=== PATIENT | female | born 1925 | race Caucasian/White ===

== ENCOUNTER 2016-11-06 15:45 | Inpatient (IN) | payer MEDICARE ==
[~2016-11-06] VITALS: Ht 165.1 cm; Wt 65.8 kg
[~2016-11-06 15:45] MED LIST: ACET500T68 PO; ALLO300T PO; AMIN500T4 PO; CA C1TAB28 PO; CALC0.25 PO; CHOL2000 PO; CHOL20002 PO; COCO1000 PO; CYAN10005 PO; CYAN1TAB28 PO; DILT240C66 PO; ESTR0.62 PO; ESTR1TAB15 PO; FERR47.57 PO; FEXO180T PO; FISH OIL OMEGA1 EACH PO; FISH400C4 PO; FURO-68 PO; FURO-69 PO; GABA-585 PO; GLUC1TAB71 PO; HYDR12.58 PO; IRON50VI2 IV; KRIL1CAP10 PO; LEVO100V PO; LOSA1TAB16 PO; LOSA25TA4 PO; MAGN500C PO; METO5TAB4 PO; OMEP40CA5 PO; OSTEO BI-FLEX1 EAC1 PO; POTA20TA12 PO; RABE20TA26 PO; RESV250C2 PO; SELE200T10 PO; TRAM50TA PO; TRAN650T3 PO; UBID100C PO; VITA1CAP PO; VITA80003 PO; amicar; focus factor PO; omega xl PO
[2016-11-06] MEDS ORDERED: IV NORMAL SALINE 1000ML BAG 1,000 ML IV SCH (16:06)
[2016-11-06] MEDS ORDERED: PANTOPRAZOLE IV PUSH 40 MG VIAL. IVP ONE (16:15)
[2016-11-06] MEDS ORDERED: ONDANSETRON PF 4 MG/2 ML VIAL. IV ONE (16:15)
--- NOTE | 2016-11-06 16:23 | PHYS DOC ---
Past Medical History Past Medical History: Anemia, CHF, GI Bleed, Hypertension, Other Additional Past Medical Histor: Von Willebrand disease Past Surgical History: Appendectomy, Hysterectomy Additional Past Surgical Histo: colon resection Alcohol Use: None Drug Use: None Adult General Chief Complaint Chief Complaint: BLOODY STOOL HPI HPI Patient is a 89 year old female who presents with complaint of dark stools. The patient was sent to the emergency department from her induction machine setter Dr. Rodriguez' s office due to low hemoglobin and persistent melena. Patient has history of von Willebrand factor deficiency and has been receiving treatment at his office. Patient states that she started having dark stools 5 days ago. Patient received outpatient transfusions. After transfusion however, the patient's hemoglobin only increased from 6.4 to 6.8. Patient states that she is having worsening shortness of breath and mild lightheadedness associated with her symptoms. Patient denies any pain currently. She does admit to worsening generalized weakness. Review of Systems Review of Systems Constitutional: Generalized weakness, denies fever or chills [] Eyes: Denies change in visual acuity, redness, or eye pain [] HENT: Denies nasal congestion or sore throat [] Respiratory: Shortness of breath, dyspnea on exertion [] Cardiovascular: Denies chest pain or edema [] GI: Black stools, denies abdominal pain, nausea, vomiting, or diarrhea [] : Denies dysuria or hematuria [] Musculoskeletal: Denies back pain or joint pain [] Integument: Denies rash or skin lesions [] Neurologic: Denies headache, focal weakness or sensory changes [] Current Medications Current Medications Current Medications Medications (Trade) Dose Ordered Sig/Tim Start Time Stop Time Status Last Admin Dose Admin Ondansetron HCl (Zofran) 4 mg 1X ONCE 11/06/16 16:15 11/06/16 16:20 DC 11/06/16 16:24 4 MG Pantoprazole Sodium (Protonix Vial) 40 mg 1X ONCE 11/06/16 16:15 11/06/16 16:20 DC 11/06/16 16:24 40 MG Sodium Chloride (Iv Sodium Chloride 0.9% 1000ml Bag) 1,000 ml @ 100 mls/hr Q10H 11/06/16 16:06 11/07/16 02:05 11/06/16 16:25 100 MLS/HR Allergies Allergies Allergies Coded Allergies Type Severity Reaction Last Updated Verified Iodinated Contrast Media - Oral and Allergy Severe 11/06/16 Yes Penicillins Allergy Severe Shortness of Air 11/06/16 Yes Sulfa (Sulfonamide Antibiotics) Allergy Intermediate 11/06/16 Yes aspirin Adverse Reaction Intermediate 11/06/16 Yes codeine Adverse Reaction Intermediate Anxiety 11/06/16 Yes Physical Exam Physical Exam Constitutional: Alert, afebrile, no acute distress while at rest. [] HENT: Normocephalic, atraumatic, bilateral external ears normal, pale mucous membranes, no oral exudates, nose normal. [] Eyes: PERRLA, EOMI, conjunctival pallor present, no discharge. [] Neck: Normal range of motion, no tenderness, supple, no stridor. [] Cardiovascular:Heart rate regular rhythm, no murmur [] Lungs & Thorax: Bilateral breath sounds clear to auscultation [] Abdomen: Bowel sounds normal, soft, no tenderness, no masses, no pulsatile masses. [] Skin: Warm, dry, no erythema, no rash. [] Back: No tenderness, no CVA tenderness. [] Extremities: No tenderness, no cyanosis, no clubbing, ROM intact, no edema. [] Neurologic: Alert and oriented X 3, normal motor function, normal sensory function, no focal deficits noted. [] Current Patient Data Vital Signs Vital Signs Date Time Temp Pulse Resp B/P Pulse Ox O2 Delivery O2 Flow Rate FiO2 11/06/16 15:49 97.7 72 18 120/31 97 Room Air 97.7 Lab Values Laboratory Tests Test 11/06/16 16:15 White Blood Count 7.7x10^3/uL (4.0-11.0) Red Blood Count 2.18x10^6/uL (3.50-5.40) L Hemoglobin 6.8g/dL (12.0-15.5) *L Hematocrit 20.6% (36.0-47.0) *L Mean Corpuscular Volume 94fL (79-100) Mean Corpuscular Hemoglobin 31pg (25-35) Mean Corpuscular Hemoglobin Concent 33g/dL (31-37) Red Cell Distribution Width 16.9% (11.5-14.5) H Platelet Count 171x10^3/uL (140-400) Neutrophils (%) (Auto) 76% (31-73) H Lymphocytes (%) (Auto) 16% (24-48) L Monocytes (%) (Auto) 7% (0-9) Eosinophils (%) (Auto) 1% (0-3) Basophils (%) (Auto) 1% (0-3) Neutrophils # (Auto) 5.8x10^3uL (1.8-7.7) Lymphocytes # (Auto) 1.2x10^3/uL (1.0-4.8) Monocytes # (Auto) 0.5x10^3/uL (0.0-1.1) Eosinophils # (Auto) 0.0x10^3/uL (0.0-0.7) Basophils # (Auto) 0.1x10^3/uL (0.0-0.2) Prothrombin Time 13.4SEC (11.7-14.0) Prothrombin Time INR 1.1 (0.8-1.1) PTT 28SEC (24-38) Sodium Level 144mmol/L (136-145) Potassium Level 3.9mmol/L (3.5-5.1) Chloride Level 105mmol/L (98-107) Carbon Dioxide Level 32mmol/L (21-32) Anion Gap 7 (6-14) Blood Urea Nitrogen 56mg/dL (7-20) H Creatinine 1.3mg/dL (0.6-1.0) H Estimated GFR (Cockcroft-Gault) 38.7 BUN/Creatinine Ratio 43 (6-20) H Glucose Level 108mg/dL (70-99) H Calcium Level 9.9mg/dL (8.5-10.1) Total Bilirubin 0.3mg/dL (0.2-1.0) Aspartate Amino Transferase (AST) 24U/L (15-37) Alanine Aminotransferase (ALT) 22U/L (14-59) Alkaline Phosphatase 70U/L (46-116) Total Protein 6.5g/dL (6.4-8.2) Albumin 3.1g/dL (3.4-5.0) L Albumin/Globulin Ratio 0.9 (1.0-1.7) L Lipase 210U/L (73-393) Laboratory Tests 11/06/16 16:15 Laboratory Tests 11/06/16 16:15 EKG EKG Interpreted by me: Heart rate 64, sinus rhythm, right bundle branch block, no acute ST/T-wave abnormalities present [] Radiology/Procedures Radiology/Procedures Not performed [] Course & Med Decision Making Course & Med Decision Making Pertinent Labs and Imaging studies reviewed. (See chart for details) Patient was typed and screened for 2 units packed red blood cells. Patient was also given IV Protonix 40 mg bolus with IV Protonix drip given after. I spoke with Dr. Stallings of gastroenterology who is familiar with patient and stated he would follow patient in hospital. The patient was admitted to Dr. Ruiz. Kelsea Disclaimer Kelsea Disclaimer This electronic medical record was generated, in whole or in part, using a voice recognition dictation system. Departure Departure Impression: Primary Impression: Acute GI bleeding Additional Impressions: Symptomatic anemia Deficiency of von Willebrand factor Disposition: ADMITTED INPATIENT Admitting Physician: Ajith Ruiz Condition: GUARDED Referrals: AJITH RUIZ MD (PCP) Problem Qualifiers JAIME NEVAREZ MD Nov 06, 2016 16:23
[2016-11-06 16:28] LABS: BASO # 0.1 x10^3/uL (0.0-0.2); BASO % 1 % (0-3); EOS % 1 % (0-3); LYMPH # 1.2 x10^3/uL (1.0-4.8); LYMPH % 16 % (24-48); MEAN CORPUSCULAR HEMOGLOBIN 31 pg (25-35); MEAN CORPUSCULAR HGB CONC 33 g/dL (31-37); MEAN CORPUSCULAR VOLUME 94 fL (79-100); MONO % 7 % (0-9); NEUT % 76 % (31-73); PLATELET COUNT 171 x10^3/uL (140-400); RED BLOOD COUNT 2.18 x10^6/uL (3.50-5.40); RED CELL DISTRIBUTION WIDTH 16.9 % (11.5-14.5); WHITE BLOOD COUNT 7.7 x10^3/uL (4.0-11.0)
[2016-11-06 16:31] LABS: HEMATOCRIT 20.6 % (36.0-47.0); HEMOGLOBIN 6.8 g/dL (12.0-15.5)
[2016-11-06 16:33] LABS: CALCIUM 9.9 mg/dL (8.5-10.1); CREATININE 1.3 mg/dL (0.6-1.0); GFR 38.7; POTASSIUM 3.9 mmol/L (3.5-5.1)
[2016-11-06 16:35] LABS: INR 1.1 (0.8-1.1); PROTHROMBIN TIME PATIENT 13.4 SEC (11.7-14.0)
[2016-11-06 16:39] LABS: ALBUMIN 3.1 g/dL (3.4-5.0); ALBUMIN/GLOBULIN RATIO 0.9 (1.0-1.7); TOTAL BILIRUBIN 0.3 mg/dL (0.2-1.0); TOTAL PROTEIN 6.5 g/dL (6.4-8.2)
[2016-11-06] MEDS: IV NORMAL SALINE 1000ML BAG 1,000 ML IV SCH (16:50)
[2016-11-06] MEDS ORDERED: PANTOPRAZOLE SODIUM IV 80 MG in IV NORMAL SALINE 100ML 100 ML IV ONE (17:00)
[2016-11-06] MEDS ORDERED: ONDANSETRON PF 4 MG/2 ML VIAL. IV PRN (17:00)
--- NOTE | 2016-11-06 17:34 | ACF ---
Admission Forms Criteria GASTROINTESTINAL BLEEDING Clinical Indications for Inpatient Care (Place 'X' for any and all applicable criteria): Ongoing inpatient care may be indicated for gastrointestinal bleeding with ANY ONE of the following (4)(20)(21)(22)(23)(24): [ ]I. Active bleeding (eg, fresh voluminous blood in emesis or nasogastric aspirate, or per rectum) [ ]II. Hemodynamic instability [ ]III. Anticoagulation therapy or coagulopathy ((eg, advanced liver disease, irreversible anticoagulation) [ ]IV. Ischemic colitis (22) [ ]V. Endoscopy showing arterial bleeding, adherent clot, nonbleeding visible vessel, varices, flat red spots, ulcer size greater than 2 cm, or portal hypertensive gastropathy [ ]. High-risk low platelet count [X]VII. Anemia requiring inpatient care as indicated by ANY ONE of the following a)[ ] Cognitive impairment b)[ ] Syncope c)[ ] Heart failure d)[ ] Chest pain e)[X] Dyspnea f)[ ] Other findings suggesting inadequate perfusion (eg, peripheral or myocardial ischemia, end organ dysfunction) [ ]VIII. High-risk low platelet count [ ]IX. Suspected variceal cause of bleeding as indicated by ANY ONE of the following(27)(28): a)[ ] Known varices b)[ ] Hepatomegaly or splenomegaly c)[ ] Ascites d)[ ] Jaundice or scleral icterus e)[ ] History of liver disease (eg, cirrhosis) f)[ ] Physical findings of portal hypertension (eg, caput medusa) g)[ ] Comorbid disorder indicating risk for portal vein thrombosis (eg , abdominal surgery, sepsis, shock, exchange transfusion, prior umbilical vein catheterization) Extended stay may be needed until ALL of the following are present(20)(38)(47): [ ]a) Hemodynamic stability [ ]b) No evidence of active bleeding (eg, stable Hematocrit) [ ]c) Platelet count, prothrombin time, and partial thromboplastin time acceptable for next level of care [ ]d) Surgical or other acute intervention not needed [ ]e) Oral hydration and diet tolerated The original [facility] content created by Scott Anna has been revised. The portions of the content which have been revised are identified through the use of italic text or in bold, and Scott Anna has neither reviewed nor approved the modified material. All other unmodified content is copyright [facility]. Please see references footnoted in the original [facility] edition 2016 Admission Criteria Met?: Yes LARISSA COLEMAN Nov 06, 2016 17:34
[2016-11-06 17:56] LABS: BILIRUBIN,URINE NEGATIVE (NEG); GLUCOSE,URINE NEGATIVE (NEG); NITRITE,URINE NEGATIVE (NEG); PROTEIN,URINE NEGATIVE (NEG-TRACE); UROBILINOGEN,URINE 0.2 mg/dL (0.2 mg/dL)
[2016-11-06 18:13] LABS: BACTERIA,URINE FEW /HPF (0-FEW); RBC,URINE RARE /HPF (0-2); SQUAMOUS EPITHELIAL CELL,UR FEW /LPF
[2016-11-06 19:00] VITALS: BP 105/41
[2016-11-06 21:48] VITALS: BP 99/38
[2016-11-06 22:05] VITALS: BP 100/46
[2016-11-06 23:00] VITALS: BP 104/53
[2016-11-07] VITALS (11 sets, daily range): BP systolic 105–130; BP diastolic 31–69
[2016-11-07 04:58] LABS: BASO % 1 % (0-3); EOS % 1 % (0-3); HEMATOCRIT 23.5 % (36.0-47.0); HEMOGLOBIN 7.9 g/dL (12.0-15.5); LYMPH # 1.1 x10^3/uL (1.0-4.8); LYMPH % 18 % (24-48); MEAN CORPUSCULAR HEMOGLOBIN 31 pg (25-35); MEAN CORPUSCULAR HGB CONC 33 g/dL (31-37); MEAN CORPUSCULAR VOLUME 92 fL (79-100); MONO % 9 % (0-9); NEUT % 71 % (31-73); PLATELET COUNT 122 x10^3/uL (140-400); RED BLOOD COUNT 2.57 x10^6/uL (3.50-5.40); RED CELL DISTRIBUTION WIDTH 15.7 % (11.5-14.5); WHITE BLOOD COUNT 5.8 x10^3/uL (4.0-11.0)
[2016-11-07 05:33] LABS: CALCIUM 9.4 mg/dL (8.5-10.1); CREATININE 1.2 mg/dL (0.6-1.0); GFR 42.4
[2016-11-07] MEDS ORDERED: ONDANSETRON PF 4 MG/2 ML VIAL. IV PRN (05:39)
--- NOTE | 2016-11-07 06:59 | EKG ---
[facility] [address] [place] [address] Test Date: 2016-11-06 Test Time: 16:28:53 Pat Name: TALI LUNA Department: Room: [facility] Gender: F Wax Room Supervisor: : [id number] Requested By: JAIME NEVAREZ Order Number: [id number] Reading MD: Erin Mandel Measurements Intervals Hardy Rate: 64 P: CO: QRS: 64 QRSD: 128 T: 7 QT: 438 QTc: 456 Interpretive Statements ATRIAL FIBRILLATION. NON SPECIFIC INTRAVENTRICULAR BLOCK ABNORMAL ECG Electronically Signed On 11-07-2016 21:54:41 CDT by Erin Mandel
[2016-11-07] MEDS ORDERED: PANTOPRAZOLE 40 MG TABLET. PO SCH (07:30)
[2016-11-07] MEDS ORDERED: CYANOCOBALAMIN (VITAMIN B-12) 1,000 MCG TABLET. ONE (07:51)
--- NOTE | 2016-11-07 08:22 | PDOC ---
Provider Note Provider Note [id number] AJITH RUIZ MD Nov 07, 2016 08:22
--- NOTE | 2016-11-07 08:50 | HP ---
ADMIT DATE: 11/06/2016 CHIEF COMPLAINT: GI bleeding. HISTORY OF PRESENT ILLNESS: An 89-year-old white female with known Von Willebrand disease and recurrent anemia from GI bleeding, came in with melena and hemoglobin around 6. She was admitted Dr. Rodriguez's office and was given transfusions and GI consultations have been obtained. She is sleeping at present. PAST MEDICAL HISTORY: She takes pantoprazole, omeprazole for GI prophylaxis. ALLERGIES: She is allergic to ASPIRIN, SULFA AND PENICILLINS. MEDICATIONS: Multiple meds listed per the chart. She gets periodic treatment with DDAVP. SOCIAL HISTORY: , nonsmoker, nondrinker. FAMILY HISTORY: Unremarkable. REVIEW OF SYSTEMS: Negative. OBJECTIVE: ENT: Mild pallor, otherwise all within normal limits. NECK: No nodes, masses or thyroid enlargement. LUNGS: Clear. CARDIOVASCULAR: Regular rate. Grade 2 systolic flow murmur noted. No irregular beat. ABDOMEN: Benign, soft and nontender. EXTREMITIES: Good pedal and radial pulses. No joint or skin lesions. Nail beds are pale. NEUROLOGIC: Physiologic and nonfocal. ASSESSMENT: Recurrent anemia secondary to occult gastrointestinal bleeding complicated by Von Willebrand disease. PLAN: As ordered. AJITH RUIZ MD DR: ANA MARIA/adi JOB#: [id number] / [id number]
[2016-11-07] MEDS ORDERED: NON FORMULARY ITEM (Coconut Oil 1,000 MG) PO SCH (09:00)
[2016-11-07] MEDS ORDERED: [UNRECOGNIZED DRUG - OTHER] PO SCH (09:00)
[2016-11-07] MEDS ORDERED: FUROSEMIDE 40 MG TABLET. PO SCH (09:00)
[2016-11-07] MEDS ORDERED: ACETAMINOPHEN 500 MG TABLET PO PRN (09:00)
[2016-11-07] MEDS ORDERED: TRANEXAMIC ACID 650 MG PO SCH (09:00)
[2016-11-07] MEDS ORDERED: SELENOMETHIONINE 200 MCG PO SCH (09:00)
[2016-11-07] MEDS: LEVOTHYROXINE 100 MCG TABLET PO SCH (09:30)
[2016-11-07] MEDS: MAGNESIUM OXIDE 400 MG TABLET PO SCH (09:32)
[2016-11-07] MEDS: CALCITRIOL 0.25 MCG CAPSULE. PO SCH (09:32)
[2016-11-07] MEDS: IV NORMAL SALINE 1000ML BAG 1,000 ML IV SCH ×2 (09:32→20:52)
[2016-11-07] MEDS: CETIRIZINE HCL 10 MG TABLET. PO SCH (09:32)
[2016-11-07] MEDS: POTASSIUM CHLORIDE 20 MEQ TABLET.ER. PO SCH (09:33)
[2016-11-07] MEDS: CYANOCOBALAMIN (VITAMIN B-12) 1,000 MCG TABLET. PO SCH (09:33)
[2016-11-07] MEDS: GABAPENTIN 100 MG CAPSULE. PO SCH ×2 (09:33→20:55)
[2016-11-07] MEDS: ALLOPURINOL 300 MG TABLET. PO SCH (09:34)
[2016-11-07] MEDS: AMINOCAPROIC ACID 500 MG TABLET. PO SCH ×3 (09:34→19:05)
--- NOTE | 2016-11-07 10:37 | PDOC2 ---
GI CONSULT Reason For Consult: GI Bleed HPI: HPI: 89 y/o female admitted w/ melena, anemia. Has been transfused. PMH significant for anemia, von Willebrand's disease on Humate, previously also Amicar, also intermittent iron infusions. Reports dark stools in Fe after taking Fosamax, then gastroenteritis symptoms (abd pain, diarrhea - brown liquid ), and then recurrence of dark tarry stools within the past week. Has been dizzy. On PPI. GI bleed scan in process, being taken back down to [facility]. No stools since admission, last yesterday afternoon. EGD 11/2015: normal esophagus, gastritis, normal duodenum. Colonoscopy 11/2015: 5x8mm cecal tubular adenoma, sigmoid diverticulosis, internal hemorrhoids. She reports normal SBCE as well. PMH: PMH: von Willebrand's disease, cholelithiasis, hypothyroidism, OA, HTN, gout, SLE, anal fissure, ?hepatitis, Raynaud's, GERD, adenomatous colon polyp, hysterectomy , appendectomy, colon resection FH: Family History: Other (bleeding disorder, ulcerative colitis) Social History: Smoke: No ALCOHOL: none Drugs: None ROS: GEN: Denies fevers, chills, sweats HEENT: Denies blurred vision, sore throat CV: Denies chest pain RESP: Denies shortness of air, cough GI: Per HPI : Denies hematuria, dysuria ENDO: Denies weight changes NEURO: +dizziness MSK: Denies weakness, joint pain/swelling SKIN: Denies jaundice, pruritus VItals: Vitals: Vital Signs Date Time Temp Pulse Resp B/P Pulse Ox O2 Delivery O2 Flow Rate FiO2 11/07/16 07:27 97.9 63 18 105/38 95 Room Air 97.9 Labs: Labs: Laboratory Tests Test 11/06/16 16:15 11/06/16 17:30 11/07/16 04:30 White Blood Count 7.7x10^3/uL (4.0-11.0) 5.8x10^3/uL (4.0-11.0) Red Blood Count 2.18x10^6/uL (3.50-5.40) 2.57x10^6/uL (3.50-5.40) Hemoglobin 6.8g/dL (12.0-15.5) 7.9g/dL (12.0-15.5) Hematocrit 20.6% (36.0-47.0) 23.5% (36.0-47.0) Mean Corpuscular Volume 94fL (79-100) 92fL (79-100) Mean Corpuscular Hemoglobin 31pg (25-35) 31pg (25-35) Mean Corpuscular Hemoglobin Concent 33g/dL (31-37) 33g/dL (31-37) Red Cell Distribution Width 16.9% (11.5-14.5) 15.7% (11.5-14.5) Platelet Count 171x10^3/uL (140-400) 122x10^3/uL (140-400) Neutrophils (%) (Auto) 76% (31-73) 71% (31-73) Lymphocytes (%) (Auto) 16% (24-48) 18% (24-48) Monocytes (%) (Auto) 7% (0-9) 9% (0-9) Eosinophils (%) (Auto) 1% (0-3) 1% (0-3) Basophils (%) (Auto) 1% (0-3) 1% (0-3) Neutrophils # (Auto) 5.8x10^3uL (1.8-7.7) 4.1x10^3uL (1.8-7.7) Lymphocytes # (Auto) 1.2x10^3/uL (1.0-4.8) 1.1x10^3/uL (1.0-4.8) Monocytes # (Auto) 0.5x10^3/uL (0.0-1.1) 0.5x10^3/uL (0.0-1.1) Eosinophils # (Auto) 0.0x10^3/uL (0.0-0.7) 0.1x10^3/uL (0.0-0.7) Basophils # (Auto) 0.1x10^3/uL (0.0-0.2) 0.0x10^3/uL (0.0-0.2) Prothrombin Time 13.4SEC (11.7-14.0) Prothromb Time International Ratio 1.1 (0.8-1.1) Activated Partial Thromboplast Time 28SEC (24-38) Sodium Level 144mmol/L (136-145) 145mmol/L (136-145) Potassium Level 3.9mmol/L (3.5-5.1) 4.0mmol/L (3.5-5.1) Chloride Level 105mmol/L (98-107) 108mmol/L (98-107) Carbon Dioxide Level 32mmol/L (21-32) 30mmol/L (21-32) Anion Gap 7 (6-14) 7 (6-14) Blood Urea Nitrogen 56mg/dL (7-20) 58mg/dL (7-20) Creatinine 1.3mg/dL (0.6-1.0) 1.2mg/dL (0.6-1.0) Estimated GFR (Cockcroft-Gault) 38.7 42.4 BUN/Creatinine Ratio 43 (6-20) Glucose Level 108mg/dL (70-99) 116mg/dL (70-99) Calcium Level 9.9mg/dL (8.5-10.1) 9.4mg/dL (8.5-10.1) Total Bilirubin 0.3mg/dL (0.2-1.0) Aspartate Amino Transf (AST/SGOT) 24U/L (15-37) Alanine Aminotransferase (ALT/SGPT) 22U/L (14-59) Alkaline Phosphatase 70U/L (46-116) Total Protein 6.5g/dL (6.4-8.2) Albumin 3.1g/dL (3.4-5.0) Albumin/Globulin Ratio 0.9 (1.0-1.7) Lipase 210U/L (73-393) Urine Collection Type Unknown Urine Color Yellow Urine Clarity Cloudy Urine pH 5.0 Urine Specific [place] 1.015 Urine Protein Negativemg/dL (NEG-TRACE) Urine Glucose (UA) Negativemg/dL (NEG) Urine Ketones (Stick) Negativemg/dL (NEG) Urine Blood Small (NEG) Urine Nitrite Negative (NEG) Urine Bilirubin Negative (NEG) Urine Urobilinogen Dipstick 0.2mg/dL (0.2 mg/dL) Urine Leukocyte Esterase Moderate (NEG) Urine RBC Rare/HPF (0-2) Urine WBC 1-4/HPF (0-4) Urine Squamous Epithelial Cells Few/LPF Urine Bacteria Few/HPF (0-FEW) Urine Mucus Mod/LPF Allergies: Coded Allergies: Iodinated Contrast Media - Oral and (Verified Allergy, Severe, 11/06/16) Penicillins (Verified Allergy, Severe, Shortness of Air, 11/06/16) Sulfa (Sulfonamide Antibiotics) (Verified Allergy, Intermediate, 11/06/16) aspirin (Verified Adverse Reaction, Intermediate, 11/06/16) mcdonnell bleeding disorder and does not use aspirin codeine (Verified Adverse Reaction, Intermediate, Anxiety, 11/06/16) Medications: Current Medications Medications (Trade) Dose Ordered Sig/Tim Route PRN Reason Start Time Stop Time Status Last Admin Dose Admin Sodium Chloride (Iv Sodium Chloride 0.9% 1000ml Bag) 1,000 ml @ 100 mls/hr Q10H IV 11/06/16 16:06 11/07/16 02:05 DC 11/06/16 16:25 Ondansetron HCl (Zofran) 4 mg 1X ONCE IV 11/06/16 16:15 11/06/16 16:20 DC 11/06/16 16:24 Pantoprazole Sodium 40 mg 40 mg 1X ONCE IVP 11/06/16 16:15 11/06/16 16:20 DC 11/06/16 16:24 Sodium Chloride 1,000 ml @ 100 mls/hr Q10H IV 11/06/16 16:50 11/07/16 16:49 11/07/16 09:32 Pantoprazole Sodium/Sodium Chloride (Protonix Iv/Iv Sodium Chloride 0.9% 100ml) 100 ml @ 10 mls/hr 1X ONCE IV 11/06/16 17:00 11/07/16 02:59 DC 11/06/16 17:21 Allopurinol (Zyloprim) 300 mg DAILY PO 11/07/16 09:00 11/07/16 09:34 Calcitriol (Rocaltrol) 0.25 mcg DAILY PO 11/07/16 09:00 11/07/16 09:32 Cyanocobalamin (Vitamin B-12) 1,000 mcg DAILY PO 11/07/16 09:00 11/07/16 09:33 Gabapentin (Neurontin) 200 mg BID PO 11/07/16 09:00 11/07/16 09:33 Potassium Chloride (Klor-Con) 20 meq DAILY PO 11/07/16 09:00 11/07/16 09:33 Cetirizine HCl (Zyrtec) 10 mg DAILY PO 11/07/16 09:00 11/07/16 09:32 Magnesium Oxide (Magnesium Oxide) 400 mg DAILY PO 11/07/16 09:00 11/07/16 09:32 Pantoprazole Sodium (Protonix) 40 mg DAILYAC PO 11/07/16 07:30 11/07/16 09:30 Levothyroxine Sodium (Synthroid) 100 mcg DAILY07 PO 11/07/16 07:00 11/07/16 09:30 Aminocaproic Acid (Amicar) 500 mg Q6HRS PO 11/07/16 09:00 11/07/16 09:34 Imaging: Imaging: GI Bleed Scan REPORT PENDING PE: GEN: NAD HEENT: Atraumatic, PERRL LUNGS: CTAB HEART: RRR +murm ABD: NABS, S/ND/NT EXTREMITY: No edema SKIN: No rashes, no jaundice NEURO/PSYCH: A & O 3 A/P: A/P: Anemia, melena, von Willebrand's disease -EGD and colonoscopy unrevealing 2015, also reports normal SBCE -- GI bleed scan in process. ERENDIRA DORSEY Nov 07, 2016 10:37
[2016-11-07] MEDS ORDERED: TOTAL VOLUME IV ONE (11:45)
[2016-11-07] MEDS ORDERED: ANTIHEMOPHILIC FACTOR IV ONE (11:45)
[2016-11-07] MEDS ORDERED: VWF IV ONE (11:45)
--- NOTE | 2016-11-07 12:56 | RAD ---
Radionuclide GI bleeding scan, 11/07/2016: History: Bloody stools The study was performed utilizing 30 mCi of technetium 99m and a labeled red blood cell technique. During the first hour of imaging there is abnormal accumulation of activity in the left upper quadrant of the abdomen. Over time this progresses inferiorly and medially into the pelvis. Delayed images demonstrate increasing accumulation of activity in the pelvis. This activity is probably in the rectosigmoid colon suggesting that the bleeding originated in the distal splenic flexure region of the colon. No extension of activity into the right colon is seen to suggest that this bleeding originated in the small bowel. IMPRESSION: Active GI tract bleeding originating in the left upper quadrant, probably probably in the distal splenic flexure region. Note: The findings were called to the patient's nurse on the floor at 12:50 PM on 11/07/2016.
[2016-11-07] MEDS ORDERED: LIDOCAINE 1% / SOD BICARB 8.4% 20 ML VIAL. IJ ONE (13:40)
[2016-11-07] MEDS ORDERED: IOHEXOL 300 MG/ML 100ML VIAL. ONE (13:40)
[2016-11-07] MEDS ORDERED: IOHEXOL 300 MG/ML 50 ML VIAL. ONE (13:40)
[2016-11-07] MEDS ORDERED: HEPARIN for ARTERIAL LINE 0 ML ONE (13:40)
--- NOTE | 2016-11-07 14:03 | PDOC2 ---
CONSULT Date of Consult Date of Consult DATE: 11/07/16 TIME: 13:48 Past Medical History Cardiovascular: Other CENTRAL NERVOUS SYSTEM: Carpal Tunnel Syndrome GI: GERD Heme/Onc: Iron deficiency Anemia, Other Hepatobiliary: Cholelithiasis Rheumatologic: Other Renal/: Urinary Incontinence Endocrine: Hypothyroidism Past Surgical History Past Surgical History: Appendectomy, Hysterectomy, Colon Resection Social History No ALCOHOL: none Drugs: None Current Problem List Problem List Problems Medical Problems: (1) Acute GI bleeding Status: Acute (2) Deficiency of von Willebrand factor Status: Acute (3) Symptomatic anemia Status: Acute Current Medications Current Medications Current Medications Sodium Chloride (Iv Sodium Chloride 0.9% 1000ml Bag) 1,000 ml @ 100 mls/hr Q10H IV Last administered on 11/06/16 16:25; Start 11/06/16 at 16:06; Stop at 02:05; Status DC Ondansetron HCl (Zofran) 4 mg 1X ONCE IV Last administered on 11/06/16 16:24 ; Start 11/06/16 at 16:15; Stop 11/06/16 at 16:20; Status DC Pantoprazole Sodium (Protonix Vial) 40 mg 1X ONCE IVP Last administered on 16:24; Start 11/06/16 at 16:15; Stop 11/06/16 at 16:20; Status DC Ondansetron HCl 4 mg 4 mg PRN Q8HRS PRN IV NAUSEA/VOMITING; Start 11/06/16 at 17:00; Stop 11/07/16 at 05:39; Status DC Sodium Chloride 1,000 ml @ 100 mls/hr Q10H IV Last administered on 11/07/16 09:32; Start 11/06/16 at 16:50; Stop 11/07/16 at 16:49 Pantoprazole Sodium/Sodium Chloride (Protonix Iv/Iv Sodium Chloride 0.9% 100ml) 100 ml @ 10 mls/hr 1X ONCE IV Last administered on 11/06/16 17:21; Start at 17:00; Stop 11/07/16 at 02:59; Status DC Acetaminophen (Tylenol) 500 mg PRN DAILY PRN PO MILD PAIN; Start 11/07/16 at 09 :00 Allopurinol (Zyloprim) 300 mg DAILY PO Last administered on 11/07/16 09:34; Start 11/07/16 at 09:00 Calcitriol (Rocaltrol) 0.25 mcg DAILY PO Last administered on 11/07/16 09:32; Start 11/07/16 at 09:00 Cyanocobalamin (Vitamin B-12) 1,000 mcg DAILY PO Last administered on 09:33; Start 11/07/16 at 09:00 Furosemide (Lasix) 40 mg DAILY PO ; Start 11/07/16 at 09:00; Stop 11/07/16 at 09 :00; Status DC Gabapentin (Neurontin) 200 mg BID PO Last administered on 11/07/16 09:33; Start 11/07/16 at 09:00 Potassium Chloride (Klor-Con) 20 meq DAILY PO Last administered on 11/07/16 09 :33; Start 11/07/16 at 09:00 Tramadol HCl (Ultram) 50 mg PRN QID PRN PO MODERATE PAIN; Start 11/07/16 at 09: 00 Non-Formulary Medication 1,000 mg DAILY PO ; Start 11/07/16 at 09:00; Status UNV Cetirizine HCl (Zyrtec) 10 mg DAILY PO Last administered on 11/07/16 09:32; Start 11/07/16 at 09:00 Non-Formulary Medication 1 each DAILY PO ; Start 11/07/16 at 09:00; Status UNV Magnesium Oxide (Magnesium Oxide) 400 mg DAILY PO Last administered on 09:32; Start 11/07/16 at 09:00 Pantoprazole Sodium (Protonix) 40 mg DAILYAC PO Last administered on 11/07/16 09:30; Start 11/07/16 at 07:30 Non-Formulary Medication 200 mcg DAILY PO ; Start 11/07/16 at 09:00; Status UNV Non-Formulary Medication 650 mg BID PO ; Start 11/07/16 at 09:00; Stop 11/07/16 at 09:44; Status DC Levothyroxine Sodium (Synthroid) 100 mcg DAILY07 PO Last administered on 09:30; Start 11/07/16 at 07:00 Ondansetron HCl (Zofran) 4 mg PRN Q8HRS PRN IV NAUSEA/VOMITING; Start 11/07/16 at 05:39; Stop 11/07/16 at 16:59 Cyanocobalamin (Vitamin B-12) 1,000 mcg STK-MED ONCE .ROUTE ; Start 11/07/16 at 07:51; Stop 11/07/16 at 07:52; Status DC Aminocaproic Acid 500 mg 500 mg Q6HRS PO Last administered on 11/07/16t 12:44; Start 11/07/16 at 09:00 Antihemophilic Factor/ Miscellaneous (Humate-P Vwf:Rco) 30 ml @ 180 mls/hr 1X ONCE IV Last administered on 11/07/16t 12:43; Start 11/07/16 at 11:45; Stop at 11:54; Status DC Iohexol (Omnipaque 300 Mg/ml) 50 ml STK-MED ONCE .ROUTE ; Start 11/07/16 at 13: 40; Stop 11/07/16 at 13:41; Status DC Iohexol (Omnipaque 300 Mg/ml) 100 ml STK-MED ONCE .ROUTE ; Start 11/07/16 at 13: 40; Stop 11/07/16 at 13:41; Status DC Lidocaine/Sodium Bicarbonate 20 ml 20 ml STK-MED ONCE IJ ; Start 11/07/16 at 13: 40; Stop 11/07/16 at 13:41; Status DC Heparin Sodium/ Sodium Chloride 1,500 ml @ As Directed STK-MED ONCE .ROUTE ; Start 11/07/16 at 13:40; Stop 11/07/16 at 13:41; Status DC Active Scripts Active Lasix (Furosemide) 40 Mg Tablet 1 Tab PO QOD Reported Lysteda (Tranexamic Acid) 650 Mg Tablet 650 Mg PO BID Vitamin B Complex 1 Each Capsule 1 Each PO Calcitriol 0.25 Mcg Capsule 1 Cap PO DAILY Selenium (Selenomethionine) 200 Mcg Tablet 200 Mcg PO DAILY Vitamin A 8,000 Unit Capsule 8,000 Unit PO Coconut Oil 1,000 Mg Capsule 1,000 Mg PO DAILY Aminocaproic Acid 500 Mg Tablet 500 Mg PO DAILY Magnesium (Magnesium Oxide) 500 Mg Capsule 500 Mg PO DAILY Omeprazole 40 Mg Capsule.dr 40 Mg PO DAILY Potassium Chloride 20 Meq Tab.er.prt 20 Meq PO DAILY Acetaminophen 500 Mg Tablet 500 Mg PO PRN DAILY PRN Allopurinol 300 Mg Tablet 300 Mg PO DAILY Neurontin (Gabapentin) 100 Mg Capsule 200 Mg PO BID Vitamin B-12 (Cyanocobalamin (Vitamin B-12)) 1,000 Mcg Tablet 1,000 Mcg PO DAILY Osteo Bi-Flex Caplet (Gluc/Lyndon-Msm#1/C/Brandon/Alfredo/Bor) 1 Each Tablet 1 Each PO DAILY Levothyroxine Sodium Inj (Levothyroxine Sodium) 100 Mcg Vial 100 Mcg PO DAILY Nakita (Fexofenadine Hcl) 180 Mg Tablet 180 Mg PO DAILY Tramadol Hcl 50 Mg Tablet 50 Mg PO PRN QID Allergies Allergies: Coded Allergies: Iodinated Contrast Media - Oral and (Verified Allergy, Severe, 11/07/16) Penicillins (Verified Allergy, Severe, Shortness of Air, 11/07/16) Sulfa (Sulfonamide Antibiotics) (Verified Allergy, Intermediate, 11/07/16) aspirin (Verified Adverse Reaction, Intermediate, 11/07/16) mcdonnell bleeding disorder and does not use aspirin codeine (Verified Adverse Reaction, Intermediate, Anxiety, 11/07/16) Vitals VITALS Vital Signs Date Time Temp Pulse Resp B/P Pulse Ox O2 Delivery O2 Flow Rate FiO2 11/07/16 10:31 97.5 65 20 130/31 100 Room Air 97.5 Labs Labs Laboratory Tests Test 11/06/16 16:15 11/06/16 17:30 11/07/16 04:30 White Blood Count 7.7x10^3/uL (4.0-11.0) 5.8x10^3/uL (4.0-11.0) Red Blood Count 2.18x10^6/uL (3.50-5.40) 2.57x10^6/uL (3.50-5.40) Hemoglobin 6.8g/dL (12.0-15.5) 7.9g/dL (12.0-15.5) Hematocrit 20.6% (36.0-47.0) 23.5% (36.0-47.0) Mean Corpuscular Volume 94fL (79-100) 92fL (79-100) Mean Corpuscular Hemoglobin 31pg (25-35) 31pg (25-35) Mean Corpuscular Hemoglobin Concent 33g/dL (31-37) 33g/dL (31-37) Red Cell Distribution Width 16.9% (11.5-14.5) 15.7% (11.5-14.5) Platelet Count 171x10^3/uL (140-400) 122x10^3/uL (140-400) Neutrophils (%) (Auto) 76% (31-73) 71% (31-73) Lymphocytes (%) (Auto) 16% (24-48) 18% (24-48) Monocytes (%) (Auto) 7% (0-9) 9% (0-9) Eosinophils (%) (Auto) 1% (0-3) 1% (0-3) Basophils (%) (Auto) 1% (0-3) 1% (0-3) Neutrophils # (Auto) 5.8x10^3uL (1.8-7.7) 4.1x10^3uL (1.8-7.7) Lymphocytes # (Auto) 1.2x10^3/uL (1.0-4.8) 1.1x10^3/uL (1.0-4.8) Monocytes # (Auto) 0.5x10^3/uL (0.0-1.1) 0.5x10^3/uL (0.0-1.1) Eosinophils # (Auto) 0.0x10^3/uL (0.0-0.7) 0.1x10^3/uL (0.0-0.7) Basophils # (Auto) 0.1x10^3/uL (0.0-0.2) 0.0x10^3/uL (0.0-0.2) Prothrombin Time 13.4SEC (11.7-14.0) Prothromb Time International Ratio 1.1 (0.8-1.1) Activated Partial Thromboplast Time 28SEC (24-38) Sodium Level 144mmol/L (136-145) 145mmol/L (136-145) Potassium Level 3.9mmol/L (3.5-5.1) 4.0mmol/L (3.5-5.1) Chloride Level 105mmol/L (98-107) 108mmol/L (98-107) Carbon Dioxide Level 32mmol/L (21-32) 30mmol/L (21-32) Anion Gap 7 (6-14) 7 (6-14) Blood Urea Nitrogen 56mg/dL (7-20) 58mg/dL (7-20) Creatinine 1.3mg/dL (0.6-1.0) 1.2mg/dL (0.6-1.0) Estimated GFR (Cockcroft-Gault) 38.7 42.4 BUN/Creatinine Ratio 43 (6-20) Glucose Level 108mg/dL (70-99) 116mg/dL (70-99) Calcium Level 9.9mg/dL (8.5-10.1) 9.4mg/dL (8.5-10.1) Total Bilirubin 0.3mg/dL (0.2-1.0) Aspartate Amino Transf (AST/SGOT) 24U/L (15-37) Alanine Aminotransferase (ALT/SGPT) 22U/L (14-59) Alkaline Phosphatase 70U/L (46-116) Total Protein 6.5g/dL (6.4-8.2) Albumin 3.1g/dL (3.4-5.0) Albumin/Globulin Ratio 0.9 (1.0-1.7) Lipase 210U/L (73-393) Urine Collection Type Unknown Urine Color Yellow Urine Clarity Cloudy Urine pH 5.0 Urine Specific [place] 1.015 Urine Protein Negativemg/dL (NEG-TRACE) Urine Glucose (UA) Negativemg/dL (NEG) Urine Ketones (Stick) Negativemg/dL (NEG) Urine Blood Small (NEG) Urine Nitrite Negative (NEG) Urine Bilirubin Negative (NEG) Urine Urobilinogen Dipstick 0.2mg/dL (0.2 mg/dL) Urine Leukocyte Esterase Moderate (NEG) Urine RBC Rare/HPF (0-2) Urine WBC 1-4/HPF (0-4) Urine Squamous Epithelial Cells Few/LPF Urine Bacteria Few/HPF (0-FEW) Urine Mucus Mod/LPF Laboratory Tests Test 11/06/16 16:15 11/06/16 17:30 11/07/16 04:30 White Blood Count 7.7x10^3/uL (4.0-11.0) 5.8x10^3/uL (4.0-11.0) Red Blood Count 2.18x10^6/uL (3.50-5.40) 2.57x10^6/uL (3.50-5.40) Hemoglobin 6.8g/dL (12.0-15.5) 7.9g/dL (12.0-15.5) Hematocrit 20.6% (36.0-47.0) 23.5% (36.0-47.0) Mean Corpuscular Volume 94fL (79-100) 92fL (79-100) Mean Corpuscular Hemoglobin 31pg (25-35) 31pg (25-35) Mean Corpuscular Hemoglobin Concent 33g/dL (31-37) 33g/dL (31-37) Red Cell Distribution Width 16.9% (11.5-14.5) 15.7% (11.5-14.5) Platelet Count 171x10^3/uL (140-400) 122x10^3/uL (140-400) Neutrophils (%) (Auto) 76% (31-73) 71% (31-73) Lymphocytes (%) (Auto) 16% (24-48) 18% (24-48) Monocytes (%) (Auto) 7% (0-9) 9% (0-9) Eosinophils (%) (Auto) 1% (0-3) 1% (0-3) Basophils (%) (Auto) 1% (0-3) 1% (0-3) Neutrophils # (Auto) 5.8x10^3uL (1.8-7.7) 4.1x10^3uL (1.8-7.7) Lymphocytes # (Auto) 1.2x10^3/uL (1.0-4.8) 1.1x10^3/uL (1.0-4.8) Monocytes # (Auto) 0.5x10^3/uL (0.0-1.1) 0.5x10^3/uL (0.0-1.1) Eosinophils # (Auto) 0.0x10^3/uL (0.0-0.7) 0.1x10^3/uL (0.0-0.7) Basophils # (Auto) 0.1x10^3/uL (0.0-0.2) 0.0x10^3/uL (0.0-0.2) Prothrombin Time 13.4SEC (11.7-14.0) Prothromb Time International Ratio 1.1 (0.8-1.1) Activated Partial Thromboplast Time 28SEC (24-38) Sodium Level 144mmol/L (136-145) 145mmol/L (136-145) Potassium Level 3.9mmol/L (3.5-5.1) 4.0mmol/L (3.5-5.1) Chloride Level 105mmol/L (98-107) 108mmol/L (98-107) Carbon Dioxide Level 32mmol/L (21-32) 30mmol/L (21-32) Anion Gap 7 (6-14) 7 (6-14) Blood Urea Nitrogen 56mg/dL (7-20) 58mg/dL (7-20) Creatinine 1.3mg/dL (0.6-1.0) 1.2mg/dL (0.6-1.0) Estimated GFR (Cockcroft-Gault) 38.7 42.4 BUN/Creatinine Ratio 43 (6-20) Glucose Level 108mg/dL (70-99) 116mg/dL (70-99) Calcium Level 9.9mg/dL (8.5-10.1) 9.4mg/dL (8.5-10.1) Total Bilirubin 0.3mg/dL (0.2-1.0) Aspartate Amino Transf (AST/SGOT) 24U/L (15-37) Alanine Aminotransferase (ALT/SGPT) 22U/L (14-59) Alkaline Phosphatase 70U/L (46-116) Total Protein 6.5g/dL (6.4-8.2) Albumin 3.1g/dL (3.4-5.0) Albumin/Globulin Ratio 0.9 (1.0-1.7) Lipase 210U/L (73-393) Urine Collection Type Unknown Urine Color Yellow Urine Clarity Cloudy Urine pH 5.0 Urine Specific [place] 1.015 Urine Protein Negativemg/dL (NEG-TRACE) Urine Glucose (UA) Negativemg/dL (NEG) Urine Ketones (Stick) Negativemg/dL (NEG) Urine Blood Small (NEG) Urine Nitrite Negative (NEG) Urine Bilirubin Negative (NEG) Urine Urobilinogen Dipstick 0.2mg/dL (0.2 mg/dL) Urine Leukocyte Esterase Moderate (NEG) Urine RBC Rare/HPF (0-2) Urine WBC 1-4/HPF (0-4) Urine Squamous Epithelial Cells Few/LPF Urine Bacteria Few/HPF (0-FEW) Urine Mucus Mod/LPF Assessment/Plan Assessment/Plan DATE OF CONSULTATION: 11/07/2016 TYPE OF CONSULTATION: Hematology/Oncology. REQUESTED BY- Dr Mele Loyola REASON - Acute GI bleed and vWD management. HISTORY OF PRESENT ILLNESS: The patient is an 89-year-old female who was diagnosed with Von Willebrand disease type 2. She had a GI bleed in June of 2013 with ulceration of the cecum noted on colonoscopy. She received Humate-P. In November of 2013, her hemoglobin got worse. She underwent EGD and colonoscopy that did not reveal any focus of bleeding. She received Humate-P and then the hemoglobin improved. In early October of 2014, she was noted to have worsening anemia. On 10/14/2014, the hemoglobin was only 6.4 and hence, she was admitted to [facility]. She underwent nuclear medicine scan on 10/13/2014 that was negative. She received two units of PRBC transfusion. Hemoglobin improved to 8.1. She has had melena several times lately requiring IV Humate P and transfusions. She is now admitted for GI bleed, Hb 6.8 on 11/06/16. Soraya presented to clinic for continued management of her von Wllebrand's disease. She was seen on 11/04/16 and noted to have a hemoglobin of 6.4 mg/dl. She was able to get a unit of PRBC on 11/04/16 and 11/04/16 of this week. She started Humate P 11/05/16. She continues to have melena. She has also noticed bright red blood previously. She was admitted 11/06/2016 for further management. GI bleed scan 11/07/16 revealed: Active GI tract bleeding originating in the left upper quadrant, probably probably in the distal splenic flexure region. PAST MEDICAL HISTORY: Von Willebrand disease, Raynaud phenomenon, sick sinus syndrome, history of bowel obstruction with bowel resection in the past, stress incontinence, hysterectomy, colon polyps, appendectomy, and GERD. SOCIAL HISTORY: No smoking or alcohol abuse. FAMILY HISTORY: Negative for Von Willebrand disease. REVIEW OF SYSTEMS: A 14-point review of system was performed. Pertinent positives are mentioned in the history of present illness. Rest of the system review is negative. PHYSICAL EXAMINATION: GENERAL APPEARANCE: The patient is an 88-year-old female who is well-developed, well-nourished, and in no acute cardiorespiratory distress. VITAL SIGNS: reviewed. HEENT: Head: Atraumatic and normocephalic. Eyes: No icterus. NECK: Supple. CHEST: Bilaterally symmetrical. No crepitations or rhonchi heard. HEART: S1 and S2 normal. ABDOMEN: Soft and nontender. MUSCULOSKELETAL: No joint effusions. CENTRAL NERVOUS SYSTEM: No focal deficits. LYMPHATICS: No lymphadenopathy. SKIN: No rashes. PSYCHOLOGIC: Mood and affect are appropriate. LABORATORY DATA: hemoglobin 7.9. IMPRESSION AND PLAN: 1. Von Willebrand disease type 2. Unfortunately, her condition is complicated by on and off anemia due to melena requiring Humate-P. She has had prior colonoscopy and an ulceration was noted in the colon. I have discussed with Gastroenterology on multiple occasions in the past and conservative management was recommended. I will consult Dr Stallings. She will continue Humate-P and Amicar during this admission. Hemoglobin improved and it is now at 7.9. I would followup closely. I will also order daily dose of Humate P 50 u/kg. 2. Severe anemia. She has received packed red blood cells transfusion. Continue to monitor closely. 3. Iron deficiency. s/p Injectafer as outpatient. 4. GI bleed. Consulted GI. GI bleed scan 11/07/16 revealed: Active GI tract bleeding originating in the left upper quadrant, probably probably in the distal splenic flexure region. I d/w Mary. Plan arterial embolization. I d/w FREDIS MAN MD Nov 07, 2016 14:03
--- NOTE | 2016-11-07 15:07 | PDOC2 ---
CONSULT Date of Consult Date of Consult DATE: 11/07/16 TIME: 15:02 Reason for Consult Reason for Consult: Acute GI Bleed, Low diastolic pressures Referring Physician Referring Physician: Dr Loyola Identification/Chief Complaint Chief Complaint Bloody stools, Low diastolic blood pressures History of Present Illness Reason for Visit: This is a very pleasant 89 year old female very well known to my service for many years who presents with a 5 day history of dark stools. She has a history of several GI bleeds in the past, and was found to have an active GI bleed on nuclear medicine scan today. She has a history of von Willebrand disease and is being followed by Dr Rodriguez for her history of low hemoglobin. She is concerned about the low diastolic pressures as measured during this stay. She has a longstanding history of aortic insufficiency and has followed with me in the office for numerous years about this concern. Past Medical History Cardiovascular: Other CENTRAL NERVOUS SYSTEM: Carpal Tunnel Syndrome GI: GERD Heme/Onc: Iron deficiency Anemia, Other Hepatobiliary: Cholelithiasis Rheumatologic: Other Renal/: Urinary Incontinence Endocrine: Hypothyroidism Past Surgical History Past Surgical History: Appendectomy, Hysterectomy, Colon Resection Social History No ALCOHOL: none Drugs: None Current Problem List Problem List Problems Medical Problems: (1) Acute GI bleeding Status: Acute (2) Deficiency of von Willebrand factor Status: Acute (3) Symptomatic anemia Status: Acute Current Medications Current Medications Current Medications Sodium Chloride (Iv Sodium Chloride 0.9% 1000ml Bag) 1,000 ml @ 100 mls/hr Q10H IV Last administered on 11/06/16 16:25; Start 11/06/16 at 16:06; Stop at 02:05; Status DC Ondansetron HCl (Zofran) 4 mg 1X ONCE IV Last administered on 11/06/16 16:24 ; Start 11/06/16 at 16:15; Stop 11/06/16 at 16:20; Status DC Pantoprazole Sodium (Protonix Vial) 40 mg 1X ONCE IVP Last administered on 16:24; Start 11/06/16 at 16:15; Stop 11/06/16 at 16:20; Status DC Ondansetron HCl 4 mg 4 mg PRN Q8HRS PRN IV NAUSEA/VOMITING; Start 11/06/16 at 17:00; Stop 11/07/16 at 05:39; Status DC Sodium Chloride 1,000 ml @ 100 mls/hr Q10H IV Last administered on 11/07/16 09:32; Start 11/06/16 at 16:50; Stop 11/07/16 at 16:49 Pantoprazole Sodium/Sodium Chloride (Protonix Iv/Iv Sodium Chloride 0.9% 100ml) 100 ml @ 10 mls/hr 1X ONCE IV Last administered on 11/06/16 17:21; Start at 17:00; Stop 11/07/16 at 02:59; Status DC Acetaminophen (Tylenol) 500 mg PRN DAILY PRN PO MILD PAIN; Start 11/07/16 at 09 :00 Allopurinol (Zyloprim) 300 mg DAILY PO Last administered on 11/07/16 09:34; Start 11/07/16 at 09:00 Calcitriol (Rocaltrol) 0.25 mcg DAILY PO Last administered on 11/07/16 09:32; Start 11/07/16 at 09:00 Cyanocobalamin (Vitamin B-12) 1,000 mcg DAILY PO Last administered on 09:33; Start 11/07/16 at 09:00 Furosemide (Lasix) 40 mg DAILY PO ; Start 11/07/16 at 09:00; Stop 11/07/16 at 09 :00; Status DC Gabapentin (Neurontin) 200 mg BID PO Last administered on 11/07/16 09:33; Start 11/07/16 at 09:00 Potassium Chloride (Klor-Con) 20 meq DAILY PO Last administered on 11/07/16 09 :33; Start 11/07/16 at 09:00 Tramadol HCl (Ultram) 50 mg PRN QID PRN PO MODERATE PAIN; Start 11/07/16 at 09: 00 Non-Formulary Medication 1,000 mg DAILY PO ; Start 11/07/16 at 09:00; Status UNV Cetirizine HCl (Zyrtec) 10 mg DAILY PO Last administered on 11/07/16 09:32; Start 11/07/16 at 09:00 Non-Formulary Medication 1 each DAILY PO ; Start 11/07/16 at 09:00; Status UNV Magnesium Oxide (Magnesium Oxide) 400 mg DAILY PO Last administered on 09:32; Start 11/07/16 at 09:00 Pantoprazole Sodium (Protonix) 40 mg DAILYAC PO Last administered on 11/07/16 09:30; Start 11/07/16 at 07:30 Non-Formulary Medication 200 mcg DAILY PO ; Start 11/07/16 at 09:00; Status UNV Non-Formulary Medication 650 mg BID PO ; Start 11/07/16 at 09:00; Stop 11/07/16 at 09:44; Status DC Levothyroxine Sodium (Synthroid) 100 mcg DAILY07 PO Last administered on 09:30; Start 11/07/16 at 07:00 Ondansetron HCl (Zofran) 4 mg PRN Q8HRS PRN IV NAUSEA/VOMITING; Start 11/07/16 at 05:39; Stop 11/07/16 at 16:59 Cyanocobalamin (Vitamin B-12) 1,000 mcg STK-MED ONCE .ROUTE ; Start 11/07/16 at 07:51; Stop 11/07/16 at 07:52; Status DC Aminocaproic Acid 500 mg 500 mg Q6HRS PO Last administered on 11/07/16 12:44; Start 11/07/16 at 09:00 Antihemophilic Factor/ Miscellaneous (Humate-P Vwf:Rco) 30 ml @ 180 mls/hr 1X ONCE IV Last administered on 11/07/16 12:43; Start 11/07/16 at 11:45; Stop at 11:54; Status DC Iohexol (Omnipaque 300 Mg/ml) 50 ml STK-MED ONCE .ROUTE ; Start 11/07/16 at 13: 40; Stop 11/07/16 at 13:41; Status DC Iohexol (Omnipaque 300 Mg/ml) 100 ml STK-MED ONCE .ROUTE ; Start 11/07/16 at 13: 40; Stop 11/07/16 at 13:41; Status DC Lidocaine/Sodium Bicarbonate 20 ml 20 ml STK-MED ONCE IJ ; Start 11/07/16 at 13: 40; Stop 11/07/16 at 13:41; Status DC Heparin Sodium/ Sodium Chloride 0 ml @ As Directed STK-MED ONCE .ROUTE ; Start 11/07/16 at 13:40; Stop 11/07/16 at 13:41; Status DC Active Scripts Active Lasix (Furosemide) 40 Mg Tablet 1 Tab PO QOD Reported Lysteda (Tranexamic Acid) 650 Mg Tablet 650 Mg PO BID Vitamin B Complex 1 Each Capsule 1 Each PO Calcitriol 0.25 Mcg Capsule 1 Cap PO DAILY Selenium (Selenomethionine) 200 Mcg Tablet 200 Mcg PO DAILY Vitamin A 8,000 Unit Capsule 8,000 Unit PO Coconut Oil 1,000 Mg Capsule 1,000 Mg PO DAILY Aminocaproic Acid 500 Mg Tablet 500 Mg PO DAILY Magnesium (Magnesium Oxide) 500 Mg Capsule 500 Mg PO DAILY Omeprazole 40 Mg Capsule.dr 40 Mg PO DAILY Potassium Chloride 20 Meq Tab.er.prt 20 Meq PO DAILY Acetaminophen 500 Mg Tablet 500 Mg PO PRN DAILY PRN Allopurinol 300 Mg Tablet 300 Mg PO DAILY Neurontin (Gabapentin) 100 Mg Capsule 200 Mg PO BID Vitamin B-12 (Cyanocobalamin (Vitamin B-12)) 1,000 Mcg Tablet 1,000 Mcg PO DAILY Osteo Bi-Flex Caplet (Gluc/Lyndon-Msm#1/C/Brandon/Alfredo/Bor) 1 Each Tablet 1 Each PO DAILY Levothyroxine Sodium Inj (Levothyroxine Sodium) 100 Mcg Vial 100 Mcg PO DAILY Nakita (Fexofenadine Hcl) 180 Mg Tablet 180 Mg PO DAILY Tramadol Hcl 50 Mg Tablet 50 Mg PO PRN QID Allergies Allergies: Coded Allergies: Iodinated Contrast Media - Oral and (Verified Allergy, Severe, 11/07/16) Penicillins (Verified Allergy, Severe, Shortness of Air, 11/07/16) Sulfa (Sulfonamide Antibiotics) (Verified Allergy, Intermediate, 11/07/16) aspirin (Verified Adverse Reaction, Intermediate, 11/07/16) mcdonnell bleeding disorder and does not use aspirin codeine (Verified Adverse Reaction, Intermediate, Anxiety, 11/07/16) Physical Exam General: Alert, Cooperative, No acute distress Lungs: Clear to auscultation, Normal air movement Heart: Regular rate, Other (I-II/ syst murmur and I/ diast murmur) Extremities: No cyanosis, No edema Vitals VITALS Vital Signs Date Time Temp Pulse Resp B/P Pulse Ox O2 Delivery O2 Flow Rate FiO2 11/07/16 10:31 97.5 65 20 130/31 100 Room Air 97.5 Labs Labs Laboratory Tests Test 11/06/16 16:15 11/06/16 17:30 11/07/16 04:30 White Blood Count 7.7x10^3/uL (4.0-11.0) 5.8x10^3/uL (4.0-11.0) Red Blood Count 2.18x10^6/uL (3.50-5.40) 2.57x10^6/uL (3.50-5.40) Hemoglobin 6.8g/dL (12.0-15.5) 7.9g/dL (12.0-15.5) Hematocrit 20.6% (36.0-47.0) 23.5% (36.0-47.0) Mean Corpuscular Volume 94fL (79-100) 92fL (79-100) Mean Corpuscular Hemoglobin 31pg (25-35) 31pg (25-35) Mean Corpuscular Hemoglobin Concent 33g/dL (31-37) 33g/dL (31-37) Red Cell Distribution Width 16.9% (11.5-14.5) 15.7% (11.5-14.5) Platelet Count 171x10^3/uL (140-400) 122x10^3/uL (140-400) Neutrophils (%) (Auto) 76% (31-73) 71% (31-73) Lymphocytes (%) (Auto) 16% (24-48) 18% (24-48) Monocytes (%) (Auto) 7% (0-9) 9% (0-9) Eosinophils (%) (Auto) 1% (0-3) 1% (0-3) Basophils (%) (Auto) 1% (0-3) 1% (0-3) Neutrophils # (Auto) 5.8x10^3uL (1.8-7.7) 4.1x10^3uL (1.8-7.7) Lymphocytes # (Auto) 1.2x10^3/uL (1.0-4.8) 1.1x10^3/uL (1.0-4.8) Monocytes # (Auto) 0.5x10^3/uL (0.0-1.1) 0.5x10^3/uL (0.0-1.1) Eosinophils # (Auto) 0.0x10^3/uL (0.0-0.7) 0.1x10^3/uL (0.0-0.7) Basophils # (Auto) 0.1x10^3/uL (0.0-0.2) 0.0x10^3/uL (0.0-0.2) Prothrombin Time 13.4SEC (11.7-14.0) Prothromb Time International Ratio 1.1 (0.8-1.1) Activated Partial Thromboplast Time 28SEC (24-38) Sodium Level 144mmol/L (136-145) 145mmol/L (136-145) Potassium Level 3.9mmol/L (3.5-5.1) 4.0mmol/L (3.5-5.1) Chloride Level 105mmol/L (98-107) 108mmol/L (98-107) Carbon Dioxide Level 32mmol/L (21-32) 30mmol/L (21-32) Anion Gap 7 (6-14) 7 (6-14) Blood Urea Nitrogen 56mg/dL (7-20) 58mg/dL (7-20) Creatinine 1.3mg/dL (0.6-1.0) 1.2mg/dL (0.6-1.0) Estimated GFR (Cockcroft-Gault) 38.7 42.4 BUN/Creatinine Ratio 43 (6-20) Glucose Level 108mg/dL (70-99) 116mg/dL (70-99) Calcium Level 9.9mg/dL (8.5-10.1) 9.4mg/dL (8.5-10.1) Total Bilirubin 0.3mg/dL (0.2-1.0) Aspartate Amino Transf (AST/SGOT) 24U/L (15-37) Alanine Aminotransferase (ALT/SGPT) 22U/L (14-59) Alkaline Phosphatase 70U/L (46-116) Total Protein 6.5g/dL (6.4-8.2) Albumin 3.1g/dL (3.4-5.0) Albumin/Globulin Ratio 0.9 (1.0-1.7) Lipase 210U/L (73-393) Urine Collection Type Unknown Urine Color Yellow Urine Clarity Cloudy Urine pH 5.0 Urine Specific [place] 1.015 Urine Protein Negativemg/dL (NEG-TRACE) Urine Glucose (UA) Negativemg/dL (NEG) Urine Ketones (Stick) Negativemg/dL (NEG) Urine Blood Small (NEG) Urine Nitrite Negative (NEG) Urine Bilirubin Negative (NEG) Urine Urobilinogen Dipstick 0.2mg/dL (0.2 mg/dL) Urine Leukocyte Esterase Moderate (NEG) Urine RBC Rare/HPF (0-2) Urine WBC 1-4/HPF (0-4) Urine Squamous Epithelial Cells Few/LPF Urine Bacteria Few/HPF (0-FEW) Urine Mucus Mod/LPF Laboratory Tests Test 11/06/16 16:15 11/06/16 17:30 11/07/16 04:30 White Blood Count 7.7x10^3/uL (4.0-11.0) 5.8x10^3/uL (4.0-11.0) Red Blood Count 2.18x10^6/uL (3.50-5.40) 2.57x10^6/uL (3.50-5.40) Hemoglobin 6.8g/dL (12.0-15.5) 7.9g/dL (12.0-15.5) Hematocrit 20.6% (36.0-47.0) 23.5% (36.0-47.0) Mean Corpuscular Volume 94fL (79-100) 92fL (79-100) Mean Corpuscular Hemoglobin 31pg (25-35) 31pg (25-35) Mean Corpuscular Hemoglobin Concent 33g/dL (31-37) 33g/dL (31-37) Red Cell Distribution Width 16.9% (11.5-14.5) 15.7% (11.5-14.5) Platelet Count 171x10^3/uL (140-400) 122x10^3/uL (140-400) Neutrophils (%) (Auto) 76% (31-73) 71% (31-73) Lymphocytes (%) (Auto) 16% (24-48) 18% (24-48) Monocytes (%) (Auto) 7% (0-9) 9% (0-9) Eosinophils (%) (Auto) 1% (0-3) 1% (0-3) Basophils (%) (Auto) 1% (0-3) 1% (0-3) Neutrophils # (Auto) 5.8x10^3uL (1.8-7.7) 4.1x10^3uL (1.8-7.7) Lymphocytes # (Auto) 1.2x10^3/uL (1.0-4.8) 1.1x10^3/uL (1.0-4.8) Monocytes # (Auto) 0.5x10^3/uL (0.0-1.1) 0.5x10^3/uL (0.0-1.1) Eosinophils # (Auto) 0.0x10^3/uL (0.0-0.7) 0.1x10^3/uL (0.0-0.7) Basophils # (Auto) 0.1x10^3/uL (0.0-0.2) 0.0x10^3/uL (0.0-0.2) Prothrombin Time 13.4SEC (11.7-14.0) Prothromb Time International Ratio 1.1 (0.8-1.1) Activated Partial Thromboplast Time 28SEC (24-38) Sodium Level 144mmol/L (136-145) 145mmol/L (136-145) Potassium Level 3.9mmol/L (3.5-5.1) 4.0mmol/L (3.5-5.1) Chloride Level 105mmol/L (98-107) 108mmol/L (98-107) Carbon Dioxide Level 32mmol/L (21-32) 30mmol/L (21-32) Anion Gap 7 (6-14) 7 (6-14) Blood Urea Nitrogen 56mg/dL (7-20) 58mg/dL (7-20) Creatinine 1.3mg/dL (0.6-1.0) 1.2mg/dL (0.6-1.0) Estimated GFR (Cockcroft-Gault) 38.7 42.4 BUN/Creatinine Ratio 43 (6-20) Glucose Level 108mg/dL (70-99) 116mg/dL (70-99) Calcium Level 9.9mg/dL (8.5-10.1) 9.4mg/dL (8.5-10.1) Total Bilirubin 0.3mg/dL (0.2-1.0) Aspartate Amino Transf (AST/SGOT) 24U/L (15-37) Alanine Aminotransferase (ALT/SGPT) 22U/L (14-59) Alkaline Phosphatase 70U/L (46-116) Total Protein 6.5g/dL (6.4-8.2) Albumin 3.1g/dL (3.4-5.0) Albumin/Globulin Ratio 0.9 (1.0-1.7) Lipase 210U/L (73-393) Urine Collection Type Unknown Urine Color Yellow Urine Clarity Cloudy Urine pH 5.0 Urine Specific [place] 1.015 Urine Protein Negativemg/dL (NEG-TRACE) Urine Glucose (UA) Negativemg/dL (NEG) Urine Ketones (Stick) Negativemg/dL (NEG) Urine Blood Small (NEG) Urine Nitrite Negative (NEG) Urine Bilirubin Negative (NEG) Urine Urobilinogen Dipstick 0.2mg/dL (0.2 mg/dL) Urine Leukocyte Esterase Moderate (NEG) Urine RBC Rare/HPF (0-2) Urine WBC 1-4/HPF (0-4) Urine Squamous Epithelial Cells Few/LPF Urine Bacteria Few/HPF (0-FEW) Urine Mucus Mod/LPF Assessment/Plan Assessment/Plan Acute GI bleed Aortic insufficiency Anemia Melena Von Willebrand disease Pt is compensated cardiac morris and is cleared for surgery or IR procedures. The low diastolic pressures are due to the AI. Thank you for asking me to participate in the care of this pt. MARISOL ELLIOTT MD Nov 07, 2016 15:07
--- NOTE | 2016-11-07 15:15 | PDOC ---
Provider Note Provider Note IR Note: Asked to consider mesenteric angio +/- embolization of GI bleed---thank you. 89YO female with Von Willebrand disease type 2. She has had multiple prior episodes of GI bleeding, with resulting anemia, requiring Amicar, Humate-P and pRBCs. Her GI bleed scan in the past has always been negative. Today, her scan is positive in LUQ, ? splenic flexure vs small gut---of note, this may or may not have been the site of bleeding during previous episodes. 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 Appropriate premedication for severe Iodine sensitivity would include overnight steroid premedication. Since she will likely stop bleeding on her own by tomorrow (based on prior episodes), I will put angio on hold for now----Drs Jennifer, Haylie, and Nir all contacted, and all agree. Of course, if bleeding progresses with clinical instability, angio could be performed urgently, with anesthesia assistance for airway management. Thanks again---call for questions ESTELITA DANIEL MD Nov 07, 2016 15:15
--- NOTE | 2016-11-07 16:00 | CARD ---
APPROVED REPORT EXAM: Two-dimensional and M-mode echocardiogram with Doppler and color Doppler. Other Information Quality : Fair Rhythm : Atrial Flutter INDICATION Pre-Op 2D DIMENSIONS Left Atrium(2D)2.5 (1.6-4.0cm)IVSd1.1 (0.7-1.1cm) Aortic Root(2D)2.7 (2.0-3.7cm)LVDd4.2 (3.9-5.9cm) LVOT Diameter2.0 (1.8-2.4cm)PWd1.1 (0.7-1.1cm) LVDs2.4 (2.5-4.0cm)SV56.3 ml LVEF(%)65.0 (>50%) Aortic Valve AoV Peak Kuldip.193.1cm/sAoV VTI47.6cm AO Peak GR.14.9mmHgLVOT VTI 21.49cm AO Mean GR.8mmHgAI P 1/2 [id number] Mitral Valve MV E Tplaoaer149.1cm/sMV E Peak Gr.10mmHg MV DECEL [id number] E Mean Gr.3mmHg MV [id number] (PHT)3.79cm2 TDI Lateral E' P. V12.43cm/sMedial E' P. V13.82cm/s E/Lateral E'11.0E/Medial E'9.9 Tricuspid Valve TR P. [id number]/sRAP [id number] TR Peak Gr.[id number] LEFT VENTRICLE The left ventricle is normal size. There is normal left ventricular wall thickness. Left ventricle sy stolic function is normal. The Ejection Fraction is 65%. There is normal LV segmental wall motion. Un able to assess diastolic function. RIGHT VENTRICLE The right ventricle appears mildly dilated. The right ventricular systolic function is decreased. ATRIA The left atrium size is normal. The right atrium is moderately dilated. The interatrial septum is int act with no evidence for an atrial septal defect or patent foramen ovale as noted on 2-D or Doppler i maging. AORTIC VALVE The aortic valve is mildly to moderately sclerotic. The aortic valve is trileaflet. Doppler and Color Flow revealed mild aortic regurgitation. There is no significant aortic valvular stenosis. MITRAL VALVE Mitral annular calcification is mild. There is no mitral valve stenosis. Doppler and Color Flow revea led mild to moderate mitral regurgitation. TRICUSPID VALVE The tricuspid valve is normal in structure. Doppler and Color Flow revealed moderate tricuspid regurg itation. There is moderate pulmonary hypertension. The PA pressure was estimated at 55 mmHg. There is no tricuspid valve stenosis. PULMONIC VALVE The pulmonic valve is not well visualized. Doppler and Color Flow revealed no pulmonic valvular regur gitation. There is no pulmonic valvular stenosis. GREAT VESSELS The aortic root is normal in size. Pulmonary veins not recorded. The IVC is dilated and collapses >50 % with inspiration. PERICARDIAL EFFUSION There is no evidence of significant pericardial effusion. Critical Notification Critical Value: No <Conclusion> Left ventricle systolic function is normal. The Ejection Fraction is 65%. Left ventricle systolic function is normal. The Ejection Fraction is 65%. The right ventricle appears mildly dilated. The left atrium size is normal. The right atrium is moderately dilated. The aortic valve is mildly to moderately sclerotic. The aortic valve is trileaflet. There is no significant aortic valvular stenosis. Doppler and Color Flow revealed mild aortic regurgitation. Mitral annular calcification is mild. Doppler and Color Flow revealed mild to moderate mitral regurgitation. Doppler and Color Flow revealed moderate tricuspid regurgitation. There is moderate pulmonary hypertension. The PA pressure was estimated at 55 mmHg. The pulmonic valve is not well visualized. There is no evidence of significant pericardial effusion.
[2016-11-07] MEDS: TRAMADOL 50 MG TABLET. PO PRN (21:07)
[2016-11-08] VITALS (17 sets, daily range): BP systolic 103–145; BP diastolic 41–75
[2016-11-08] MEDS: AMINOCAPROIC ACID 500 MG TABLET. PO SCH ×6 (00:05→23:38)
[2016-11-08] MEDS ORDERED: PANTOPRAZOLE 40 MG TABLET.DR. PO ONE (05:32)
[2016-11-08 05:34] LABS: RED BLOOD COUNT 2.1 x10^6/uL (3.50-5.40); WHITE BLOOD COUNT 4.4 x10^3/uL (4.0-11.0)
[2016-11-08 05:47] LABS: HEMATOCRIT 19.8 % (36.0-47.0); HEMOGLOBIN 6.5 g/dL (12.0-15.5)
[2016-11-08] MEDS: LEVOTHYROXINE 100 MCG TABLET PO SCH (05:53)
[2016-11-08] MEDS: PANTOPRAZOLE 40 MG TABLET.DR. PO SCH (05:54)
--- NOTE | 2016-11-08 07:32 | PDOC ---
Provider Note Provider Note vss, no new sxs- hb down from 7.5 to 6.8, 1 more u prbc- reassess for need for angio/embolization today- rest of meds same AJITH RUIZ MD Nov 08, 2016 07:32
[2016-11-08] MEDS: ALLOPURINOL 300 MG TABLET. PO SCH (08:58)
[2016-11-08] MEDS: CALCITRIOL 0.25 MCG CAPSULE. PO SCH (08:58)
[2016-11-08] MEDS: CYANOCOBALAMIN (VITAMIN B-12) 1,000 MCG TABLET. PO SCH (08:58)
[2016-11-08] MEDS: MAGNESIUM OXIDE 400 MG TABLET PO SCH (08:58)
[2016-11-08] MEDS: POTASSIUM CHLORIDE 20 MEQ TABLET.ER. PO SCH (08:58)
[2016-11-08] MEDS: GABAPENTIN 100 MG CAPSULE. PO SCH ×2 (08:58→20:57)
[2016-11-08] MEDS: CETIRIZINE HCL 10 MG TABLET. PO SCH (08:59)
--- NOTE | 2016-11-08 09:07 | PDOC ---
PROGRESS NOTES Subjective Subjective cc - f/u of Von Willebrand disease type 2. ROS - has melena Objective Objective Vital Signs Date Time Temp Pulse Resp B/P Pulse Ox O2 Delivery O2 Flow Rate FiO2 11/08/16 07:58 95.9 55 18 103/41 95.9 11/08/16 06:09 97 Room Air Intake and Output 11/08/16 07:00 Intake Total 0 ml Output Total 700 ml Balance -700 ml Intake Oral 0 ml Output Urine Total 700 ml Physical Exam Heart: Normal S1, Normal S2 General: Alert, Oriented X3 Lungs: Clear to auscultation Neuro: Normal speech Psych/Mental Status: Mental status NL Assessment Assessment Problems Medical Problems: (1) Acute GI bleeding Status: Acute (2) Deficiency of von Willebrand factor Status: Acute (3) Symptomatic anemia Status: Acute IMPRESSION AND PLAN: 1. Von Willebrand disease type 2. Unfortunately, her condition is complicated by on and off anemia due to melena requiring Humate-P. She has had prior colonoscopy and an ulceration was noted in the colon. I have discussed with Gastroenterology on multiple occasions in the past and conservative management was recommended. I will consult Dr Stallings. She will continue Humate-P and Amicar during this admission. Hemoglobin worse at 6.5. Plan 2 units PRBC. Continue daily dose of Humate P 50 u/kg. Increase amicar 1000 mg PO q 4 hrs. 2. Severe anemia. Ordered 2 packed red blood cells transfusion. Continue to monitor closely. 3. Iron deficiency. s/p Injectafer as outpatient. 4. GI bleed. Consulted GI. GI bleed scan 11/07/16 revealed: Active GI tract bleeding originating in the left upper quadrant, probably probably in the distal splenic flexure region. I d/w Mary. Plan arterial embolization. I d/w RN Comment Review of Relevant I have reviewed the following items benjy (where applicable) has been applied. Labs Laboratory Tests Test 11/06/16 16:15 11/06/16 17:30 11/07/16 04:30 11/08/16 04:25 White Blood Count 7.7x10^3/uL (4.0-11.0) 5.8x10^3/uL (4.0-11.0) 4.4x10^3/uL (4.0-11.0) Red Blood Count 2.18x10^6/uL (3.50-5.40) 2.57x10^6/uL (3.50-5.40) 2.10x10^6/uL (3.50-5.40) Hemoglobin 6.8g/dL (12.0-15.5) 7.9g/dL (12.0-15.5) 6.5g/dL (12.0-15.5) Hematocrit 20.6% (36.0-47.0) 23.5% (36.0-47.0) 19.8% (36.0-47.0) Mean Corpuscular Volume 94fL (79-100) 92fL (79-100) 95fL (79-100) Mean Corpuscular Hemoglobin 31pg (25-35) 31pg (25-35) 31pg (25-35) Mean Corpuscular Hemoglobin Concent 33g/dL (31-37) 33g/dL (31-37) 33g/dL (31-37) Red Cell Distribution Width 16.9% (11.5-14.5) 15.7% (11.5-14.5) 16.0% (11.5-14.5) Platelet Count 171x10^3/uL (140-400) 122x10^3/uL (140-400) 120x10^3/uL (140-400) Neutrophils (%) (Auto) 76% (31-73) 71% (31-73) Lymphocytes (%) (Auto) 16% (24-48) 18% (24-48) Monocytes (%) (Auto) 7% (0-9) 9% (0-9) Eosinophils (%) (Auto) 1% (0-3) 1% (0-3) Basophils (%) (Auto) 1% (0-3) 1% (0-3) Neutrophils # (Auto) 5.8x10^3uL (1.8-7.7) 4.1x10^3uL (1.8-7.7) Lymphocytes # (Auto) 1.2x10^3/uL (1.0-4.8) 1.1x10^3/uL (1.0-4.8) Monocytes # (Auto) 0.5x10^3/uL (0.0-1.1) 0.5x10^3/uL (0.0-1.1) Eosinophils # (Auto) 0.0x10^3/uL (0.0-0.7) 0.1x10^3/uL (0.0-0.7) Basophils # (Auto) 0.1x10^3/uL (0.0-0.2) 0.0x10^3/uL (0.0-0.2) Prothrombin Time 13.4SEC (11.7-14.0) Prothromb Time International Ratio 1.1 (0.8-1.1) Activated Partial Thromboplast Time 28SEC (24-38) Sodium Level 144mmol/L (136-145) 145mmol/L (136-145) Potassium Level 3.9mmol/L (3.5-5.1) 4.0mmol/L (3.5-5.1) Chloride Level 105mmol/L (98-107) 108mmol/L (98-107) Carbon Dioxide Level 32mmol/L (21-32) 30mmol/L (21-32) Anion Gap 7 (6-14) 7 (6-14) Blood Urea Nitrogen 56mg/dL (7-20) 58mg/dL (7-20) Creatinine 1.3mg/dL (0.6-1.0) 1.2mg/dL (0.6-1.0) Estimated GFR (Cockcroft-Gault) 38.7 42.4 BUN/Creatinine Ratio 43 (6-20) Glucose Level 108mg/dL (70-99) 116mg/dL (70-99) Calcium Level 9.9mg/dL (8.5-10.1) 9.4mg/dL (8.5-10.1) Total Bilirubin 0.3mg/dL (0.2-1.0) Aspartate Amino Transf (AST/SGOT) 24U/L (15-37) Alanine Aminotransferase (ALT/SGPT) 22U/L (14-59) Alkaline Phosphatase 70U/L (46-116) Total Protein 6.5g/dL (6.4-8.2) Albumin 3.1g/dL (3.4-5.0) Albumin/Globulin Ratio 0.9 (1.0-1.7) Lipase 210U/L (73-393) Urine Collection Type Unknown Urine Color Yellow Urine Clarity Cloudy Urine pH 5.0 Urine Specific [place] 1.015 Urine Protein Negativemg/dL (NEG-TRACE) Urine Glucose (UA) Negativemg/dL (NEG) Urine Ketones (Stick) Negativemg/dL (NEG) Urine Blood Small (NEG) Urine Nitrite Negative (NEG) Urine Bilirubin Negative (NEG) Urine Urobilinogen Dipstick 0.2mg/dL (0.2 mg/dL) Urine Leukocyte Esterase Moderate (NEG) Urine RBC Rare/HPF (0-2) Urine WBC 1-4/HPF (0-4) Urine Squamous Epithelial Cells Few/LPF Urine Bacteria Few/HPF (0-FEW) Urine Mucus Mod/LPF Laboratory Tests Test 11/08/16 04:25 White Blood Count 4.4x10^3/uL (4.0-11.0) Red Blood Count 2.10x10^6/uL (3.50-5.40) Hemoglobin 6.5g/dL (12.0-15.5) Hematocrit 19.8% (36.0-47.0) Mean Corpuscular Volume 95fL (79-100) Mean Corpuscular Hemoglobin 31pg (25-35) Mean Corpuscular Hemoglobin Concent 33g/dL (31-37) Red Cell Distribution Width 16.0% (11.5-14.5) Platelet Count 120x10^3/uL (140-400) Medications Current Medications Sodium Chloride (Iv Sodium Chloride 0.9% 1000ml Bag) 1,000 ml @ 100 mls/hr Q10H IV Last administered on 11/06/16 16:25; Start 11/06/16 at 16:06; Stop at 02:05; Status DC Ondansetron HCl (Zofran) 4 mg 1X ONCE IV Last administered on 11/06/16 16:24 ; Start 11/06/16 at 16:15; Stop 11/06/16 at 16:20; Status DC Pantoprazole Sodium (Protonix Vial) 40 mg 1X ONCE IVP Last administered on 16:24; Start 11/06/16 at 16:15; Stop 11/06/16 at 16:20; Status DC Ondansetron HCl 4 mg 4 mg PRN Q8HRS PRN IV NAUSEA/VOMITING; Start 11/06/16 at 17:00; Stop 11/07/16 at 05:39; Status DC Sodium Chloride 1,000 ml @ 100 mls/hr Q10H IV Last administered on 11/07/16 20:52; Start 11/06/16 at 16:50; Stop 11/07/16 at 16:49; Status DC Pantoprazole Sodium/Sodium Chloride (Protonix Iv/Iv Sodium Chloride 0.9% 100ml) 100 ml @ 10 mls/hr 1X ONCE IV Last administered on 11/06/16 17:21; Start at 17:00; Stop 11/07/16 at 02:59; Status DC Acetaminophen (Tylenol) 500 mg PRN DAILY PRN PO MILD PAIN; Start 11/07/16 at 09 :00 Allopurinol (Zyloprim) 300 mg DAILY PO Last administered on 11/07/16 09:34; Start 11/07/16 at 09:00 Calcitriol (Rocaltrol) 0.25 mcg DAILY PO Last administered on 11/07/16 09:32; Start 11/07/16 at 09:00 Cyanocobalamin (Vitamin B-12) 1,000 mcg DAILY PO Last administered on 09:33; Start 11/07/16 at 09:00 Furosemide (Lasix) 40 mg DAILY PO ; Start 11/07/16 at 09:00; Stop 11/07/16 at 09 :00; Status DC Gabapentin (Neurontin) 200 mg BID PO Last administered on 11/07/16 09:33; Start 11/07/16 at 09:00 Potassium Chloride (Klor-Con) 20 meq DAILY PO Last administered on 11/07/16 09 :33; Start 11/07/16 at 09:00 Tramadol HCl (Ultram) 50 mg PRN QID PRN PO MODERATE PAIN Last administered on 21:07; Start 11/07/16 at 09:00 Non-Formulary Medication 1,000 mg DAILY PO ; Start 11/07/16 at 09:00; Status UNV Cetirizine HCl (Zyrtec) 10 mg DAILY PO Last administered on 11/07/16 09:32; Start 11/07/16 at 09:00 Non-Formulary Medication 1 each DAILY PO ; Start 11/07/16 at 09:00; Status UNV Magnesium Oxide (Magnesium Oxide) 400 mg DAILY PO Last administered on 09:32; Start 11/07/16 at 09:00 Pantoprazole Sodium (Protonix) 40 mg DAILYAC PO Last administered on 11/07/16 09:30; Start 11/07/16 at 07:30; Stop 11/08/16 at 05:34; Status DC Non-Formulary Medication 200 mcg DAILY PO ; Start 11/07/16 at 09:00; Status UNV Non-Formulary Medication 650 mg BID PO ; Start 11/07/16 at 09:00; Stop 11/07/16 at 09:44; Status DC Levothyroxine Sodium (Synthroid) 100 mcg DAILY07 PO Last administered on 05:53; Start 11/07/16 at 07:00 Ondansetron HCl (Zofran) 4 mg PRN Q8HRS PRN IV NAUSEA/VOMITING; Start 11/07/16 at 05:39; Stop 11/07/16 at 16:59; Status DC Cyanocobalamin (Vitamin B-12) 1,000 mcg STK-MED ONCE .ROUTE ; Start 11/07/16 at 07:51; Stop 11/07/16 at 07:52; Status DC Aminocaproic Acid 500 mg 500 mg Q6HRS PO Last administered on 11/08/16 05:54; Start 11/07/16 at 09:00 Antihemophilic Factor/ Miscellaneous (Humate-P Vwf:Rco) 30 ml @ 180 mls/hr 1X ONCE IV Last administered on 11/07/16 12:43; Start 11/07/16 at 11:45; Stop at 11:54; Status DC Iohexol (Omnipaque 300 Mg/ml) 50 ml STK-MED ONCE .ROUTE ; Start 11/07/16 at 13: 40; Stop 11/07/16 at 13:41; Status DC Iohexol (Omnipaque 300 Mg/ml) 100 ml STK-MED ONCE .ROUTE ; Start 11/07/16 at 13: 40; Stop 11/07/16 at 13:41; Status DC Lidocaine/Sodium Bicarbonate 20 ml 20 ml STK-MED ONCE IJ ; Start 11/07/16 at 13: 40; Stop 11/07/16 at 13:41; Status DC Heparin Sodium/ Sodium Chloride 0 ml @ As Directed STK-MED ONCE .ROUTE ; Start 11/07/16 at 13:40; Stop 11/07/16 at 13:41; Status DC Antihemophilic Factor/ Miscellaneous (Humate-P Vwf:Rco) 30 ml @ 180 mls/hr DAILY IV ; Start 11/08/16 at 09:00 Pantoprazole Sodium (Protonix) 40 mg STK-MED ONCE PO ; Start 11/08/16 at 05:32; Stop 11/08/16 at 05:33; Status DC Pantoprazole Sodium (Protonix) 40 mg DAILYAC PO Last administered on 11/08/16t 05:54; Start 11/08/16 at 05:34 Active Scripts Active Lasix (Furosemide) 40 Mg Tablet 1 Tab PO QOD Reported Lysteda (Tranexamic Acid) 650 Mg Tablet 650 Mg PO BID Vitamin B Complex 1 Each Capsule 1 Each PO Calcitriol 0.25 Mcg Capsule 1 Cap PO DAILY Selenium (Selenomethionine) 200 Mcg Tablet 200 Mcg PO DAILY Vitamin A 8,000 Unit Capsule 8,000 Unit PO Coconut Oil 1,000 Mg Capsule 1,000 Mg PO DAILY Aminocaproic Acid 500 Mg Tablet 500 Mg PO DAILY Magnesium (Magnesium Oxide) 500 Mg Capsule 500 Mg PO DAILY Omeprazole 40 Mg Capsule.dr 40 Mg PO DAILY Potassium Chloride 20 Meq Tab.er.prt 20 Meq PO DAILY Acetaminophen 500 Mg Tablet 500 Mg PO PRN DAILY PRN Allopurinol 300 Mg Tablet 300 Mg PO DAILY Neurontin (Gabapentin) 100 Mg Capsule 200 Mg PO BID Vitamin B-12 (Cyanocobalamin (Vitamin B-12)) 1,000 Mcg Tablet 1,000 Mcg PO DAILY Osteo Bi-Flex Caplet (Gluc/Lyndon-Msm#1/C/Brandon/Alfredo/Bor) 1 Each Tablet 1 Each PO DAILY Levothyroxine Sodium Inj (Levothyroxine Sodium) 100 Mcg Vial 100 Mcg PO DAILY Nakita (Fexofenadine Hcl) 180 Mg Tablet 180 Mg PO DAILY Tramadol Hcl 50 Mg Tablet 50 Mg PO PRN QID Vitals/I & O Vital Sign - Last 24 Hours 3/11/07/16 11/07/16 11/07/16 10:31 15:00 19:00 20:00 Temp 97.5 98.1 98.5 97.5 98.1 98.5 Pulse 65 80 61 Resp 20 18 B/P 130/31 119/69 116/47 Pulse Ox 100 93 95 O2 Delivery Room Air Room Air Room Air Room Air 11/07/16 11/07/16 11/07/16 11/08/16 21:07 22:07 23:00 03:00 Temp 98.4 98.4 98.4 98.4 Pulse 67 58 Resp 20 18 B/P 120/52 103/52 Pulse Ox 95 96 97 O2 Delivery Room Air Room Air Room Air Room Air 11/08/16 11/08/16 11/08/16 06:09 07:39 07:58 Temp 97.5 97.5 95.9 97.5 97.5 95.9 Pulse 50 58 55 Resp 18 B/P 103/50 103/50 103/41 Pulse Ox 97 O2 Delivery Room Air Intake and Output 11/07/16 11/07/16 11/08/16 15:00 23:00 07:00 Intake Total 0 ml Output Total 400 ml 300 ml Balance -400 ml -300 ml FREDIS PALMER MD Nov 08, 2016 09:07
--- NOTE | 2016-11-08 10:15 | PDOC ---
PROGRESS NOTES Subjective Subjective Patient seen while receiving transfusion this morning. Denies any cardiac symptoms today, no soa. States she did have one dark, bloody bowel movement overnight and also reported the results of her decreased Hgb since yesterday. Also states she is hungry and feeling more abdominal discomfort. Objective Objective Vital Signs Date Time Temp Pulse Resp B/P Pulse Ox O2 Delivery O2 Flow Rate FiO2 11/08/16 09:08 96.9 60 21 117/62 96.9 11/08/16 07:00 96 Room Air Intake and Output 11/08/16 07:00 Intake Total 0 ml Output Total 700 ml Balance -700 ml Intake Oral 0 ml Output Urine Total 700 ml Physical Exam Heart: Other (Unchanged since previous cardiac exam) Extremities: No edema General: Alert, Cooperative, No acute distress Lungs: Clear to auscultation, Normal air movement Assessment Assessment Problems Medical Problems: (1) Acute GI bleeding Status: Acute (2) Deficiency of von Willebrand factor Status: Acute (3) Symptomatic anemia Status: Acute Plan Plan of Care Pt stable cardiac morris. Low diastolic pressure secondary to AI causing wide pulse pressure. Agree with present plan. Lasix after the transfusion. Comment Review of Relevant I have reviewed the following items benjy (where applicable) has been applied. Labs Laboratory Tests Test 11/06/16 16:15 11/06/16 17:30 11/07/16 04:30 11/08/16 04:25 White Blood Count 7.7x10^3/uL (4.0-11.0) 5.8x10^3/uL (4.0-11.0) 4.4x10^3/uL (4.0-11.0) Red Blood Count 2.18x10^6/uL (3.50-5.40) 2.57x10^6/uL (3.50-5.40) 2.10x10^6/uL (3.50-5.40) Hemoglobin 6.8g/dL (12.0-15.5) 7.9g/dL (12.0-15.5) 6.5g/dL (12.0-15.5) Hematocrit 20.6% (36.0-47.0) 23.5% (36.0-47.0) 19.8% (36.0-47.0) Mean Corpuscular Volume 94fL (79-100) 92fL (79-100) 95fL (79-100) Mean Corpuscular Hemoglobin 31pg (25-35) 31pg (25-35) 31pg (25-35) Mean Corpuscular Hemoglobin Concent 33g/dL (31-37) 33g/dL (31-37) 33g/dL (31-37) Red Cell Distribution Width 16.9% (11.5-14.5) 15.7% (11.5-14.5) 16.0% (11.5-14.5) Platelet Count 171x10^3/uL (140-400) 122x10^3/uL (140-400) 120x10^3/uL (140-400) Neutrophils (%) (Auto) 76% (31-73) 71% (31-73) Lymphocytes (%) (Auto) 16% (24-48) 18% (24-48) Monocytes (%) (Auto) 7% (0-9) 9% (0-9) Eosinophils (%) (Auto) 1% (0-3) 1% (0-3) Basophils (%) (Auto) 1% (0-3) 1% (0-3) Neutrophils # (Auto) 5.8x10^3uL (1.8-7.7) 4.1x10^3uL (1.8-7.7) Lymphocytes # (Auto) 1.2x10^3/uL (1.0-4.8) 1.1x10^3/uL (1.0-4.8) Monocytes # (Auto) 0.5x10^3/uL (0.0-1.1) 0.5x10^3/uL (0.0-1.1) Eosinophils # (Auto) 0.0x10^3/uL (0.0-0.7) 0.1x10^3/uL (0.0-0.7) Basophils # (Auto) 0.1x10^3/uL (0.0-0.2) 0.0x10^3/uL (0.0-0.2) Prothrombin Time 13.4SEC (11.7-14.0) Prothromb Time International Ratio 1.1 (0.8-1.1) Activated Partial Thromboplast Time 28SEC (24-38) Sodium Level 144mmol/L (136-145) 145mmol/L (136-145) Potassium Level 3.9mmol/L (3.5-5.1) 4.0mmol/L (3.5-5.1) Chloride Level 105mmol/L (98-107) 108mmol/L (98-107) Carbon Dioxide Level 32mmol/L (21-32) 30mmol/L (21-32) Anion Gap 7 (6-14) 7 (6-14) Blood Urea Nitrogen 56mg/dL (7-20) 58mg/dL (7-20) Creatinine 1.3mg/dL (0.6-1.0) 1.2mg/dL (0.6-1.0) Estimated GFR (Cockcroft-Gault) 38.7 42.4 BUN/Creatinine Ratio 43 (6-20) Glucose Level 108mg/dL (70-99) 116mg/dL (70-99) Calcium Level 9.9mg/dL (8.5-10.1) 9.4mg/dL (8.5-10.1) Total Bilirubin 0.3mg/dL (0.2-1.0) Aspartate Amino Transf (AST/SGOT) 24U/L (15-37) Alanine Aminotransferase (ALT/SGPT) 22U/L (14-59) Alkaline Phosphatase 70U/L (46-116) Total Protein 6.5g/dL (6.4-8.2) Albumin 3.1g/dL (3.4-5.0) Albumin/Globulin Ratio 0.9 (1.0-1.7) Lipase 210U/L (73-393) Urine Collection Type Unknown Urine Color Yellow Urine Clarity Cloudy Urine pH 5.0 Urine Specific [place] 1.015 Urine Protein Negativemg/dL (NEG-TRACE) Urine Glucose (UA) Negativemg/dL (NEG) Urine Ketones (Stick) Negativemg/dL (NEG) Urine Blood Small (NEG) Urine Nitrite Negative (NEG) Urine Bilirubin Negative (NEG) Urine Urobilinogen Dipstick 0.2mg/dL (0.2 mg/dL) Urine Leukocyte Esterase Moderate (NEG) Urine RBC Rare/HPF (0-2) Urine WBC 1-4/HPF (0-4) Urine Squamous Epithelial Cells Few/LPF Urine Bacteria Few/HPF (0-FEW) Urine Mucus Mod/LPF Laboratory Tests Test 11/08/16 04:25 White Blood Count 4.4x10^3/uL (4.0-11.0) Red Blood Count 2.10x10^6/uL (3.50-5.40) Hemoglobin 6.5g/dL (12.0-15.5) Hematocrit 19.8% (36.0-47.0) Mean Corpuscular Volume 95fL (79-100) Mean Corpuscular Hemoglobin 31pg (25-35) Mean Corpuscular Hemoglobin Concent 33g/dL (31-37) Red Cell Distribution Width 16.0% (11.5-14.5) Platelet Count 120x10^3/uL (140-400) Medications Current Medications Sodium Chloride (Iv Sodium Chloride 0.9% 1000ml Bag) 1,000 ml @ 100 mls/hr Q10H IV Last administered on 11/06/16 16:25; Start 11/06/16 at 16:06; Stop at 02:05; Status DC Ondansetron HCl (Zofran) 4 mg 1X ONCE IV Last administered on 11/06/16 16:24 ; Start 11/06/16 at 16:15; Stop 11/06/16 at 16:20; Status DC Pantoprazole Sodium (Protonix Vial) 40 mg 1X ONCE IVP Last administered on 16:24; Start 11/06/16 at 16:15; Stop 11/06/16 at 16:20; Status DC Ondansetron HCl 4 mg 4 mg PRN Q8HRS PRN IV NAUSEA/VOMITING; Start 11/06/16 at 17:00; Stop 11/07/16 at 05:39; Status DC Sodium Chloride 1,000 ml @ 100 mls/hr Q10H IV Last administered on 11/07/16 20:52; Start 11/06/16 at 16:50; Stop 11/07/16 at 16:49; Status DC Pantoprazole Sodium/Sodium Chloride (Protonix Iv/Iv Sodium Chloride 0.9% 100ml) 100 ml @ 10 mls/hr 1X ONCE IV Last administered on 11/06/16 17:21; Start at 17:00; Stop 11/07/16 at 02:59; Status DC Acetaminophen (Tylenol) 500 mg PRN DAILY PRN PO MILD PAIN; Start 11/07/16 at 09 :00 Allopurinol (Zyloprim) 300 mg DAILY PO Last administered on 11/07/16 09:34; Start 11/07/16 at 09:00 Calcitriol (Rocaltrol) 0.25 mcg DAILY PO Last administered on 11/07/16 09:32; Start 11/07/16 at 09:00 Cyanocobalamin (Vitamin B-12) 1,000 mcg DAILY PO Last administered on 09:33; Start 11/07/16 at 09:00 Furosemide (Lasix) 40 mg DAILY PO ; Start 11/07/16 at 09:00; Stop 11/07/16 at 09 :00; Status DC Gabapentin (Neurontin) 200 mg BID PO Last administered on 11/07/16 09:33; Start 11/07/16 at 09:00 Potassium Chloride (Klor-Con) 20 meq DAILY PO Last administered on 11/07/16 09 :33; Start 11/07/16 at 09:00 Tramadol HCl (Ultram) 50 mg PRN QID PRN PO MODERATE PAIN Last administered on 21:07; Start 11/07/16 at 09:00 Non-Formulary Medication 1,000 mg DAILY PO ; Start 11/07/16 at 09:00; Status UNV Cetirizine HCl (Zyrtec) 10 mg DAILY PO Last administered on 11/07/16 09:32; Start 11/07/16 at 09:00 Non-Formulary Medication 1 each DAILY PO ; Start 11/07/16 at 09:00; Status UNV Magnesium Oxide (Magnesium Oxide) 400 mg DAILY PO Last administered on 09:32; Start 11/07/16 at 09:00 Pantoprazole Sodium (Protonix) 40 mg DAILYAC PO Last administered on 11/07/16 09:30; Start 11/07/16 at 07:30; Stop 11/08/16 at 05:34; Status DC Non-Formulary Medication 200 mcg DAILY PO ; Start 11/07/16 at 09:00; Status UNV Non-Formulary Medication 650 mg BID PO ; Start 11/07/16 at 09:00; Stop 11/07/16 at 09:44; Status DC Levothyroxine Sodium (Synthroid) 100 mcg DAILY07 PO Last administered on 05:53; Start 11/07/16 at 07:00 Ondansetron HCl (Zofran) 4 mg PRN Q8HRS PRN IV NAUSEA/VOMITING; Start 11/07/16 at 05:39; Stop 11/07/16 at 16:59; Status DC Cyanocobalamin (Vitamin B-12) 1,000 mcg STK-MED ONCE .ROUTE ; Start 11/07/16 at 07:51; Stop 11/07/16 at 07:52; Status DC Aminocaproic Acid 500 mg 500 mg Q6HRS PO Last administered on 11/08/16 05:54; Start 11/07/16 at 09:00; Stop 11/08/16 at 09:04; Status DC Antihemophilic Factor/ Miscellaneous (Humate-P Vwf:Rco) 30 ml @ 180 mls/hr 1X ONCE IV Last administered on 11/07/16 12:43; Start 11/07/16 at 11:45; Stop at 11:54; Status DC Iohexol (Omnipaque 300 Mg/ml) 50 ml STK-MED ONCE .ROUTE ; Start 11/07/16 at 13: 40; Stop 11/07/16 at 13:41; Status DC Iohexol (Omnipaque 300 Mg/ml) 100 ml STK-MED ONCE .ROUTE ; Start 11/07/16 at 13: 40; Stop 11/07/16 at 13:41; Status DC Lidocaine/Sodium Bicarbonate 20 ml 20 ml STK-MED ONCE IJ ; Start 11/07/16 at 13: 40; Stop 11/07/16 at 13:41; Status DC Heparin Sodium/ Sodium Chloride 0 ml @ As Directed STK-MED ONCE .ROUTE ; Start 11/07/16 at 13:40; Stop 11/07/16 at 13:41; Status DC Antihemophilic Factor/ Miscellaneous (Humate-P Vwf:Rco) 30 ml @ 180 mls/hr DAILY IV ; Start 11/08/16 at 09:00 Pantoprazole Sodium (Protonix) 40 mg STK-MED ONCE PO ; Start 11/08/16 at 05:32; Stop 11/08/16 at 05:33; Status DC Pantoprazole Sodium (Protonix) 40 mg DAILYAC PO Last administered on 11/08/16t 05:54; Start 11/08/16 at 05:34 Aminocaproic Acid (Amicar) 1,000 mg Q4HRS PO ; Start 11/08/16 at 12:00 Active Scripts Active Lasix (Furosemide) 40 Mg Tablet 1 Tab PO QOD Reported Lysteda (Tranexamic Acid) 650 Mg Tablet 650 Mg PO BID Vitamin B Complex 1 Each Capsule 1 Each PO Calcitriol 0.25 Mcg Capsule 1 Cap PO DAILY Selenium (Selenomethionine) 200 Mcg Tablet 200 Mcg PO DAILY Vitamin A 8,000 Unit Capsule 8,000 Unit PO Coconut Oil 1,000 Mg Capsule 1,000 Mg PO DAILY Aminocaproic Acid 500 Mg Tablet 500 Mg PO DAILY Magnesium (Magnesium Oxide) 500 Mg Capsule 500 Mg PO DAILY Omeprazole 40 Mg Capsule.dr 40 Mg PO DAILY Potassium Chloride 20 Meq Tab.er.prt 20 Meq PO DAILY Acetaminophen 500 Mg Tablet 500 Mg PO PRN DAILY PRN Allopurinol 300 Mg Tablet 300 Mg PO DAILY Neurontin (Gabapentin) 100 Mg Capsule 200 Mg PO BID Vitamin B-12 (Cyanocobalamin (Vitamin B-12)) 1,000 Mcg Tablet 1,000 Mcg PO DAILY Osteo Bi-Flex Caplet (Gluc/Lyndon-Msm#1/C/Brandon/Alfredo/Bor) 1 Each Tablet 1 Each PO DAILY Levothyroxine Sodium Inj (Levothyroxine Sodium) 100 Mcg Vial 100 Mcg PO DAILY Nakita (Fexofenadine Hcl) 180 Mg Tablet 180 Mg PO DAILY Tramadol Hcl 50 Mg Tablet 50 Mg PO PRN QID Vitals/I & O Vital Sign - Last 24 Hours 11/07/16 11/07/16 11/07/16 11/07/16 10:31 15:00 19:00 20:00 Temp 97.5 98.1 98.5 97.5 98.1 98.5 Pulse 65 80 61 Resp 20 20 18 B/P 130/31 119/69 116/47 Pulse Ox 100 93 95 O2 Delivery Room Air Room Air Room Air Room Air 11/07/16 11/07/16 11/07/16 11/08/16 21:07 22:07 23:00 03:00 Temp 98.4 98.4 98.4 98.4 Pulse 67 58 Resp 20 18 B/P 120/52 103/52 Pulse Ox 95 96 97 O2 Delivery Room Air Room Air Room Air Room Air 11/08/16 11/08/16 11/08/16 11/08/16 06:09 07:00 07:39 07:58 Temp 97.5 95.9 97.5 95.9 97.5 95.9 97.5 95.9 Pulse 50 58 58 55 Resp 18 B/P 103/50 103/41 103/50 103/41 Pulse Ox 97 96 O2 Delivery Room Air Room Air 11/08/16 09:08 Temp 96.9 96.9 Pulse 60 Resp 21 B/P 117/62 Intake and Output 11/07/16 11/07/16 11/08/16 15:00 23:00 07:00 Intake Total 0 ml Output Total 400 ml 300 ml Balance -400 ml -300 ml MARISOL ELLIOTT MD Nov 08, 2016 10:15
[2016-11-08] MEDS: TOTAL VOLUME IV SCH (10:36)
[2016-11-08] MEDS: VWF IV SCH (10:36)
[2016-11-08] MEDS: ANTIHEMOPHILIC FACTOR IV SCH (10:36)
--- NOTE | 2016-11-08 11:01 | PDOC ---
Subjective: Subjective: Dark stools w/ increased abd "rumbling." Objective: Objective: Per RN - probably IR procedure today. Vital Signs: Vital Signs Date Time Temp Pulse Resp B/P Pulse Ox O2 Delivery O2 Flow Rate FiO2 11/08/16 10:10 96.4 58 18 136/61 96.4 11/08/16 07:00 96 Room Air Labs: Laboratory Tests Test 11/08/16 04:25 White Blood Count 4.4x10^3/uL Red Blood Count 2.10x10^6/uL Hemoglobin 6.5g/dL Hematocrit 19.8% Mean Corpuscular Volume 95fL Mean Corpuscular Hemoglobin 31pg Mean Corpuscular Hemoglobin Concent 33g/dL Red Cell Distribution Width 16.0% Platelet Count 120x10^3/uL PE: GEN: NAD, on commode NEURO/PSYCH: A & O 3 A/P: Recurrent GIB and anemia w/ von Willebrand's disease -have discussed further workup at [facility] -Dr. Rodriguez, Dr. Hernandez involved -- Transfusions in process, planned embolization w/ IR and anesthesiology later today. ERENDIRA DORSEY Nov 08, 2016 11:01
[2016-11-08] MEDS ORDERED: FUROSEMIDE 40 MG/4 ML VIAL. IVP ONE (14:30)
[2016-11-08] MEDS ORDERED: DIPHENHYDRAMINE 50 MG/ML VIAL. ONE (16:07)
[2016-11-08] MEDS ORDERED: methylPREDNISolone SOD SUCC PF 125 MG/2 ML VIAL. ONE (16:10)
[2016-11-08] MEDS ORDERED: HEPARIN for ARTERIAL LINE 1,500 ML ONE (16:33)
[2016-11-08] MEDS ORDERED: IOHEXOL 300 MG/ML 100ML VIAL. ONE (16:33)
[2016-11-08] MEDS ORDERED: LIDOCAINE 1% / SOD BICARB 8.4% 20 ML VIAL. IJ ONE ×2 (16:33→16:45)
[2016-11-08] MEDS ORDERED: CONTRAST GIVEN MC PRN (16:45)
[2016-11-08] MEDS ORDERED: IOHEXOL 300 MG/ML 100ML VIAL. IART ONE (16:45)
[2016-11-08] MEDS ORDERED: MIDAZOLAM HCL/PF 2 MG/2 ML VIAL. ONE (16:47)
[2016-11-08] MEDS ORDERED: FAMOTIDINE 20 MG/2 ML VIAL ONE (17:01)
[2016-11-08] MEDS ORDERED: IV RINGERS,LACTATED 1000ML 1,000 ML IV SCH (17:47)
[2016-11-08] MEDS ORDERED: ONDANSETRON PF 4 MG/2 ML VIAL. IV PRN (18:00)
[2016-11-08] MEDS ORDERED: LIDOCAINE 1% 1 ML SYRINGE. ID PRN (18:00)
[2016-11-08] MEDS ORDERED: PROCHLORPERAZINE 10 MG/2 ML VIAL. IV PRN (18:00)
[2016-11-08] MEDS ORDERED: FENTANYL PF 100 MCG/2 ML VIAL. IV PRN ×2 (18:00)
--- NOTE | 2016-11-08 18:00 | PDOC ---
Exam Job Superintendent Job Superintendent Mary Chief Mechanical Engineer Chief Mechanical Engineer Yan Cummings Pre-Procedure Diagnosis Pre-Procedure Diagnosis 89 YO female with Von Willebrand type 2. Persistent GI bleed with blood loss anemia. Positive Nuc Med GI bleed scan yesterday. Anesthesia available this afternoon for airway support in this patient with h/o severe reaction to Iodinated contrast material. On schedule for mesenteric angio +/- embolization , with MAC by anesthesia. Post-Procedure Diagnosis Post-Procedure Diagnosis No active GI bleed identified on selective 3 vessel mesenteric angio Procedure Performed Procedure Performed Selective GARY, SMA, and Celiac angio Type of Anesthesia Type of Anesthesia MAC by anesthesia Estimated Blood Loss EBL: 25 cc Condition of Patient Condition of Patient Stable. No hemodynamic or respiratory compromise. No apparent reaction to Iodine, s/p premedication with Solu Medrol, Benadryl, and Pepcid. Disposition Disposition From IR to PACU for recovery, then return to 514, if no problems. Monitor carefully next 24 hrs for possible delayed reaction to Iodine contrast material. F/u with Dr Loyola, Dr Rodriguez, and Dr Stallings. Full report to follow. ESTELITA DANIEL MD Nov 08, 2016 18:00
[2016-11-09 03:00] VITALS: BP 100/49
[2016-11-09] MEDS: LEVOTHYROXINE 100 MCG TABLET PO SCH (04:56)
[2016-11-09] MEDS: PANTOPRAZOLE 40 MG TABLET.DR. PO SCH (04:56)
[2016-11-09] MEDS: AMINOCAPROIC ACID 500 MG TABLET. PO SCH ×6 (04:56→23:22)
[2016-11-09 06:33] LABS: CALCIUM 9.9 mg/dL (8.5-10.1); CREATININE 1.3 mg/dL (0.6-1.0); GFR 38.7
[2016-11-09 06:57] LABS: HEMATOCRIT 30.1 % (36.0-47.0); RED BLOOD COUNT 3.23 x10^6/uL (3.50-5.40); WHITE BLOOD COUNT 4.1 x10^3/uL (4.0-11.0)
[2016-11-09] MEDS ORDERED: CYANOCOBALAMIN (VITAMIN B-12) 1,000 MCG TABLET. ONE (07:27)
[2016-11-09 07:48] VITALS: BP 117/47
[2016-11-09] MEDS: MAGNESIUM OXIDE 400 MG TABLET PO SCH (08:41)
[2016-11-09] MEDS: CALCITRIOL 0.25 MCG CAPSULE. PO SCH (08:41)
[2016-11-09] MEDS: GABAPENTIN 100 MG CAPSULE. PO SCH ×2 (08:42→20:34)
[2016-11-09] MEDS: ALLOPURINOL 300 MG TABLET. PO SCH (08:42)
[2016-11-09] MEDS: CETIRIZINE HCL 10 MG TABLET. PO SCH (08:43)
[2016-11-09] MEDS: CYANOCOBALAMIN (VITAMIN B-12) 1,000 MCG TABLET. PO SCH (08:43)
[2016-11-09] MEDS: POTASSIUM CHLORIDE 20 MEQ TABLET.ER. PO SCH (08:44)
[2016-11-09] MEDS: TRAMADOL 50 MG TABLET. PO PRN (09:07)
[2016-11-09] MEDS: VWF IV SCH (09:44)
[2016-11-09] MEDS: ANTIHEMOPHILIC FACTOR IV SCH (09:44)
[2016-11-09] MEDS: TOTAL VOLUME IV SCH (09:44)
--- NOTE | 2016-11-09 10:27 | PDOC ---
G I PROGRESS NOTE Subjective No real complaints. Still with melanotic stool. Historically seems she may have done the best when on Amicar regularly (apparently stopped due to cost). Physical Exam Lungs clear. RRR Abdomen soft, not tender nor distended. Review of Relevant I have reviewed the following items benjy (where applicable) has been applied. Labs Laboratory Tests Test 11/08/16 04:25 11/09/16 05:15 White Blood Count 4.4x10^3/uL (4.0-11.0) 4.1x10^3/uL (4.0-11.0) Red Blood Count 2.10x10^6/uL (3.50-5.40) 3.23x10^6/uL (3.50-5.40) Hemoglobin 6.5g/dL (12.0-15.5) 10.0g/dL (12.0-15.5) Hematocrit 19.8% (36.0-47.0) 30.1% (36.0-47.0) Mean Corpuscular Volume 95fL (79-100) 93fL (79-100) Mean Corpuscular Hemoglobin 31pg (25-35) 31pg (25-35) Mean Corpuscular Hemoglobin Concent 33g/dL (31-37) 33g/dL (31-37) Red Cell Distribution Width 16.0% (11.5-14.5) 15.0% (11.5-14.5) Platelet Count 120x10^3/uL (140-400) 116x10^3/uL (140-400) Sodium Level 144mmol/L (136-145) Potassium Level 4.0mmol/L (3.5-5.1) Chloride Level 106mmol/L (98-107) Carbon Dioxide Level 28mmol/L (21-32) Anion Gap 10 (6-14) Blood Urea Nitrogen 38mg/dL (7-20) Creatinine 1.3mg/dL (0.6-1.0) Estimated GFR (Cockcroft-Gault) 38.7 Glucose Level 136mg/dL (70-99) Calcium Level 9.9mg/dL (8.5-10.1) Laboratory Tests Test 11/09/16 05:15 White Blood Count 4.1x10^3/uL (4.0-11.0) Red Blood Count 3.23x10^6/uL (3.50-5.40) Hemoglobin 10.0g/dL (12.0-15.5) Hematocrit 30.1% (36.0-47.0) Mean Corpuscular Volume 93fL (79-100) Mean Corpuscular Hemoglobin 31pg (25-35) Mean Corpuscular Hemoglobin Concent 33g/dL (31-37) Red Cell Distribution Width 15.0% (11.5-14.5) Platelet Count 116x10^3/uL (140-400) Sodium Level 144mmol/L (136-145) Potassium Level 4.0mmol/L (3.5-5.1) Chloride Level 106mmol/L (98-107) Carbon Dioxide Level 28mmol/L (21-32) Anion Gap 10 (6-14) Blood Urea Nitrogen 38mg/dL (7-20) Creatinine 1.3mg/dL (0.6-1.0) Estimated GFR (Cockcroft-Gault) 38.7 Glucose Level 136mg/dL (70-99) Calcium Level 9.9mg/dL (8.5-10.1) Microbiology 11/06/16 Urine Culture - Preliminary, Resulted 11/06/16 Urine Culture Result 1 (TOAN) - Preliminary, Resulted Hemoglobin up after transfused. Medications Current Medications Sodium Chloride (Iv Sodium Chloride 0.9% 1000ml Bag) 1,000 ml @ 100 mls/hr Q10H IV Last administered on 11/06/16 16:25; Start 11/06/16 at 16:06; Stop at 02:05; Status DC Ondansetron HCl (Zofran) 4 mg 1X ONCE IV Last administered on 11/06/16 16:24 ; Start 11/06/16 at 16:15; Stop 11/06/16 at 16:20; Status DC Pantoprazole Sodium (Protonix Vial) 40 mg 1X ONCE IVP Last administered on 16:24; Start 11/06/16 at 16:15; Stop 11/06/16 at 16:20; Status DC Ondansetron HCl 4 mg 4 mg PRN Q8HRS PRN IV NAUSEA/VOMITING; Start 11/06/16 at 17:00; Stop 11/07/16 at 05:39; Status DC Sodium Chloride 1,000 ml @ 100 mls/hr Q10H IV Last administered on 11/07/16 20:52; Start 11/06/16 at 16:50; Stop 11/07/16 at 16:49; Status DC Pantoprazole Sodium/Sodium Chloride (Protonix Iv/Iv Sodium Chloride 0.9% 100ml) 100 ml @ 10 mls/hr 1X ONCE IV Last administered on 11/06/16 17:21; Start at 17:00; Stop 11/07/16 at 02:59; Status DC Acetaminophen (Tylenol) 500 mg PRN DAILY PRN PO MILD PAIN; Start 11/07/16 at 09 :00 Allopurinol (Zyloprim) 300 mg DAILY PO Last administered on 11/09/16 08:42; Start 11/07/16 at 09:00 Calcitriol (Rocaltrol) 0.25 mcg DAILY PO Last administered on 11/09/16 08:41; Start 11/07/16 at 09:00 Cyanocobalamin (Vitamin B-12) 1,000 mcg DAILY PO Last administered on 11/09/16 08:43; Start 11/07/16 at 09:00 Furosemide (Lasix) 40 mg DAILY PO ; Start 11/07/16 at 09:00; Stop 11/07/16 at 09 :00; Status DC Gabapentin (Neurontin) 200 mg BID PO Last administered on 11/09/16 08:42; Start 11/07/16 at 09:00 Potassium Chloride (Klor-Con) 20 meq DAILY PO Last administered on 11/09/16 08: 44; Start 11/07/16 at 09:00 Tramadol HCl (Ultram) 50 mg PRN QID PRN PO MODERATE PAIN Last administered on 09:07; Start 11/07/16 at 09:00 Non-Formulary Medication 1,000 mg DAILY PO ; Start 11/07/16 at 09:00; Status UNV Cetirizine HCl (Zyrtec) 10 mg DAILY PO Last administered on 11/09/16 08:43; Start 11/07/16 at 09:00 Non-Formulary Medication 1 each DAILY PO ; Start 11/07/16 at 09:00; Status UNV Magnesium Oxide (Magnesium Oxide) 400 mg DAILY PO Last administered on 08:41; Start 11/07/16 at 09:00 Pantoprazole Sodium (Protonix) 40 mg DAILYAC PO Last administered on 11/07/16 09:30; Start 11/07/16 at 07:30; Stop 11/08/16 at 05:34; Status DC Non-Formulary Medication 200 mcg DAILY PO ; Start 11/07/16 at 09:00; Status UNV Non-Formulary Medication 650 mg BID PO ; Start 11/07/16 at 09:00; Stop 11/07/16 at 09:44; Status DC Levothyroxine Sodium (Synthroid) 100 mcg DAILY07 PO Last administered on 04:56; Start 11/07/16 at 07:00 Ondansetron HCl (Zofran) 4 mg PRN Q8HRS PRN IV NAUSEA/VOMITING; Start 11/07/16 at 05:39; Stop 11/07/16 at 16:59; Status DC Cyanocobalamin (Vitamin B-12) 1,000 mcg STK-MED ONCE .ROUTE ; Start 11/07/16 at 07:51; Stop 11/07/16 at 07:52; Status DC Aminocaproic Acid 500 mg 500 mg Q6HRS PO Last administered on 11/08/16 05:54; Start 11/07/16 at 09:00; Stop 11/08/16 at 09:04; Status DC Antihemophilic Factor/ Miscellaneous (Humate-P Vwf:Rco) 30 ml @ 180 mls/hr 1X ONCE IV Last administered on 11/07/16 12:43; Start 11/07/16 at 11:45; Stop at 11:54; Status DC Iohexol (Omnipaque 300 Mg/ml) 50 ml STK-MED ONCE .ROUTE ; Start 11/07/16 at 13: 40; Stop 11/07/16 at 13:41; Status DC Iohexol (Omnipaque 300 Mg/ml) 100 ml STK-MED ONCE .ROUTE ; Start 11/07/16 at 13: 40; Stop 11/07/16 at 13:41; Status DC Lidocaine/Sodium Bicarbonate 20 ml 20 ml STK-MED ONCE IJ ; Start 11/07/16 at 13: 40; Stop 11/07/16 at 13:41; Status DC Heparin Sodium/ Sodium Chloride 0 ml @ As Directed STK-MED ONCE .ROUTE ; Start 11/07/16 at 13:40; Stop 11/07/16 at 13:41; Status DC Antihemophilic Factor/ Miscellaneous (Humate-P Vwf:Rco) 30 ml @ 180 mls/hr DAILY IV Last administered on 11/09/16 09:44; Start 11/08/16 at 09:00 Pantoprazole Sodium (Protonix) 40 mg STK-MED ONCE PO ; Start 11/08/16 at 05:32; Stop 11/08/16 at 05:33; Status DC Pantoprazole Sodium (Protonix) 40 mg DAILYAC PO Last administered on 11/09/16 04:56; Start 11/08/16 at 05:34 Aminocaproic Acid (Amicar) 1,000 mg Q4HRS PO Last administered on 11/09/16 08: 41; Start 11/08/16 at 12:00 Furosemide (Lasix) 40 mg 1X ONCE IVP Last administered on 11/08/16 14:40; Start 11/08/16 at 14:30; Stop 11/08/16 at 14:31; Status DC Diphenhydramine HCl (Benadryl) 50 mg STK-MED ONCE .ROUTE ; Start 11/08/16 at 16: 07; Stop 11/08/16 at 16:08; Status DC Methylprednisolone Sodium Succinate (Solu-Medrol 125mg Vial) 125 mg STK-MED ONCE .ROUTE ; Start 11/08/16 at 16:10; Stop 11/08/16 at 16:11; Status DC Iohexol (Omnipaque 300 Mg/ml) 100 ml STK-MED ONCE .ROUTE ; Start 11/08/16 at 16: 33; Stop 11/08/16 at 16:34; Status DC Lidocaine/Sodium Bicarbonate 20 ml 20 ml STK-MED ONCE IJ ; Start 11/08/16 at 16: 33; Stop 11/08/16 at 16:34; Status DC Heparin Sodium/ Sodium Chloride 1,500 ml @ As Directed STK-MED ONCE .ROUTE ; Start 11/08/16 at 16:33; Stop 11/08/16 at 16:34; Status DC Heparin Sodium/ Sodium Chloride 3,000 unit 1X ONCE IART Last administered on 17:53; Start 11/08/16 at 16:45; Stop 11/08/16 at 16:46; Status DC Lidocaine/Sodium Bicarbonate (Buffered Lidocaine 1%) 20 ml 1X ONCE IJ Last administered on 11/08/16 17:52; Start 11/08/16 at 16:45; Stop 11/08/16 at 16:46 ; Status DC Iohexol (Omnipaque 300 Mg/ml) 200 ml 1X ONCE IART Last administered on 17:53; Start 11/08/16 at 16:45; Stop 11/08/16 at 16:46; Status DC Info (Do NOT chart on this entry -- for MONITORING) 1 each PRN DAILY PRN MC SEE COMMENTS; Start 11/08/16 at 16:45; Stop 11/10/16 at 16:44 Midazolam HCl (Versed) 2 mg STK-MED ONCE .ROUTE ; Start 11/08/16 at 16:47; Stop 11/08/16 at 16:48; Status DC Famotidine (Pepcid) 20 mg STK-MED ONCE .ROUTE ; Start 11/08/16 at 17:01; Stop at 17:02; Status DC Ondansetron HCl (Zofran) 0.4 mg PRN Q6HRS PRN IV NAUSEA/VOMITING; Start at 18:00; Stop 11/09/16 at 17:59 Fentanyl Citrate (Fentanyl 2ml Vial) 25 mcg PRN Q5MIN PRN IV MILD PAIN; Start 11/08/16 at 18:00; Stop 11/09/16 at 17:59 Fentanyl Citrate 50 mcg 50 mcg PRN Q5MIN PRN IV MODERATE PAIN; Start 11/08/16 at 18:00; Stop 11/09/16 at 17:59 Lactated Ringer's (Iv Lactated Ringers) 1,000 ml @ 0 mls/hr Q0M IV ; Start at 17:47; Stop 11/09/16 at 05:46; Status DC Lidocaine HCl 2 ml PRN 1X PRN ID PRIOR TO IV START; Start 11/08/16 at 18:00; Stop 11/09/16 at 17:59 Prochlorperazine Edisylate (Compazine) 5 mg PACU PRN PRN IV NAUSEA, MRX1; Start 11/08/16 at 18:00; Stop 11/09/16 at 17:59 Cyanocobalamin (Vitamin B-12) 1,000 mcg STK-MED ONCE .ROUTE ; Start 11/09/16 at 07:27; Stop 11/09/16 at 07:28; Status DC Active Scripts Active Lasix (Furosemide) 40 Mg Tablet 1 Tab PO QOD Reported Lysteda (Tranexamic Acid) 650 Mg Tablet 650 Mg PO BID Vitamin B Complex 1 Each Capsule 1 Each PO Calcitriol 0.25 Mcg Capsule 1 Cap PO DAILY Selenium (Selenomethionine) 200 Mcg Tablet 200 Mcg PO DAILY Vitamin A 8,000 Unit Capsule 8,000 Unit PO Coconut Oil 1,000 Mg Capsule 1,000 Mg PO DAILY Aminocaproic Acid 500 Mg Tablet 500 Mg PO DAILY Magnesium (Magnesium Oxide) 500 Mg Capsule 500 Mg PO DAILY Omeprazole 40 Mg Capsule.dr 40 Mg PO DAILY Potassium Chloride 20 Meq Tab.er.prt 20 Meq PO DAILY Acetaminophen 500 Mg Tablet 500 Mg PO PRN DAILY PRN Allopurinol 300 Mg Tablet 300 Mg PO DAILY Neurontin (Gabapentin) 100 Mg Capsule 200 Mg PO BID Vitamin B-12 (Cyanocobalamin (Vitamin B-12)) 1,000 Mcg Tablet 1,000 Mcg PO DAILY Osteo Bi-Flex Caplet (Gluc/Lyndon-Msm#1/C/Brandon/Alfredo/Bor) 1 Each Tablet 1 Each PO DAILY Levothyroxine Sodium Inj (Levothyroxine Sodium) 100 Mcg Vial 100 Mcg PO DAILY Nakita (Fexofenadine Hcl) 180 Mg Tablet 180 Mg PO DAILY Tramadol Hcl 50 Mg Tablet 50 Mg PO PRN QID Vitals/I & O Vital Sign - Last 24 Hours 11/08/16 11/08/16 11/08/16 11/08/16 11:00 12:03 12:19 13:05 Temp 96.4 97.7 97.5 96.7 96.4 97.7 97.5 96.7 Pulse 58 57 67 61 Resp 18 19 20 19 B/P 136/61 130/53 145/75 131/62 Pulse Ox 96 O2 Delivery Room Air 11/08/16 11/08/16 11/08/1617 13:05 14:11 14:50 17:54 Temp 96.7 98.4 98.4 97.2 96.7 98.4 98.4 97.2 Pulse 61 57 57 54 Resp 19 20 20 20 B/P 131/62 117/52 117/52 120/53 Pulse Ox 97 94 O2 Delivery Room Air Room Air 11/08/16 11/08/16 11/08/16 11/08/16 18:09 18:30 18:45 19:00 Temp 97.1 96.7 97.7 97.7 97.1 96.7 97.7 97.7 Pulse 58 56 57 52 Resp 20 20 20 20 B/P 124/42 129/52 119/46 123/45 Pulse Ox 94 94 95 98 O2 Delivery Room Air Room Air Room Air Room Air 11/08/16 11/08/16 11/09/16 11/09/16 20:00 23:00 03:00 07:48 Temp 97.5 97.5 96.3 97.5 97.5 96.3 Pulse 54 56 53 Resp 20 18 20 B/P 114/45 100/49 117/47 Pulse Ox 97 96 96 O2 Delivery Room Air Room Air Room Air Room Air 11/09/16 11/09/16 08:00 09:07 Resp 20 O2 Delivery Room Air Room Air Intake and Output 11/08/16 11/08/16 11/09/16 15:00 23:00 07:00 Intake Total 400 ml 200 ml Output Total 950 ml 1600 ml Balance 400 ml -950 ml -1400 ml Images To me, looks like small bowel on bleeding scan. 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 Difficult problem. Stable, now back on Amicar. Plan of Care: Continue current Tx, Mgmt Plan of Care Note Observe. ALESSANDRA CROWLEY MD Nov 09, 2016 10:27
--- NOTE | 2016-11-09 10:37 | PDOC ---
GENERAL General: vss and afebrile awake and alert. still with melanotic stools this am. Hb up to 10 this am so probably old blood. angiography without bleeding. chest clear and heart regular. continue present. follow H/H. Problems: VITAL SIGNS Vital Signs: Vital Signs Date Time Temp Pulse Resp B/P Pulse Ox O2 Delivery O2 Flow Rate FiO2 11/09/16 09:07 20 Room Air 11/09/16 07:48 96.3 53 117/47 96 96.3 I & O I & O Intake and Output 11/09/16 07:00 Intake Total 600 ml Output Total 2550 ml Balance -1950 ml Intake Oral 200 ml IV Total 30 ml Blood Product IV Normal Saline Flush 370 ml Output Urine Total 2550 ml # Bowel Movements 1 ALLERGIES Allergies: Allergies Coded Allergies Type Severity Reaction Last Updated Verified Iodinated Contrast Media - Oral and Allergy Severe 11/07/16 Yes Penicillins Allergy Severe Shortness of Air 11/07/16 Yes Sulfa (Sulfonamide Antibiotics) Allergy Intermediate 11/07/16 Yes aspirin Adverse Reaction Intermediate 11/07/16 Yes codeine Adverse Reaction Intermediate Anxiety 11/07/16 Yes MEDS Medications: Current Medications Medications (Trade) Dose Ordered Sig/Tim Start Time Stop Time Status Last Admin Dose Admin Acetaminophen (Tylenol) 500 mg PRN DAILY PRN 11/07/16 09:00 Allopurinol (Zyloprim) 300 mg DAILY 11/07/16 09:00 11/09/16 08:42 300 MG Aminocaproic Acid (Amicar) 1,000 mg Q4HRS 11/08/16 12:00 11/09/16 08:41 1,000 MG Antihemophilic Factor/ Miscellaneous (Humate-P Vwf:Rco) 30 ml @ 180 mls/hr DAILY 11/08/16 09:00 11/09/16 09:44 180 MLS/HR Calcitriol (Rocaltrol) 0.25 mcg DAILY 11/07/16 09:00 11/09/16 08:41 0.25 MCG Cetirizine HCl (Zyrtec) 10 mg DAILY 11/07/16 09:00 11/09/16 08:43 10 MG Cyanocobalamin (Vitamin B-12) 1,000 mcg STK-MED ONCE 11/09/16 07:27 11/09/16 07:28 DC Diphenhydramine HCl (Benadryl) 50 mg STK-MED ONCE 11/08/16 16:07 11/08/16 16:08 DC Famotidine (Pepcid) 20 mg STK-MED ONCE 11/08/16 17:01 11/08/16 17:02 DC Fentanyl Citrate (Fentanyl 2ml Vial) 25 mcg PRN Q5MIN PRN 11/08/16 18:00 11/09/16 17:59 Fentanyl Citrate 50 mcg 50 mcg PRN Q5MIN PRN 11/08/16 18:00 11/09/16 17:59 Furosemide (Lasix) 40 mg 1X ONCE 11/08/16 14:30 11/08/16 14:31 DC 11/08/16 14:40 40 MG Gabapentin (Neurontin) 200 mg BID 11/07/16 09:00 11/09/16 08:42 200 MG Heparin Sodium/ Sodium Chloride 3,000 unit 1X ONCE 11/08/16 16:45 11/08/16 16:46 DC 11/08/16 17:53 3,000 UNIT Info (Do NOT chart on this entry -- for MONITORING) 1 each PRN DAILY PRN 11/08/16 16:45 11/10/16 16:44 Iohexol (Omnipaque 300 Mg/ml) 200 ml 1X ONCE 11/08/16 16:45 11/08/16 16:46 DC 11/08/16 17:53 171 ML Lactated Ringer's (Iv Lactated Ringers) 1,000 ml @ 0 mls/hr Q0M 11/08/16 17:47 11/09/16 05:46 DC Levothyroxine Sodium (Synthroid) 100 mcg DAILY07 11/07/16 07:00 11/09/16 04:56 100 MCG Lidocaine HCl 2 ml PRN 1X PRN 11/08/16 18:00 11/09/16 17:59 Lidocaine/Sodium Bicarbonate (Buffered Lidocaine 1%) 20 ml 1X ONCE 11/08/16 16:45 11/08/16 16:46 DC 11/08/16 17:52 4 ML Lidocaine/Sodium Bicarbonate 20 ml 20 ml STK-MED ONCE 11/07/16 13:40 11/07/16 13:41 DC Magnesium Oxide (Magnesium Oxide) 400 mg DAILY 11/07/16 09:00 11/09/16 08:41 400 MG Methylprednisolone Sodium Succinate (Solu-Medrol 125mg Vial) 125 mg STK-MED ONCE 11/08/16 16:10 11/08/16 16:11 DC Midazolam HCl (Versed) 2 mg STK-MED ONCE 11/08/16 16:47 11/08/16 16:48 DC Non-Formulary Medication 650 mg BID 11/07/16 09:00 11/07/16 09:44 DC Ondansetron HCl (Zofran) 0.4 mg PRN Q6HRS PRN 11/08/16 18:00 11/09/16 17:59 Ondansetron HCl 4 mg 4 mg PRN Q8HRS PRN 11/06/16 17:00 11/07/16 05:39 DC Pantoprazole Sodium (Protonix Vial) 40 mg 1X ONCE 11/06/16 16:15 11/06/16 16:20 DC 11/06/16 16:24 40 MG Pantoprazole Sodium (Protonix) 40 mg DAILYAC 11/08/16 05:34 11/09/16 04:56 40 MG Pantoprazole Sodium/Sodium Chloride (Protonix Iv/Iv Sodium Chloride 0.9% 100ml) 100 ml @ 10 mls/hr 1X ONCE 11/06/16 17:00 11/07/16 02:59 DC 11/06/16 17:21 10 MLS/HR Potassium Chloride (Klor-Con) 20 meq DAILY 11/07/16 09:00 11/09/16 08:44 20 MEQ Prochlorperazine Edisylate (Compazine) 5 mg PACU PRN PRN 11/08/16 18:00 11/09/16 17:59 Sodium Chloride 1,000 ml @ 100 mls/hr Q10H 11/06/16 16:50 11/07/16 16:49 DC 11/07/16 20:52 100 MLS/HR Sodium Chloride (Iv Sodium Chloride 0.9% 1000ml Bag) 1,000 ml @ 100 mls/hr Q10H 11/06/16 16:06 11/07/16 02:05 DC 11/06/16 16:25 100 MLS/HR Tramadol HCl (Ultram) 50 mg PRN QID PRN 11/07/16 09:00 11/09/16 09:07 50 MG LAB Lab: Laboratory Tests Test 11/09/16 05:15 White Blood Count 4.1x10^3/uL (4.0-11.0) Red Blood Count 3.23x10^6/uL (3.50-5.40) Hemoglobin 10.0g/dL (12.0-15.5) Hematocrit 30.1% (36.0-47.0) Mean Corpuscular Volume 93fL (79-100) Mean Corpuscular Hemoglobin 31pg (25-35) Mean Corpuscular Hemoglobin Concent 33g/dL (31-37) Red Cell Distribution Width 15.0% (11.5-14.5) Platelet Count 116x10^3/uL (140-400) Sodium Level 144mmol/L (136-145) Potassium Level 4.0mmol/L (3.5-5.1) Chloride Level 106mmol/L (98-107) Carbon Dioxide Level 28mmol/L (21-32) Anion Gap 10 (6-14) Blood Urea Nitrogen 38mg/dL (7-20) Creatinine 1.3mg/dL (0.6-1.0) Estimated GFR (Cockcroft-Gault) 38.7 Glucose Level 136mg/dL (70-99) Calcium Level 9.9mg/dL (8.5-10.1) MANAN GOLDBERG MD Nov 09, 2016 10:37
[2016-11-09 10:55] VITALS: BP 121/41
--- NOTE | 2016-11-09 11:41 | PDOC ---
Subjective: Subjective: Onc f/u- VWD Pt reports stools more formed, still dark. No abd pain. No hematochezia. Objective: Vital Signs: Vital Signs Date Time Temp Pulse Resp B/P Pulse Ox O2 Delivery O2 Flow Rate FiO2 11/09/16 10:55 96.3 53 20 121/41 96 Room Air 96.3 Physical Exam: Extremities: No edema General: Alert, Oriented X3, Cooperative, No acute distress Lungs: Other (no resp dsitress) Psych/Mental Status: Mental status NL, Mood NL Skin: Other (no pallor) Labs/Imaging: Hgb up to 10.0 from 6.5, plt stable at 116 IR note reviewed- No bleeding found on 3 vessel mesenteric angiography Assessment/Plan A/P: 1. Von Willebrand disease type 2. On Humate-P as outpt, insurance has declined amicar coverage. 2. Ongoing GI bleeds. Bleeding scan showed bleeding in LUQ, possibly distal splenic flexure, however angiography was neg. Bleeding stable now that on Amicar with Humate-P. 3. Severe iron def anemia s/p 4 units PRBC. Has received Injectafer as outpt. hgb up now with amicar added to Humate-P. Continue to monitor thru the weekend on current mgt. Dr. Rodriguez will return Friday. Unsure if insurance will approve amicar as outpt, obviously a concern that this will recur again. MANNY CORDERO DO Nov 09, 2016 11:41
--- NOTE | 2016-11-09 13:09 | RAD ---
Selective three-vessel mesenteric arteriogram Indication: 89-year-old female with Von Willebrand disease. Multiple previous hospitalizations for recurrent GI bleed, with blood loss anemia. Positive nuclear medicine GI bleed scan this admission. Diagnostic arteriogram, with possible embolization, has been requested. Due to this patient's history of severe iodine sensitivity, this arteriogram with possible embolization will be performed with anesthesia assistance for airway management. Fluoroscopy time: 9.5 minutes Kerma-area Product: 444 Gycm2 Contrast material: 171 cc Omnipaque 300 Anesthesia: Mac anesthesia was provided by the department of anesthesiology. The patient was premedicated for iodine sensitivity with IV Solu-Medrol, Benadryl, and Pepcid. Consent: The procedure was explained in its entirety to the patient and/or the patient's designated printing supplies sales representative by a member of the treatment team. This included a discussion of risks and benefits and commonly accepted alternatives to the procedure, as well as expected consequences of no treatment at all. Discussion of risks included, but was not limited to, those that are most frequent and those that are rare, but possibly severe or life-threatening, as well as the possibility of unforeseen complications. The possibility of severe iodine reaction, despite premedication, was specifically discussed with the patient and her family. Sterility: All elements of maximal sterile barrier technique were utilized, including cap, mask, sterile gown, sterile gloves, large sterile sheet, appropriate hand hygiene, and 2% chlorhexidine for cutaneous antisepsis. Procedure: Informed consent was obtained from the patient. She was placed supine on the angiography table. Preliminary ultrasound examination of right groin revealed wide patency of right common femoral artery, which was documented with a single hard copy ultrasound image. Right groin was then prepped and draped in the usual sterile fashion, utilizing all elements of maximal sterile barrier technique, as described above. Moderate sedation was provided with IV Versed and fentanyl. Using aseptic technique, local anesthesia, direct ultrasound guidance, and the micropuncture system, a 5 Palauan right common femoral artery sheath was successfully introduced. AGRY injection: A 5 Palauan Sos catheter was advanced through the right groin sheath into infrarenal abdominal aorta. Omnipaque 300 was hand injected and DSA images were obtained in the steep FREY projection. Those images revealed origin of widely patent GARY. Utilizing those images for guidance, the Sos catheter was easily introduced into proximal GARY. Several injections of Omnipaque 300 were performed and DSA images were obtained over GARY distribution, from splenic flexure through sigmoid. Findings: GARY trunk and major vessels are widely patent. No extravasation of injected contrast material was demonstrated to document active GI bleeding. No hypervascular mass or vascular malformation was demonstrated. SMA injection: The 5 Palauan Sos catheter was then utilized to selectively cannulate SMA. The Sos catheter was exchanged over a Glidewire for a 4 Palauan angled glide catheter, which was advanced deeply into SMA trunk. Several injections of Omnipaque 300 were performed and DSA images were obtained over SMA distribution. Findings: SMA trunk and major branches are widely patent. No extravasation of injected contrast material was demonstrated to suggest active GI bleeding. No hypervascular mass or vascular malformation was demonstrated. Celiac injection: The Sos catheter was then utilized to selectively cannulate celiac trunk. Omnipaque 300 was injected and DSA images were obtained over celiac distribution. Findings: Celiac trunk and major branches are widely patent. No extravasation of injected contrast material was seen to suggest active GI bleeding. No hypervascular mass or vascular malformation was identified. Splenic vein and portal vein are patent, with normal antegrade flow. Repeat GARY injection: Due to this patient's history of prior colonic bleeding and nuclear medicine positivity near splenic flexure, the decision was made to repeat GARY injections. The Sos catheter was again introduced into proximal GARY. Omnipaque 300 was injected and DSA images were again obtained over GARY distribution. Findings: Repeat GARY injection again showed no evidence of active GI bleeding, from the splenic flexure through sigmoid region. Patient tolerated the procedure well without apparent complication. Hemostasis was achieved at the right groin puncture site utilizing the Mynx closure system. Impression: Successful, uneventful selective three-vessel mesenteric arteriogram, as described. No active GI bleeding was demonstrated at this time.
--- NOTE | 2016-11-09 14:35 | PDOC ---
PROGRESS NOTES Subjective Subjective Patient has no cardiac complaints. Objective Objective Vital Signs Date Time Temp Pulse Resp B/P Pulse Ox O2 Delivery O2 Flow Rate FiO2 11/09/16 10:55 96.3 53 20 121/41 96 Room Air 96.3 Intake and Output 11/09/16 06:59 Intake Total 600 ml Output Total 2550 ml Balance -1950 ml Intake Oral 200 ml IV Total 30 ml Blood Product IV Normal Saline Flush 370 ml Output Urine Total 2550 ml # Bowel Movements 1 Physical Exam Physical Exam No changes in cardiac exam Assessment Assessment Patient compensated cardiac-morris. I agree with the present plan. Problems Medical Problems: (1) Acute GI bleeding Status: Acute (2) Deficiency of von Willebrand factor Status: Acute (3) Symptomatic anemia Status: Acute Comment Review of Relevant I have reviewed the following items benjy (where applicable) has been applied. Labs Laboratory Tests Test 11/08/16 04:25 11/09/16 05:15 White Blood Count 4.4x10^3/uL (4.0-11.0) 4.1x10^3/uL (4.0-11.0) Red Blood Count 2.10x10^6/uL (3.50-5.40) 3.23x10^6/uL (3.50-5.40) Hemoglobin 6.5g/dL (12.0-15.5) 10.0g/dL (12.0-15.5) Hematocrit 19.8% (36.0-47.0) 30.1% (36.0-47.0) Mean Corpuscular Volume 95fL (79-100) 93fL (79-100) Mean Corpuscular Hemoglobin 31pg (25-35) 31pg (25-35) Mean Corpuscular Hemoglobin Concent 33g/dL (31-37) 33g/dL (31-37) Red Cell Distribution Width 16.0% (11.5-14.5) 15.0% (11.5-14.5) Platelet Count 120x10^3/uL (140-400) 116x10^3/uL (140-400) Sodium Level 144mmol/L (136-145) Potassium Level 4.0mmol/L (3.5-5.1) Chloride Level 106mmol/L (98-107) Carbon Dioxide Level 28mmol/L (21-32) Anion Gap 10 (6-14) Blood Urea Nitrogen 38mg/dL (7-20) Creatinine 1.3mg/dL (0.6-1.0) Estimated GFR (Cockcroft-Gault) 38.7 Glucose Level 136mg/dL (70-99) Calcium Level 9.9mg/dL (8.5-10.1) Laboratory Tests Test 11/09/16 05:15 White Blood Count 4.1x10^3/uL (4.0-11.0) Red Blood Count 3.23x10^6/uL (3.50-5.40) Hemoglobin 10.0g/dL (12.0-15.5) Hematocrit 30.1% (36.0-47.0) Mean Corpuscular Volume 93fL (79-100) Mean Corpuscular Hemoglobin 31pg (25-35) Mean Corpuscular Hemoglobin Concent 33g/dL (31-37) Red Cell Distribution Width 15.0% (11.5-14.5) Platelet Count 116x10^3/uL (140-400) Sodium Level 144mmol/L (136-145) Potassium Level 4.0mmol/L (3.5-5.1) Chloride Level 106mmol/L (98-107) Carbon Dioxide Level 28mmol/L (21-32) Anion Gap 10 (6-14) Blood Urea Nitrogen 38mg/dL (7-20) Creatinine 1.3mg/dL (0.6-1.0) Estimated GFR (Cockcroft-Gault) 38.7 Glucose Level 136mg/dL (70-99) Calcium Level 9.9mg/dL (8.5-10.1) Microbiology 11/06/16 Urine Culture - Preliminary, Resulted 11/06/16 Urine Culture Result 1 (TOAN) - Preliminary, Resulted Medications Current Medications Sodium Chloride (Iv Sodium Chloride 0.9% 1000ml Bag) 1,000 ml @ 100 mls/hr Q10H IV Last administered on 11/06/16 16:25; Start 11/06/16 at 16:06; Stop at 02:05; Status DC Ondansetron HCl (Zofran) 4 mg 1X ONCE IV Last administered on 11/06/16 16:24 ; Start 11/06/16 at 16:15; Stop 11/06/16 at 16:20; Status DC Pantoprazole Sodium (Protonix Vial) 40 mg 1X ONCE IVP Last administered on 16:24; Start 11/06/16 at 16:15; Stop 11/06/16 at 16:20; Status DC Ondansetron HCl 4 mg 4 mg PRN Q8HRS PRN IV NAUSEA/VOMITING; Start 11/06/16 at 17:00; Stop 11/07/16 at 05:39; Status DC Sodium Chloride 1,000 ml @ 100 mls/hr Q10H IV Last administered on 11/07/16 20:52; Start 11/06/16 at 16:50; Stop 11/07/16 at 16:49; Status DC Pantoprazole Sodium/Sodium Chloride (Protonix Iv/Iv Sodium Chloride 0.9% 100ml) 100 ml @ 10 mls/hr 1X ONCE IV Last administered on 11/06/16 17:21; Start at 17:00; Stop 11/07/16 at 02:59; Status DC Acetaminophen (Tylenol) 500 mg PRN DAILY PRN PO MILD PAIN; Start 11/07/16 at 09 :00 Allopurinol (Zyloprim) 300 mg DAILY PO Last administered on 11/09/16 08:42; Start 11/07/16 at 09:00 Calcitriol (Rocaltrol) 0.25 mcg DAILY PO Last administered on 11/09/16 08:41; Start 11/07/16 at 09:00 Cyanocobalamin (Vitamin B-12) 1,000 mcg DAILY PO Last administered on 11/09/16 08:43; Start 11/07/16 at 09:00; Stop 11/09/16 at 13:19; Status DC Furosemide (Lasix) 40 mg DAILY PO ; Start 11/07/16 at 09:00; Stop 11/07/16 at 09 :00; Status DC Gabapentin (Neurontin) 200 mg BID PO Last administered on 11/09/16 08:42; Start 11/07/16 at 09:00 Potassium Chloride (Klor-Con) 20 meq DAILY PO Last administered on 11/09/16 08: 44; Start 11/07/16 at 09:00 Tramadol HCl (Ultram) 50 mg PRN QID PRN PO MODERATE PAIN Last administered on 09:07; Start 11/07/16 at 09:00 Non-Formulary Medication 1,000 mg DAILY PO ; Start 11/07/16 at 09:00; Status UNV Cetirizine HCl (Zyrtec) 10 mg DAILY PO Last administered on 11/09/16 08:43; Start 11/07/16 at 09:00 Non-Formulary Medication 1 each DAILY PO ; Start 11/07/16 at 09:00; Status UNV Magnesium Oxide (Magnesium Oxide) 400 mg DAILY PO Last administered on 08:41; Start 11/07/16 at 09:00 Pantoprazole Sodium (Protonix) 40 mg DAILYAC PO Last administered on 11/07/16 09:30; Start 11/07/16 at 07:30; Stop 11/08/16 at 05:34; Status DC Non-Formulary Medication 200 mcg DAILY PO ; Start 11/07/16 at 09:00; Status UNV Non-Formulary Medication 650 mg BID PO ; Start 11/07/16 at 09:00; Stop 11/07/16 at 09:44; Status DC Levothyroxine Sodium (Synthroid) 100 mcg DAILY07 PO Last administered on 04:56; Start 11/07/16 at 07:00 Ondansetron HCl (Zofran) 4 mg PRN Q8HRS PRN IV NAUSEA/VOMITING; Start 11/07/16 at 05:39; Stop 11/07/16 at 16:59; Status DC Cyanocobalamin (Vitamin B-12) 1,000 mcg STK-MED ONCE .ROUTE ; Start 11/07/16 at 07:51; Stop 11/07/16 at 07:52; Status DC Aminocaproic Acid 500 mg 500 mg Q6HRS PO Last administered on 11/08/16 05:54; Start 11/07/16 at 09:00; Stop 11/08/16 at 09:04; Status DC Antihemophilic Factor/ Miscellaneous (Humate-P Vwf:Rco) 30 ml @ 180 mls/hr 1X ONCE IV Last administered on 11/07/16 12:43; Start 11/07/16 at 11:45; Stop at 11:54; Status DC Iohexol (Omnipaque 300 Mg/ml) 50 ml STK-MED ONCE .ROUTE ; Start 11/07/16 at 13: 40; Stop 11/07/16 at 13:41; Status DC Iohexol (Omnipaque 300 Mg/ml) 100 ml STK-MED ONCE .ROUTE ; Start 11/07/16 at 13: 40; Stop 11/07/16 at 13:41; Status DC Lidocaine/Sodium Bicarbonate 20 ml 20 ml STK-MED ONCE IJ ; Start 11/07/16 at 13: 40; Stop 11/07/16 at 13:41; Status DC Heparin Sodium/ Sodium Chloride 0 ml @ As Directed STK-MED ONCE .ROUTE ; Start 11/07/16 at 13:40; Stop 11/07/16 at 13:41; Status DC Antihemophilic Factor/ Miscellaneous (Humate-P Vwf:Rco) 30 ml @ 180 mls/hr DAILY IV Last administered on 11/09/16 09:44; Start 11/08/16 at 09:00 Pantoprazole Sodium (Protonix) 40 mg STK-MED ONCE PO ; Start 11/08/16 at 05:32; Stop 11/08/16 at 05:33; Status DC Pantoprazole Sodium (Protonix) 40 mg DAILYAC PO Last administered on 11/09/16 04:56; Start 11/08/16 at 05:34 Aminocaproic Acid (Amicar) 1,000 mg Q4HRS PO Last administered on 11/09/16 12: 28; Start 11/08/16 at 12:00 Furosemide (Lasix) 40 mg 1X ONCE IVP Last administered on 11/08/16 14:40; Start 11/08/16 at 14:30; Stop 11/08/16 at 14:31; Status DC Diphenhydramine HCl (Benadryl) 50 mg STK-MED ONCE .ROUTE ; Start 11/08/16 at 16: 07; Stop 11/08/16 at 16:08; Status DC Methylprednisolone Sodium Succinate (Solu-Medrol 125mg Vial) 125 mg STK-MED ONCE .ROUTE ; Start 11/08/16 at 16:10; Stop 11/08/16 at 16:11; Status DC Iohexol (Omnipaque 300 Mg/ml) 100 ml STK-MED ONCE .ROUTE ; Start 11/08/16 at 16: 33; Stop 11/08/16 at 16:34; Status DC Lidocaine/Sodium Bicarbonate 20 ml 20 ml STK-MED ONCE IJ ; Start 11/08/16 at 16: 33; Stop 11/08/16 at 16:34; Status DC Heparin Sodium/ Sodium Chloride 1,500 ml @ As Directed STK-MED ONCE .ROUTE ; Start 11/08/16 at 16:33; Stop 11/08/16 at 16:34; Status DC Heparin Sodium/ Sodium Chloride 3,000 unit 1X ONCE IART Last administered on 17:53; Start 11/08/16 at 16:45; Stop 11/08/16 at 16:46; Status DC Lidocaine/Sodium Bicarbonate (Buffered Lidocaine 1%) 20 ml 1X ONCE IJ Last administered on 11/08/16 17:52; Start 11/08/16 at 16:45; Stop 11/08/16 at 16:46 ; Status DC Iohexol (Omnipaque 300 Mg/ml) 200 ml 1X ONCE IART Last administered on 17:53; Start 11/08/16 at 16:45; Stop 11/08/16 at 16:46; Status DC Info (Do NOT chart on this entry -- for MONITORING) 1 each PRN DAILY PRN MC SEE COMMENTS; Start 11/08/16 at 16:45; Stop 11/10/16 at 16:44 Midazolam HCl (Versed) 2 mg STK-MED ONCE .ROUTE ; Start 11/08/16 at 16:47; Stop 11/08/16 at 16:48; Status DC Famotidine (Pepcid) 20 mg STK-MED ONCE .ROUTE ; Start 11/08/16 at 17:01; Stop at 17:02; Status DC Ondansetron HCl (Zofran) 0.4 mg PRN Q6HRS PRN IV NAUSEA/VOMITING; Start at 18:00; Stop 11/09/16 at 17:59 Fentanyl Citrate (Fentanyl 2ml Vial) 25 mcg PRN Q5MIN PRN IV MILD PAIN; Start 11/08/16 at 18:00; Stop 11/09/16 at 17:59 Fentanyl Citrate 50 mcg 50 mcg PRN Q5MIN PRN IV MODERATE PAIN; Start 11/08/16 at 18:00; Stop 11/09/16 at 17:59 Lactated Ringer's (Iv Lactated Ringers) 1,000 ml @ 0 mls/hr Q0M IV ; Start at 17:47; Stop 11/09/16 at 05:46; Status DC Lidocaine HCl 2 ml PRN 1X PRN ID PRIOR TO IV START; Start 11/08/16 at 18:00; Stop 11/09/16 at 17:59 Prochlorperazine Edisylate (Compazine) 5 mg PACU PRN PRN IV NAUSEA, MRX1; Start 11/08/16 at 18:00; Stop 11/09/16 at 17:59 Cyanocobalamin (Vitamin B-12) 1,000 mcg STK-MED ONCE .ROUTE ; Start 11/09/16 at 07:27; Stop 11/09/16 at 07:28; Status DC Cyanocobalamin (Vitamin B-12) 1,000 mcg DAILY PO ; Start 11/10/16 at 09:00 Active Scripts Active Lasix (Furosemide) 40 Mg Tablet 1 Tab PO QOD Reported Lysteda (Tranexamic Acid) 650 Mg Tablet 650 Mg PO BID Vitamin B Complex 1 Each Capsule 1 Each PO Calcitriol 0.25 Mcg Capsule 1 Cap PO DAILY Selenium (Selenomethionine) 200 Mcg Tablet 200 Mcg PO DAILY Vitamin A 8,000 Unit Capsule 8,000 Unit PO Coconut Oil 1,000 Mg Capsule 1,000 Mg PO DAILY Aminocaproic Acid 500 Mg Tablet 500 Mg PO DAILY Magnesium (Magnesium Oxide) 500 Mg Capsule 500 Mg PO DAILY Omeprazole 40 Mg Capsule.dr 40 Mg PO DAILY Potassium Chloride 20 Meq Tab.er.prt 20 Meq PO DAILY Acetaminophen 500 Mg Tablet 500 Mg PO PRN DAILY PRN Allopurinol 300 Mg Tablet 300 Mg PO DAILY Neurontin (Gabapentin) 100 Mg Capsule 200 Mg PO BID Vitamin B-12 (Cyanocobalamin (Vitamin B-12)) 1,000 Mcg Tablet 1,000 Mcg PO DAILY Osteo Bi-Flex Caplet (Gluc/Lyndon-Msm#1/C/Brandon/Alfredo/Bor) 1 Each Tablet 1 Each PO DAILY Levothyroxine Sodium Inj (Levothyroxine Sodium) 100 Mcg Vial 100 Mcg PO DAILY Nakita (Fexofenadine Hcl) 180 Mg Tablet 180 Mg PO DAILY Tramadol Hcl 50 Mg Tablet 50 Mg PO PRN QID Vitals/I & O Vital Sign - Last 24 Hours 11/08/16 11/08/16 11/08/16 11/08/16 14:50 17:54 18:09 18:30 Temp 98.4 97.2 97.1 96.7 98.4 97.2 97.1 96.7 Pulse 57 54 58 56 Resp 20 20 20 20 B/P 117/52 120/53 124/42 129/52 Pulse Ox 97 94 94 94 O2 Delivery Room Air Room Air Room Air Room Air 11/08/16 11/08/16 11/08/16 11/08/16 18:45 19:00 20:00 23:00 Temp 97.7 97.7 97.5 97.7 97.7 97.5 Pulse 57 52 54 Resp 20 20 20 B/P 119/46 123/45 114/45 Pulse Ox 95 98 97 O2 Delivery Room Air Room Air Room Air Room Air 11/09/16 11/09/16 11/09/16 11/09/16 03:00 07:48 08:00 09:07 Temp 97.5 96.3 97.5 96.3 Pulse 56 53 Resp 18 20 20 B/P 100/49 117/47 Pulse Ox 96 96 O2 Delivery Room Air Room Air Room Air Room Air 11/09/16 10:55 Temp 96.3 96.3 Pulse 53 Resp 20 B/P 121/41 Pulse Ox 96 O2 Delivery Room Air Intake and Output 11/08/16 11/08/16 11/09/16 14:59 22:59 06:59 Intake Total 400 ml 200 ml Output Total 950 ml 1600 ml Balance 400 ml -950 ml -1400 ml MARISOL ELLIOTT MD Nov 09, 2016 14:35
[2016-11-09 15:00] VITALS: BP 139/42
[2016-11-09] MEDS ORDERED: ALBUTEROL SULFATE 2.5 MG/3 ML NEBU. NEB ONE (17:30)
[2016-11-09 19:00] VITALS: BP 124/40
[2016-11-09] MEDS: ALBUTEROL SULFATE 2.5 MG/3 ML NEBU. NEB PRN (20:51)
[2016-11-09 23:00] VITALS: BP 116/40
[2016-11-10 03:30] VITALS: BP 104/43
[2016-11-10] MEDS: AMINOCAPROIC ACID 500 MG TABLET. PO SCH ×6 (04:33→23:17)
[2016-11-10] MEDS: PANTOPRAZOLE 40 MG TABLET.DR. PO SCH (04:33)
[2016-11-10] MEDS: LEVOTHYROXINE 100 MCG TABLET PO SCH (04:33)
[2016-11-10 04:48] LABS: BASO % 0 % (0-3); EOS % 0 % (0-3); HEMATOCRIT 27.5 % (36.0-47.0); LYMPH # 0.5 x10^3/uL (1.0-4.8); LYMPH % 6 % (24-48); MEAN CORPUSCULAR HEMOGLOBIN 31 pg (25-35); MEAN CORPUSCULAR HGB CONC 33 g/dL (31-37); MEAN CORPUSCULAR VOLUME 95 fL (79-100); MONO % 5 % (0-9); NEUT % 89 % (31-73); PLATELET COUNT 117 x10^3/uL (140-400); RED CELL DISTRIBUTION WIDTH 15.5 % (11.5-14.5); WHITE BLOOD COUNT 8.2 x10^3/uL (4.0-11.0)
[2016-11-10 06:40] LABS: PLT ESTIMATE DECREASED (ADEQUATE)
[2016-11-10 07:30] VITALS: BP 94/38
[2016-11-10] MEDS: CYANOCOBALAMIN (VITAMIN B-12) 1,000 MCG TABLET. PO SCH (09:06)
[2016-11-10] MEDS: GABAPENTIN 100 MG CAPSULE. PO SCH ×2 (09:06→20:34)
[2016-11-10] MEDS: MAGNESIUM OXIDE 400 MG TABLET PO SCH (09:06)
[2016-11-10] MEDS: CETIRIZINE HCL 10 MG TABLET. PO SCH (09:06)
[2016-11-10] MEDS: CALCITRIOL 0.25 MCG CAPSULE. PO SCH (09:07)
[2016-11-10] MEDS: ALLOPURINOL 300 MG TABLET. PO SCH (09:07)
[2016-11-10] MEDS: TOTAL VOLUME IV SCH (09:11)
[2016-11-10] MEDS: ANTIHEMOPHILIC FACTOR IV SCH (09:11)
[2016-11-10] MEDS: POTASSIUM CHLORIDE 20 MEQ TABLET.ER. PO SCH (09:11)
[2016-11-10] MEDS: VWF IV SCH (09:11)
--- NOTE | 2016-11-10 09:44 | PDOC ---
G I PROGRESS NOTE Subjective No complaints. Hasn't stooled today. Had melena yesterday. Physical Exam Lungs clear. RRR Abdomen soft, not tender nor distended. Review of Relevant I have reviewed the following items benjy (where applicable) has been applied. Labs Laboratory Tests Test 11/09/16 05:15 11/10/16 04:20 White Blood Count 4.1x10^3/uL (4.0-11.0) 8.2x10^3/uL (4.0-11.0) Red Blood Count 3.23x10^6/uL (3.50-5.40) 2.90x10^6/uL (3.50-5.40) Hemoglobin 10.0g/dL (12.0-15.5) 9.0g/dL (12.0-15.5) Hematocrit 30.1% (36.0-47.0) 27.5% (36.0-47.0) Mean Corpuscular Volume 93fL (79-100) 95fL (79-100) Mean Corpuscular Hemoglobin 31pg (25-35) 31pg (25-35) Mean Corpuscular Hemoglobin Concent 33g/dL (31-37) 33g/dL (31-37) Red Cell Distribution Width 15.0% (11.5-14.5) 15.5% (11.5-14.5) Platelet Count 116x10^3/uL (140-400) 117x10^3/uL (140-400) Sodium Level 144mmol/L (136-145) Potassium Level 4.0mmol/L (3.5-5.1) Chloride Level 106mmol/L (98-107) Carbon Dioxide Level 28mmol/L (21-32) Anion Gap 10 (6-14) Blood Urea Nitrogen 38mg/dL (7-20) Creatinine 1.3mg/dL (0.6-1.0) Estimated GFR (Cockcroft-Gault) 38.7 Glucose Level 136mg/dL (70-99) Calcium Level 9.9mg/dL (8.5-10.1) Neutrophils (%) (Auto) 89% (31-73) Lymphocytes (%) (Auto) 6% (24-48) Monocytes (%) (Auto) 5% (0-9) Eosinophils (%) (Auto) 0% (0-3) Basophils (%) (Auto) 0% (0-3) Neutrophils # (Auto) 7.3x10^3uL (1.8-7.7) Lymphocytes # (Auto) 0.5x10^3/uL (1.0-4.8) Monocytes # (Auto) 0.4x10^3/uL (0.0-1.1) Eosinophils # (Auto) 0.0x10^3/uL (0.0-0.7) Basophils # (Auto) 0.0x10^3/uL (0.0-0.2) Segmented Neutrophils % 90% (35-66) Lymphocytes % 7% (24-48) Monocytes % 3% (0-10) Platelet Estimate Decreased (ADEQUATE) Laboratory Tests Test 11/10/16 04:20 White Blood Count 8.2x10^3/uL (4.0-11.0) Red Blood Count 2.90x10^6/uL (3.50-5.40) Hemoglobin 9.0g/dL (12.0-15.5) Hematocrit 27.5% (36.0-47.0) Mean Corpuscular Volume 95fL (79-100) Mean Corpuscular Hemoglobin 31pg (25-35) Mean Corpuscular Hemoglobin Concent 33g/dL (31-37) Red Cell Distribution Width 15.5% (11.5-14.5) Platelet Count 117x10^3/uL (140-400) Neutrophils (%) (Auto) 89% (31-73) Lymphocytes (%) (Auto) 6% (24-48) Monocytes (%) (Auto) 5% (0-9) Eosinophils (%) (Auto) 0% (0-3) Basophils (%) (Auto) 0% (0-3) Neutrophils # (Auto) 7.3x10^3uL (1.8-7.7) Lymphocytes # (Auto) 0.5x10^3/uL (1.0-4.8) Monocytes # (Auto) 0.4x10^3/uL (0.0-1.1) Eosinophils # (Auto) 0.0x10^3/uL (0.0-0.7) Basophils # (Auto) 0.0x10^3/uL (0.0-0.2) Segmented Neutrophils % 90% (35-66) Lymphocytes % 7% (24-48) Monocytes % 3% (0-10) Platelet Estimate Decreased (ADEQUATE) Microbiology 11/06/16 Urine Culture - Preliminary, Resulted 11/06/16 Urine Culture Result 1 (TOAN) - Preliminary, Resulted Minor drop in hemoglobin. Medications Current Medications Sodium Chloride (Iv Sodium Chloride 0.9% 1000ml Bag) 1,000 ml @ 100 mls/hr Q10H IV Last administered on 11/06/16 16:25; Start 11/06/16 at 16:06; Stop at 02:05; Status DC Ondansetron HCl (Zofran) 4 mg 1X ONCE IV Last administered on 11/06/16 16:24 ; Start 11/06/16 at 16:15; Stop 11/06/16 at 16:20; Status DC Pantoprazole Sodium (Protonix Vial) 40 mg 1X ONCE IVP Last administered on 16:24; Start 11/06/16 at 16:15; Stop 11/06/16 at 16:20; Status DC Ondansetron HCl 4 mg 4 mg PRN Q8HRS PRN IV NAUSEA/VOMITING; Start 11/06/16 at 17:00; Stop 11/07/16 at 05:39; Status DC Sodium Chloride 1,000 ml @ 100 mls/hr Q10H IV Last administered on 11/07/16 20:52; Start 11/06/16 at 16:50; Stop 11/07/16 at 16:49; Status DC Pantoprazole Sodium/Sodium Chloride (Protonix Iv/Iv Sodium Chloride 0.9% 100ml) 100 ml @ 10 mls/hr 1X ONCE IV Last administered on 11/06/16 17:21; Start at 17:00; Stop 11/07/16 at 02:59; Status DC Acetaminophen (Tylenol) 500 mg PRN DAILY PRN PO MILD PAIN; Start 11/07/16 at 09 :00 Allopurinol (Zyloprim) 300 mg DAILY PO Last administered on 11/10/16 09:07; Start 11/07/16 at 09:00 Calcitriol (Rocaltrol) 0.25 mcg DAILY PO Last administered on 11/10/16 09:07; Start 11/07/16 at 09:00 Cyanocobalamin (Vitamin B-12) 1,000 mcg DAILY PO Last administered on 11/09/16 08:43; Start 11/07/16 at 09:00; Stop 11/09/16 at 13:19; Status DC Furosemide (Lasix) 40 mg DAILY PO ; Start 11/07/16 at 09:00; Stop 11/07/16 at 09 :00; Status DC Gabapentin (Neurontin) 200 mg BID PO Last administered on 11/10/16 09:06; Start 11/07/16 at 09:00 Potassium Chloride (Klor-Con) 20 meq DAILY PO Last administered on 11/10/16 09: 11; Start 11/07/16 at 09:00 Tramadol HCl (Ultram) 50 mg PRN QID PRN PO MODERATE PAIN Last administered on 09:07; Start 11/07/16 at 09:00 Non-Formulary Medication 1,000 mg DAILY PO ; Start 11/07/16 at 09:00; Status UNV Cetirizine HCl (Zyrtec) 10 mg DAILY PO Last administered on 11/10/16 09:06; Start 11/07/16 at 09:00 Non-Formulary Medication 1 each DAILY PO ; Start 11/07/16 at 09:00; Status UNV Magnesium Oxide (Magnesium Oxide) 400 mg DAILY PO Last administered on 09:06; Start 11/07/16 at 09:00 Pantoprazole Sodium (Protonix) 40 mg DAILYAC PO Last administered on 11/07/16 09:30; Start 11/07/16 at 07:30; Stop 11/08/16 at 05:34; Status DC Non-Formulary Medication 200 mcg DAILY PO ; Start 11/07/16 at 09:00; Status UNV Non-Formulary Medication 650 mg BID PO ; Start 11/07/16 at 09:00; Stop 11/07/16 at 09:44; Status DC Levothyroxine Sodium (Synthroid) 100 mcg DAILY07 PO Last administered on 04:33; Start 11/07/16 at 07:00 Ondansetron HCl (Zofran) 4 mg PRN Q8HRS PRN IV NAUSEA/VOMITING; Start 11/07/16 at 05:39; Stop 11/07/16 at 16:59; Status DC Cyanocobalamin (Vitamin B-12) 1,000 mcg STK-MED ONCE .ROUTE ; Start 11/07/16 at 07:51; Stop 11/07/16 at 07:52; Status DC Aminocaproic Acid 500 mg 500 mg Q6HRS PO Last administered on 11/08/16 05:54; Start 11/07/16 at 09:00; Stop 11/08/16 at 09:04; Status DC Antihemophilic Factor/ Miscellaneous (Humate-P Vwf:Rco) 30 ml @ 180 mls/hr 1X ONCE IV Last administered on 11/07/16 12:43; Start 11/07/16 at 11:45; Stop at 11:54; Status DC Iohexol (Omnipaque 300 Mg/ml) 50 ml STK-MED ONCE .ROUTE ; Start 11/07/16 at 13: 40; Stop 11/07/16 at 13:41; Status DC Iohexol (Omnipaque 300 Mg/ml) 100 ml STK-MED ONCE .ROUTE ; Start 11/07/16 at 13: 40; Stop 11/07/16 at 13:41; Status DC Lidocaine/Sodium Bicarbonate 20 ml 20 ml STK-MED ONCE IJ ; Start 11/07/16 at 13: 40; Stop 11/07/16 at 13:41; Status DC Heparin Sodium/ Sodium Chloride 0 ml @ As Directed STK-MED ONCE .ROUTE ; Start 11/07/16 at 13:40; Stop 11/07/16 at 13:41; Status DC Antihemophilic Factor/ Miscellaneous (Humate-P Vwf:Rco) 30 ml @ 180 mls/hr DAILY IV Last administered on 11/10/16 09:11; Start 11/08/16 at 09:00 Pantoprazole Sodium (Protonix) 40 mg STK-MED ONCE PO ; Start 11/08/16 at 05:32; Stop 11/08/16 at 05:33; Status DC Pantoprazole Sodium (Protonix) 40 mg DAILYAC PO Last administered on 11/10/16 04:33; Start 11/08/16 at 05:34 Aminocaproic Acid (Amicar) 1,000 mg Q4HRS PO Last administered on 11/10/16 09: 06; Start 11/08/16 at 12:00 Furosemide (Lasix) 40 mg 1X ONCE IVP Last administered on 11/08/16 14:40; Start 11/08/16 at 14:30; Stop 11/08/16 at 14:31; Status DC Diphenhydramine HCl (Benadryl) 50 mg STK-MED ONCE .ROUTE ; Start 11/08/16 at 16: 07; Stop 11/08/16 at 16:08; Status DC Methylprednisolone Sodium Succinate (Solu-Medrol 125mg Vial) 125 mg STK-MED ONCE .ROUTE ; Start 11/08/16 at 16:10; Stop 11/08/16 at 16:11; Status DC Iohexol (Omnipaque 300 Mg/ml) 100 ml STK-MED ONCE .ROUTE ; Start 11/08/16 at 16: 33; Stop 11/08/16 at 16:34; Status DC Lidocaine/Sodium Bicarbonate 20 ml 20 ml STK-MED ONCE IJ ; Start 11/08/16 at 16: 33; Stop 11/08/16 at 16:34; Status DC Heparin Sodium/ Sodium Chloride 1,500 ml @ As Directed STK-MED ONCE .ROUTE ; Start 11/08/16 at 16:33; Stop 11/08/16 at 16:34; Status DC Heparin Sodium/ Sodium Chloride 3,000 unit 1X ONCE IART Last administered on 17:53; Start 11/08/16 at 16:45; Stop 11/08/16 at 16:46; Status DC Lidocaine/Sodium Bicarbonate (Buffered Lidocaine 1%) 20 ml 1X ONCE IJ Last administered on 11/08/16 17:52; Start 11/08/16 at 16:45; Stop 11/08/16 at 16:46 ; Status DC Iohexol (Omnipaque 300 Mg/ml) 200 ml 1X ONCE IART Last administered on 17:53; Start 11/08/16 at 16:45; Stop 11/08/16 at 16:46; Status DC Info (Do NOT chart on this entry -- for MONITORING) 1 each PRN DAILY PRN MC SEE COMMENTS; Start 11/08/16 at 16:45; Stop 11/10/16 at 16:44 Midazolam HCl (Versed) 2 mg STK-MED ONCE .ROUTE ; Start 11/08/16 at 16:47; Stop 11/08/16 at 16:48; Status DC Famotidine (Pepcid) 20 mg STK-MED ONCE .ROUTE ; Start 11/08/16 at 17:01; Stop at 17:02; Status DC Ondansetron HCl (Zofran) 0.4 mg PRN Q6HRS PRN IV NAUSEA/VOMITING; Start at 18:00; Stop 11/09/16 at 17:59; Status DC Fentanyl Citrate (Fentanyl 2ml Vial) 25 mcg PRN Q5MIN PRN IV MILD PAIN; Start 11/08/16 at 18:00; Stop 11/09/16 at 17:59; Status DC Fentanyl Citrate 50 mcg 50 mcg PRN Q5MIN PRN IV MODERATE PAIN; Start 11/08/16 at 18:00; Stop 11/09/16 at 17:59; Status DC Lactated Ringer's (Iv Lactated Ringers) 1,000 ml @ 0 mls/hr Q0M IV ; Start at 17:47; Stop 11/09/16 at 05:46; Status DC Lidocaine HCl 2 ml PRN 1X PRN ID PRIOR TO IV START; Start 11/08/16 at 18:00; Stop 11/09/16 at 17:59; Status DC Prochlorperazine Edisylate (Compazine) 5 mg PACU PRN PRN IV NAUSEA, MRX1; Start 11/08/16 at 18:00; Stop 11/09/16 at 17:59; Status DC Cyanocobalamin (Vitamin B-12) 1,000 mcg STK-MED ONCE .ROUTE ; Start 11/09/16 at 07:27; Stop 11/09/16 at 07:28; Status DC Cyanocobalamin (Vitamin B-12) 1,000 mcg DAILY PO Last administered on 11/10/16 09:06; Start 11/10/16 at 09:00 Albuterol Sulfate (Ventolin Neb Soln) 2.5 mg 1X ONCE NEB Last administered on 11/09/16t 16:53; Start 11/09/16 at 17:30; Stop 11/09/16 at 17:31; Status DC Albuterol Sulfate (Ventolin Neb Soln) 2.5 mg PRN Q4HRS PRN NEB SHORTNESS OF BREATH Last administered on 11/09/16t 20:51; Start 11/09/16 at 17:00 Active Scripts Active Lasix (Furosemide) 40 Mg Tablet 1 Tab PO QOD Reported Lysteda (Tranexamic Acid) 650 Mg Tablet 650 Mg PO BID Vitamin B Complex 1 Each Capsule 1 Each PO Calcitriol 0.25 Mcg Capsule 1 Cap PO DAILY Selenium (Selenomethionine) 200 Mcg Tablet 200 Mcg PO DAILY Vitamin A 8,000 Unit Capsule 8,000 Unit PO Coconut Oil 1,000 Mg Capsule 1,000 Mg PO DAILY Aminocaproic Acid 500 Mg Tablet 500 Mg PO DAILY Magnesium (Magnesium Oxide) 500 Mg Capsule 500 Mg PO DAILY Omeprazole 40 Mg Capsule.dr 40 Mg PO DAILY Potassium Chloride 20 Meq Tab.er.prt 20 Meq PO DAILY Acetaminophen 500 Mg Tablet 500 Mg PO PRN DAILY PRN Allopurinol 300 Mg Tablet 300 Mg PO DAILY Neurontin (Gabapentin) 100 Mg Capsule 200 Mg PO BID Vitamin B-12 (Cyanocobalamin (Vitamin B-12)) 1,000 Mcg Tablet 1,000 Mcg PO DAILY Osteo Bi-Flex Caplet (Gluc/Lyndon-Msm#1/C/Brandon/Alfredo/Bor) 1 Each Tablet 1 Each PO DAILY Levothyroxine Sodium Inj (Levothyroxine Sodium) 100 Mcg Vial 100 Mcg PO DAILY Nakita (Fexofenadine Hcl) 180 Mg Tablet 180 Mg PO DAILY Tramadol Hcl 50 Mg Tablet 50 Mg PO PRN QID Vitals/I & O Vital Sign - Last 24 Hours 11/09/16 11/09/16 11/09/16 11/09/16 10:55 15:00 16:54 19:00 Temp 96.3 96.4 96.8 96.3 96.4 96.8 Pulse 53 59 60 Resp 20 20 20 B/P 121/41 139/42 124/40 Pulse Ox 96 95 97 95 O2 Delivery Room Air Room Air Room Air Room Air 11/09/16 11/09/16 11/09/16 11/10/16 19:05 20:51 23:00 03:30 Temp 97.9 97.7 97.9 97.7 Pulse 73 51 Resp 20 20 B/P 116/40 104/43 Pulse Ox 97 94 93 O2 Delivery Room Air Room Air Room Air Room Air 11/10/16 11/10/16 07:30 08:00 Temp 97.5 97.5 Pulse 52 Resp 20 B/P 94/38 Pulse Ox 98 O2 Delivery Room Air Room Air Intake and Output 11/09/16 11/09/16 11/10/16 15:00 23:00 07:00 Intake Total 180 ml 240 ml Output Total 200 ml 100 ml Balance -200 ml 80 ml 240 ml Problem List Problems Medical Problems: (1) Acute GI bleeding Status: Acute (2) Deficiency of von Willebrand factor Status: Acute (3) Symptomatic anemia Status: Acute Assessment Seems bleeding may have slowed, hopefully stopped. Plan of Care: Continue current Tx, Mgmt Plan of Care Note Follow hemoglobin. ALESSANDRA CROWLEY MD Nov 10, 2016 09:44
[2016-11-10 10:30] VITALS: BP 108/40
--- NOTE | 2016-11-10 10:50 | PDOC ---
GENERAL General: vss and afebrile. awake and alert. some abdominal cramping with last dark stool yesterday afternoon. Hb 9.0 this am. chest clear, heart regular, and abdomen benign. continue follow H/H. hopefully bleed has resolved. Problems: VITAL SIGNS Vital Signs: Vital Signs Date Time Temp Pulse Resp B/P Pulse Ox O2 Delivery O2 Flow Rate FiO2 11/10/16 08:00 Room Air 11/10/16 07:30 97.5 52 20 94/38 98 97.5 I & O I & O Intake and Output 11/10/16 07:00 Intake Total 420 ml Output Total 300 ml Balance 120 ml Intake Oral 420 ml Output Urine Total 300 ml # Bowel Movements 2 ALLERGIES Allergies: Allergies Coded Allergies Type Severity Reaction Last Updated Verified Iodinated Contrast Media - Oral and Allergy Severe 11/07/16 Yes Penicillins Allergy Severe Shortness of Air 11/07/16 Yes Sulfa (Sulfonamide Antibiotics) Allergy Intermediate 11/07/16 Yes aspirin Adverse Reaction Intermediate 11/07/16 Yes codeine Adverse Reaction Intermediate Anxiety 11/07/16 Yes MEDS Medications: Current Medications Medications (Trade) Dose Ordered Sig/Tim Start Time Stop Time Status Last Admin Dose Admin Acetaminophen (Tylenol) 500 mg PRN DAILY PRN 11/07/16 09:00 Albuterol Sulfate (Ventolin Neb Soln) 2.5 mg PRN Q4HRS PRN 11/09/16 17:00 11/09/16 20:51 2.5 MG Allopurinol (Zyloprim) 300 mg DAILY 11/07/16 09:00 11/10/16 09:07 300 MG Aminocaproic Acid (Amicar) 1,000 mg Q4HRS 11/08/16 12:00 11/10/16 09:06 1,000 MG Antihemophilic Factor/ Miscellaneous (Humate-P Vwf:Rco) 30 ml @ 180 mls/hr DAILY 11/08/16 09:00 11/10/16 09:11 180 MLS/HR Calcitriol (Rocaltrol) 0.25 mcg DAILY 11/07/16 09:00 11/10/16 09:07 0.25 MCG Cetirizine HCl (Zyrtec) 10 mg DAILY 11/07/16 09:00 11/10/16 09:06 10 MG Cyanocobalamin (Vitamin B-12) 1,000 mcg DAILY 11/10/16 09:00 11/10/16 09:06 1,000 MCG Diphenhydramine HCl (Benadryl) 50 mg STK-MED ONCE 11/08/16 16:07 11/08/16 16:08 DC Famotidine (Pepcid) 20 mg STK-MED ONCE 11/08/16 17:01 11/08/16 17:02 DC Fentanyl Citrate (Fentanyl 2ml Vial) 25 mcg PRN Q5MIN PRN 11/08/16 18:00 11/09/16 17:59 DC Fentanyl Citrate 50 mcg 50 mcg PRN Q5MIN PRN 11/08/16 18:00 11/09/16 17:59 DC Furosemide (Lasix) 40 mg 1X ONCE 11/08/16 14:30 11/08/16 14:31 DC 11/08/16 14:40 40 MG Gabapentin (Neurontin) 200 mg BID 11/07/16 09:00 11/10/16 09:06 200 MG Heparin Sodium/ Sodium Chloride 3,000 unit 1X ONCE 11/08/16 16:45 11/08/16 16:46 DC 11/08/16 17:53 3,000 UNIT Info (Do NOT chart on this entry -- for MONITORING) 1 each PRN DAILY PRN 11/08/16 16:45 11/10/16 16:44 Iohexol (Omnipaque 300 Mg/ml) 200 ml 1X ONCE 11/08/16 16:45 11/08/16 16:46 DC 11/08/16 17:53 171 ML Lactated Ringer's (Iv Lactated Ringers) 1,000 ml @ 0 mls/hr Q0M 11/08/16 17:47 11/09/16 05:46 DC Levothyroxine Sodium (Synthroid) 100 mcg DAILY07 11/07/16 07:00 11/10/16 04:33 100 MCG Lidocaine HCl 2 ml PRN 1X PRN 11/08/16 18:00 11/09/16 17:59 DC Lidocaine/Sodium Bicarbonate (Buffered Lidocaine 1%) 20 ml 1X ONCE 11/08/16 16:45 11/08/16 16:46 DC 11/08/16 17:52 4 ML Lidocaine/Sodium Bicarbonate 20 ml 20 ml STK-MED ONCE 11/07/16 13:40 3/30/17 13:41 DC Magnesium Oxide (Magnesium Oxide) 400 mg DAILY 11/07/16 09:00 11/10/16 09:06 400 MG Methylprednisolone Sodium Succinate (Solu-Medrol 125mg Vial) 125 mg STK-MED ONCE 11/08/16 16:10 11/08/16 16:11 DC Midazolam HCl (Versed) 2 mg STK-MED ONCE 11/08/16 16:47 11/08/16 16:48 DC Non-Formulary Medication 650 mg BID 11/07/16 09:00 11/07/16 09:44 DC Ondansetron HCl (Zofran) 0.4 mg PRN Q6HRS PRN 11/08/16 18:00 11/09/16 17:59 DC Ondansetron HCl 4 mg 4 mg PRN Q8HRS PRN 11/06/16 17:00 11/07/16 05:39 DC Pantoprazole Sodium (Protonix Vial) 40 mg 1X ONCE 11/06/16 16:15 11/06/16 16:20 DC 11/06/16 16:24 40 MG Pantoprazole Sodium (Protonix) 40 mg DAILYAC 11/08/16 05:34 11/10/16 04:33 40 MG Pantoprazole Sodium/Sodium Chloride (Protonix Iv/Iv Sodium Chloride 0.9% 100ml) 100 ml @ 10 mls/hr 1X ONCE 11/06/16 17:00 11/07/16 02:59 DC 11/06/16 17:21 10 MLS/HR Potassium Chloride (Klor-Con) 20 meq DAILY 11/07/16 09:00 11/10/16 09:11 20 MEQ Prochlorperazine Edisylate (Compazine) 5 mg PACU PRN PRN 11/08/16 18:00 11/09/16 17:59 DC Sodium Chloride 1,000 ml @ 100 mls/hr Q10H 11/06/16 16:50 11/07/16 16:49 DC 11/07/16 20:52 100 MLS/HR Sodium Chloride (Iv Sodium Chloride 0.9% 1000ml Bag) 1,000 ml @ 100 mls/hr Q10H 11/06/16 16:06 11/07/16 02:05 DC 11/06/16 16:25 100 MLS/HR Tramadol HCl (Ultram) 50 mg PRN QID PRN 11/07/16 09:00 11/09/16 09:07 50 MG LAB Lab: Laboratory Tests Test 11/10/16 04:20 White Blood Count 8.2x10^3/uL (4.0-11.0) Red Blood Count 2.90x10^6/uL (3.50-5.40) Hemoglobin 9.0g/dL (12.0-15.5) Hematocrit 27.5% (36.0-47.0) Mean Corpuscular Volume 95fL (79-100) Mean Corpuscular Hemoglobin 31pg (25-35) Mean Corpuscular Hemoglobin Concent 33g/dL (31-37) Red Cell Distribution Width 15.5% (11.5-14.5) Platelet Count 117x10^3/uL (140-400) Neutrophils (%) (Auto) 89% (31-73) Lymphocytes (%) (Auto) 6% (24-48) Monocytes (%) (Auto) 5% (0-9) Eosinophils (%) (Auto) 0% (0-3) Basophils (%) (Auto) 0% (0-3) Neutrophils # (Auto) 7.3x10^3uL (1.8-7.7) Lymphocytes # (Auto) 0.5x10^3/uL (1.0-4.8) Monocytes # (Auto) 0.4x10^3/uL (0.0-1.1) Eosinophils # (Auto) 0.0x10^3/uL (0.0-0.7) Basophils # (Auto) 0.0x10^3/uL (0.0-0.2) Segmented Neutrophils % 90% (35-66) Lymphocytes % 7% (24-48) Monocytes % 3% (0-10) Platelet Estimate Decreased (ADEQUATE) MANAN GOLDBERG MD Nov 10, 2016 10:50
[2016-11-10 14:05] VITALS: BP 101/35
--- NOTE | 2016-11-10 14:57 | PDOC ---
PROGRESS NOTES Subjective Subjective The patient has no cardiac complaints today. Denies any bright red bleeding per rectum. Objective Objective Vital Signs Date Time Temp Pulse Resp B/P Pulse Ox O2 Delivery O2 Flow Rate FiO2 11/10/16 10:30 97.9 59 20 108/40 98 Room Air 97.9 Intake and Output 11/10/16 06:59 Intake Total 420 ml Output Total 300 ml Balance 120 ml Intake Oral 420 ml Output Urine Total 300 ml # Bowel Movements 2 Physical Exam Physical Exam No significant changes in cardiac exam Assessment Assessment Cardiac-morris the patient is compensated and I agree with the present plan. Problems Medical Problems: (1) Acute GI bleeding Status: Acute (2) Deficiency of von Willebrand factor Status: Acute (3) Symptomatic anemia Status: Acute Comment Review of Relevant I have reviewed the following items benjy (where applicable) has been applied. Labs Laboratory Tests Test 11/09/16 05:15 11/10/16 04:20 White Blood Count 4.1x10^3/uL (4.0-11.0) 8.2x10^3/uL (4.0-11.0) Red Blood Count 3.23x10^6/uL (3.50-5.40) 2.90x10^6/uL (3.50-5.40) Hemoglobin 10.0g/dL (12.0-15.5) 9.0g/dL (12.0-15.5) Hematocrit 30.1% (36.0-47.0) 27.5% (36.0-47.0) Mean Corpuscular Volume 93fL (79-100) 95fL (79-100) Mean Corpuscular Hemoglobin 31pg (25-35) 31pg (25-35) Mean Corpuscular Hemoglobin Concent 33g/dL (31-37) 33g/dL (31-37) Red Cell Distribution Width 15.0% (11.5-14.5) 15.5% (11.5-14.5) Platelet Count 116x10^3/uL (140-400) 117x10^3/uL (140-400) Sodium Level 144mmol/L (136-145) Potassium Level 4.0mmol/L (3.5-5.1) Chloride Level 106mmol/L (98-107) Carbon Dioxide Level 28mmol/L (21-32) Anion Gap 10 (6-14) Blood Urea Nitrogen 38mg/dL (7-20) Creatinine 1.3mg/dL (0.6-1.0) Estimated GFR (Cockcroft-Gault) 38.7 Glucose Level 136mg/dL (70-99) Calcium Level 9.9mg/dL (8.5-10.1) Neutrophils (%) (Auto) 89% (31-73) Lymphocytes (%) (Auto) 6% (24-48) Monocytes (%) (Auto) 5% (0-9) Eosinophils (%) (Auto) 0% (0-3) Basophils (%) (Auto) 0% (0-3) Neutrophils # (Auto) 7.3x10^3uL (1.8-7.7) Lymphocytes # (Auto) 0.5x10^3/uL (1.0-4.8) Monocytes # (Auto) 0.4x10^3/uL (0.0-1.1) Eosinophils # (Auto) 0.0x10^3/uL (0.0-0.7) Basophils # (Auto) 0.0x10^3/uL (0.0-0.2) Segmented Neutrophils % 90% (35-66) Lymphocytes % 7% (24-48) Monocytes % 3% (0-10) Platelet Estimate Decreased (ADEQUATE) Laboratory Tests Test 11/10/16 04:20 White Blood Count 8.2x10^3/uL (4.0-11.0) Red Blood Count 2.90x10^6/uL (3.50-5.40) Hemoglobin 9.0g/dL (12.0-15.5) Hematocrit 27.5% (36.0-47.0) Mean Corpuscular Volume 95fL (79-100) Mean Corpuscular Hemoglobin 31pg (25-35) Mean Corpuscular Hemoglobin Concent 33g/dL (31-37) Red Cell Distribution Width 15.5% (11.5-14.5) Platelet Count 117x10^3/uL (140-400) Neutrophils (%) (Auto) 89% (31-73) Lymphocytes (%) (Auto) 6% (24-48) Monocytes (%) (Auto) 5% (0-9) Eosinophils (%) (Auto) 0% (0-3) Basophils (%) (Auto) 0% (0-3) Neutrophils # (Auto) 7.3x10^3uL (1.8-7.7) Lymphocytes # (Auto) 0.5x10^3/uL (1.0-4.8) Monocytes # (Auto) 0.4x10^3/uL (0.0-1.1) Eosinophils # (Auto) 0.0x10^3/uL (0.0-0.7) Basophils # (Auto) 0.0x10^3/uL (0.0-0.2) Segmented Neutrophils % 90% (35-66) Lymphocytes % 7% (24-48) Monocytes % 3% (0-10) Platelet Estimate Decreased (ADEQUATE) Microbiology 11/06/16 Urine Culture - Final, Complete 11/06/16 Urine Culture Result 1 (TOAN) - Final, Complete 11/06/16 Urine Culture Result 2 (TOAN) - Final, Complete 11/06/16 Antimicrobic Susceptibility - Final, Complete Medications Current Medications Sodium Chloride (Iv Sodium Chloride 0.9% 1000ml Bag) 1,000 ml @ 100 mls/hr Q10H IV Last administered on 11/06/16 16:25; Start 11/06/16 at 16:06; Stop at 02:05; Status DC Ondansetron HCl (Zofran) 4 mg 1X ONCE IV Last administered on 11/06/16 16:24 ; Start 11/06/16 at 16:15; Stop 11/06/16 at 16:20; Status DC Pantoprazole Sodium (Protonix Vial) 40 mg 1X ONCE IVP Last administered on 16:24; Start 11/06/16 at 16:15; Stop 11/06/16 at 16:20; Status DC Ondansetron HCl 4 mg 4 mg PRN Q8HRS PRN IV NAUSEA/VOMITING; Start 11/06/16 at 17:00; Stop 11/07/16 at 05:39; Status DC Sodium Chloride 1,000 ml @ 100 mls/hr Q10H IV Last administered on 11/07/16 20:52; Start 11/06/16 at 16:50; Stop 11/07/16 at 16:49; Status DC Pantoprazole Sodium/Sodium Chloride (Protonix Iv/Iv Sodium Chloride 0.9% 100ml) 100 ml @ 10 mls/hr 1X ONCE IV Last administered on 11/06/16 17:21; Start at 17:00; Stop 11/07/16 at 02:59; Status DC Acetaminophen (Tylenol) 500 mg PRN DAILY PRN PO MILD PAIN; Start 11/07/16 at 09 :00 Allopurinol (Zyloprim) 300 mg DAILY PO Last administered on 11/10/16 09:07; Start 11/07/16 at 09:00 Calcitriol (Rocaltrol) 0.25 mcg DAILY PO Last administered on 11/10/16 09:07; Start 11/07/16 at 09:00 Cyanocobalamin (Vitamin B-12) 1,000 mcg DAILY PO Last administered on 11/09/16 08:43; Start 11/07/16 at 09:00; Stop 11/09/16 at 13:19; Status DC Furosemide (Lasix) 40 mg DAILY PO ; Start 11/07/16 at 09:00; Stop 11/07/16 at 09 :00; Status DC Gabapentin (Neurontin) 200 mg BID PO Last administered on 11/10/16 09:06; Start 11/07/16 at 09:00 Potassium Chloride (Klor-Con) 20 meq DAILY PO Last administered on 11/10/16 09: 11; Start 11/07/16 at 09:00 Tramadol HCl (Ultram) 50 mg PRN QID PRN PO MODERATE PAIN Last administered on 09:07; Start 11/07/16 at 09:00 Non-Formulary Medication 1,000 mg DAILY PO ; Start 11/07/16 at 09:00; Status UNV Cetirizine HCl (Zyrtec) 10 mg DAILY PO Last administered on 11/10/16 09:06; Start 11/07/16 at 09:00 Non-Formulary Medication 1 each DAILY PO ; Start 11/07/16 at 09:00; Status UNV Magnesium Oxide (Magnesium Oxide) 400 mg DAILY PO Last administered on 09:06; Start 11/07/16 at 09:00 Pantoprazole Sodium (Protonix) 40 mg DAILYAC PO Last administered on 11/07/16 09:30; Start 11/07/16 at 07:30; Stop 11/08/16 at 05:34; Status DC Non-Formulary Medication 200 mcg DAILY PO ; Start 11/07/16 at 09:00; Status UNV Non-Formulary Medication 650 mg BID PO ; Start 11/07/16 at 09:00; Stop 11/07/16 at 09:44; Status DC Levothyroxine Sodium (Synthroid) 100 mcg DAILY07 PO Last administered on 04:33; Start 11/07/16 at 07:00 Ondansetron HCl (Zofran) 4 mg PRN Q8HRS PRN IV NAUSEA/VOMITING; Start 11/07/16 at 05:39; Stop 11/07/16 at 16:59; Status DC Cyanocobalamin (Vitamin B-12) 1,000 mcg STK-MED ONCE .ROUTE ; Start 11/07/16 at 07:51; Stop 11/07/16 at 07:52; Status DC Aminocaproic Acid 500 mg 500 mg Q6HRS PO Last administered on 11/08/16 05:54; Start 11/07/16 at 09:00; Stop 11/08/16 at 09:04; Status DC Antihemophilic Factor/ Miscellaneous (Humate-P Vwf:Rco) 30 ml @ 180 mls/hr 1X ONCE IV Last administered on 11/07/16 12:43; Start 11/07/16 at 11:45; Stop at 11:54; Status DC Iohexol (Omnipaque 300 Mg/ml) 50 ml STK-MED ONCE .ROUTE ; Start 11/07/16 at 13: 40; Stop 11/07/16 at 13:41; Status DC Iohexol (Omnipaque 300 Mg/ml) 100 ml STK-MED ONCE .ROUTE ; Start 11/07/16 at 13: 40; Stop 11/07/16 at 13:41; Status DC Lidocaine/Sodium Bicarbonate 20 ml 20 ml STK-MED ONCE IJ ; Start 11/07/16 at 13: 40; Stop 11/07/16 at 13:41; Status DC Heparin Sodium/ Sodium Chloride 0 ml @ As Directed STK-MED ONCE .ROUTE ; Start 11/07/16 at 13:40; Stop 11/07/16 at 13:41; Status DC Antihemophilic Factor/ Miscellaneous (Humate-P Vwf:Rco) 30 ml @ 180 mls/hr DAILY IV Last administered on 11/10/16 09:11; Start 11/08/16 at 09:00 Pantoprazole Sodium (Protonix) 40 mg STK-MED ONCE PO ; Start 11/08/16 at 05:32; Stop 11/08/16 at 05:33; Status DC Pantoprazole Sodium (Protonix) 40 mg DAILYAC PO Last administered on 11/10/16 04:33; Start 11/08/16 at 05:34 Aminocaproic Acid (Amicar) 1,000 mg Q4HRS PO Last administered on 11/10/16 12: 14; Start 11/08/16 at 12:00 Furosemide (Lasix) 40 mg 1X ONCE IVP Last administered on 11/08/16 14:40; Start 11/08/16 at 14:30; Stop 11/08/16 at 14:31; Status DC Diphenhydramine HCl (Benadryl) 50 mg STK-MED ONCE .ROUTE ; Start 11/08/16 at 16: 07; Stop 11/08/16 at 16:08; Status DC Methylprednisolone Sodium Succinate (Solu-Medrol 125mg Vial) 125 mg STK-MED ONCE .ROUTE ; Start 11/08/16 at 16:10; Stop 11/08/16 at 16:11; Status DC Iohexol (Omnipaque 300 Mg/ml) 100 ml STK-MED ONCE .ROUTE ; Start 11/08/16 at 16: 33; Stop 11/08/16 at 16:34; Status DC Lidocaine/Sodium Bicarbonate 20 ml 20 ml STK-MED ONCE IJ ; Start 11/08/16 at 16: 33; Stop 11/08/16 at 16:34; Status DC Heparin Sodium/ Sodium Chloride 1,500 ml @ As Directed STK-MED ONCE .ROUTE ; Start 11/08/16 at 16:33; Stop 11/08/16 at 16:34; Status DC Heparin Sodium/ Sodium Chloride 3,000 unit 1X ONCE IART Last administered on 17:53; Start 11/08/16 at 16:45; Stop 11/08/16 at 16:46; Status DC Lidocaine/Sodium Bicarbonate (Buffered Lidocaine 1%) 20 ml 1X ONCE IJ Last administered on 11/08/16t 17:52; Start 11/08/16 at 16:45; Stop 11/08/16 at 16:46 ; Status DC Iohexol (Omnipaque 300 Mg/ml) 200 ml 1X ONCE IART Last administered on t 17:53; Start 11/08/16 at 16:45; Stop 11/08/16 at 16:46; Status DC Info (Do NOT chart on this entry -- for MONITORING) 1 each PRN DAILY PRN MC SEE COMMENTS; Start 11/08/16 at 16:45; Stop 11/10/16 at 16:44 Midazolam HCl (Versed) 2 mg STK-MED ONCE .ROUTE ; Start 11/08/16 at 16:47; Stop 11/08/16 at 16:48; Status DC Famotidine (Pepcid) 20 mg STK-MED ONCE .ROUTE ; Start 11/08/16 at 17:01; Stop at 17:02; Status DC Ondansetron HCl (Zofran) 0.4 mg PRN Q6HRS PRN IV NAUSEA/VOMITING; Start at 18:00; Stop 11/09/16 at 17:59; Status DC Fentanyl Citrate (Fentanyl 2ml Vial) 25 mcg PRN Q5MIN PRN IV MILD PAIN; Start 11/08/16 at 18:00; Stop 11/09/16 at 17:59; Status DC Fentanyl Citrate 50 mcg 50 mcg PRN Q5MIN PRN IV MODERATE PAIN; Start 11/08/16 at 18:00; Stop 11/09/16 at 17:59; Status DC Lactated Ringer's (Iv Lactated Ringers) 1,000 ml @ 0 mls/hr Q0M IV ; Start at 17:47; Stop 11/09/16 at 05:46; Status DC Lidocaine HCl 2 ml PRN 1X PRN ID PRIOR TO IV START; Start 11/08/16 at 18:00; Stop 11/09/16 at 17:59; Status DC Prochlorperazine Edisylate (Compazine) 5 mg PACU PRN PRN IV NAUSEA, MRX1; Start 11/08/16 at 18:00; Stop 11/09/16 at 17:59; Status DC Cyanocobalamin (Vitamin B-12) 1,000 mcg STK-MED ONCE .ROUTE ; Start 11/09/16 at 07:27; Stop 11/09/16 at 07:28; Status DC Cyanocobalamin (Vitamin B-12) 1,000 mcg DAILY PO Last administered on 11/10/16 09:06; Start 11/10/16 at 09:00 Albuterol Sulfate (Ventolin Neb Soln) 2.5 mg 1X ONCE NEB Last administered on 11/09/16 16:53; Start 11/09/16 at 17:30; Stop 11/09/16 at 17:31; Status DC Albuterol Sulfate (Ventolin Neb Soln) 2.5 mg PRN Q4HRS PRN NEB SHORTNESS OF BREATH Last administered on 11/09/16 20:51; Start 11/09/16 at 17:00 Active Scripts Active Lasix (Furosemide) 40 Mg Tablet 1 Tab PO QOD Reported Lysteda (Tranexamic Acid) 650 Mg Tablet 650 Mg PO BID Vitamin B Complex 1 Each Capsule 1 Each PO Calcitriol 0.25 Mcg Capsule 1 Cap PO DAILY Selenium (Selenomethionine) 200 Mcg Tablet 200 Mcg PO DAILY Vitamin A 8,000 Unit Capsule 8,000 Unit PO Coconut Oil 1,000 Mg Capsule 1,000 Mg PO DAILY Aminocaproic Acid 500 Mg Tablet 500 Mg PO DAILY Magnesium (Magnesium Oxide) 500 Mg Capsule 500 Mg PO DAILY Omeprazole 40 Mg Capsule.dr 40 Mg PO DAILY Potassium Chloride 20 Meq Tab.er.prt 20 Meq PO DAILY Acetaminophen 500 Mg Tablet 500 Mg PO PRN DAILY PRN Allopurinol 300 Mg Tablet 300 Mg PO DAILY Neurontin (Gabapentin) 100 Mg Capsule 200 Mg PO BID Vitamin B-12 (Cyanocobalamin (Vitamin B-12)) 1,000 Mcg Tablet 1,000 Mcg PO DAILY Osteo Bi-Flex Caplet (Gluc/Lyndon-Msm#1/C/Brandon/Alfredo/Bor) 1 Each Tablet 1 Each PO DAILY Levothyroxine Sodium Inj (Levothyroxine Sodium) 100 Mcg Vial 100 Mcg PO DAILY Nakita (Fexofenadine Hcl) 180 Mg Tablet 180 Mg PO DAILY Tramadol Hcl 50 Mg Tablet 50 Mg PO PRN QID Vitals/I & O Vital Sign - Last 24 Hours 11/09/16 11/09/16 11/09/16 11/09/16 15:00 16:54 19:00 19:05 Temp 96.4 96.8 96.4 96.8 Pulse 59 60 Resp 20 20 B/P 139/42 124/40 Pulse Ox 95 97 95 O2 Delivery Room Air Room Air Room Air Room Air 11/09/16 11/09/16 11/10/16 11/10/16 20:51 23:00 03:30 07:30 Temp 97.9 97.7 97.5 97.9 97.7 97.5 Pulse 73 51 52 Resp 20 20 20 B/P 116/40 104/43 94/38 Pulse Ox 97 94 93 98 O2 Delivery Room Air Room Air Room Air Room Air 11/10/16 11/10/16 08:00 10:30 Temp 97.9 97.9 Pulse 59 Resp 20 B/P 108/40 Pulse Ox 98 O2 Delivery Room Air Room Air Intake and Output 11/09/16 11/09/16 11/10/16 14:59 22:59 06:59 Intake Total 180 ml 240 ml Output Total 200 ml 100 ml Balance -200 ml 80 ml 240 ml MARISOL ELLIOTT MD Nov 10, 2016 14:57
[2016-11-10 19:00] VITALS: BP 104/30
[2016-11-10] MEDS: TRAMADOL 50 MG TABLET. PO PRN (20:33)
[2016-11-10 23:00] VITALS: BP 116/40
[2016-11-11] VITALS (8 sets, daily range): BP systolic 96–129; BP diastolic 31–80
[2016-11-11] MEDS: LEVOTHYROXINE 100 MCG TABLET PO SCH (04:34)
[2016-11-11] MEDS: PANTOPRAZOLE 40 MG TABLET.DR. PO SCH (04:34)
[2016-11-11] MEDS: AMINOCAPROIC ACID 500 MG TABLET. PO SCH ×6 (04:35→23:33)
[2016-11-11 05:10] LABS: BASO % 1 % (0-3); EOS % 2 % (0-3); HEMATOCRIT 28.8 % (36.0-47.0); HEMOGLOBIN 9.3 g/dL (12.0-15.5); LYMPH # 0.7 x10^3/uL (1.0-4.8); LYMPH % 12 % (24-48); MEAN CORPUSCULAR HEMOGLOBIN 31 pg (25-35); MEAN CORPUSCULAR HGB CONC 32 g/dL (31-37); MEAN CORPUSCULAR VOLUME 96 fL (79-100); MONO % 7 % (0-9); NEUT % 78 % (31-73); PLATELET COUNT 113 x10^3/uL (140-400); RED CELL DISTRIBUTION WIDTH 15.7 % (11.5-14.5); WHITE BLOOD COUNT 5.6 x10^3/uL (4.0-11.0)
--- NOTE | 2016-11-11 08:03 | PDOC ---
Provider Note Provider Note vss, no new sxs- hb same 9.3- had red stool 4/2, non e since - still iv meds , cont same AJITH RUIZ MD Nov 11, 2016 08:03
[2016-11-11] MEDS: CETIRIZINE HCL 10 MG TABLET. PO SCH (09:01)
[2016-11-11] MEDS: MAGNESIUM OXIDE 400 MG TABLET PO SCH (09:02)
[2016-11-11] MEDS: GABAPENTIN 100 MG CAPSULE. PO SCH ×2 (09:02→20:03)
[2016-11-11] MEDS: ALLOPURINOL 300 MG TABLET. PO SCH (09:03)
[2016-11-11] MEDS: CYANOCOBALAMIN (VITAMIN B-12) 1,000 MCG TABLET. PO SCH (09:04)
[2016-11-11] MEDS: CALCITRIOL 0.25 MCG CAPSULE. PO SCH (09:05)
[2016-11-11] MEDS: TOTAL VOLUME IV SCH (09:06)
[2016-11-11] MEDS: ANTIHEMOPHILIC FACTOR IV SCH (09:06)
[2016-11-11] MEDS: VWF IV SCH (09:06)
--- NOTE | 2016-11-11 12:52 | PDOC ---
G I PROGRESS NOTE Reason for Follow-up Chronic gi blood loss/melena recurrent Subjective Withoutnew complaints. Worried about medication coverage Physical Exam Lungs clear CV S1 S2 ABD +BS, soft, nontender Review of Relevant I have reviewed the following items benjy (where applicable) has been applied. Labs Laboratory Tests Test 11/10/16 04:20 11/11/16 04:50 White Blood Count 8.2x10^3/uL (4.0-11.0) 5.6x10^3/uL (4.0-11.0) Red Blood Count 2.90x10^6/uL (3.50-5.40) 3.00x10^6/uL (3.50-5.40) Hemoglobin 9.0g/dL (12.0-15.5) 9.3g/dL (12.0-15.5) Hematocrit 27.5% (36.0-47.0) 28.8% (36.0-47.0) Mean Corpuscular Volume 95fL (79-100) 96fL (79-100) Mean Corpuscular Hemoglobin 31pg (25-35) 31pg (25-35) Mean Corpuscular Hemoglobin Concent 33g/dL (31-37) 32g/dL (31-37) Red Cell Distribution Width 15.5% (11.5-14.5) 15.7% (11.5-14.5) Platelet Count 117x10^3/uL (140-400) 113x10^3/uL (140-400) Neutrophils (%) (Auto) 89% (31-73) 78% (31-73) Lymphocytes (%) (Auto) 6% (24-48) 12% (24-48) Monocytes (%) (Auto) 5% (0-9) 7% (0-9) Eosinophils (%) (Auto) 0% (0-3) 2% (0-3) Basophils (%) (Auto) 0% (0-3) 1% (0-3) Neutrophils # (Auto) 7.3x10^3uL (1.8-7.7) 4.4x10^3uL (1.8-7.7) Lymphocytes # (Auto) 0.5x10^3/uL (1.0-4.8) 0.7x10^3/uL (1.0-4.8) Monocytes # (Auto) 0.4x10^3/uL (0.0-1.1) 0.4x10^3/uL (0.0-1.1) Eosinophils # (Auto) 0.0x10^3/uL (0.0-0.7) 0.1x10^3/uL (0.0-0.7) Basophils # (Auto) 0.0x10^3/uL (0.0-0.2) 0.0x10^3/uL (0.0-0.2) Segmented Neutrophils % 90% (35-66) Lymphocytes % 7% (24-48) Monocytes % 3% (0-10) Platelet Estimate Decreased (ADEQUATE) Laboratory Tests Test 11/11/16 04:50 White Blood Count 5.6x10^3/uL (4.0-11.0) Red Blood Count 3.00x10^6/uL (3.50-5.40) Hemoglobin 9.3g/dL (12.0-15.5) Hematocrit 28.8% (36.0-47.0) Mean Corpuscular Volume 96fL (79-100) Mean Corpuscular Hemoglobin 31pg (25-35) Mean Corpuscular Hemoglobin Concent 32g/dL (31-37) Red Cell Distribution Width 15.7% (11.5-14.5) Platelet Count 113x10^3/uL (140-400) Neutrophils (%) (Auto) 78% (31-73) Lymphocytes (%) (Auto) 12% (24-48) Monocytes (%) (Auto) 7% (0-9) Eosinophils (%) (Auto) 2% (0-3) Basophils (%) (Auto) 1% (0-3) Neutrophils # (Auto) 4.4x10^3uL (1.8-7.7) Lymphocytes # (Auto) 0.7x10^3/uL (1.0-4.8) Monocytes # (Auto) 0.4x10^3/uL (0.0-1.1) Eosinophils # (Auto) 0.1x10^3/uL (0.0-0.7) Basophils # (Auto) 0.0x10^3/uL (0.0-0.2) Microbiology 11/06/16 Urine Culture - Final, Complete 11/06/16 Urine Culture Result 1 (TOAN) - Final, Complete 11/06/16 Urine Culture Result 2 (TOAN) - Final, Complete 11/06/16 Antimicrobic Susceptibility - Final, Complete Medications Current Medications Sodium Chloride (Iv Sodium Chloride 0.9% 1000ml Bag) 1,000 ml @ 100 mls/hr Q10H IV Last administered on 11/06/16 16:25; Start 11/06/16 at 16:06; Stop at 02:05; Status DC Ondansetron HCl (Zofran) 4 mg 1X ONCE IV Last administered on 11/06/16 16:24 ; Start 11/06/16 at 16:15; Stop 11/06/16 at 16:20; Status DC Pantoprazole Sodium (Protonix Vial) 40 mg 1X ONCE IVP Last administered on 16:24; Start 11/06/16 at 16:15; Stop 11/06/16 at 16:20; Status DC Ondansetron HCl 4 mg 4 mg PRN Q8HRS PRN IV NAUSEA/VOMITING; Start 11/06/16 at 17:00; Stop 11/07/16 at 05:39; Status DC Sodium Chloride 1,000 ml @ 100 mls/hr Q10H IV Last administered on 11/07/16 20:52; Start 11/06/16 at 16:50; Stop 11/07/16 at 16:49; Status DC Pantoprazole Sodium/Sodium Chloride (Protonix Iv/Iv Sodium Chloride 0.9% 100ml) 100 ml @ 10 mls/hr 1X ONCE IV Last administered on 11/06/16 17:21; Start at 17:00; Stop 11/07/16 at 02:59; Status DC Acetaminophen (Tylenol) 500 mg PRN DAILY PRN PO MILD PAIN; Start 11/07/16 at 09 :00 Allopurinol (Zyloprim) 300 mg DAILY PO Last administered on 11/11/16 09:03; Start 11/07/16 at 09:00 Calcitriol (Rocaltrol) 0.25 mcg DAILY PO Last administered on 11/11/16 09:05; Start 11/07/16 at 09:00 Cyanocobalamin (Vitamin B-12) 1,000 mcg DAILY PO Last administered on 11/09/16 08:43; Start 11/07/16 at 09:00; Stop 11/09/16 at 13:19; Status DC Furosemide (Lasix) 40 mg DAILY PO ; Start 11/07/16 at 09:00; Stop 11/07/16 at 09 :00; Status DC Gabapentin (Neurontin) 200 mg BID PO Last administered on 11/11/16 09:02; Start 11/07/16 at 09:00 Potassium Chloride (Klor-Con) 20 meq DAILY PO Last administered on 11/10/16 09: 11; Start 11/07/16 at 09:00; Stop 11/11/16 at 07:51; Status DC Tramadol HCl (Ultram) 50 mg PRN QID PRN PO MODERATE PAIN Last administered on 20:33; Start 11/07/16 at 09:00 Non-Formulary Medication 1,000 mg DAILY PO ; Start 11/07/16 at 09:00; Status UNV Cetirizine HCl (Zyrtec) 10 mg DAILY PO Last administered on 11/11/16 09:01; Start 11/07/16 at 09:00 Non-Formulary Medication 1 each DAILY PO ; Start 11/07/16 at 09:00; Status UNV Magnesium Oxide (Magnesium Oxide) 400 mg DAILY PO Last administered on 09:02; Start 11/07/16 at 09:00 Pantoprazole Sodium (Protonix) 40 mg DAILYAC PO Last administered on 11/07/16 09:30; Start 11/07/16 at 07:30; Stop 11/08/16 at 05:34; Status DC Non-Formulary Medication 200 mcg DAILY PO ; Start 11/07/16 at 09:00; Status UNV Non-Formulary Medication 650 mg BID PO ; Start 11/07/16 at 09:00; Stop 11/07/16 at 09:44; Status DC Levothyroxine Sodium (Synthroid) 100 mcg DAILY07 PO Last administered on 04:34; Start 11/07/16 at 07:00 Ondansetron HCl (Zofran) 4 mg PRN Q8HRS PRN IV NAUSEA/VOMITING; Start 11/07/16 at 05:39; Stop 11/07/16 at 16:59; Status DC Cyanocobalamin (Vitamin B-12) 1,000 mcg STK-MED ONCE .ROUTE ; Start 11/07/16 at 07:51; Stop 11/07/16 at 07:52; Status DC Aminocaproic Acid 500 mg 500 mg Q6HRS PO Last administered on 11/08/16 05:54; Start 11/07/16 at 09:00; Stop 11/08/16 at 09:04; Status DC Antihemophilic Factor/ Miscellaneous (Humate-P Vwf:Rco) 30 ml @ 180 mls/hr 1X ONCE IV Last administered on 11/07/16 12:43; Start 11/07/16 at 11:45; Stop at 11:54; Status DC Iohexol (Omnipaque 300 Mg/ml) 50 ml STK-MED ONCE .ROUTE ; Start 11/07/16 at 13: 40; Stop 11/07/16 at 13:41; Status DC Iohexol (Omnipaque 300 Mg/ml) 100 ml STK-MED ONCE .ROUTE ; Start 11/07/16 at 13: 40; Stop 11/07/16 at 13:41; Status DC Lidocaine/Sodium Bicarbonate 20 ml 20 ml STK-MED ONCE IJ ; Start 11/07/16 at 13: 40; Stop 11/07/16 at 13:41; Status DC Heparin Sodium/ Sodium Chloride 0 ml @ As Directed STK-MED ONCE .ROUTE ; Start 11/07/16 at 13:40; Stop 11/07/16 at 13:41; Status DC Antihemophilic Factor/ Miscellaneous (Humate-P Vwf:Rco) 30 ml @ 180 mls/hr DAILY IV Last administered on 11/11/16 09:06; Start 11/08/16 at 09:00 Pantoprazole Sodium (Protonix) 40 mg STK-MED ONCE PO ; Start 11/08/16 at 05:32; Stop 11/08/16 at 05:33; Status DC Pantoprazole Sodium (Protonix) 40 mg DAILYAC PO Last administered on 11/11/16 04:34; Start 11/08/16 at 05:34 Aminocaproic Acid (Amicar) 1,000 mg Q4HRS PO Last administered on 11/11/16 12: 35; Start 11/08/16 at 12:00 Furosemide (Lasix) 40 mg 1X ONCE IVP Last administered on 11/08/16 14:40; Start 11/08/16 at 14:30; Stop 11/08/16 at 14:31; Status DC Diphenhydramine HCl (Benadryl) 50 mg STK-MED ONCE .ROUTE ; Start 11/08/16 at 16: 07; Stop 11/08/16 at 16:08; Status DC Methylprednisolone Sodium Succinate (Solu-Medrol 125mg Vial) 125 mg STK-MED ONCE .ROUTE ; Start 11/08/16 at 16:10; Stop 11/08/16 at 16:11; Status DC Iohexol (Omnipaque 300 Mg/ml) 100 ml STK-MED ONCE .ROUTE ; Start 11/08/16 at 16: 33; Stop 11/08/16 at 16:34; Status DC Lidocaine/Sodium Bicarbonate 20 ml 20 ml STK-MED ONCE IJ ; Start 11/08/16 at 16: 33; Stop 11/08/16 at 16:34; Status DC Heparin Sodium/ Sodium Chloride 1,500 ml @ As Directed STK-MED ONCE .ROUTE ; Start 11/08/16 at 16:33; Stop 11/08/16 at 16:34; Status DC Heparin Sodium/ Sodium Chloride 3,000 unit 1X ONCE IART Last administered on 17:53; Start 11/08/16 at 16:45; Stop 11/08/16 at 16:46; Status DC Lidocaine/Sodium Bicarbonate (Buffered Lidocaine 1%) 20 ml 1X ONCE IJ Last administered on 11/08/16 17:52; Start 11/08/16 at 16:45; Stop 11/08/16 at 16:46 ; Status DC Iohexol (Omnipaque 300 Mg/ml) 200 ml 1X ONCE IART Last administered on 17:53; Start 11/08/16 at 16:45; Stop 11/08/16 at 16:46; Status DC Info (Do NOT chart on this entry -- for MONITORING) 1 each PRN DAILY PRN MC SEE COMMENTS; Start 11/08/16 at 16:45; Stop 11/10/16 at 16:44; Status DC Midazolam HCl (Versed) 2 mg STK-MED ONCE .ROUTE ; Start 11/08/16 at 16:47; Stop 11/08/16 at 16:48; Status DC Famotidine (Pepcid) 20 mg STK-MED ONCE .ROUTE ; Start 11/08/16 at 17:01; Stop at 17:02; Status DC Ondansetron HCl (Zofran) 0.4 mg PRN Q6HRS PRN IV NAUSEA/VOMITING; Start at 18:00; Stop 11/09/16 at 17:59; Status DC Fentanyl Citrate (Fentanyl 2ml Vial) 25 mcg PRN Q5MIN PRN IV MILD PAIN; Start 11/08/16 at 18:00; Stop 11/09/16 at 17:59; Status DC Fentanyl Citrate 50 mcg 50 mcg PRN Q5MIN PRN IV MODERATE PAIN; Start 11/08/16 at 18:00; Stop 11/09/16 at 17:59; Status DC Lactated Ringer's (Iv Lactated Ringers) 1,000 ml @ 0 mls/hr Q0M IV ; Start at 17:47; Stop 11/09/16 at 05:46; Status DC Lidocaine HCl 2 ml PRN 1X PRN ID PRIOR TO IV START; Start 11/08/16 at 18:00; Stop 11/09/16 at 17:59; Status DC Prochlorperazine Edisylate (Compazine) 5 mg PACU PRN PRN IV NAUSEA, MRX1; Start 11/08/16 at 18:00; Stop 11/09/16 at 17:59; Status DC Cyanocobalamin (Vitamin B-12) 1,000 mcg STK-MED ONCE .ROUTE ; Start 11/09/16 at 07:27; Stop 11/09/16 at 07:28; Status DC Cyanocobalamin (Vitamin B-12) 1,000 mcg DAILY PO Last administered on 11/11/16 09:04; Start 11/10/16 at 09:00 Albuterol Sulfate (Ventolin Neb Soln) 2.5 mg 1X ONCE NEB Last administered on 11/09/16 16:53; Start 11/09/16 at 17:30; Stop 11/09/16 at 17:31; Status DC Albuterol Sulfate (Ventolin Neb Soln) 2.5 mg PRN Q4HRS PRN NEB SHORTNESS OF BREATH Last administered on 11/09/16t 20:51; Start 11/09/16 at 17:00 Active Scripts Active Lasix (Furosemide) 40 Mg Tablet 1 Tab PO QOD Reported Lysteda (Tranexamic Acid) 650 Mg Tablet 650 Mg PO BID Vitamin B Complex 1 Each Capsule 1 Each PO Calcitriol 0.25 Mcg Capsule 1 Cap PO DAILY Selenium (Selenomethionine) 200 Mcg Tablet 200 Mcg PO DAILY Vitamin A 8,000 Unit Capsule 8,000 Unit PO Coconut Oil 1,000 Mg Capsule 1,000 Mg PO DAILY Aminocaproic Acid 500 Mg Tablet 500 Mg PO DAILY Magnesium (Magnesium Oxide) 500 Mg Capsule 500 Mg PO DAILY Omeprazole 40 Mg Capsule.dr 40 Mg PO DAILY Potassium Chloride 20 Meq Tab.er.prt 20 Meq PO DAILY Acetaminophen 500 Mg Tablet 500 Mg PO PRN DAILY PRN Allopurinol 300 Mg Tablet 300 Mg PO DAILY Neurontin (Gabapentin) 100 Mg Capsule 200 Mg PO BID Vitamin B-12 (Cyanocobalamin (Vitamin B-12)) 1,000 Mcg Tablet 1,000 Mcg PO DAILY Osteo Bi-Flex Caplet (Gluc/Lyndon-Msm#1/C/Brandon/Alfredo/Bor) 1 Each Tablet 1 Each PO DAILY Levothyroxine Sodium Inj (Levothyroxine Sodium) 100 Mcg Vial 100 Mcg PO DAILY Nakita (Fexofenadine Hcl) 180 Mg Tablet 180 Mg PO DAILY Tramadol Hcl 50 Mg Tablet 50 Mg PO PRN QID Vitals/I & O Vital Sign - Last 24 Hours 11/10/16 11/10/16 11/10/16 11/10/16 14:05 19:00 19:10 20:33 Temp 96.1 97.9 96.1 97.9 Pulse 56 57 Resp 20 18 18 B/P 101/35 104/30 Pulse Ox 100 96 96 O2 Delivery Room Air Room Air Room Air Room Air 11/10/16 11/10/16 11/11/16 11/11/16 21:23 23:00 02:55 07:38 Temp 98.1 97.5 98.1 97.5 Pulse 58 51 47 Resp 18 18 18 18 B/P 116/40 124/43 96/46 Pulse Ox 96 96 96 96 O2 Delivery Room Air Room Air Room Air Room Air 11/11/16 11/11/16 11/11/16 08:00 10:33 11:00 Temp 97.5 97.7 97.5 97.7 Pulse 61 57 Resp 18 16 B/P 129/40 105/41 Pulse Ox 99 99 O2 Delivery Room Air Room Air Room Air Intake and Output 11/10/16 11/10/16 11/11/16 15:00 23:00 07:00 Intake Total 360 ml 0 ml 500 ml Balance 360 ml 0 ml 500 ml Problem List Problems Medical Problems: (1) Acute GI bleeding Status: Acute (2) Deficiency of von Willebrand factor Status: Acute (3) Symptomatic anemia Status: Acute Assessment Acute blood loss anemia- with VWF deficiency, [facility] issues with medication coverage, advised to follow up with [facility] clinic at [facility], disposition plans per primary EULOGIO ONEAL MD Nov 11, 2016 12:52
--- NOTE | 2016-11-11 13:21 | PDOC ---
PROGRESS NOTES Subjective Subjective Reports a black BM yesterday afternoon. No BM this AM yet. Reports some anxiety regarding GI bleed. No CP. No SOB Objective Objective Vital Signs Date Time Temp Pulse Resp B/P Pulse Ox O2 Delivery O2 Flow Rate FiO2 11/11/16 11:00 97.7 57 16 105/41 99 Room Air 97.7 Intake and Output 11/11/16 07:00 Intake Total 860 ml Balance 860 ml Intake Oral 860 ml # Voids 6 # Bowel Movements 1 Physical Exam Physical Exam Regular rate I-II/ systolic murmur I/ diastolic murmur 2+ edema in lower extremities Lung CTAB Assessment Assessment Problems Medical Problems: (1) Acute GI bleeding Status: Acute (2) Deficiency of von Willebrand factor Status: Acute (3) Symptomatic anemia Status: Acute Plan Plan of Care Patient is compensated cardiac-morris. Agree with current plan. Comment Review of Relevant I have reviewed the following items benjy (where applicable) has been applied. Labs Laboratory Tests Test 11/10/16 04:20 11/11/16 04:50 White Blood Count 8.2x10^3/uL (4.0-11.0) 5.6x10^3/uL (4.0-11.0) Red Blood Count 2.90x10^6/uL (3.50-5.40) 3.00x10^6/uL (3.50-5.40) Hemoglobin 9.0g/dL (12.0-15.5) 9.3g/dL (12.0-15.5) Hematocrit 27.5% (36.0-47.0) 28.8% (36.0-47.0) Mean Corpuscular Volume 95fL (79-100) 96fL (79-100) Mean Corpuscular Hemoglobin 31pg (25-35) 31pg (25-35) Mean Corpuscular Hemoglobin Concent 33g/dL (31-37) 32g/dL (31-37) Red Cell Distribution Width 15.5% (11.5-14.5) 15.7% (11.5-14.5) Platelet Count 117x10^3/uL (140-400) 113x10^3/uL (140-400) Neutrophils (%) (Auto) 89% (31-73) 78% (31-73) Lymphocytes (%) (Auto) 6% (24-48) 12% (24-48) Monocytes (%) (Auto) 5% (0-9) 7% (0-9) Eosinophils (%) (Auto) 0% (0-3) 2% (0-3) Basophils (%) (Auto) 0% (0-3) 1% (0-3) Neutrophils # (Auto) 7.3x10^3uL (1.8-7.7) 4.4x10^3uL (1.8-7.7) Lymphocytes # (Auto) 0.5x10^3/uL (1.0-4.8) 0.7x10^3/uL (1.0-4.8) Monocytes # (Auto) 0.4x10^3/uL (0.0-1.1) 0.4x10^3/uL (0.0-1.1) Eosinophils # (Auto) 0.0x10^3/uL (0.0-0.7) 0.1x10^3/uL (0.0-0.7) Basophils # (Auto) 0.0x10^3/uL (0.0-0.2) 0.0x10^3/uL (0.0-0.2) Segmented Neutrophils % 90% (35-66) Lymphocytes % 7% (24-48) Monocytes % 3% (0-10) Platelet Estimate Decreased (ADEQUATE) Laboratory Tests Test 11/11/16 04:50 White Blood Count 5.6x10^3/uL (4.0-11.0) Red Blood Count 3.00x10^6/uL (3.50-5.40) Hemoglobin 9.3g/dL (12.0-15.5) Hematocrit 28.8% (36.0-47.0) Mean Corpuscular Volume 96fL (79-100) Mean Corpuscular Hemoglobin 31pg (25-35) Mean Corpuscular Hemoglobin Concent 32g/dL (31-37) Red Cell Distribution Width 15.7% (11.5-14.5) Platelet Count 113x10^3/uL (140-400) Neutrophils (%) (Auto) 78% (31-73) Lymphocytes (%) (Auto) 12% (24-48) Monocytes (%) (Auto) 7% (0-9) Eosinophils (%) (Auto) 2% (0-3) Basophils (%) (Auto) 1% (0-3) Neutrophils # (Auto) 4.4x10^3uL (1.8-7.7) Lymphocytes # (Auto) 0.7x10^3/uL (1.0-4.8) Monocytes # (Auto) 0.4x10^3/uL (0.0-1.1) Eosinophils # (Auto) 0.1x10^3/uL (0.0-0.7) Basophils # (Auto) 0.0x10^3/uL (0.0-0.2) Microbiology 11/06/16 Urine Culture - Final, Complete 11/06/16 Urine Culture Result 1 (TOAN) - Final, Complete 11/06/16 Urine Culture Result 2 (TOAN) - Final, Complete 11/06/16 Antimicrobic Susceptibility - Final, Complete Medications Current Medications Sodium Chloride (Iv Sodium Chloride 0.9% 1000ml Bag) 1,000 ml @ 100 mls/hr Q10H IV Last administered on 11/06/16 16:25; Start 11/06/16 at 16:06; Stop at 02:05; Status DC Ondansetron HCl (Zofran) 4 mg 1X ONCE IV Last administered on 11/06/16 16:24 ; Start 11/06/16 at 16:15; Stop 11/06/16 at 16:20; Status DC Pantoprazole Sodium (Protonix Vial) 40 mg 1X ONCE IVP Last administered on 16:24; Start 11/06/16 at 16:15; Stop 11/06/16 at 16:20; Status DC Ondansetron HCl 4 mg 4 mg PRN Q8HRS PRN IV NAUSEA/VOMITING; Start 11/06/16 at 17:00; Stop 11/07/16 at 05:39; Status DC Sodium Chloride 1,000 ml @ 100 mls/hr Q10H IV Last administered on 11/07/16 20:52; Start 11/06/16 at 16:50; Stop 11/07/16 at 16:49; Status DC Pantoprazole Sodium/Sodium Chloride (Protonix Iv/Iv Sodium Chloride 0.9% 100ml) 100 ml @ 10 mls/hr 1X ONCE IV Last administered on 11/06/16 17:21; Start at 17:00; Stop 11/07/16 at 02:59; Status DC Acetaminophen (Tylenol) 500 mg PRN DAILY PRN PO MILD PAIN; Start 11/07/16 at 09 :00 Allopurinol (Zyloprim) 300 mg DAILY PO Last administered on 11/11/16 09:03; Start 11/07/16 at 09:00 Calcitriol (Rocaltrol) 0.25 mcg DAILY PO Last administered on 11/11/16 09:05; Start 11/07/16 at 09:00 Cyanocobalamin (Vitamin B-12) 1,000 mcg DAILY PO Last administered on 11/09/16 08:43; Start 11/07/16 at 09:00; Stop 11/09/16 at 13:19; Status DC Furosemide (Lasix) 40 mg DAILY PO ; Start 11/07/16 at 09:00; Stop 11/07/16 at 09 :00; Status DC Gabapentin (Neurontin) 200 mg BID PO Last administered on 11/11/16 09:02; Start 11/07/16 at 09:00 Potassium Chloride (Klor-Con) 20 meq DAILY PO Last administered on 11/10/16 09: 11; Start 11/07/16 at 09:00; Stop 11/11/16 at 07:51; Status DC Tramadol HCl (Ultram) 50 mg PRN QID PRN PO MODERATE PAIN Last administered on 20:33; Start 11/07/16 at 09:00 Non-Formulary Medication 1,000 mg DAILY PO ; Start 11/07/16 at 09:00; Status UNV Cetirizine HCl (Zyrtec) 10 mg DAILY PO Last administered on 11/11/16 09:01; Start 11/07/16 at 09:00 Non-Formulary Medication 1 each DAILY PO ; Start 11/07/16 at 09:00; Status UNV Magnesium Oxide (Magnesium Oxide) 400 mg DAILY PO Last administered on 09:02; Start 11/07/16 at 09:00 Pantoprazole Sodium (Protonix) 40 mg DAILYAC PO Last administered on 11/07/16 09:30; Start 11/07/16 at 07:30; Stop 11/08/16 at 05:34; Status DC Non-Formulary Medication 200 mcg DAILY PO ; Start 11/07/16 at 09:00; Status UNV Non-Formulary Medication 650 mg BID PO ; Start 11/07/16 at 09:00; Stop 11/07/16 at 09:44; Status DC Levothyroxine Sodium (Synthroid) 100 mcg DAILY07 PO Last administered on 04:34; Start 11/07/16 at 07:00 Ondansetron HCl (Zofran) 4 mg PRN Q8HRS PRN IV NAUSEA/VOMITING; Start 11/07/16 at 05:39; Stop 11/07/16 at 16:59; Status DC Cyanocobalamin (Vitamin B-12) 1,000 mcg STK-MED ONCE .ROUTE ; Start 11/07/16 at 07:51; Stop 11/07/16 at 07:52; Status DC Aminocaproic Acid 500 mg 500 mg Q6HRS PO Last administered on 11/08/16 05:54; Start 11/07/16 at 09:00; Stop 11/08/16 at 09:04; Status DC Antihemophilic Factor/ Miscellaneous (Humate-P Vwf:Rco) 30 ml @ 180 mls/hr 1X ONCE IV Last administered on 11/07/16 12:43; Start 11/07/16 at 11:45; Stop at 11:54; Status DC Iohexol (Omnipaque 300 Mg/ml) 50 ml STK-MED ONCE .ROUTE ; Start 11/07/16 at 13: 40; Stop 11/07/16 at 13:41; Status DC Iohexol (Omnipaque 300 Mg/ml) 100 ml STK-MED ONCE .ROUTE ; Start 11/07/16 at 13: 40; Stop 11/07/16 at 13:41; Status DC Lidocaine/Sodium Bicarbonate 20 ml 20 ml STK-MED ONCE IJ ; Start 11/07/16 at 13: 40; Stop 11/07/16 at 13:41; Status DC Heparin Sodium/ Sodium Chloride 0 ml @ As Directed STK-MED ONCE .ROUTE ; Start 11/07/16 at 13:40; Stop 11/07/16 at 13:41; Status DC Antihemophilic Factor/ Miscellaneous (Humate-P Vwf:Rco) 30 ml @ 180 mls/hr DAILY IV Last administered on 11/11/16 09:06; Start 11/08/16 at 09:00 Pantoprazole Sodium (Protonix) 40 mg STK-MED ONCE PO ; Start 11/08/16 at 05:32; Stop 11/08/16 at 05:33; Status DC Pantoprazole Sodium (Protonix) 40 mg DAILYAC PO Last administered on 11/11/16 04:34; Start 11/08/16 at 05:34 Aminocaproic Acid (Amicar) 1,000 mg Q4HRS PO Last administered on 11/11/16 12: 35; Start 11/08/16 at 12:00 Furosemide (Lasix) 40 mg 1X ONCE IVP Last administered on 11/08/16 14:40; Start 11/08/16 at 14:30; Stop 11/08/16 at 14:31; Status DC Diphenhydramine HCl (Benadryl) 50 mg STK-MED ONCE .ROUTE ; Start 11/08/16 at 16: 07; Stop 11/08/16 at 16:08; Status DC Methylprednisolone Sodium Succinate (Solu-Medrol 125mg Vial) 125 mg STK-MED ONCE .ROUTE ; Start 11/08/16 at 16:10; Stop 11/08/16 at 16:11; Status DC Iohexol (Omnipaque 300 Mg/ml) 100 ml STK-MED ONCE .ROUTE ; Start 11/08/16 at 16: 33; Stop 11/08/16 at 16:34; Status DC Lidocaine/Sodium Bicarbonate 20 ml 20 ml STK-MED ONCE IJ ; Start 11/08/16 at 16: 33; Stop 11/08/16 at 16:34; Status DC Heparin Sodium/ Sodium Chloride 1,500 ml @ As Directed STK-MED ONCE .ROUTE ; Start 11/08/16 at 16:33; Stop 11/08/16 at 16:34; Status DC Heparin Sodium/ Sodium Chloride 3,000 unit 1X ONCE IART Last administered on 17:53; Start 11/08/16 at 16:45; Stop 11/08/16 at 16:46; Status DC Lidocaine/Sodium Bicarbonate (Buffered Lidocaine 1%) 20 ml 1X ONCE IJ Last administered on 11/08/16t 17:52; Start 11/08/16 at 16:45; Stop 11/08/16 at 16:46 ; Status DC Iohexol (Omnipaque 300 Mg/ml) 200 ml 1X ONCE IART Last administered on t 17:53; Start 11/08/16 at 16:45; Stop 11/08/16 at 16:46; Status DC Info (Do NOT chart on this entry -- for MONITORING) 1 each PRN DAILY PRN MC SEE COMMENTS; Start 11/08/16 at 16:45; Stop 11/10/16 at 16:44; Status DC Midazolam HCl (Versed) 2 mg STK-MED ONCE .ROUTE ; Start 11/08/16 at 16:47; Stop 11/08/16 at 16:48; Status DC Famotidine (Pepcid) 20 mg STK-MED ONCE .ROUTE ; Start 11/08/16 at 17:01; Stop at 17:02; Status DC Ondansetron HCl (Zofran) 0.4 mg PRN Q6HRS PRN IV NAUSEA/VOMITING; Start at 18:00; Stop 11/09/16 at 17:59; Status DC Fentanyl Citrate (Fentanyl 2ml Vial) 25 mcg PRN Q5MIN PRN IV MILD PAIN; Start 11/08/16 at 18:00; Stop 11/09/16 at 17:59; Status DC Fentanyl Citrate 50 mcg 50 mcg PRN Q5MIN PRN IV MODERATE PAIN; Start 11/08/16 at 18:00; Stop 11/09/16 at 17:59; Status DC Lactated Ringer's (Iv Lactated Ringers) 1,000 ml @ 0 mls/hr Q0M IV ; Start at 17:47; Stop 11/09/16 at 05:46; Status DC Lidocaine HCl 2 ml PRN 1X PRN ID PRIOR TO IV START; Start 11/08/16 at 18:00; Stop 11/09/16 at 17:59; Status DC Prochlorperazine Edisylate (Compazine) 5 mg PACU PRN PRN IV NAUSEA, MRX1; Start 11/08/16 at 18:00; Stop 11/09/16 at 17:59; Status DC Cyanocobalamin (Vitamin B-12) 1,000 mcg STK-MED ONCE .ROUTE ; Start 11/09/16 at 07:27; Stop 11/09/16 at 07:28; Status DC Cyanocobalamin (Vitamin B-12) 1,000 mcg DAILY PO Last administered on 11/11/16 09:04; Start 11/10/16 at 09:00 Albuterol Sulfate (Ventolin Neb Soln) 2.5 mg 1X ONCE NEB Last administered on 11/09/16 16:53; Start 11/09/16 at 17:30; Stop 11/09/16 at 17:31; Status DC Albuterol Sulfate (Ventolin Neb Soln) 2.5 mg PRN Q4HRS PRN NEB SHORTNESS OF BREATH Last administered on 11/09/16 20:51; Start 11/09/16 at 17:00 Active Scripts Active Lasix (Furosemide) 40 Mg Tablet 1 Tab PO QOD Reported Lysteda (Tranexamic Acid) 650 Mg Tablet 650 Mg PO BID Vitamin B Complex 1 Each Capsule 1 Each PO Calcitriol 0.25 Mcg Capsule 1 Cap PO DAILY Selenium (Selenomethionine) 200 Mcg Tablet 200 Mcg PO DAILY Vitamin A 8,000 Unit Capsule 8,000 Unit PO Coconut Oil 1,000 Mg Capsule 1,000 Mg PO DAILY Aminocaproic Acid 500 Mg Tablet 500 Mg PO DAILY Magnesium (Magnesium Oxide) 500 Mg Capsule 500 Mg PO DAILY Omeprazole 40 Mg Capsule.dr 40 Mg PO DAILY Potassium Chloride 20 Meq Tab.er.prt 20 Meq PO DAILY Acetaminophen 500 Mg Tablet 500 Mg PO PRN DAILY PRN Allopurinol 300 Mg Tablet 300 Mg PO DAILY Neurontin (Gabapentin) 100 Mg Capsule 200 Mg PO BID Vitamin B-12 (Cyanocobalamin (Vitamin B-12)) 1,000 Mcg Tablet 1,000 Mcg PO DAILY Osteo Bi-Flex Caplet (Gluc/Lyndon-Msm#1/C/Brandon/Alfredo/Bor) 1 Each Tablet 1 Each PO DAILY Levothyroxine Sodium Inj (Levothyroxine Sodium) 100 Mcg Vial 100 Mcg PO DAILY Nakita (Fexofenadine Hcl) 180 Mg Tablet 180 Mg PO DAILY Tramadol Hcl 50 Mg Tablet 50 Mg PO PRN QID Vitals/I & O Vital Sign - Last 24 Hours 11/10/16 11/10/16 11/10/16 11/10/16 14:05 19:00 19:10 20:33 Temp 96.1 97.9 96.1 97.9 Pulse 56 57 Resp 18 B/P 101/35 104/30 Pulse Ox 100 96 96 O2 Delivery Room Air Room Air Room Air Room Air 11/10/16 11/10/16 11/11/16 11/11/16 21:23 23:00 02:55 07:38 Temp 98.1 97.5 98.1 97.5 Pulse 58 51 47 Resp 18 B/P 116/40 124/43 96/46 Pulse Ox 96 96 96 96 O2 Delivery Room Air Room Air Room Air Room Air 11/11/16 11/11/16 11/11/16 08:00 10:33 11:00 Temp 97.5 97.7 97.5 97.7 Pulse 61 57 Resp 16 B/P 129/40 105/41 Pulse Ox 99 99 O2 Delivery Room Air Room Air Room Air Intake and Output 11/10/16 11/10/16 11/11/16 15:00 23:00 07:00 Intake Total 360 ml 0 ml 500 ml Balance 360 ml 0 ml 500 ml MARISOL ELLIOTT MD Nov 11, 2016 13:21
--- NOTE | 2016-11-11 16:56 | PDOC ---
PROGRESS NOTES Subjective Subjective c/c - f/u of vWD ROS - Had GI bleed Objective Objective Vital Signs Date Time Temp Pulse Resp B/P Pulse Ox O2 Delivery O2 Flow Rate FiO2 11/11/16 13:41 97.7 79 18 111/78 93 Room Air 97.7 Intake and Output 11/11/16 06:59 Intake Total 860 ml Balance 860 ml Intake Oral 860 ml # Voids 6 # Bowel Movements 1 Physical Exam Heart: Normal S1, Normal S2 General: Alert, Oriented X3 Lungs: Clear to auscultation Psych/Mental Status: Mental status NL Assessment Assessment Problems Medical Problems: (1) Acute GI bleeding Status: Acute (2) Deficiency of von Willebrand factor Status: Acute (3) Symptomatic anemia Status: Acute IMPRESSION AND PLAN: 1. Von Willebrand disease type 2. Unfortunately, her condition is complicated by on and off anemia due to melena requiring Humate-P. She has had prior colonoscopy and an ulceration was noted in the colon. I have discussed with Gastroenterology on multiple occasions in the past and conservative management was recommended. I will consult Dr Stallings. She will continue Humate-P and Amicar during this admission. Hemoglobin better at 9.3, had blood in stools yesterday. Continue daily dose of Humate P 50 u/kg. And amicar 1000 mg PO q 4 hrs. 2. Severe anemia. s/p packed red blood cells transfusion. Continue to monitor closely. 3. Iron deficiency. s/p Injectafer as outpatient. 4. GI bleed. Consulted GI. GI bleed scan 11/07/16 revealed: Active GI tract bleeding originating in the left upper quadrant, probably probably in the distal splenic flexure region. I d/w Mary. Arterial embolization was not done as no bleeding identified on angiography. I d/w RN Comment Review of Relevant I have reviewed the following items benjy (where applicable) has been applied. Labs Laboratory Tests Test 11/10/16 04:20 11/11/16 04:50 White Blood Count 8.2x10^3/uL (4.0-11.0) 5.6x10^3/uL (4.0-11.0) Red Blood Count 2.90x10^6/uL (3.50-5.40) 3.00x10^6/uL (3.50-5.40) Hemoglobin 9.0g/dL (12.0-15.5) 9.3g/dL (12.0-15.5) Hematocrit 27.5% (36.0-47.0) 28.8% (36.0-47.0) Mean Corpuscular Volume 95fL (79-100) 96fL (79-100) Mean Corpuscular Hemoglobin 31pg (25-35) 31pg (25-35) Mean Corpuscular Hemoglobin Concent 33g/dL (31-37) 32g/dL (31-37) Red Cell Distribution Width 15.5% (11.5-14.5) 15.7% (11.5-14.5) Platelet Count 117x10^3/uL (140-400) 113x10^3/uL (140-400) Neutrophils (%) (Auto) 89% (31-73) 78% (31-73) Lymphocytes (%) (Auto) 6% (24-48) 12% (24-48) Monocytes (%) (Auto) 5% (0-9) 7% (0-9) Eosinophils (%) (Auto) 0% (0-3) 2% (0-3) Basophils (%) (Auto) 0% (0-3) 1% (0-3) Neutrophils # (Auto) 7.3x10^3uL (1.8-7.7) 4.4x10^3uL (1.8-7.7) Lymphocytes # (Auto) 0.5x10^3/uL (1.0-4.8) 0.7x10^3/uL (1.0-4.8) Monocytes # (Auto) 0.4x10^3/uL (0.0-1.1) 0.4x10^3/uL (0.0-1.1) Eosinophils # (Auto) 0.0x10^3/uL (0.0-0.7) 0.1x10^3/uL (0.0-0.7) Basophils # (Auto) 0.0x10^3/uL (0.0-0.2) 0.0x10^3/uL (0.0-0.2) Segmented Neutrophils % 90% (35-66) Lymphocytes % 7% (24-48) Monocytes % 3% (0-10) Platelet Estimate Decreased (ADEQUATE) Laboratory Tests Test 11/11/16 04:50 White Blood Count 5.6x10^3/uL (4.0-11.0) Red Blood Count 3.00x10^6/uL (3.50-5.40) Hemoglobin 9.3g/dL (12.0-15.5) Hematocrit 28.8% (36.0-47.0) Mean Corpuscular Volume 96fL (79-100) Mean Corpuscular Hemoglobin 31pg (25-35) Mean Corpuscular Hemoglobin Concent 32g/dL (31-37) Red Cell Distribution Width 15.7% (11.5-14.5) Platelet Count 113x10^3/uL (140-400) Neutrophils (%) (Auto) 78% (31-73) Lymphocytes (%) (Auto) 12% (24-48) Monocytes (%) (Auto) 7% (0-9) Eosinophils (%) (Auto) 2% (0-3) Basophils (%) (Auto) 1% (0-3) Neutrophils # (Auto) 4.4x10^3uL (1.8-7.7) Lymphocytes # (Auto) 0.7x10^3/uL (1.0-4.8) Monocytes # (Auto) 0.4x10^3/uL (0.0-1.1) Eosinophils # (Auto) 0.1x10^3/uL (0.0-0.7) Basophils # (Auto) 0.0x10^3/uL (0.0-0.2) Microbiology 11/06/16 Urine Culture - Final, Complete 11/06/16 Urine Culture Result 1 (TOAN) - Final, Complete 11/06/16 Urine Culture Result 2 (TOAN) - Final, Complete 11/06/16 Antimicrobic Susceptibility - Final, Complete Medications Current Medications Sodium Chloride (Iv Sodium Chloride 0.9% 1000ml Bag) 1,000 ml @ 100 mls/hr Q10H IV Last administered on 11/06/16 16:25; Start 11/06/16 at 16:06; Stop at 02:05; Status DC Ondansetron HCl (Zofran) 4 mg 1X ONCE IV Last administered on 11/06/16 16:24 ; Start 11/06/16 at 16:15; Stop 11/06/16 at 16:20; Status DC Pantoprazole Sodium (Protonix Vial) 40 mg 1X ONCE IVP Last administered on 16:24; Start 11/06/16 at 16:15; Stop 11/06/16 at 16:20; Status DC Ondansetron HCl 4 mg 4 mg PRN Q8HRS PRN IV NAUSEA/VOMITING; Start 11/06/16 at 17:00; Stop 11/07/16 at 05:39; Status DC Sodium Chloride 1,000 ml @ 100 mls/hr Q10H IV Last administered on 11/07/16 20:52; Start 11/06/16 at 16:50; Stop 11/07/16 at 16:49; Status DC Pantoprazole Sodium/Sodium Chloride (Protonix Iv/Iv Sodium Chloride 0.9% 100ml) 100 ml @ 10 mls/hr 1X ONCE IV Last administered on 11/06/16 17:21; Start at 17:00; Stop 11/07/16 at 02:59; Status DC Acetaminophen (Tylenol) 500 mg PRN DAILY PRN PO MILD PAIN; Start 11/07/16 at 09 :00 Allopurinol (Zyloprim) 300 mg DAILY PO Last administered on 11/11/16 09:03; Start 11/07/16 at 09:00 Calcitriol (Rocaltrol) 0.25 mcg DAILY PO Last administered on 11/11/16 09:05; Start 11/07/16 at 09:00 Cyanocobalamin (Vitamin B-12) 1,000 mcg DAILY PO Last administered on 11/09/16 08:43; Start 11/07/16 at 09:00; Stop 11/09/16 at 13:19; Status DC Furosemide (Lasix) 40 mg DAILY PO ; Start 11/07/16 at 09:00; Stop 11/07/16 at 09 :00; Status DC Gabapentin (Neurontin) 200 mg BID PO Last administered on 11/11/16 09:02; Start 11/07/16 at 09:00 Potassium Chloride (Klor-Con) 20 meq DAILY PO Last administered on 11/10/16 09: 11; Start 11/07/16 at 09:00; Stop 11/11/16 at 07:51; Status DC Tramadol HCl (Ultram) 50 mg PRN QID PRN PO MODERATE PAIN Last administered on 20:33; Start 11/07/16 at 09:00 Non-Formulary Medication 1,000 mg DAILY PO ; Start 11/07/16 at 09:00; Status UNV Cetirizine HCl (Zyrtec) 10 mg DAILY PO Last administered on 11/11/16 09:01; Start 11/07/16 at 09:00 Non-Formulary Medication 1 each DAILY PO ; Start 11/07/16 at 09:00; Status UNV Magnesium Oxide (Magnesium Oxide) 400 mg DAILY PO Last administered on 09:02; Start 11/07/16 at 09:00 Pantoprazole Sodium (Protonix) 40 mg DAILYAC PO Last administered on 11/07/16 09:30; Start 11/07/16 at 07:30; Stop 11/08/16 at 05:34; Status DC Non-Formulary Medication 200 mcg DAILY PO ; Start 11/07/16 at 09:00; Status UNV Non-Formulary Medication 650 mg BID PO ; Start 11/07/16 at 09:00; Stop 11/07/16 at 09:44; Status DC Levothyroxine Sodium (Synthroid) 100 mcg DAILY07 PO Last administered on 04:34; Start 11/07/16 at 07:00 Ondansetron HCl (Zofran) 4 mg PRN Q8HRS PRN IV NAUSEA/VOMITING; Start 11/07/16 at 05:39; Stop 11/07/16 at 16:59; Status DC Cyanocobalamin (Vitamin B-12) 1,000 mcg STK-MED ONCE .ROUTE ; Start 11/07/16 at 07:51; Stop 11/07/16 at 07:52; Status DC Aminocaproic Acid 500 mg 500 mg Q6HRS PO Last administered on 11/08/16 05:54; Start 11/07/16 at 09:00; Stop 11/08/16 at 09:04; Status DC Antihemophilic Factor/ Miscellaneous (Humate-P Vwf:Rco) 30 ml @ 180 mls/hr 1X ONCE IV Last administered on 11/07/16 12:43; Start 11/07/16 at 11:45; Stop at 11:54; Status DC Iohexol (Omnipaque 300 Mg/ml) 50 ml STK-MED ONCE .ROUTE ; Start 11/07/16 at 13: 40; Stop 11/07/16 at 13:41; Status DC Iohexol (Omnipaque 300 Mg/ml) 100 ml STK-MED ONCE .ROUTE ; Start 11/07/16 at 13: 40; Stop 11/07/16 at 13:41; Status DC Lidocaine/Sodium Bicarbonate 20 ml 20 ml STK-MED ONCE IJ ; Start 11/07/16 at 13: 40; Stop 11/07/16 at 13:41; Status DC Heparin Sodium/ Sodium Chloride 0 ml @ As Directed STK-MED ONCE .ROUTE ; Start 11/07/16 at 13:40; Stop 11/07/16 at 13:41; Status DC Antihemophilic Factor/ Miscellaneous (Humate-P Vwf:Rco) 30 ml @ 180 mls/hr DAILY IV Last administered on 11/11/16 09:06; Start 11/08/16 at 09:00; Stop 11/14/16 at 09:01 Pantoprazole Sodium (Protonix) 40 mg STK-MED ONCE PO ; Start 11/08/16 at 05:32; Stop 11/08/16 at 05:33; Status DC Pantoprazole Sodium (Protonix) 40 mg DAILYAC PO Last administered on 11/11/16 04:34; Start 11/08/16 at 05:34 Aminocaproic Acid (Amicar) 1,000 mg Q4HRS PO Last administered on 11/11/16 15: 57; Start 11/08/16 at 12:00 Furosemide (Lasix) 40 mg 1X ONCE IVP Last administered on 11/08/16 14:40; Start 11/08/16 at 14:30; Stop 11/08/16 at 14:31; Status DC Diphenhydramine HCl (Benadryl) 50 mg STK-MED ONCE .ROUTE ; Start 11/08/16 at 16: 07; Stop 11/08/16 at 16:08; Status DC Methylprednisolone Sodium Succinate (Solu-Medrol 125mg Vial) 125 mg STK-MED ONCE .ROUTE ; Start 11/08/16 at 16:10; Stop 11/08/16 at 16:11; Status DC Iohexol (Omnipaque 300 Mg/ml) 100 ml STK-MED ONCE .ROUTE ; Start 11/08/16 at 16: 33; Stop 11/08/16 at 16:34; Status DC Lidocaine/Sodium Bicarbonate 20 ml 20 ml STK-MED ONCE IJ ; Start 11/08/16 at 16: 33; Stop 11/08/16 at 16:34; Status DC Heparin Sodium/ Sodium Chloride 1,500 ml @ As Directed STK-MED ONCE .ROUTE ; Start 11/08/16 at 16:33; Stop 11/08/16 at 16:34; Status DC Heparin Sodium/ Sodium Chloride 3,000 unit 1X ONCE IART Last administered on 17:53; Start 11/08/16 at 16:45; Stop 11/08/16 at 16:46; Status DC Lidocaine/Sodium Bicarbonate (Buffered Lidocaine 1%) 20 ml 1X ONCE IJ Last administered on 11/08/16 17:52; Start 11/08/16 at 16:45; Stop 11/08/16 at 16:46 ; Status DC Iohexol (Omnipaque 300 Mg/ml) 200 ml 1X ONCE IART Last administered on 17:53; Start 11/08/16 at 16:45; Stop 11/08/16 at 16:46; Status DC Info (Do NOT chart on this entry -- for MONITORING) 1 each PRN DAILY PRN MC SEE COMMENTS; Start 11/08/16 at 16:45; Stop 11/10/16 at 16:44; Status DC Midazolam HCl (Versed) 2 mg STK-MED ONCE .ROUTE ; Start 11/08/16 at 16:47; Stop 11/08/16 at 16:48; Status DC Famotidine (Pepcid) 20 mg STK-MED ONCE .ROUTE ; Start 11/08/16 at 17:01; Stop at 17:02; Status DC Ondansetron HCl (Zofran) 0.4 mg PRN Q6HRS PRN IV NAUSEA/VOMITING; Start at 18:00; Stop 11/09/16 at 17:59; Status DC Fentanyl Citrate (Fentanyl 2ml Vial) 25 mcg PRN Q5MIN PRN IV MILD PAIN; Start 11/08/16 at 18:00; Stop 11/09/16 at 17:59; Status DC Fentanyl Citrate 50 mcg 50 mcg PRN Q5MIN PRN IV MODERATE PAIN; Start 11/08/16 at 18:00; Stop 11/09/16 at 17:59; Status DC Lactated Ringer's (Iv Lactated Ringers) 1,000 ml @ 0 mls/hr Q0M IV ; Start at 17:47; Stop 11/09/16 at 05:46; Status DC Lidocaine HCl 2 ml PRN 1X PRN ID PRIOR TO IV START; Start 11/08/16 at 18:00; Stop 11/09/16 at 17:59; Status DC Prochlorperazine Edisylate (Compazine) 5 mg PACU PRN PRN IV NAUSEA, MRX1; Start 11/08/16 at 18:00; Stop 11/09/16 at 17:59; Status DC Cyanocobalamin (Vitamin B-12) 1,000 mcg STK-MED ONCE .ROUTE ; Start 11/09/16 at 07:27; Stop 11/09/16 at 07:28; Status DC Cyanocobalamin (Vitamin B-12) 1,000 mcg DAILY PO Last administered on 11/11/16 09:04; Start 11/10/16 at 09:00 Albuterol Sulfate (Ventolin Neb Soln) 2.5 mg 1X ONCE NEB Last administered on 11/09/16 16:53; Start 11/09/16 at 17:30; Stop 11/09/16 at 17:31; Status DC Albuterol Sulfate (Ventolin Neb Soln) 2.5 mg PRN Q4HRS PRN NEB SHORTNESS OF BREATH Last administered on 11/09/16 20:51; Start 11/09/16 at 17:00 Active Scripts Active Lasix (Furosemide) 40 Mg Tablet 1 Tab PO QOD Reported Lysteda (Tranexamic Acid) 650 Mg Tablet 650 Mg PO BID Vitamin B Complex 1 Each Capsule 1 Each PO Calcitriol 0.25 Mcg Capsule 1 Cap PO DAILY Selenium (Selenomethionine) 200 Mcg Tablet 200 Mcg PO DAILY Vitamin A 8,000 Unit Capsule 8,000 Unit PO Coconut Oil 1,000 Mg Capsule 1,000 Mg PO DAILY Aminocaproic Acid 500 Mg Tablet 500 Mg PO DAILY Magnesium (Magnesium Oxide) 500 Mg Capsule 500 Mg PO DAILY Omeprazole 40 Mg Capsule.dr 40 Mg PO DAILY Potassium Chloride 20 Meq Tab.er.prt 20 Meq PO DAILY Acetaminophen 500 Mg Tablet 500 Mg PO PRN DAILY PRN Allopurinol 300 Mg Tablet 300 Mg PO DAILY Neurontin (Gabapentin) 100 Mg Capsule 200 Mg PO BID Vitamin B-12 (Cyanocobalamin (Vitamin B-12)) 1,000 Mcg Tablet 1,000 Mcg PO DAILY Osteo Bi-Flex Caplet (Gluc/Lyndon-Msm#1/C/Brandon/Alfredo/Bor) 1 Each Tablet 1 Each PO DAILY Levothyroxine Sodium Inj (Levothyroxine Sodium) 100 Mcg Vial 100 Mcg PO DAILY Nakita (Fexofenadine Hcl) 180 Mg Tablet 180 Mg PO DAILY Tramadol Hcl 50 Mg Tablet 50 Mg PO PRN QID Vitals/I & O Vital Sign - Last 24 Hours 11/10/16 11/10/16 11/10/16 11/10/16 19:00 19:10 20:33 21:23 Temp 97.9 97.9 Pulse 57 Resp 18 18 18 B/P 104/30 Pulse Ox 96 96 96 O2 Delivery Room Air Room Air Room Air Room Air 11/10/16 11/11/16 11/11/16 11/11/16 23:00 02:55 07:38 08:00 Temp 98.1 97.5 98.1 97.5 Pulse 58 51 47 Resp 18 18 18 B/P 116/40 124/43 96/46 Pulse Ox 96 96 96 O2 Delivery Room Air Room Air Room Air Room Air 11/11/16 11/11/16 11/11/16 11/11/16 10:33 11:00 13:41 13:41 Temp 97.5 97.7 97.7 97.7 97.5 97.7 97.7 97.7 Pulse 61 57 47 79 Resp 18 16 18 18 B/P 129/40 105/41 118/31 111/78 Pulse Ox 99 99 99 93 O2 Delivery Room Air Room Air Room Air Room Air Intake and Output 11/10/16 11/10/16 11/11/16 14:59 22:59 06:59 Intake Total 360 ml 0 ml 500 ml Balance 360 ml 0 ml 500 ml FREDIS PALMER MD Nov 11, 2016 16:56
[2016-11-11] MEDS: TRAMADOL 50 MG TABLET. PO PRN (20:37)
[2016-11-12 03:00] VITALS: BP 100/51
[2016-11-12] MEDS: PANTOPRAZOLE 40 MG TABLET.DR. PO SCH (04:40)
[2016-11-12] MEDS: AMINOCAPROIC ACID 500 MG TABLET. PO SCH ×6 (04:40→23:48)
[2016-11-12] MEDS: LEVOTHYROXINE 100 MCG TABLET PO SCH (04:40)
[2016-11-12 07:00] VITALS: BP 107/46
--- NOTE | 2016-11-12 07:52 | PDOC ---
Provider Note Provider Note vss, no overt bleeding- hb pending, was 9.3 - can dc when dr freeman is ok if meds right - daily hb/hct here AJITH RUIZ MD Nov 12, 2016 07:52
[2016-11-12] MEDS: CALCITRIOL 0.25 MCG CAPSULE. PO SCH (08:22)
[2016-11-12] MEDS: GABAPENTIN 100 MG CAPSULE. PO SCH ×2 (08:22→20:29)
[2016-11-12] MEDS: MAGNESIUM OXIDE 400 MG TABLET PO SCH (08:22)
[2016-11-12] MEDS: ALLOPURINOL 300 MG TABLET. PO SCH (08:23)
[2016-11-12] MEDS: CYANOCOBALAMIN (VITAMIN B-12) 1,000 MCG TABLET. PO SCH (08:23)
[2016-11-12] MEDS: CETIRIZINE HCL 10 MG TABLET. PO SCH (08:23)
[2016-11-12 08:53] LABS: HEMATOCRIT 32.5 % (36.0-47.0); HEMOGLOBIN 10.6 g/dL (12.0-15.5); RED BLOOD COUNT 3.41 x10^6/uL (3.50-5.40); RED CELL DISTRIBUTION WIDTH 16.8 % (11.5-14.5); WHITE BLOOD COUNT 4.5 x10^3/uL (4.0-11.0)
[2016-11-12] MEDS ORDERED: VWF IV SCH (10:00)
[2016-11-12] MEDS ORDERED: TOTAL VOLUME IV SCH (10:00)
[2016-11-12] MEDS ORDERED: ANTIHEMOPHILIC FACTOR IV SCH (10:00)
[2016-11-12] MEDS ORDERED: FURO40TA4 PO (10:42)
[2016-11-12 11:00] VITALS: BP 99/39
[2016-11-12] MEDS: ALBUTEROL SULFATE 2.5 MG/3 ML NEBU. NEB PRN (11:47)
[2016-11-12] MEDS ORDERED: FUROSEMIDE 40 MG TABLET. PO ONE (13:30)
--- NOTE | 2016-11-12 13:58 | PDOC ---
PROGRESS NOTES Subjective Subjective Patient had a brown BM this morning with no black. She denies any CP or SOB. Patient reports feeling like her legs are feeling a little "tight" and is worried that she is filling with some fluid but has been able to tolerate walking. Objective Objective Vital Signs Date Time Temp Pulse Resp B/P Pulse Ox O2 Delivery O2 Flow Rate FiO2 11/12/16 11:48 96 Room Air 11/12/16 07:00 97.6 45 17 107/46 97.6 Intake and Output 11/12/16 07:00 Intake Total 360 ml Balance 360 ml Intake Oral 360 ml # Voids 2 # Bowel Movements 1 Physical Exam Physical Exam GENERAL: patient sitting up resting comfortably in recliner, no acute distress HEART: regular rate and rhythm EXTREMITIES: trace edema bilateral lower extremities Assessment Assessment No active complaints at this time except minimal leg swelling. Problems Medical Problems: (1) Acute GI bleeding Status: Acute (2) Deficiency of von Willebrand factor Status: Acute (3) Symptomatic anemia Status: Acute Plan Plan of Care Stable from cardiac standpoint. Agree with continuing current plan. Comment Review of Relevant I have reviewed the following items benjy (where applicable) has been applied. Labs Laboratory Tests Test 11/11/16 04:50 11/12/16 08:30 White Blood Count 5.6x10^3/uL (4.0-11.0) 4.5x10^3/uL (4.0-11.0) Red Blood Count 3.00x10^6/uL (3.50-5.40) 3.41x10^6/uL (3.50-5.40) Hemoglobin 9.3g/dL (12.0-15.5) 10.6g/dL (12.0-15.5) Hematocrit 28.8% (36.0-47.0) 32.5% (36.0-47.0) Mean Corpuscular Volume 96fL (79-100) 95fL (79-100) Mean Corpuscular Hemoglobin 31pg (25-35) 31pg (25-35) Mean Corpuscular Hemoglobin Concent 32g/dL (31-37) 33g/dL (31-37) Red Cell Distribution Width 15.7% (11.5-14.5) 16.8% (11.5-14.5) Platelet Count 113x10^3/uL (140-400) 123x10^3/uL (140-400) Neutrophils (%) (Auto) 78% (31-73) Lymphocytes (%) (Auto) 12% (24-48) Monocytes (%) (Auto) 7% (0-9) Eosinophils (%) (Auto) 2% (0-3) Basophils (%) (Auto) 1% (0-3) Neutrophils # (Auto) 4.4x10^3uL (1.8-7.7) Lymphocytes # (Auto) 0.7x10^3/uL (1.0-4.8) Monocytes # (Auto) 0.4x10^3/uL (0.0-1.1) Eosinophils # (Auto) 0.1x10^3/uL (0.0-0.7) Basophils # (Auto) 0.0x10^3/uL (0.0-0.2) Laboratory Tests Test 11/12/16 08:30 White Blood Count 4.5x10^3/uL (4.0-11.0) Red Blood Count 3.41x10^6/uL (3.50-5.40) Hemoglobin 10.6g/dL (12.0-15.5) Hematocrit 32.5% (36.0-47.0) Mean Corpuscular Volume 95fL (79-100) Mean Corpuscular Hemoglobin 31pg (25-35) Mean Corpuscular Hemoglobin Concent 33g/dL (31-37) Red Cell Distribution Width 16.8% (11.5-14.5) Platelet Count 123x10^3/uL (140-400) Microbiology 11/06/16 Urine Culture - Final, Complete 11/06/16 Urine Culture Result 1 (TOAN) - Final, Complete 11/06/16 Urine Culture Result 2 (TOAN) - Final, Complete 11/06/16 Antimicrobic Susceptibility - Final, Complete Medications Current Medications Sodium Chloride (Iv Sodium Chloride 0.9% 1000ml Bag) 1,000 ml @ 100 mls/hr Q10H IV Last administered on 11/06/16t 16:25; Start 11/06/16 at 16:06; Stop at 02:05; Status DC Ondansetron HCl (Zofran) 4 mg 1X ONCE IV Last administered on 11/06/16 16:24 ; Start 11/06/16 at 16:15; Stop 11/06/16 at 16:20; Status DC Pantoprazole Sodium (Protonix Vial) 40 mg 1X ONCE IVP Last administered on 16:24; Start 11/06/16 at 16:15; Stop 11/06/16 at 16:20; Status DC Ondansetron HCl 4 mg 4 mg PRN Q8HRS PRN IV NAUSEA/VOMITING; Start 11/06/16 at 17:00; Stop 11/07/16 at 05:39; Status DC Sodium Chloride 1,000 ml @ 100 mls/hr Q10H IV Last administered on 11/07/16 20:52; Start 11/06/16 at 16:50; Stop 11/07/16 at 16:49; Status DC Pantoprazole Sodium/Sodium Chloride (Protonix Iv/Iv Sodium Chloride 0.9% 100ml) 100 ml @ 10 mls/hr 1X ONCE IV Last administered on 11/06/16 17:21; Start at 17:00; Stop 11/07/16 at 02:59; Status DC Acetaminophen (Tylenol) 500 mg PRN DAILY PRN PO MILD PAIN; Start 11/07/16 at 09 :00 Allopurinol (Zyloprim) 300 mg DAILY PO Last administered on 11/12/16 08:23; Start 11/07/16 at 09:00 Calcitriol (Rocaltrol) 0.25 mcg DAILY PO Last administered on 11/12/16 08:22; Start 11/07/16 at 09:00 Cyanocobalamin (Vitamin B-12) 1,000 mcg DAILY PO Last administered on 11/09/16 08:43; Start 11/07/16 at 09:00; Stop 11/09/16 at 13:19; Status DC Furosemide (Lasix) 40 mg DAILY PO ; Start 11/07/16 at 09:00; Stop 11/07/16 at 09 :00; Status DC Gabapentin (Neurontin) 200 mg BID PO Last administered on 11/12/16 08:22; Start 11/07/16 at 09:00 Potassium Chloride (Klor-Con) 20 meq DAILY PO Last administered on 11/10/16 09: 11; Start 11/07/16 at 09:00; Stop 11/11/16 at 07:51; Status DC Tramadol HCl (Ultram) 50 mg PRN QID PRN PO MODERATE PAIN Last administered on 20:37; Start 11/07/16 at 09:00 Non-Formulary Medication 1,000 mg DAILY PO ; Start 11/07/16 at 09:00; Status UNV Cetirizine HCl (Zyrtec) 10 mg DAILY PO Last administered on 11/12/16 08:23; Start 11/07/16 at 09:00 Non-Formulary Medication 1 each DAILY PO ; Start 11/07/16 at 09:00; Status UNV Magnesium Oxide (Magnesium Oxide) 400 mg DAILY PO Last administered on 08:22; Start 11/07/16 at 09:00 Pantoprazole Sodium (Protonix) 40 mg DAILYAC PO Last administered on 11/07/16 09:30; Start 11/07/16 at 07:30; Stop 11/08/16 at 05:34; Status DC Non-Formulary Medication 200 mcg DAILY PO ; Start 11/07/16 at 09:00; Status UNV Non-Formulary Medication 650 mg BID PO ; Start 11/07/16 at 09:00; Stop 11/07/16 at 09:44; Status DC Levothyroxine Sodium (Synthroid) 100 mcg DAILY07 PO Last administered on 04:40; Start 11/07/16 at 07:00 Ondansetron HCl (Zofran) 4 mg PRN Q8HRS PRN IV NAUSEA/VOMITING; Start 11/07/16 at 05:39; Stop 11/07/16 at 16:59; Status DC Cyanocobalamin (Vitamin B-12) 1,000 mcg STK-MED ONCE .ROUTE ; Start 11/07/16 at 07:51; Stop 11/07/16 at 07:52; Status DC Aminocaproic Acid 500 mg 500 mg Q6HRS PO Last administered on 11/08/16 05:54; Start 11/07/16 at 09:00; Stop 11/08/16 at 09:04; Status DC Antihemophilic Factor/ Miscellaneous (Humate-P Vwf:Rco) 30 ml @ 180 mls/hr 1X ONCE IV Last administered on 11/07/16 12:43; Start 11/07/16 at 11:45; Stop at 11:54; Status DC Iohexol (Omnipaque 300 Mg/ml) 50 ml STK-MED ONCE .ROUTE ; Start 11/07/16 at 13: 40; Stop 11/07/16 at 13:41; Status DC Iohexol (Omnipaque 300 Mg/ml) 100 ml STK-MED ONCE .ROUTE ; Start 11/07/16 at 13: 40; Stop 11/07/16 at 13:41; Status DC Lidocaine/Sodium Bicarbonate 20 ml 20 ml STK-MED ONCE IJ ; Start 11/07/16 at 13: 40; Stop 11/07/16 at 13:41; Status DC Heparin Sodium/ Sodium Chloride 0 ml @ As Directed STK-MED ONCE .ROUTE ; Start 11/07/16 at 13:40; Stop 11/07/16 at 13:41; Status DC Antihemophilic Factor/ Miscellaneous (Humate-P Vwf:Rco) 30 ml @ 180 mls/hr DAILY IV Last administered on 11/11/16 09:06; Start 11/08/16 at 09:00; Stop 11/12/16 at 09:39; Status DC Pantoprazole Sodium (Protonix) 40 mg STK-MED ONCE PO ; Start 11/08/16 at 05:32; Stop 11/08/16 at 05:33; Status DC Pantoprazole Sodium (Protonix) 40 mg DAILYAC PO Last administered on 11/12/16 04:40; Start 11/08/16 at 05:34 Aminocaproic Acid (Amicar) 1,000 mg Q4HRS PO Last administered on 11/12/16 12: 24; Start 11/08/16 at 12:00 Furosemide (Lasix) 40 mg 1X ONCE IVP Last administered on 11/08/16 14:40; Start 11/08/16 at 14:30; Stop 11/08/16 at 14:31; Status DC Diphenhydramine HCl (Benadryl) 50 mg STK-MED ONCE .ROUTE ; Start 11/08/16 at 16: 07; Stop 11/08/16 at 16:08; Status DC Methylprednisolone Sodium Succinate (Solu-Medrol 125mg Vial) 125 mg STK-MED ONCE .ROUTE ; Start 11/08/16 at 16:10; Stop 11/08/16 at 16:11; Status DC Iohexol (Omnipaque 300 Mg/ml) 100 ml STK-MED ONCE .ROUTE ; Start 11/08/16 at 16: 33; Stop 11/08/16 at 16:34; Status DC Lidocaine/Sodium Bicarbonate 20 ml 20 ml STK-MED ONCE IJ ; Start 11/08/16 at 16: 33; Stop 11/08/16 at 16:34; Status DC Heparin Sodium/ Sodium Chloride 1,500 ml @ As Directed STK-MED ONCE .ROUTE ; Start 11/08/16 at 16:33; Stop 11/08/16 at 16:34; Status DC Heparin Sodium/ Sodium Chloride 3,000 unit 1X ONCE IART Last administered on 17:53; Start 11/08/16 at 16:45; Stop 11/08/16 at 16:46; Status DC Lidocaine/Sodium Bicarbonate (Buffered Lidocaine 1%) 20 ml 1X ONCE IJ Last administered on 11/08/16 17:52; Start 11/08/16 at 16:45; Stop 11/08/16 at 16:46 ; Status DC Iohexol (Omnipaque 300 Mg/ml) 200 ml 1X ONCE IART Last administered on 17:53; Start 11/08/16 at 16:45; Stop 11/08/16 at 16:46; Status DC Info (Do NOT chart on this entry -- for MONITORING) 1 each PRN DAILY PRN MC SEE COMMENTS; Start 11/08/16 at 16:45; Stop 11/10/16 at 16:44; Status DC Midazolam HCl (Versed) 2 mg STK-MED ONCE .ROUTE ; Start 11/08/16 at 16:47; Stop 11/08/16 at 16:48; Status DC Famotidine (Pepcid) 20 mg STK-MED ONCE .ROUTE ; Start 11/08/16 at 17:01; Stop at 17:02; Status DC Ondansetron HCl (Zofran) 0.4 mg PRN Q6HRS PRN IV NAUSEA/VOMITING; Start at 18:00; Stop 11/09/16 at 17:59; Status DC Fentanyl Citrate (Fentanyl 2ml Vial) 25 mcg PRN Q5MIN PRN IV MILD PAIN; Start 11/08/16 at 18:00; Stop 11/09/16 at 17:59; Status DC Fentanyl Citrate 50 mcg 50 mcg PRN Q5MIN PRN IV MODERATE PAIN; Start 11/08/16 at 18:00; Stop 11/09/16 at 17:59; Status DC Lactated Ringer's (Iv Lactated Ringers) 1,000 ml @ 0 mls/hr Q0M IV ; Start at 17:47; Stop 11/09/16 at 05:46; Status DC Lidocaine HCl 2 ml PRN 1X PRN ID PRIOR TO IV START; Start 11/08/16 at 18:00; Stop 11/09/16 at 17:59; Status DC Prochlorperazine Edisylate (Compazine) 5 mg PACU PRN PRN IV NAUSEA, MRX1; Start 11/08/16 at 18:00; Stop 11/09/16 at 17:59; Status DC Cyanocobalamin (Vitamin B-12) 1,000 mcg STK-MED ONCE .ROUTE ; Start 11/09/16 at 07:27; Stop 11/09/16 at 07:28; Status DC Cyanocobalamin (Vitamin B-12) 1,000 mcg DAILY PO Last administered on 11/12/16 08:23; Start 11/10/16 at 09:00 Albuterol Sulfate (Ventolin Neb Soln) 2.5 mg 1X ONCE NEB Last administered on 11/09/16 16:53; Start 11/09/16 at 17:30; Stop 11/09/16 at 17:31; Status DC Albuterol Sulfate 2.5 mg 2.5 mg PRN Q4HRS PRN NEB SHORTNESS OF BREATH Last administered on 11/12/16 11:47; Start 11/09/16 at 17:00 Antihemophilic Factor/ Miscellaneous (Humate-P Vwf:Rco) 30 ml @ 180 mls/hr DAILY IV Last administered on 11/12/16 10:43; Start 11/12/16 at 10:00; Stop 11/14 at 09:59 Furosemide (Lasix) 40 mg 1X ONCE PO ; Start 11/12/16 at 13:30; Stop 11/12/16 at 13:31; Status DC Active Scripts Active Lasix (Furosemide) 40 Mg Tablet 1 Tab PO QOD Reported Furosemide 40 Mg Tablet 1 Tab PO DAILY Lysteda (Tranexamic Acid) 650 Mg Tablet 650 Mg PO BID Vitamin B Complex 1 Each Capsule 1 Each PO Calcitriol 0.25 Mcg Capsule 1 Cap PO DAILY Selenium (Selenomethionine) 200 Mcg Tablet 200 Mcg PO DAILY Vitamin A 8,000 Unit Capsule 8,000 Unit PO Coconut Oil 1,000 Mg Capsule 1,000 Mg PO DAILY Aminocaproic Acid 500 Mg Tablet 500 Mg PO DAILY Magnesium (Magnesium Oxide) 500 Mg Capsule 500 Mg PO DAILY Omeprazole 40 Mg Capsule.dr 40 Mg PO DAILY Potassium Chloride 20 Meq Tab.er.prt 20 Meq PO DAILY Acetaminophen 500 Mg Tablet 500 Mg PO PRN DAILY PRN Allopurinol 300 Mg Tablet 300 Mg PO DAILY Neurontin (Gabapentin) 100 Mg Capsule 200 Mg PO BID Vitamin B-12 (Cyanocobalamin (Vitamin B-12)) 1,000 Mcg Tablet 1,000 Mcg PO DAILY Osteo Bi-Flex Caplet (Gluc/Lyndon-Msm#1/C/Brandon/Alfredo/Bor) 1 Each Tablet 1 Each PO DAILY Levothyroxine Sodium Inj (Levothyroxine Sodium) 100 Mcg Vial 100 Mcg PO DAILY Nakita (Fexofenadine Hcl) 180 Mg Tablet 180 Mg PO DAILY Tramadol Hcl 50 Mg Tablet 50 Mg PO PRN QID Vitals/I & O Vital Sign - Last 24 Hours 11/11/16 11/11/16 11/11/16 11/11/16 15:00 19:00 19:15 20:37 Temp 97.8 98.0 97.8 98.0 Pulse 80 70 Resp B/P 115/80 115/50 Pulse Ox 94 99 94 O2 Delivery Room Air Room Air Room Air Room Air 11/11/16 11/11/16 11/12/16 11/12/16 21:35 23:00 03:00 07:00 Temp 98.0 98.5 97.6 98.0 98.5 97.6 Pulse 57 47 45 Resp B/P 112/49 100/51 107/46 Pulse Ox 94 100 93 100 O2 Delivery Room Air Room Air Room Air Room Air 11/12/16 11/12/16 08:00 11:48 Pulse Ox 96 O2 Delivery Room Air Room Air Intake and Output 11/11/16 11/11/16 11/12/16 15:00 23:00 07:00 Intake Total 0 ml 360 ml Balance 0 ml 360 ml MARISOL ELLIOTT MD Nov 12, 2016 13:58
--- NOTE | 2016-11-12 14:15 | PDOC ---
Subjective: Subjective: Speaks extensively about her medical history. Denies further bleeding, has been eating well. Objective: Objective: Per RN - normal-colored stool this morning. Vital Signs: Vital Signs Date Time Temp Pulse Resp B/P Pulse Ox O2 Delivery O2 Flow Rate FiO2 11/12/16 11:48 96 Room Air 11/12/16 07:00 97.6 45 17 107/46 97.6 Labs: Laboratory Tests Test 11/12/16 08:30 White Blood Count 4.5x10^3/uL Red Blood Count 3.41x10^6/uL Hemoglobin 10.6g/dL Hematocrit 32.5% Mean Corpuscular Volume 95fL Mean Corpuscular Hemoglobin 31pg Mean Corpuscular Hemoglobin Concent 33g/dL Red Cell Distribution Width 16.8% Platelet Count 123x10^3/uL PE: GEN: NAD, sitting in chair LUNGS: clear anteriorly HEART: S1S2 ABD: S/ND/NT NEURO/PSYCH: A & O 3 A/P: Blood loss anemia w/ von Willebrand -Hgb stable, no further melena GERD -on PPI (asks questions about Aciphex today) -- Stable GI-morris. Ongoing treatment w/ Dr. Rodriguez. ERENDIRA DORSEY Nov 12, 2016 14:15
[2016-11-12 15:00] VITALS: BP 104/46
--- NOTE | 2016-11-12 16:36 | PDOC ---
PROGRESS NOTES Subjective Subjective c/c - f/u of vWD ROS - no bleed. Objective Objective Vital Signs Date Time Temp Pulse Resp B/P Pulse Ox O2 Delivery O2 Flow Rate FiO2 11/12/16 11:48 96 Room Air 11/12/16 07:00 97.6 45 17 107/46 97.6 Intake and Output 11/12/16 07:00 Intake Total 360 ml Balance 360 ml Intake Oral 360 ml # Voids 2 # Bowel Movements 1 Physical Exam Heart: Normal S1, Normal S2 General: Alert, Oriented X3 Lungs: Clear to auscultation Neuro: Normal speech Psych/Mental Status: Mental status NL Assessment Assessment Problems Medical Problems: (1) Acute GI bleeding Status: Acute (2) Deficiency of von Willebrand factor Status: Acute (3) Symptomatic anemia Status: Acute IMPRESSION AND PLAN: 1. Von Willebrand disease type 2. Unfortunately, her condition is complicated by on and off anemia due to melena requiring Humate-P. She has had prior colonoscopy and an ulceration was noted in the colon. I have discussed with Gastroenterology on multiple occasions in the past and conservative management was recommended. I will consult Dr Stallings. She will continue Humate-P till 11/14/2016 and stop if no more bleeding and she can be discharged 11/14/2016. Continue Amicar 1000 mg q 4 hrs during this admission and 500 mg tid at home. Hemoglobin better at 10.6. Continue daily dose of Humate P 50 u/kg. And amicar 1000 mg PO q 4 hrs. 2. Severe anemia. s/p packed red blood cells transfusion. Continue to monitor closely. 3. Iron deficiency. s/p Injectafer as outpatient. 4. GI bleed. Consulted GI. GI bleed scan 11/07/16 revealed: Active GI tract bleeding originating in the left upper quadrant, probably probably in the distal splenic flexure region. I d/w Mary. Arterial embolization was not done as no bleeding identified on angiography. I d/w RN I d/w DR Loyola Comment Review of Relevant I have reviewed the following items benjy (where applicable) has been applied. Labs Laboratory Tests Test 11/11/16 04:50 11/12/16 08:30 White Blood Count 5.6x10^3/uL (4.0-11.0) 4.5x10^3/uL (4.0-11.0) Red Blood Count 3.00x10^6/uL (3.50-5.40) 3.41x10^6/uL (3.50-5.40) Hemoglobin 9.3g/dL (12.0-15.5) 10.6g/dL (12.0-15.5) Hematocrit 28.8% (36.0-47.0) 32.5% (36.0-47.0) Mean Corpuscular Volume 96fL (79-100) 95fL (79-100) Mean Corpuscular Hemoglobin 31pg (25-35) 31pg (25-35) Mean Corpuscular Hemoglobin Concent 32g/dL (31-37) 33g/dL (31-37) Red Cell Distribution Width 15.7% (11.5-14.5) 16.8% (11.5-14.5) Platelet Count 113x10^3/uL (140-400) 123x10^3/uL (140-400) Neutrophils (%) (Auto) 78% (31-73) Lymphocytes (%) (Auto) 12% (24-48) Monocytes (%) (Auto) 7% (0-9) Eosinophils (%) (Auto) 2% (0-3) Basophils (%) (Auto) 1% (0-3) Neutrophils # (Auto) 4.4x10^3uL (1.8-7.7) Lymphocytes # (Auto) 0.7x10^3/uL (1.0-4.8) Monocytes # (Auto) 0.4x10^3/uL (0.0-1.1) Eosinophils # (Auto) 0.1x10^3/uL (0.0-0.7) Basophils # (Auto) 0.0x10^3/uL (0.0-0.2) Laboratory Tests Test 11/12/16 08:30 White Blood Count 4.5x10^3/uL (4.0-11.0) Red Blood Count 3.41x10^6/uL (3.50-5.40) Hemoglobin 10.6g/dL (12.0-15.5) Hematocrit 32.5% (36.0-47.0) Mean Corpuscular Volume 95fL (79-100) Mean Corpuscular Hemoglobin 31pg (25-35) Mean Corpuscular Hemoglobin Concent 33g/dL (31-37) Red Cell Distribution Width 16.8% (11.5-14.5) Platelet Count 123x10^3/uL (140-400) Microbiology 11/06/16 Urine Culture - Final, Complete 11/06/16 Urine Culture Result 1 (TOAN) - Final, Complete 11/06/16 Urine Culture Result 2 (TOAN) - Final, Complete 11/06/16 Antimicrobic Susceptibility - Final, Complete Medications Current Medications Sodium Chloride (Iv Sodium Chloride 0.9% 1000ml Bag) 1,000 ml @ 100 mls/hr Q10H IV Last administered on 11/06/16 16:25; Start 11/06/16 at 16:06; Stop at 02:05; Status DC Ondansetron HCl (Zofran) 4 mg 1X ONCE IV Last administered on 11/06/16 16:24 ; Start 11/06/16 at 16:15; Stop 11/06/16 at 16:20; Status DC Pantoprazole Sodium (Protonix Vial) 40 mg 1X ONCE IVP Last administered on 16:24; Start 11/06/16 at 16:15; Stop 11/06/16 at 16:20; Status DC Ondansetron HCl 4 mg 4 mg PRN Q8HRS PRN IV NAUSEA/VOMITING; Start 11/06/16 at 17:00; Stop 11/07/16 at 05:39; Status DC Sodium Chloride 1,000 ml @ 100 mls/hr Q10H IV Last administered on 11/07/16 20:52; Start 11/06/16 at 16:50; Stop 11/07/16 at 16:49; Status DC Pantoprazole Sodium/Sodium Chloride (Protonix Iv/Iv Sodium Chloride 0.9% 100ml) 100 ml @ 10 mls/hr 1X ONCE IV Last administered on 11/06/16 17:21; Start at 17:00; Stop 11/07/16 at 02:59; Status DC Acetaminophen (Tylenol) 500 mg PRN DAILY PRN PO MILD PAIN; Start 11/07/16 at 09 :00 Allopurinol (Zyloprim) 300 mg DAILY PO Last administered on 11/12/16 08:23; Start 11/07/16 at 09:00 Calcitriol (Rocaltrol) 0.25 mcg DAILY PO Last administered on 11/12/16 08:22; Start 11/07/16 at 09:00 Cyanocobalamin (Vitamin B-12) 1,000 mcg DAILY PO Last administered on 11/09/16 08:43; Start 11/07/16 at 09:00; Stop 11/09/16 at 13:19; Status DC Furosemide (Lasix) 40 mg DAILY PO ; Start 11/07/16 at 09:00; Stop 11/07/16 at 09 :00; Status DC Gabapentin (Neurontin) 200 mg BID PO Last administered on 11/12/16 08:22; Start 11/07/16 at 09:00 Potassium Chloride (Klor-Con) 20 meq DAILY PO Last administered on 11/10/16 09: 11; Start 11/07/16 at 09:00; Stop 11/11/16 at 07:51; Status DC Tramadol HCl (Ultram) 50 mg PRN QID PRN PO MODERATE PAIN Last administered on 20:37; Start 11/07/16 at 09:00 Non-Formulary Medication 1,000 mg DAILY PO ; Start 11/07/16 at 09:00; Status UNV Cetirizine HCl (Zyrtec) 10 mg DAILY PO Last administered on 11/12/16 08:23; Start 11/07/16 at 09:00 Non-Formulary Medication 1 each DAILY PO ; Start 11/07/16 at 09:00; Status UNV Magnesium Oxide (Magnesium Oxide) 400 mg DAILY PO Last administered on 08:22; Start 11/07/16 at 09:00 Pantoprazole Sodium (Protonix) 40 mg DAILYAC PO Last administered on 11/07/16 09:30; Start 11/07/16 at 07:30; Stop 11/08/16 at 05:34; Status DC Non-Formulary Medication 200 mcg DAILY PO ; Start 11/07/16 at 09:00; Status UNV Non-Formulary Medication 650 mg BID PO ; Start 11/07/16 at 09:00; Stop 11/07/16 at 09:44; Status DC Levothyroxine Sodium (Synthroid) 100 mcg DAILY07 PO Last administered on 04:40; Start 11/07/16 at 07:00 Ondansetron HCl (Zofran) 4 mg PRN Q8HRS PRN IV NAUSEA/VOMITING; Start 11/07/16 at 05:39; Stop 11/07/16 at 16:59; Status DC Cyanocobalamin (Vitamin B-12) 1,000 mcg STK-MED ONCE .ROUTE ; Start 11/07/16 at 07:51; Stop 11/07/16 at 07:52; Status DC Aminocaproic Acid 500 mg 500 mg Q6HRS PO Last administered on 11/08/16 05:54; Start 11/07/16 at 09:00; Stop 11/08/16 at 09:04; Status DC Antihemophilic Factor/ Miscellaneous (Humate-P Vwf:Rco) 30 ml @ 180 mls/hr 1X ONCE IV Last administered on 11/07/16 12:43; Start 11/07/16 at 11:45; Stop at 11:54; Status DC Iohexol (Omnipaque 300 Mg/ml) 50 ml STK-MED ONCE .ROUTE ; Start 11/07/16 at 13: 40; Stop 11/07/16 at 13:41; Status DC Iohexol (Omnipaque 300 Mg/ml) 100 ml STK-MED ONCE .ROUTE ; Start 11/07/16 at 13: 40; Stop 11/07/16 at 13:41; Status DC Lidocaine/Sodium Bicarbonate 20 ml 20 ml STK-MED ONCE IJ ; Start 11/07/16 at 13: 40; Stop 11/07/16 at 13:41; Status DC Heparin Sodium/ Sodium Chloride 0 ml @ As Directed STK-MED ONCE .ROUTE ; Start 11/07/16 at 13:40; Stop 11/07/16 at 13:41; Status DC Antihemophilic Factor/ Miscellaneous (Humate-P Vwf:Rco) 30 ml @ 180 mls/hr DAILY IV Last administered on 11/11/16 09:06; Start 11/08/16 at 09:00; Stop 11/12/16 at 09:39; Status DC Pantoprazole Sodium (Protonix) 40 mg STK-MED ONCE PO ; Start 11/08/16 at 05:32; Stop 11/08/16 at 05:33; Status DC Pantoprazole Sodium (Protonix) 40 mg DAILYAC PO Last administered on 11/12/16 04:40; Start 11/08/16 at 05:34 Aminocaproic Acid (Amicar) 1,000 mg Q4HRS PO Last administered on 11/12/16 16: 30; Start 11/08/16 at 12:00 Furosemide (Lasix) 40 mg 1X ONCE IVP Last administered on 11/08/16 14:40; Start 11/08/16 at 14:30; Stop 11/08/16 at 14:31; Status DC Diphenhydramine HCl (Benadryl) 50 mg STK-MED ONCE .ROUTE ; Start 11/08/16 at 16: 07; Stop 11/08/16 at 16:08; Status DC Methylprednisolone Sodium Succinate (Solu-Medrol 125mg Vial) 125 mg STK-MED ONCE .ROUTE ; Start 11/08/16 at 16:10; Stop 11/08/16 at 16:11; Status DC Iohexol (Omnipaque 300 Mg/ml) 100 ml STK-MED ONCE .ROUTE ; Start 11/08/16 at 16: 33; Stop 11/08/16 at 16:34; Status DC Lidocaine/Sodium Bicarbonate 20 ml 20 ml STK-MED ONCE IJ ; Start 11/08/16 at 16: 33; Stop 11/08/16 at 16:34; Status DC Heparin Sodium/ Sodium Chloride 1,500 ml @ As Directed STK-MED ONCE .ROUTE ; Start 11/08/16 at 16:33; Stop 11/08/16 at 16:34; Status DC Heparin Sodium/ Sodium Chloride 3,000 unit 1X ONCE IART Last administered on 17:53; Start 11/08/16 at 16:45; Stop 11/08/16 at 16:46; Status DC Lidocaine/Sodium Bicarbonate (Buffered Lidocaine 1%) 20 ml 1X ONCE IJ Last administered on 11/08/16 17:52; Start 11/08/16 at 16:45; Stop 11/08/16 at 16:46 ; Status DC Iohexol (Omnipaque 300 Mg/ml) 200 ml 1X ONCE IART Last administered on 17:53; Start 11/08/16 at 16:45; Stop 11/08/16 at 16:46; Status DC Info (Do NOT chart on this entry -- for MONITORING) 1 each PRN DAILY PRN MC SEE COMMENTS; Start 11/08/16 at 16:45; Stop 11/10/16 at 16:44; Status DC Midazolam HCl (Versed) 2 mg STK-MED ONCE .ROUTE ; Start 11/08/16 at 16:47; Stop 11/08/16 at 16:48; Status DC Famotidine (Pepcid) 20 mg STK-MED ONCE .ROUTE ; Start 11/08/16 at 17:01; Stop at 17:02; Status DC Ondansetron HCl (Zofran) 0.4 mg PRN Q6HRS PRN IV NAUSEA/VOMITING; Start at 18:00; Stop 11/09/16 at 17:59; Status DC Fentanyl Citrate (Fentanyl 2ml Vial) 25 mcg PRN Q5MIN PRN IV MILD PAIN; Start 11/08/16 at 18:00; Stop 11/09/16 at 17:59; Status DC Fentanyl Citrate 50 mcg 50 mcg PRN Q5MIN PRN IV MODERATE PAIN; Start 11/08/16 at 18:00; Stop 11/09/16 at 17:59; Status DC Lactated Ringer's (Iv Lactated Ringers) 1,000 ml @ 0 mls/hr Q0M IV ; Start at 17:47; Stop 11/09/16 at 05:46; Status DC Lidocaine HCl 2 ml PRN 1X PRN ID PRIOR TO IV START; Start 11/08/16 at 18:00; Stop 11/09/16 at 17:59; Status DC Prochlorperazine Edisylate (Compazine) 5 mg PACU PRN PRN IV NAUSEA, MRX1; Start 11/08/16 at 18:00; Stop 11/09/16 at 17:59; Status DC Cyanocobalamin (Vitamin B-12) 1,000 mcg STK-MED ONCE .ROUTE ; Start 11/09/16 at 07:27; Stop 11/09/16 at 07:28; Status DC Cyanocobalamin (Vitamin B-12) 1,000 mcg DAILY PO Last administered on 11/12/16t 08:23; Start 11/10/16 at 09:00 Albuterol Sulfate (Ventolin Neb Soln) 2.5 mg 1X ONCE NEB Last administered on 11/09/16 16:53; Start 11/09/16 at 17:30; Stop 11/09/16 at 17:31; Status DC Albuterol Sulfate 2.5 mg 2.5 mg PRN Q4HRS PRN NEB SHORTNESS OF BREATH Last administered on 11/12/16 11:47; Start 11/09/16 at 17:00 Antihemophilic Factor/ Miscellaneous (Humate-P Vwf:Rco) 30 ml @ 180 mls/hr DAILY IV Last administered on 11/12/16 10:43; Start 11/12/16 at 10:00; Stop 11/14 at 09:59 Furosemide (Lasix) 40 mg 1X ONCE PO Last administered on 11/12/16 13:55; Start 11/12/16 at 13:30; Stop 11/12/16 at 13:31; Status DC Active Scripts Active Lasix (Furosemide) 40 Mg Tablet 1 Tab PO QOD Reported Furosemide 40 Mg Tablet 1 Tab PO DAILY Lysteda (Tranexamic Acid) 650 Mg Tablet 650 Mg PO BID Vitamin B Complex 1 Each Capsule 1 Each PO Calcitriol 0.25 Mcg Capsule 1 Cap PO DAILY Selenium (Selenomethionine) 200 Mcg Tablet 200 Mcg PO DAILY Vitamin A 8,000 Unit Capsule 8,000 Unit PO Coconut Oil 1,000 Mg Capsule 1,000 Mg PO DAILY Aminocaproic Acid 500 Mg Tablet 500 Mg PO DAILY Magnesium (Magnesium Oxide) 500 Mg Capsule 500 Mg PO DAILY Omeprazole 40 Mg Capsule.dr 40 Mg PO DAILY Potassium Chloride 20 Meq Tab.er.prt 20 Meq PO DAILY Acetaminophen 500 Mg Tablet 500 Mg PO PRN DAILY PRN Allopurinol 300 Mg Tablet 300 Mg PO DAILY Neurontin (Gabapentin) 100 Mg Capsule 200 Mg PO BID Vitamin B-12 (Cyanocobalamin (Vitamin B-12)) 1,000 Mcg Tablet 1,000 Mcg PO DAILY Osteo Bi-Flex Caplet (Gluc/Lyndon-Msm#1/C/Brandon/Alfredo/Bor) 1 Each Tablet 1 Each PO DAILY Levothyroxine Sodium Inj (Levothyroxine Sodium) 100 Mcg Vial 100 Mcg PO DAILY Nakita (Fexofenadine Hcl) 180 Mg Tablet 180 Mg PO DAILY Tramadol Hcl 50 Mg Tablet 50 Mg PO PRN QID Vitals/I & O Vital Sign - Last 24 Hours 11/11/16 11/11/16 11/11/16 11/11/16 19:00 19:15 20:37 21:35 Temp 98.0 98.0 Pulse 70 Resp 18 16 B/P 115/50 Pulse Ox 99 94 94 O2 Delivery Room Air Room Air Room Air Room Air 11/11/16 11/12/16 11/12/16 11/12/16 23:00 03:00 07:00 08:00 Temp 98.0 98.5 97.6 98.0 98.5 97.6 Pulse 57 47 45 Resp B/P 112/49 100/51 107/46 Pulse Ox 100 93 100 O2 Delivery Room Air Room Air Room Air Room Air 11/12/16 11:48 Pulse Ox 96 O2 Delivery Room Air Intake and Output 11/11/16 11/11/16 11/12/16 15:00 23:00 07:00 Intake Total 0 ml 360 ml Balance 0 ml 360 ml FREDIS PAMLER MD Nov 12, 2016 16:36
[2016-11-12 19:00] VITALS: BP 105/31
[2016-11-12] MEDS: TRAMADOL 50 MG TABLET. PO PRN (20:36)
[2016-11-12 23:00] VITALS: BP 110/44
[2016-11-13] MEDS: AMINOCAPROIC ACID 500 MG TABLET. PO SCH ×6 (04:08→23:59)
[2016-11-13] MEDS: LEVOTHYROXINE 100 MCG TABLET PO SCH (06:05)
[2016-11-13 07:40] VITALS: BP 107/38
--- NOTE | 2016-11-13 08:35 | PDOC ---
Provider Note Provider Note no new sxs, hb 10.6- discussed how daily lasix is making her renal fx worse, bun down now to baseline- would rec no more than QOD lasix at home- likely dc in am if no more active bleed AJITH RUIZ MD Nov 13, 2016 08:34
[2016-11-13] MEDS ORDERED: ANTIHEMOPHILIC FACTOR IV SCH (09:00)
[2016-11-13] MEDS ORDERED: TOTAL VOLUME IV SCH (09:00)
[2016-11-13] MEDS ORDERED: VWF IV SCH (09:00)
[2016-11-13] MEDS: PANTOPRAZOLE 40 MG TABLET.DR. PO SCH (09:20)
[2016-11-13] MEDS: CYANOCOBALAMIN (VITAMIN B-12) 1,000 MCG TABLET. PO SCH (09:40)
[2016-11-13] MEDS: CETIRIZINE HCL 10 MG TABLET. PO SCH (09:40)
[2016-11-13] MEDS: ALLOPURINOL 300 MG TABLET. PO SCH (09:40)
[2016-11-13] MEDS: MAGNESIUM OXIDE 400 MG TABLET PO SCH (09:40)
[2016-11-13] MEDS: GABAPENTIN 100 MG CAPSULE. PO SCH ×2 (09:40→20:35)
[2016-11-13] MEDS: CALCITRIOL 0.25 MCG CAPSULE. PO SCH (09:40)
[2016-11-13] MEDS: ANTIHEMOPHILIC FACTOR IV SCH (09:50)
[2016-11-13] MEDS: TOTAL VOLUME IV SCH (09:50)
[2016-11-13] MEDS: VWF IV SCH (09:50)
[2016-11-13 10:10] VITALS: BP 119/33
--- NOTE | 2016-11-13 13:05 | PDOC ---
Subjective: Subjective: Says she can continue Amicar for an affordable [place]. No bleeding, feeling better. Possible DC tomorrow. Objective: Vital Signs: Vital Signs Date Time Temp Pulse Resp B/P Pulse Ox O2 Delivery O2 Flow Rate FiO2 11/13/16 07:40 96.8 53 18 107/38 97 Room Air 96.8 PE: GEN: NAD LUNGS: CTAB HEART: RRR ABD: NABS, S/ND/NT NEURO/PSYCH: A & O 3 A/P: Blood loss anemia w/ von Willebrand -no further bleeding, labs to be rechecked tomorrow -- Stable GI-morris. Further eval at [facility] recommended. ERENDIRA DORSEY Nov 13, 2016 13:05
[2016-11-13 14:30] VITALS: BP 110/37
--- NOTE | 2016-11-13 14:42 | PDOC ---
PROGRESS NOTES Subjective Subjective Pt is sitting up in her chair in no acute distress toady. Pt reports feeling better. Pt is excited because she was told she may be able to receive Amicar now. Per nursing, pt is still having episodes of afib with bradycardia. Objective Objective Vital Signs Date Time Temp Pulse Resp B/P Pulse Ox O2 Delivery O2 Flow Rate FiO2 11/13/16 10:10 96.6 56 18 119/33 100 Room Air 96.6 Intake and Output 11/13/16 06:59 Intake Total 1310 ml Output Total 2 ml Balance 1308 ml Intake Oral 1310 ml Stool Total 2 ml # Voids 9 Physical Exam Abdomen: Normal bowel sounds, Soft, No tenderness Heart: Regular rate, Normal S1, Normal S2 Extremities: No clubbing, No edema General: Alert, Oriented X3, Cooperative, No acute distress Assessment Assessment Problems Medical Problems: (1) Acute GI bleeding Status: Acute (2) Deficiency of von Willebrand factor Status: Acute (3) Symptomatic anemia Status: Acute Plan Plan of Care - Ok with pt's bradycardia episodes as long as heart rate is above 40 - From a cardiology standpoint, ok with discharge Comment Review of Relevant I have reviewed the following items benjy (where applicable) has been applied. Labs Laboratory Tests Test 11/12/16 08:30 White Blood Count 4.5x10^3/uL (4.0-11.0) Red Blood Count 3.41x10^6/uL (3.50-5.40) Hemoglobin 10.6g/dL (12.0-15.5) Hematocrit 32.5% (36.0-47.0) Mean Corpuscular Volume 95fL (79-100) Mean Corpuscular Hemoglobin 31pg (25-35) Mean Corpuscular Hemoglobin Concent 33g/dL (31-37) Red Cell Distribution Width 16.8% (11.5-14.5) Platelet Count 123x10^3/uL (140-400) Microbiology 11/06/16 Urine Culture - Final, Complete 11/06/16 Urine Culture Result 1 (TOAN) - Final, Complete 11/06/16 Urine Culture Result 2 (TOAN) - Final, Complete 11/06/16 Antimicrobic Susceptibility - Final, Complete Medications Current Medications Sodium Chloride (Iv Sodium Chloride 0.9% 1000ml Bag) 1,000 ml @ 100 mls/hr Q10H IV Last administered on 11/06/16 16:25; Start 11/06/16 at 16:06; Stop at 02:05; Status DC Ondansetron HCl (Zofran) 4 mg 1X ONCE IV Last administered on 11/06/16 16:24 ; Start 11/06/16 at 16:15; Stop 11/06/16 at 16:20; Status DC Pantoprazole Sodium (Protonix Vial) 40 mg 1X ONCE IVP Last administered on 16:24; Start 11/06/16 at 16:15; Stop 11/06/16 at 16:20; Status DC Ondansetron HCl 4 mg 4 mg PRN Q8HRS PRN IV NAUSEA/VOMITING; Start 11/06/16 at 17:00; Stop 11/07/16 at 05:39; Status DC Sodium Chloride 1,000 ml @ 100 mls/hr Q10H IV Last administered on 11/07/16 20:52; Start 11/06/16 at 16:50; Stop 11/07/16 at 16:49; Status DC Pantoprazole Sodium/Sodium Chloride (Protonix Iv/Iv Sodium Chloride 0.9% 100ml) 100 ml @ 10 mls/hr 1X ONCE IV Last administered on 11/06/16 17:21; Start at 17:00; Stop 11/07/16 at 02:59; Status DC Acetaminophen (Tylenol) 500 mg PRN DAILY PRN PO MILD PAIN; Start 11/07/16 at 09 :00 Allopurinol (Zyloprim) 300 mg DAILY PO Last administered on 11/13/16 09:40; Start 11/07/16 at 09:00 Calcitriol (Rocaltrol) 0.25 mcg DAILY PO Last administered on 11/13/16 09:40; Start 11/07/16 at 09:00 Cyanocobalamin (Vitamin B-12) 1,000 mcg DAILY PO Last administered on 11/09/16 08:43; Start 11/07/16 at 09:00; Stop 11/09/16 at 13:19; Status DC Furosemide (Lasix) 40 mg DAILY PO ; Start 11/07/16 at 09:00; Stop 11/07/16 at 09 :00; Status DC Gabapentin (Neurontin) 200 mg BID PO Last administered on 11/13/16 09:40; Start 11/07/16 at 09:00 Potassium Chloride (Klor-Con) 20 meq DAILY PO Last administered on 11/10/16 09: 11; Start 11/07/16 at 09:00; Stop 11/11/16 at 07:51; Status DC Tramadol HCl (Ultram) 50 mg PRN QID PRN PO MODERATE PAIN Last administered on 20:36; Start 11/07/16 at 09:00 Non-Formulary Medication 1,000 mg DAILY PO ; Start 11/07/16 at 09:00; Status UNV Cetirizine HCl (Zyrtec) 10 mg DAILY PO Last administered on 11/13/16 09:40; Start 11/07/16 at 09:00 Non-Formulary Medication 1 each DAILY PO ; Start 11/07/16 at 09:00; Status UNV Magnesium Oxide (Magnesium Oxide) 400 mg DAILY PO Last administered on 09:40; Start 11/07/16 at 09:00 Pantoprazole Sodium (Protonix) 40 mg DAILYAC PO Last administered on 11/07/16 09:30; Start 11/07/16 at 07:30; Stop 11/08/16 at 05:34; Status DC Non-Formulary Medication 200 mcg DAILY PO ; Start 11/07/16 at 09:00; Status UNV Non-Formulary Medication 650 mg BID PO ; Start 11/07/16 at 09:00; Stop 11/07/16 at 09:44; Status DC Levothyroxine Sodium (Synthroid) 100 mcg DAILY07 PO Last administered on 06:05; Start 11/07/16 at 07:00 Ondansetron HCl (Zofran) 4 mg PRN Q8HRS PRN IV NAUSEA/VOMITING; Start 11/07/16 at 05:39; Stop 11/07/16 at 16:59; Status DC Cyanocobalamin (Vitamin B-12) 1,000 mcg STK-MED ONCE .ROUTE ; Start 11/07/16 at 07:51; Stop 11/07/16 at 07:52; Status DC Aminocaproic Acid 500 mg 500 mg Q6HRS PO Last administered on 11/08/16 05:54; Start 11/07/16 at 09:00; Stop 11/08/16 at 09:04; Status DC Antihemophilic Factor/ Miscellaneous (Humate-P Vwf:Rco) 30 ml @ 180 mls/hr 1X ONCE IV Last administered on 11/07/16 12:43; Start 11/07/16 at 11:45; Stop at 11:54; Status DC Iohexol (Omnipaque 300 Mg/ml) 50 ml STK-MED ONCE .ROUTE ; Start 11/07/16 at 13: 40; Stop 11/07/16 at 13:41; Status DC Iohexol (Omnipaque 300 Mg/ml) 100 ml STK-MED ONCE .ROUTE ; Start 11/07/16 at 13: 40; Stop 11/07/16 at 13:41; Status DC Lidocaine/Sodium Bicarbonate 20 ml 20 ml STK-MED ONCE IJ ; Start 11/07/16 at 13: 40; Stop 11/07/16 at 13:41; Status DC Heparin Sodium/ Sodium Chloride 0 ml @ As Directed STK-MED ONCE .ROUTE ; Start 11/07/16 at 13:40; Stop 11/07/16 at 13:41; Status DC Antihemophilic Factor/ Miscellaneous (Humate-P Vwf:Rco) 30 ml @ 180 mls/hr DAILY IV Last administered on 11/11/16 09:06; Start 11/08/16 at 09:00; Stop 11/12/16 at 09:39; Status DC Pantoprazole Sodium (Protonix) 40 mg STK-MED ONCE PO ; Start 11/08/16 at 05:32; Stop 11/08/16 at 05:33; Status DC Pantoprazole Sodium (Protonix) 40 mg DAILYAC PO Last administered on 11/13/16 09:20; Start 11/08/16 at 05:34 Aminocaproic Acid (Amicar) 1,000 mg Q4HRS PO Last administered on 11/13/16 12: 00; Start 11/08/16 at 12:00 Furosemide (Lasix) 40 mg 1X ONCE IVP Last administered on 11/08/16 14:40; Start 11/08/16 at 14:30; Stop 11/08/16 at 14:31; Status DC Diphenhydramine HCl (Benadryl) 50 mg STK-MED ONCE .ROUTE ; Start 11/08/16 at 16: 07; Stop 11/08/16 at 16:08; Status DC Methylprednisolone Sodium Succinate (Solu-Medrol 125mg Vial) 125 mg STK-MED ONCE .ROUTE ; Start 11/08/16 at 16:10; Stop 11/08/16 at 16:11; Status DC Iohexol (Omnipaque 300 Mg/ml) 100 ml STK-MED ONCE .ROUTE ; Start 11/08/16 at 16: 33; Stop 11/08/16 at 16:34; Status DC Lidocaine/Sodium Bicarbonate 20 ml 20 ml STK-MED ONCE IJ ; Start 11/08/16 at 16: 33; Stop 11/08/16 at 16:34; Status DC Heparin Sodium/ Sodium Chloride 1,500 ml @ As Directed STK-MED ONCE .ROUTE ; Start 11/08/16 at 16:33; Stop 11/08/16 at 16:34; Status DC Heparin Sodium/ Sodium Chloride 3,000 unit 1X ONCE IART Last administered on 17:53; Start 11/08/16 at 16:45; Stop 11/08/16 at 16:46; Status DC Lidocaine/Sodium Bicarbonate (Buffered Lidocaine 1%) 20 ml 1X ONCE IJ Last administered on 11/08/16 17:52; Start 11/08/16 at 16:45; Stop 11/08/16 at 16:46 ; Status DC Iohexol (Omnipaque 300 Mg/ml) 200 ml 1X ONCE IART Last administered on 17:53; Start 11/08/16 at 16:45; Stop 11/08/16 at 16:46; Status DC Info (Do NOT chart on this entry -- for MONITORING) 1 each PRN DAILY PRN MC SEE COMMENTS; Start 11/08/16 at 16:45; Stop 11/10/16 at 16:44; Status DC Midazolam HCl (Versed) 2 mg STK-MED ONCE .ROUTE ; Start 11/08/16 at 16:47; Stop 11/08/16 at 16:48; Status DC Famotidine (Pepcid) 20 mg STK-MED ONCE .ROUTE ; Start 11/08/16 at 17:01; Stop at 17:02; Status DC Ondansetron HCl (Zofran) 0.4 mg PRN Q6HRS PRN IV NAUSEA/VOMITING; Start at 18:00; Stop 11/09/16 at 17:59; Status DC Fentanyl Citrate (Fentanyl 2ml Vial) 25 mcg PRN Q5MIN PRN IV MILD PAIN; Start 11/08/16 at 18:00; Stop 11/09/16 at 17:59; Status DC Fentanyl Citrate 50 mcg 50 mcg PRN Q5MIN PRN IV MODERATE PAIN; Start 11/08/16 at 18:00; Stop 11/09/16 at 17:59; Status DC Lactated Ringer's (Iv Lactated Ringers) 1,000 ml @ 0 mls/hr Q0M IV ; Start at 17:47; Stop 11/09/16 at 05:46; Status DC Lidocaine HCl 2 ml PRN 1X PRN ID PRIOR TO IV START; Start 11/08/16 at 18:00; Stop 11/09/16 at 17:59; Status DC Prochlorperazine Edisylate (Compazine) 5 mg PACU PRN PRN IV NAUSEA, MRX1; Start 11/08/16 at 18:00; Stop 11/09/16 at 17:59; Status DC Cyanocobalamin (Vitamin B-12) 1,000 mcg STK-MED ONCE .ROUTE ; Start 11/09/16 at 07:27; Stop 11/09/16 at 07:28; Status DC Cyanocobalamin (Vitamin B-12) 1,000 mcg DAILY PO Last administered on 11/13/16 09:40; Start 11/10/16 at 09:00 Albuterol Sulfate (Ventolin Neb Soln) 2.5 mg 1X ONCE NEB Last administered on 11/09/16 16:53; Start 11/09/16 at 17:30; Stop 11/09/16 at 17:31; Status DC Albuterol Sulfate 2.5 mg 2.5 mg PRN Q4HRS PRN NEB SHORTNESS OF BREATH Last administered on 11/12/16 11:47; Start 11/09/16 at 17:00 Antihemophilic Factor/ Miscellaneous (Humate-P Vwf:Rco) 30 ml @ 180 mls/hr DAILY IV Last administered on 11/12/16 10:43; Start 11/12/16 at 10:00; Stop 11/13 at 07:44; Status DC Furosemide 40 mg 40 mg 1X ONCE PO Last administered on 11/12/16 13:55; Start 11/12/16 at 13:30; Stop 11/12/16 at 13:31; Status DC Antihemophilic Factor 3293 vwf/ Miscellaneous 30 ml @ 180 mls/hr DAILY IV ; Start 11/13/16 at 09:00; Stop 11/13/16 at 09:00; Status DC Antihemophilic Factor/ Miscellaneous (Humate-P Vwf:Rco) 30 ml @ 180 mls/hr DAILY IV Last administered on 11/13/16 09:50; Start 11/13/16 at 09:00; Stop 11/14 at 09:09 Active Scripts Active Lasix (Furosemide) 40 Mg Tablet 1 Tab PO QOD Reported Furosemide 40 Mg Tablet 1 Tab PO DAILY Lysteda (Tranexamic Acid) 650 Mg Tablet 650 Mg PO BID Vitamin B Complex 1 Each Capsule 1 Each PO Calcitriol 0.25 Mcg Capsule 1 Cap PO DAILY Selenium (Selenomethionine) 200 Mcg Tablet 200 Mcg PO DAILY Vitamin A 8,000 Unit Capsule 8,000 Unit PO Coconut Oil 1,000 Mg Capsule 1,000 Mg PO DAILY Aminocaproic Acid 500 Mg Tablet 500 Mg PO DAILY Magnesium (Magnesium Oxide) 500 Mg Capsule 500 Mg PO DAILY Omeprazole 40 Mg Capsule.dr 40 Mg PO DAILY Potassium Chloride 20 Meq Tab.er.prt 20 Meq PO DAILY Acetaminophen 500 Mg Tablet 500 Mg PO PRN DAILY PRN Allopurinol 300 Mg Tablet 300 Mg PO DAILY Neurontin (Gabapentin) 100 Mg Capsule 200 Mg PO BID Vitamin B-12 (Cyanocobalamin (Vitamin B-12)) 1,000 Mcg Tablet 1,000 Mcg PO DAILY Osteo Bi-Flex Caplet (Gluc/Lyndon-Msm#1/C/Brandon/Alfredo/Bor) 1 Each Tablet 1 Each PO DAILY Levothyroxine Sodium Inj (Levothyroxine Sodium) 100 Mcg Vial 100 Mcg PO DAILY Nakita (Fexofenadine Hcl) 180 Mg Tablet 180 Mg PO DAILY Tramadol Hcl 50 Mg Tablet 50 Mg PO PRN QID Vitals/I & O Vital Sign - Last 24 Hours 11/12/16 11/12/16 11/12/16 11/12/16 15:00 19:00 20:36 23:00 Temp 97.7 97.5 96.7 97.7 97.5 96.7 Pulse 54 51 54 Resp B/P 104/46 105/31 110/44 Pulse Ox 100 94 96 O2 Delivery Room Air Room Air Room Air Room Air 11/13/16 11/13/16 11/13/16 07:40 08:00 10:10 Temp 96.8 96.6 96.8 96.6 Pulse 53 56 Resp B/P 107/38 119/33 Pulse Ox 97 100 O2 Delivery Room Air Room Air Room Air Intake and Output 11/12/16 11/12/16 11/13/16 14:59 22:59 06:59 Intake Total 450 ml 860 ml Output Total 2 ml Balance 450 ml 858 ml MARISOL ELLIOTT MD Nov 13, 2016 14:41
[2016-11-13 19:00] VITALS: BP 111/33
[2016-11-13 23:00] VITALS: BP 111/43
[2016-11-14] MEDS: TRAMADOL 50 MG TABLET. PO PRN (00:02)
[2016-11-14 03:00] VITALS: BP 106/49
[2016-11-14] MEDS: AMINOCAPROIC ACID 500 MG TABLET. PO SCH ×3 (04:31→12:07)
[2016-11-14] MEDS: PANTOPRAZOLE 40 MG TABLET.DR. PO SCH (06:11)
[2016-11-14] MEDS: LEVOTHYROXINE 100 MCG TABLET PO SCH (06:11)
[2016-11-14 07:40] VITALS: BP 105/36
--- NOTE | 2016-11-14 08:39 | DISCH ---
DISCHARGE INSTRUCTIONS Condition on Discharge Condition on Discharge: Stable Activity After Discharge Activity Instructions for Disc: No restrictions Diet after Discharge Diet after Discharge: Regular Follow-Up Follow up with: as scheduled AJITH RUIZ MD Nov 14, 2016 08:39
--- NOTE | 2016-11-14 08:42 | PDOC ---
Provider Note Provider Note [id number] AJITH RUIZ MD Nov 14, 2016 08:42
[2016-11-14] MEDS: CYANOCOBALAMIN (VITAMIN B-12) 1,000 MCG TABLET. PO SCH (08:57)
[2016-11-14] MEDS: CETIRIZINE HCL 10 MG TABLET. PO SCH (08:57)
[2016-11-14] MEDS: MAGNESIUM OXIDE 400 MG TABLET PO SCH (08:57)
[2016-11-14] MEDS: GABAPENTIN 100 MG CAPSULE. PO SCH (08:58)
[2016-11-14] MEDS: ALLOPURINOL 300 MG TABLET. PO SCH (08:58)
[2016-11-14] MEDS: CALCITRIOL 0.25 MCG CAPSULE. PO SCH (08:58)
--- NOTE | 2016-11-14 09:01 | PDOC ---
PROGRESS NOTES Subjective Subjective c/c - f/u of vWD ROS - no more GI bleed Objective Objective Vital Signs Date Time Temp Pulse Resp B/P Pulse Ox O2 Delivery O2 Flow Rate FiO2 11/14/16 07:40 96.6 48 18 105/36 96 Room Air 96.6 Intake and Output 11/14/16 07:00 Intake Total 780 ml Output Total 600 ml Balance 180 ml Intake Oral 780 ml Output Urine Total 600 ml # Voids 4 # Bowel Movements 2 Physical Exam Heart: Normal S1, Normal S2 General: Alert, Oriented X3 Lungs: Clear to auscultation Psych/Mental Status: Mental status NL Assessment Assessment Problems Medical Problems: (1) Acute GI bleeding Status: Acute (2) Deficiency of von Willebrand factor Status: Acute (3) Symptomatic anemia Status: Acute IMPRESSION AND PLAN: 1. Von Willebrand disease type 2. Unfortunately, her condition is complicated by on and off anemia due to melena requiring Humate-P. She has had prior colonoscopy and an ulceration was noted in the colon. I have discussed with Gastroenterology on multiple occasions in the past and conservative management was recommended. I will consult Dr Stallings. She will continue Humate-P till 11/14/2016 and stop as there is no more bleeding and she can be discharged 11/14/2016. Continue Amicar 1000 mg q 4 hrs during this admission and 500 mg tid at home. Hemoglobin better at 10.6 11/12/16. Check cbc today. 2. Severe anemia. s/p packed red blood cells transfusion. Continue to monitor closely. Hb improved. 3. Iron deficiency. s/p Injectafer as outpatient. 4. GI bleed. Consulted GI. GI bleed scan 11/07/16 revealed: Active GI tract bleeding originating in the left upper quadrant, probably probably in the distal splenic flexure region. I d/w Mary. Arterial embolization was not done as no bleeding identified on angiography. I d/w RN I d/w DR Loyola Comment Review of Relevant I have reviewed the following items benjy (where applicable) has been applied. Labs Microbiology 11/06/16 Urine Culture - Final, Complete 11/06/16 Urine Culture Result 1 (TOAN) - Final, Complete 11/06/16 Urine Culture Result 2 (TOAN) - Final, Complete 11/06/16 Antimicrobic Susceptibility - Final, Complete Medications Current Medications Sodium Chloride (Iv Sodium Chloride 0.9% 1000ml Bag) 1,000 ml @ 100 mls/hr Q10H IV Last administered on 11/06/16 16:25; Start 11/06/16 at 16:06; Stop at 02:05; Status DC Ondansetron HCl (Zofran) 4 mg 1X ONCE IV Last administered on 11/06/16 16:24 ; Start 11/06/16 at 16:15; Stop 11/06/16 at 16:20; Status DC Pantoprazole Sodium (Protonix Vial) 40 mg 1X ONCE IVP Last administered on 16:24; Start 11/06/16 at 16:15; Stop 11/06/16 at 16:20; Status DC Ondansetron HCl 4 mg 4 mg PRN Q8HRS PRN IV NAUSEA/VOMITING; Start 11/06/16 at 17:00; Stop 11/07/16 at 05:39; Status DC Sodium Chloride 1,000 ml @ 100 mls/hr Q10H IV Last administered on 11/07/16 20:52; Start 11/06/16 at 16:50; Stop 11/07/16 at 16:49; Status DC Pantoprazole Sodium/Sodium Chloride (Protonix Iv/Iv Sodium Chloride 0.9% 100ml) 100 ml @ 10 mls/hr 1X ONCE IV Last administered on 11/06/16 17:21; Start at 17:00; Stop 11/07/16 at 02:59; Status DC Acetaminophen (Tylenol) 500 mg PRN DAILY PRN PO MILD PAIN; Start 11/07/16 at 09 :00 Allopurinol (Zyloprim) 300 mg DAILY PO Last administered on 11/13/16 09:40; Start 11/07/16 at 09:00 Calcitriol (Rocaltrol) 0.25 mcg DAILY PO Last administered on 11/13/16 09:40; Start 11/07/16 at 09:00 Cyanocobalamin (Vitamin B-12) 1,000 mcg DAILY PO Last administered on 11/09/16 08:43; Start 11/07/16 at 09:00; Stop 11/09/16 at 13:19; Status DC Furosemide (Lasix) 40 mg DAILY PO ; Start 11/07/16 at 09:00; Stop 11/07/16 at 09 :00; Status DC Gabapentin (Neurontin) 200 mg BID PO Last administered on 11/13/16 09:40; Start 11/07/16 at 09:00 Potassium Chloride (Klor-Con) 20 meq DAILY PO Last administered on 11/10/16 09: 11; Start 11/07/16 at 09:00; Stop 11/11/16 at 07:51; Status DC Tramadol HCl (Ultram) 50 mg PRN QID PRN PO MODERATE PAIN Last administered on 00:02; Start 11/07/16 at 09:00 Non-Formulary Medication 1,000 mg DAILY PO ; Start 11/07/16 at 09:00; Status UNV Cetirizine HCl (Zyrtec) 10 mg DAILY PO Last administered on 11/13/16 09:40; Start 11/07/16 at 09:00 Non-Formulary Medication 1 each DAILY PO ; Start 11/07/16 at 09:00; Status UNV Magnesium Oxide (Magnesium Oxide) 400 mg DAILY PO Last administered on 09:40; Start 11/07/16 at 09:00 Pantoprazole Sodium (Protonix) 40 mg DAILYAC PO Last administered on 11/07/16 09:30; Start 11/07/16 at 07:30; Stop 11/08/16 at 05:34; Status DC Non-Formulary Medication 200 mcg DAILY PO ; Start 11/07/16 at 09:00; Status UNV Non-Formulary Medication 650 mg BID PO ; Start 11/07/16 at 09:00; Stop 11/07/16 at 09:44; Status DC Levothyroxine Sodium (Synthroid) 100 mcg DAILY07 PO Last administered on 06:11; Start 11/07/16 at 07:00 Ondansetron HCl (Zofran) 4 mg PRN Q8HRS PRN IV NAUSEA/VOMITING; Start 11/07/16 at 05:39; Stop 11/07/16 at 16:59; Status DC Cyanocobalamin (Vitamin B-12) 1,000 mcg STK-MED ONCE .ROUTE ; Start 11/07/16 at 07:51; Stop 11/07/16 at 07:52; Status DC Aminocaproic Acid 500 mg 500 mg Q6HRS PO Last administered on 11/08/16 05:54; Start 11/07/16 at 09:00; Stop 11/08/16 at 09:04; Status DC Antihemophilic Factor/ Miscellaneous (Humate-P Vwf:Rco) 30 ml @ 180 mls/hr 1X ONCE IV Last administered on 11/07/16 12:43; Start 11/07/16 at 11:45; Stop at 11:54; Status DC Iohexol (Omnipaque 300 Mg/ml) 50 ml STK-MED ONCE .ROUTE ; Start 11/07/16 at 13: 40; Stop 11/07/16 at 13:41; Status DC Iohexol (Omnipaque 300 Mg/ml) 100 ml STK-MED ONCE .ROUTE ; Start 11/07/16 at 13: 40; Stop 11/07/16 at 13:41; Status DC Lidocaine/Sodium Bicarbonate 20 ml 20 ml STK-MED ONCE IJ ; Start 11/07/16 at 13: 40; Stop 11/07/16 at 13:41; Status DC Heparin Sodium/ Sodium Chloride 0 ml @ As Directed STK-MED ONCE .ROUTE ; Start 11/07/16 at 13:40; Stop 11/07/16 at 13:41; Status DC Antihemophilic Factor/ Miscellaneous (Humate-P Vwf:Rco) 30 ml @ 180 mls/hr DAILY IV Last administered on 11/11/16 09:06; Start 11/08/16 at 09:00; Stop 11/12/16 at 09:39; Status DC Pantoprazole Sodium (Protonix) 40 mg STK-MED ONCE PO ; Start 11/08/16 at 05:32; Stop 11/08/16 at 05:33; Status DC Pantoprazole Sodium (Protonix) 40 mg DAILYAC PO Last administered on 11/14/16 06:11; Start 11/08/16 at 05:34 Aminocaproic Acid (Amicar) 1,000 mg Q4HRS PO Last administered on 11/14/16 07: 56; Start 11/08/16 at 12:00 Furosemide (Lasix) 40 mg 1X ONCE IVP Last administered on 11/08/16 14:40; Start 11/08/16 at 14:30; Stop 11/08/16 at 14:31; Status DC Diphenhydramine HCl (Benadryl) 50 mg STK-MED ONCE .ROUTE ; Start 11/08/16 at 16: 07; Stop 11/08/16 at 16:08; Status DC Methylprednisolone Sodium Succinate (Solu-Medrol 125mg Vial) 125 mg STK-MED ONCE .ROUTE ; Start 11/08/16 at 16:10; Stop 11/08/16 at 16:11; Status DC Iohexol (Omnipaque 300 Mg/ml) 100 ml STK-MED ONCE .ROUTE ; Start 11/08/16 at 16: 33; Stop 11/08/16 at 16:34; Status DC Lidocaine/Sodium Bicarbonate 20 ml 20 ml STK-MED ONCE IJ ; Start 11/08/16 at 16: 33; Stop 11/08/16 at 16:34; Status DC Heparin Sodium/ Sodium Chloride 1,500 ml @ As Directed STK-MED ONCE .ROUTE ; Start 11/08/16 at 16:33; Stop 11/08/16 at 16:34; Status DC Heparin Sodium/ Sodium Chloride 3,000 unit 1X ONCE IART Last administered on 17:53; Start 11/08/16 at 16:45; Stop 11/08/16 at 16:46; Status DC Lidocaine/Sodium Bicarbonate (Buffered Lidocaine 1%) 20 ml 1X ONCE IJ Last administered on 11/08/16 17:52; Start 11/08/16 at 16:45; Stop 11/08/16 at 16:46 ; Status DC Iohexol (Omnipaque 300 Mg/ml) 200 ml 1X ONCE IART Last administered on 17:53; Start 11/08/16 at 16:45; Stop 11/08/16 at 16:46; Status DC Info (Do NOT chart on this entry -- for MONITORING) 1 each PRN DAILY PRN MC SEE COMMENTS; Start 11/08/16 at 16:45; Stop 11/10/16 at 16:44; Status DC Midazolam HCl (Versed) 2 mg STK-MED ONCE .ROUTE ; Start 11/08/16 at 16:47; Stop 11/08/16 at 16:48; Status DC Famotidine (Pepcid) 20 mg STK-MED ONCE .ROUTE ; Start 11/08/16 at 17:01; Stop at 17:02; Status DC Ondansetron HCl (Zofran) 0.4 mg PRN Q6HRS PRN IV NAUSEA/VOMITING; Start at 18:00; Stop 11/09/16 at 17:59; Status DC Fentanyl Citrate (Fentanyl 2ml Vial) 25 mcg PRN Q5MIN PRN IV MILD PAIN; Start 11/08/16 at 18:00; Stop 11/09/16 at 17:59; Status DC Fentanyl Citrate 50 mcg 50 mcg PRN Q5MIN PRN IV MODERATE PAIN; Start 11/08/16 at 18:00; Stop 11/09/16 at 17:59; Status DC Lactated Ringer's (Iv Lactated Ringers) 1,000 ml @ 0 mls/hr Q0M IV ; Start at 17:47; Stop 11/09/16 at 05:46; Status DC Lidocaine HCl 2 ml PRN 1X PRN ID PRIOR TO IV START; Start 11/08/16 at 18:00; Stop 11/09/16 at 17:59; Status DC Prochlorperazine Edisylate (Compazine) 5 mg PACU PRN PRN IV NAUSEA, MRX1; Start 11/08/16 at 18:00; Stop 11/09/16 at 17:59; Status DC Cyanocobalamin (Vitamin B-12) 1,000 mcg STK-MED ONCE .ROUTE ; Start 11/09/16 at 07:27; Stop 11/09/16 at 07:28; Status DC Cyanocobalamin (Vitamin B-12) 1,000 mcg DAILY PO Last administered on 11/13/16 09:40; Start 11/10/16 at 09:00 Albuterol Sulfate (Ventolin Neb Soln) 2.5 mg 1X ONCE NEB Last administered on 11/09/16 16:53; Start 11/09/16 at 17:30; Stop 11/09/16 at 17:31; Status DC Albuterol Sulfate 2.5 mg 2.5 mg PRN Q4HRS PRN NEB SHORTNESS OF BREATH Last administered on 11/12/16 11:47; Start 11/09/16 at 17:00 Antihemophilic Factor/ Miscellaneous (Humate-P Vwf:Rco) 30 ml @ 180 mls/hr DAILY IV Last administered on 11/12/16 10:43; Start 11/12/16 at 10:00; Stop 11/13 at 07:44; Status DC Furosemide 40 mg 40 mg 1X ONCE PO Last administered on 11/12/16 13:55; Start 11/12/16 at 13:30; Stop 11/12/16 at 13:31; Status DC Antihemophilic Factor 3293 vwf/ Miscellaneous 30 ml @ 180 mls/hr DAILY IV ; Start 11/13/16 at 09:00; Stop 11/13/16 at 09:00; Status DC Antihemophilic Factor/ Miscellaneous (Humate-P Vwf:Rco) 30 ml @ 180 mls/hr DAILY IV Last administered on 11/13/16 09:50; Start 11/13/16 at 09:00; Stop 11/14 at 09:09 Active Scripts Active Lasix (Furosemide) 40 Mg Tablet 1 Tab PO QOD Reported Furosemide 40 Mg Tablet 1 Tab PO DAILY Lysteda (Tranexamic Acid) 650 Mg Tablet 650 Mg PO BID Vitamin B Complex 1 Each Capsule 1 Each PO Calcitriol 0.25 Mcg Capsule 1 Cap PO DAILY Selenium (Selenomethionine) 200 Mcg Tablet 200 Mcg PO DAILY Vitamin A 8,000 Unit Capsule 8,000 Unit PO Coconut Oil 1,000 Mg Capsule 1,000 Mg PO DAILY Aminocaproic Acid 500 Mg Tablet 500 Mg PO DAILY Magnesium (Magnesium Oxide) 500 Mg Capsule 500 Mg PO DAILY Omeprazole 40 Mg Capsule.dr 40 Mg PO DAILY Potassium Chloride 20 Meq Tab.er.prt 20 Meq PO DAILY Acetaminophen 500 Mg Tablet 500 Mg PO PRN DAILY PRN Allopurinol 300 Mg Tablet 300 Mg PO DAILY Neurontin (Gabapentin) 100 Mg Capsule 200 Mg PO BID Vitamin B-12 (Cyanocobalamin (Vitamin B-12)) 1,000 Mcg Tablet 1,000 Mcg PO DAILY Osteo Bi-Flex Caplet (Gluc/Lyndon-Msm#1/C/Brandon/Alfredo/Bor) 1 Each Tablet 1 Each PO DAILY Levothyroxine Sodium Inj (Levothyroxine Sodium) 100 Mcg Vial 100 Mcg PO DAILY Nakita (Fexofenadine Hcl) 180 Mg Tablet 180 Mg PO DAILY Tramadol Hcl 50 Mg Tablet 50 Mg PO PRN QID Vitals/I & O Vital Sign - Last 24 Hours 11/13/16 11/13/16 11/13/16 11/13/16 10:10 14:30 19:00 20:00 Temp 96.6 96.5 97.7 96.6 96.5 97.7 Pulse 56 52 51 Resp 18 18 18 B/P 119/33 110/37 111/33 Pulse Ox 100 99 99 O2 Delivery Room Air Room Air Room Air Room Air 11/13/16 11/14/16 11/14/16 11/14/16 23:00 00:02 01:02 03:00 Temp 98.1 97.5 98.1 97.5 Pulse 50 50 Resp 18 20 20 18 B/P 111/43 106/49 Pulse Ox 97 97 95 95 O2 Delivery Room Air Room Air Room Air Room Air 11/14/16 07:40 Temp 96.6 96.6 Pulse 48 Resp 18 B/P 105/36 Pulse Ox 96 O2 Delivery Room Air Intake and Output 11/13/16 11/13/16 11/14/16 15:00 23:00 07:00 Intake Total 480 ml 300 ml Output Total 600 ml Balance 480 ml 300 ml -600 ml FREDIS PALMER MD Nov 14, 2016 09:00
[2016-11-14] MEDS: TOTAL VOLUME IV SCH (09:13)
[2016-11-14] MEDS: VWF IV SCH (09:13)
[2016-11-14] MEDS: ANTIHEMOPHILIC FACTOR IV SCH (09:13)
[2016-11-14 09:41] LABS: HEMATOCRIT 33.1 % (36.0-47.0); HEMOGLOBIN 10.6 g/dL (12.0-15.5); RED BLOOD COUNT 3.43 x10^6/uL (3.50-5.40); RED CELL DISTRIBUTION WIDTH 17.6 % (11.5-14.5)
[2016-11-14 10:30] VITALS: BP 109/34
--- NOTE | 2016-11-14 13:43 | PDOC ---
Objective: Vital Signs: Vital Signs Date Time Temp Pulse Resp B/P Pulse Ox O2 Delivery O2 Flow Rate FiO2 11/14/16 10:30 96.1 57 18 109/34 98 Room Air 96.1 Labs: Laboratory Tests Test 11/14/16 09:15 White Blood Count 5.0x10^3/uL Red Blood Count 3.43x10^6/uL Hemoglobin 10.6g/dL Hematocrit 33.1% Mean Corpuscular Volume 96fL Mean Corpuscular Hemoglobin 31pg Mean Corpuscular Hemoglobin Concent 32g/dL Red Cell Distribution Width 17.6% Platelet Count 123x10^3/uL PE: no exam - pt showering A/P: Blood loss anemia w/ von Willebrand -no further bleeding, Hgb improved -- Plans for DC today. Follow-up at previously discussed. ERENDIRA DORSEY Nov 14, 2016 13:43
[2016-11-14 14:30] VITALS: BP 101/36
--- NOTE | 2016-11-14 15:54 | DS ---
DATE OF DISCHARGE: 11/14/2016 HOSPITAL SUMMARY: An 89-year-old white female with known von Willebrand disease, came in with melena, weakness, and evidence of ongoing GI bleeding. Her hemoglobin was down to 6.5 on admission, came up to 10 after 2 units of transfusions and it has remained around 10.6 with today's level pending. The chemistry profile showed an elevated BUN of 56, creatinine 1.3. BUN came down to 38 by holding the Lasix. Rest of the laboratory studies including urine was unremarkable and urine culture had no significant carly. GI bleeding scan showed evidence of active bleeding in the left colon area, but visceral angiography showed an uneventful selective 3-vessel mesenteric arteriogram with no active bleeding seen at that time. She was given Humate-P and oral Amicar and she is stabilized and Dr. Rodriguez is comfortable to let her be discharged at this time. FINAL DIAGNOSES: 1. Acute GI bleed secondary to von Willebrand disease. 2. Prerenal azotemia secondary to diuretic use. OPERATIONS AND PROCEDURES: Visceral arteriogram. COMPLICATIONS: None. CONSULTATIONS: Dr. Stallings, Dr. Hernandez, and Dr. Rodriguez. DISPOSITION: Continue home meds the same. I told her to cut her Lasix down to every other day or less, as she gets prerenal from this. Follow up with Dr. Rodriguez, as he has been seeing her regularly for anemia and her prognosis is guarded given the severity and recurrence of her bleeding. AJITH RUIZ MD DR: ANA MARIA/adi JOB#: [id number] / [id number]
--- NOTE | 2016-11-14 16:05 | PDOC ---
PROGRESS NOTES Subjective Subjective No cardiac complaints Objective Objective Vital Signs Date Time Temp Pulse Resp B/P Pulse Ox O2 Delivery O2 Flow Rate FiO2 11/14/16 14:30 96.1 56 18 101/36 98 Room Air 96.1 Intake and Output 11/14/16 07:00 Intake Total 780 ml Output Total 600 ml Balance 180 ml Intake Oral 780 ml Output Urine Total 600 ml # Voids 4 # Bowel Movements 2 Physical Exam Physical Exam No significant changes in cardiac exam Assessment Assessment Pt compensated cardiac morris. Agree with discharge. Problems Medical Problems: (1) Acute GI bleeding Status: Acute (2) Deficiency of von Willebrand factor Status: Acute (3) Symptomatic anemia Status: Acute Comment Review of Relevant I have reviewed the following items benjy (where applicable) has been applied. Labs Laboratory Tests Test 11/14/16 09:15 White Blood Count 5.0x10^3/uL (4.0-11.0) Red Blood Count 3.43x10^6/uL (3.50-5.40) Hemoglobin 10.6g/dL (12.0-15.5) Hematocrit 33.1% (36.0-47.0) Mean Corpuscular Volume 96fL (79-100) Mean Corpuscular Hemoglobin 31pg (25-35) Mean Corpuscular Hemoglobin Concent 32g/dL (31-37) Red Cell Distribution Width 17.6% (11.5-14.5) Platelet Count 123x10^3/uL (140-400) Laboratory Tests Test 11/14/16 09:15 White Blood Count 5.0x10^3/uL (4.0-11.0) Red Blood Count 3.43x10^6/uL (3.50-5.40) Hemoglobin 10.6g/dL (12.0-15.5) Hematocrit 33.1% (36.0-47.0) Mean Corpuscular Volume 96fL (79-100) Mean Corpuscular Hemoglobin 31pg (25-35) Mean Corpuscular Hemoglobin Concent 32g/dL (31-37) Red Cell Distribution Width 17.6% (11.5-14.5) Platelet Count 123x10^3/uL (140-400) Microbiology 11/06/16 Urine Culture - Final, Complete 11/06/16 Urine Culture Result 1 (TOAN) - Final, Complete 11/06/16 Urine Culture Result 2 (TOAN) - Final, Complete 11/06/16 Antimicrobic Susceptibility - Final, Complete Medications Current Medications Sodium Chloride (Iv Sodium Chloride 0.9% 1000ml Bag) 1,000 ml @ 100 mls/hr Q10H IV Last administered on 11/06/16 16:25; Start 11/06/16 at 16:06; Stop at 02:05; Status DC Ondansetron HCl (Zofran) 4 mg 1X ONCE IV Last administered on 11/06/16 16:24 ; Start 11/06/16 at 16:15; Stop 11/06/16 at 16:20; Status DC Pantoprazole Sodium (Protonix Vial) 40 mg 1X ONCE IVP Last administered on 16:24; Start 11/06/16 at 16:15; Stop 11/06/16 at 16:20; Status DC Ondansetron HCl 4 mg 4 mg PRN Q8HRS PRN IV NAUSEA/VOMITING; Start 11/06/16 at 17:00; Stop 11/07/16 at 05:39; Status DC Sodium Chloride 1,000 ml @ 100 mls/hr Q10H IV Last administered on 11/07/16 20:52; Start 11/06/16 at 16:50; Stop 11/07/16 at 16:49; Status DC Pantoprazole Sodium/Sodium Chloride (Protonix Iv/Iv Sodium Chloride 0.9% 100ml) 100 ml @ 10 mls/hr 1X ONCE IV Last administered on 11/06/16 17:21; Start at 17:00; Stop 11/07/16 at 02:59; Status DC Acetaminophen (Tylenol) 500 mg PRN DAILY PRN PO MILD PAIN; Start 11/07/16 at 09 :00; Stop 11/14/16 at 15:34; Status DC Allopurinol (Zyloprim) 300 mg DAILY PO Last administered on 11/14/16 08:58; Start 11/07/16 at 09:00; Stop 11/14/16 at 15:34; Status DC Calcitriol (Rocaltrol) 0.25 mcg DAILY PO Last administered on 11/14/16 08:58; Start 11/07/16 at 09:00; Stop 11/14/16 at 15:34; Status DC Cyanocobalamin (Vitamin B-12) 1,000 mcg DAILY PO Last administered on 11/09/16 08:43; Start 11/07/16 at 09:00; Stop 11/09/16 at 13:19; Status DC Furosemide (Lasix) 40 mg DAILY PO ; Start 11/07/16 at 09:00; Stop 11/07/16 at 09 :00; Status DC Gabapentin (Neurontin) 200 mg BID PO Last administered on 11/14/16 08:58; Start 11/07/16 at 09:00; Stop 11/14/16 at 15:34; Status DC Potassium Chloride (Klor-Con) 20 meq DAILY PO Last administered on 11/10/16 09: 11; Start 11/07/16 at 09:00; Stop 11/11/16 at 07:51; Status DC Tramadol HCl (Ultram) 50 mg PRN QID PRN PO MODERATE PAIN Last administered on 00:02; Start 11/07/16 at 09:00; Stop 11/14/16 at 15:34; Status DC Non-Formulary Medication 1,000 mg DAILY PO ; Start 11/07/16 at 09:00; Status UNV Cetirizine HCl (Zyrtec) 10 mg DAILY PO Last administered on 11/14/16 08:57; Start 11/07/16 at 09:00; Stop 11/14/16 at 15:34; Status DC Non-Formulary Medication 1 each DAILY PO ; Start 11/07/16 at 09:00; Status UNV Magnesium Oxide (Magnesium Oxide) 400 mg DAILY PO Last administered on 08:57; Start 11/07/16 at 09:00; Stop 11/14/16 at 15:34; Status DC Pantoprazole Sodium (Protonix) 40 mg DAILYAC PO Last administered on 11/07/16 09:30; Start 11/07/16 at 07:30; Stop 11/08/16 at 05:34; Status DC Non-Formulary Medication 200 mcg DAILY PO ; Start 11/07/16 at 09:00; Status UNV Non-Formulary Medication 650 mg BID PO ; Start 11/07/16 at 09:00; Stop 11/07/16 at 09:44; Status DC Levothyroxine Sodium (Synthroid) 100 mcg DAILY07 PO Last administered on 06:11; Start 11/07/16 at 07:00; Stop 11/14/16 at 15:34; Status DC Ondansetron HCl (Zofran) 4 mg PRN Q8HRS PRN IV NAUSEA/VOMITING; Start 11/07/16 at 05:39; Stop 11/07/16 at 16:59; Status DC Cyanocobalamin (Vitamin B-12) 1,000 mcg STK-MED ONCE .ROUTE ; Start 11/07/16 at 07:51; Stop 11/07/16 at 07:52; Status DC Aminocaproic Acid 500 mg 500 mg Q6HRS PO Last administered on 11/08/16 05:54; Start 11/07/16 at 09:00; Stop 11/08/16 at 09:04; Status DC Antihemophilic Factor/ Miscellaneous (Humate-P Vwf:Rco) 30 ml @ 180 mls/hr 1X ONCE IV Last administered on 11/07/16 12:43; Start 11/07/16 at 11:45; Stop at 11:54; Status DC Iohexol (Omnipaque 300 Mg/ml) 50 ml STK-MED ONCE .ROUTE ; Start 11/07/16 at 13: 40; Stop 11/07/16 at 13:41; Status DC Iohexol (Omnipaque 300 Mg/ml) 100 ml STK-MED ONCE .ROUTE ; Start 11/07/16 at 13: 40; Stop 11/07/16 at 13:41; Status DC Lidocaine/Sodium Bicarbonate 20 ml 20 ml STK-MED ONCE IJ ; Start 11/07/16 at 13: 40; Stop 11/07/16 at 13:41; Status DC Heparin Sodium/ Sodium Chloride 0 ml @ As Directed STK-MED ONCE .ROUTE ; Start 11/07/16 at 13:40; Stop 11/07/16 at 13:41; Status DC Antihemophilic Factor/ Miscellaneous (Humate-P Vwf:Rco) 30 ml @ 180 mls/hr DAILY IV Last administered on 11/11/16 09:06; Start 11/08/16 at 09:00; Stop 11/12/16 at 09:39; Status DC Pantoprazole Sodium (Protonix) 40 mg STK-MED ONCE PO ; Start 11/08/16 at 05:32; Stop 11/08/16 at 05:33; Status DC Pantoprazole Sodium (Protonix) 40 mg DAILYAC PO Last administered on 11/14/16 06:11; Start 11/08/16 at 05:34; Stop 11/14/16 at 15:34; Status DC Aminocaproic Acid (Amicar) 1,000 mg Q4HRS PO Last administered on 11/14/16 12: 07; Start 11/08/16 at 12:00; Stop 11/14/16 at 15:34; Status DC Furosemide (Lasix) 40 mg 1X ONCE IVP Last administered on 11/08/16 14:40; Start 11/08/16 at 14:30; Stop 11/08/16 at 14:31; Status DC Diphenhydramine HCl (Benadryl) 50 mg STK-MED ONCE .ROUTE ; Start 11/08/16 at 16: 07; Stop 11/08/16 at 16:08; Status DC Methylprednisolone Sodium Succinate (Solu-Medrol 125mg Vial) 125 mg STK-MED ONCE .ROUTE ; Start 11/08/16 at 16:10; Stop 11/08/16 at 16:11; Status DC Iohexol (Omnipaque 300 Mg/ml) 100 ml STK-MED ONCE .ROUTE ; Start 11/08/16 at 16: 33; Stop 11/08/16 at 16:34; Status DC Lidocaine/Sodium Bicarbonate 20 ml 20 ml STK-MED ONCE IJ ; Start 11/08/16 at 16: 33; Stop 11/08/16 at 16:34; Status DC Heparin Sodium/ Sodium Chloride 1,500 ml @ As Directed STK-MED ONCE .ROUTE ; Start 11/08/16 at 16:33; Stop 11/08/16 at 16:34; Status DC Heparin Sodium/ Sodium Chloride 3,000 unit 1X ONCE IART Last administered on 17:53; Start 11/08/16 at 16:45; Stop 11/08/16 at 16:46; Status DC Lidocaine/Sodium Bicarbonate (Buffered Lidocaine 1%) 20 ml 1X ONCE IJ Last administered on 11/08/16 17:52; Start 11/08/16 at 16:45; Stop 11/08/16 at 16:46 ; Status DC Iohexol (Omnipaque 300 Mg/ml) 200 ml 1X ONCE IART Last administered on t 17:53; Start 11/08/16 at 16:45; Stop 11/08/16 at 16:46; Status DC Info (Do NOT chart on this entry -- for MONITORING) 1 each PRN DAILY PRN MC SEE COMMENTS; Start 11/08/16 at 16:45; Stop 11/10/16 at 16:44; Status DC Midazolam HCl (Versed) 2 mg STK-MED ONCE .ROUTE ; Start 11/08/16 at 16:47; Stop 11/08/16 at 16:48; Status DC Famotidine (Pepcid) 20 mg STK-MED ONCE .ROUTE ; Start 11/08/16 at 17:01; Stop at 17:02; Status DC Ondansetron HCl (Zofran) 0.4 mg PRN Q6HRS PRN IV NAUSEA/VOMITING; Start at 18:00; Stop 11/09/16 at 17:59; Status DC Fentanyl Citrate (Fentanyl 2ml Vial) 25 mcg PRN Q5MIN PRN IV MILD PAIN; Start 11/08/16 at 18:00; Stop 11/09/16 at 17:59; Status DC Fentanyl Citrate 50 mcg 50 mcg PRN Q5MIN PRN IV MODERATE PAIN; Start 11/08/16 at 18:00; Stop 11/09/16 at 17:59; Status DC Lactated Ringer's (Iv Lactated Ringers) 1,000 ml @ 0 mls/hr Q0M IV ; Start at 17:47; Stop 11/09/16 at 05:46; Status DC Lidocaine HCl 2 ml PRN 1X PRN ID PRIOR TO IV START; Start 11/08/16 at 18:00; Stop 11/09/16 at 17:59; Status DC Prochlorperazine Edisylate (Compazine) 5 mg PACU PRN PRN IV NAUSEA, MRX1; Start 11/08/16 at 18:00; Stop 11/09/16 at 17:59; Status DC Cyanocobalamin (Vitamin B-12) 1,000 mcg STK-MED ONCE .ROUTE ; Start 11/09/16 at 07:27; Stop 11/09/16 at 07:28; Status DC Cyanocobalamin (Vitamin B-12) 1,000 mcg DAILY PO Last administered on 11/14/16 08:57; Start 11/10/16 at 09:00; Stop 11/14/16 at 15:34; Status DC Albuterol Sulfate (Ventolin Neb Soln) 2.5 mg 1X ONCE NEB Last administered on 11/09/16 16:53; Start 11/09/16 at 17:30; Stop 11/09/16 at 17:31; Status DC Albuterol Sulfate 2.5 mg 2.5 mg PRN Q4HRS PRN NEB SHORTNESS OF BREATH Last administered on 11/12/16 11:47; Start 11/09/16 at 17:00; Stop 11/14/16 at 15:34; Status DC Antihemophilic Factor/ Miscellaneous (Humate-P Vwf:Rco) 30 ml @ 180 mls/hr DAILY IV Last administered on 11/12/16 10:43; Start 11/12/16 at 10:00; Stop 11/13 at 07:44; Status DC Furosemide 40 mg 40 mg 1X ONCE PO Last administered on 11/12/16 13:55; Start 11/12/16 at 13:30; Stop 11/12/16 at 13:31; Status DC Antihemophilic Factor 3293 vwf/ Miscellaneous 30 ml @ 180 mls/hr DAILY IV ; Start 11/13/16 at 09:00; Stop 11/13/16 at 09:00; Status DC Antihemophilic Factor/ Miscellaneous (Humate-P Vwf:Rco) 30 ml @ 180 mls/hr DAILY IV Last administered on 11/14/16 09:13; Start 11/13/16 at 09:00; Stop 11/14 at 09:09; Status DC Active Scripts Active Lasix (Furosemide) 40 Mg Tablet 1 Tab PO QOD Reported Lysteda (Tranexamic Acid) 650 Mg Tablet 650 Mg PO BID Vitamin B Complex 1 Each Capsule 1 Each PO Calcitriol 0.25 Mcg Capsule 1 Cap PO DAILY Selenium (Selenomethionine) 200 Mcg Tablet 200 Mcg PO DAILY Vitamin A 8,000 Unit Capsule 8,000 Unit PO Coconut Oil 1,000 Mg Capsule 1,000 Mg PO DAILY Aminocaproic Acid 500 Mg Tablet 500 Mg PO DAILY Magnesium (Magnesium Oxide) 500 Mg Capsule 500 Mg PO DAILY Omeprazole 40 Mg Capsule.dr 40 Mg PO DAILY Potassium Chloride 20 Meq Tab.er.prt 20 Meq PO DAILY Acetaminophen 500 Mg Tablet 500 Mg PO PRN DAILY PRN Allopurinol 300 Mg Tablet 300 Mg PO DAILY Neurontin (Gabapentin) 100 Mg Capsule 200 Mg PO BID Vitamin B-12 (Cyanocobalamin (Vitamin B-12)) 1,000 Mcg Tablet 1,000 Mcg PO DAILY Osteo Bi-Flex Caplet (Gluc/Lyndon-Msm#1/C/Brandon/Alfredo/Bor) 1 Each Tablet 1 Each PO DAILY Levothyroxine Sodium Inj (Levothyroxine Sodium) 100 Mcg Vial 100 Mcg PO DAILY Nakita (Fexofenadine Hcl) 180 Mg Tablet 180 Mg PO DAILY Tramadol Hcl 50 Mg Tablet 50 Mg PO PRN QID Vitals/I & O Vital Sign - Last 24 Hours 11/13/16 11/13/16 11/13/16 11/14/16 19:00 20:00 23:00 00:02 Temp 97.7 98.1 97.7 98.1 Pulse 51 50 Resp 18 18 20 B/P 111/33 111/43 Pulse Ox 99 97 97 O2 Delivery Room Air Room Air Room Air Room Air 11/14/16 11/14/16 11/14/16 11/14/16 01:02 03:00 07:40 08:00 Temp 97.5 96.6 97.5 96.6 Pulse 50 48 Resp 20 18 18 B/P 106/49 105/36 Pulse Ox 95 95 96 O2 Delivery Room Air Room Air Room Air Room Air 11/14/16 11/14/16 10:30 14:30 Temp 96.1 96.1 96.1 96.1 Pulse 57 56 Resp 18 18 B/P 109/34 101/36 Pulse Ox 98 98 O2 Delivery Room Air Room Air Intake and Output 11/13/16 11/13/16 11/14/16 15:00 23:00 07:00 Intake Total 480 ml 300 ml Output Total 600 ml Balance 480 ml 300 ml -600 ml MARISOL ELLIOTT MD Nov 14, 2016 16:05
== END 2016-11-14 15:34 | disposition home or self-care (01) | DRG 813 ==
LOC: ER 15:45 → 5 NORTH 16:40
PROVIDERS: ADMIT Family Medicine; ATTEND Family Medicine
PROC: 30233N1 Transfusion of Nonautologous Red Blood Cells into Peripheral Vein, Percutaneous Approach (ICD-10-PCS; 2016-11-06)
PROC: B4151ZZ Fluoroscopy of Inferior Mesenteric Artery using Low Osmolar Contrast (ICD-10-PCS; principal; 2016-11-08 15:00)
PROC: B4141ZZ Fluoroscopy of Superior Mesenteric Artery using Low Osmolar Contrast (ICD-10-PCS; 2016-11-09)
PROC: B4101ZZ Fluoroscopy of Abdominal Aorta using Low Osmolar Contrast (ICD-10-PCS; 2016-11-09)
DX: D68.0 Von Willebrand disease (principal); E44.1 Mild protein-calorie malnutrition; I11.0 Hypertensive heart disease with heart failure; F41.9 Anxiety disorder, unspecified; E03.9 Hypothyroidism, unspecified; I50.9 Heart failure, unspecified; K21.9 Gastro-esophageal reflux disease without esophagitis; K57.30 Diverticulosis of large intestine without perforation or abscess without bleeding; T50.2X5A Adverse effect of carbonic-anhydrase inhibitors, benzothiadiazides and other diuretics, initial encounter; D50.0 Iron deficiency anemia secondary to blood loss (chronic); I48.91 Unspecified atrial fibrillation; I73.00 Raynaud's syndrome without gangrene; G56.00 Carpal tunnel syndrome, unspecified upper limb; I49.5 Sick sinus syndrome; Z90.710 Acquired absence of both cervix and uterus; Z83.2 Family history of diseases of the blood and blood-forming organs and certain disorders involving the immune mechanism; Z90.49 Acquired absence of other specified parts of digestive tract; Z91.041 Radiographic dye allergy status; Z86.010 Personal history of colon polyps; Z88.5 Allergy status to narcotic agent; Z88.0 Allergy status to penicillin; Z88.2 Allergy status to sulfonamides; Z88.6 Allergy status to analgesic agent
CPT/HCPCS: 36415; 75726; 76937; 78278; 80048; 80053; 81001; 83690; 85007; 85014; 85018; 85027; 85610; 85730; 86850; 86900; 86901; 86902; 86922; 87086; 87186; 93005; 93306; 94640; 94760; 96365; 96374; 96375; A9560; C1760; C1769; C1892; C1894; C9113; G0269; J1200; J1940; J2250; J2405; J2930; J7030; J7186; P9016; Q9967; S0028; 97116; 97530; 97535; 99285-25

== ENCOUNTER → 2016-12-27 | Outpatient (CLI) | payer MEDICARE ==
[~2016-12-27] MED LIST changes: +FURO40TA4 PO; -LEVO100V PO; +LEVO100V5 PO
[2016-12-27 13:07] LABS: ALBUMIN 3.7 g/dL (3.4-5.0); ALBUMIN/GLOBULIN RATIO 0.9 (1.0-1.7); CALCIUM 10.6 mg/dL (8.5-10.1); CREATININE 1.4 mg/dL (0.6-1.0); GFR 35.4; POTASSIUM 3.9 mmol/L (3.5-5.1); TOTAL BILIRUBIN 0.5 mg/dL (0.2-1.0)
== END | disposition home or self-care (01) ==
LOC: LAB 12:19
PROVIDERS: ATTEND Internal Medicine Cardiovascular Disease
DX: I50.32 Chronic diastolic (congestive) heart failure (principal); N28.9 Disorder of kidney and ureter, unspecified
CPT/HCPCS: 36415; 80053

== ENCOUNTER → 2017-01-07 | Outpatient (CLI) | payer MEDICARE ==
--- NOTE | 2017-01-07 15:21 | RAD ---
Indication acute renal insufficiency. Grayscale imaging targeted to the kidneys was performed. No recent similar imaging is available. The right kidney measures 10.9 x 4.3 x 4.8 cm. Slightly prominent renal pelvis is noted. There is no trae hydronephrosis or definite mass seen associated with the right kidney. The left kidney measures 10.3 x 4.2 x 4.8 cm and appears unremarkable showing no evidence of hydronephrosis or mass. The abdominal aorta is unremarkable. The patient voided just prior to the examination. The urinary bladder, as a result, is empty and poorly evaluated with ultrasound. IMPRESSION: No significant finding seen in either kidney. Minimally prominent right renal pelvis is noted likely reflecting an incidental finding
== END | disposition home or self-care (01) ==
LOC: US 13:44
PROVIDERS: ATTEND Urology
DX: N28.9 Disorder of kidney and ureter, unspecified (principal)
CPT/HCPCS: 76770

== ENCOUNTER → 2017-03-10 | Outpatient (CLI) | payer MEDICARE ==
[2017-03-07 10:50] VITALS: BP 98/57
[~2017-03-10] MED LIST changes: +CHOL100013 PO; -CYAN10005 PO; +CYAN10005 SL; -KRIL1CAP10 PO; +KRIL1CAP11 PO; -MAGN500C PO; +MAGN500C10 PO
--- NOTE | 2017-03-10 16:34 | RAD ---
EXAM: Left upper extremity venous Doppler. HISTORY: Left upper extremity pain/swelling. COMPARISON: None. FINDINGS: Grayscale and Doppler analysis of the left upper extremity deep venous system was performed with graded compression and augmentation. Visualized left internal jugular vein is patent. Left subclavian, brachial, axillary and basilic veins are patent with normal color Doppler imaging. There is a completely occlusive thrombus in the mid and distal left cephalic vein. Impression: Completely occlusive clot in the left cephalic vein. These results were discussed with Gladys Alvarez APRN, by telephone at 4:30 PM 03/10/[address] Taran Chapman
== END | disposition home or self-care (01) ==
LOC: US 14:48
PROVIDERS: ATTEND Nurse Practitioner Adult Health
DX: M79.632 Pain in left forearm (principal); M79.89 Other specified soft tissue disorders; I82.622 Acute embolism and thrombosis of deep veins of left upper extremity
CPT/HCPCS: 93971

== ENCOUNTER 2017-05-16 18:30 | Inpatient (IN) | payer MEDICARE ==
[~2017-05-16] VITALS: Ht 165.1 cm; Wt 70.4 kg
[~2017-05-16 18:30] MED LIST changes: +KRIL1CAP10 PO; -KRIL1CAP11 PO; -LOSA1TAB16 PO; +LOSA1TAB19 PO
[2017-05-16 20:00] VITALS: BP 127/39
[2017-05-16] MEDS ORDERED: 0.9 % SODIUM CHLORIDE 10 ML DISP.SYRIN. IV PRN (20:00)
[2017-05-16] MEDS ORDERED: ONDANSETRON PF 4 MG/2 ML VIAL. IV PRN (20:00)
[2017-05-16] MEDS ORDERED: oxyCODONE IR 5 MG TABLET PO PRN (20:00)
[2017-05-16] MEDS ORDERED: IV NORMAL SALINE 1000ML BAG 1,000 ML IV ONE (20:30)
[2017-05-16 20:39] LABS: BASO # 0.1 x10^3/uL (0.0-0.2); BASO % 1 % (0-3); EOS % 2 % (0-3); HEMATOCRIT 32.1 % (36.0-47.0); HEMOGLOBIN 10.6 g/dL (12.0-15.5); LYMPH # 1.3 x10^3/uL (1.0-4.8); LYMPH % 20 % (24-48); MEAN CORPUSCULAR HEMOGLOBIN 34 pg (25-35); MEAN CORPUSCULAR HGB CONC 33 g/dL (31-37); MEAN CORPUSCULAR VOLUME 102 fL (79-100); MONO % 7 % (0-9); NEUT % 70 % (31-73); PLATELET COUNT 141 x10^3/uL (140-400); RED BLOOD COUNT 3.16 x10^6/uL (3.50-5.40); RED CELL DISTRIBUTION WIDTH 15.3 % (11.5-14.5); WHITE BLOOD COUNT 6.2 x10^3/uL (4.0-11.0)
[2017-05-16 21:00] LABS: ALBUMIN 3.8 g/dL (3.4-5.0); ALBUMIN/GLOBULIN RATIO 0.9 (1.0-1.7); CALCIUM 10.9 mg/dL (8.5-10.1); CREATININE 1.4 mg/dL (0.6-1.0); GFR 35.4; TOTAL BILIRUBIN 0.4 mg/dL (0.2-1.0); TOTAL PROTEIN 8.2 g/dL (6.4-8.2)
--- NOTE | 2017-05-16 21:05 | HP ---
ADMIT DATE: 05/16/2017 CHIEF COMPLAINT: GI bleed, coagulopathy. HISTORY OF PRESENT ILLNESS: The patient is an 89-year-old woman with Von Willebrand disease and recurrent GI bleeds. She was most recently admitted in February of this year, received Amicar and Humate-P with resolution of her bleeding issues. She now returns once again with melena. She relates that she had normal bowel movements over the weekend. Started some smaller bowel movements on Friday, Friday with darker coloration. Did not have a bowel movement until earlier today when she had large darkly melanotic bowel movements, which prompted her to present to the Hematology/Oncology Clinic here, and she was direct admitted from there for treatment of her bleeding. She denies any abdominal pain, any nausea or vomiting, any dizziness or other symptoms. She did have a second bowel movement after she went home from the clinic before returning to the hospital. PAST MEDICAL HISTORY: Von Willebrand's, as above with recurrent GI bleeds, epistaxis and soft tissue bleeds. Recurrent anemia secondary to bleed/iron deficiency, hypothyroidism, urinary incontinence. PAST SURGICAL HISTORY: She is status post colon resection, hysterectomy and appendectomy. FAMILY HISTORY: Von Willebrand's. SOCIAL HISTORY: Currently lives with her son. No toxic habits, never smoked. ALLERGIES: IODINATED CONTRAST, PENICILLIN, SULFA, ASPIRIN AND CODEINE. MEDICATIONS: MAR reconciled with home medications. REVIEW OF SYSTEMS: Positive essentially only for arthritis, especially in both knees. Denies any symptoms in rest of organ system review. PHYSICAL EXAMINATION: VITAL SIGNS: From today are stable. GENERAL: This is an 89-year-old sprite woman, alert and oriented, in no acute distress. HEENT: Shows no scleral icterus. Oral mucosa is pink and moist. NECK: Supple. LUNGS: Clear to auscultation bilaterally. HEART: Regular rate and rhythm. ABDOMEN: Has positive bowel sounds, soft, nontender. EXTREMITIES: Show no edema. SKIN: Warm, soft and dry without any rash. LABORATORY DATA: Pending. She gets monitored at the Hematology Clinic where last week her hemoglobin had been 12.5, today is, however, only 10.7. ASSESSMENT AND PLAN: The patient is an 89-year-old woman with Von Willebrand's and recurrent gastrointestinal bleeds. We will get her started on Humate-P. Amicar will be stopped up to q.i.d. We will monitor her PT, PTT and hemoglobins. She will be transfused for hemoglobins less than 8. Iron studies will be obtained to ascertain potential need for iron infusions as well. We will continue folate. Her other medical issues are rather stable. We will continue her home medications. CONDITION: Guarded. PROGNOSIS: Guarded. TRUNG VALENTE MD DR: KEVYN/nts JOB#: [id number] / [id number] AJITH Ag MD MTDD
[2017-05-16] MEDS: AMINOCAPROIC ACID 500 MG TABLET. PO SCH (21:23)
[2017-05-16] MEDS ORDERED: RESV250C2 PO (21:43)
[2017-05-16] MEDS ORDERED: DOXY100T PO (21:43)
[2017-05-16] MEDS ORDERED: ERGO500027 PO (21:43)
[2017-05-16] MEDS: ANTIHEMOPHILIC FACTOR IV SCH ×2 (22:26→22:55)
[2017-05-16] MEDS: TOTAL VOLUME IV SCH ×2 (22:26→22:55)
[2017-05-16] MEDS: VWF IV SCH ×2 (22:26→22:55)
[2017-05-16 23:00] VITALS: BP 113/28
[2017-05-16] MEDS ORDERED: VWF IV SCH (23:00)
[2017-05-16] MEDS ORDERED: TOTAL VOLUME IV SCH (23:00)
[2017-05-16] MEDS ORDERED: ANTIHEMOPHILIC FACTOR IV SCH (23:00)
[2017-05-16 23:30] VITALS: BP 115/58
[2017-05-17 03:01] VITALS: BP 108/42
[2017-05-17 07:00] VITALS: BP 116/45
--- NOTE | 2017-05-17 08:52 | PDOC2 ---
CONSULT Date of Consult Date of Consult DATE: 05/17/17 TIME: 08:35 Reason for Consult Reason for Consult: von Willebrands disease with GI bleed Referring Physician Referring Physician: Charles Identification/Chief Complaint Chief Complaint GI bleed Problems: Source Source: Chart review, Patient History of Present Illness Reason for Visit: 89 y/o with lifelong bleeding issues. At age 14, she was hospitalized after menarche and was in hospital for several months and ultimately had to have hysterectomy also with bleeding after procedures, including dental extracts and nose bleeds. 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 Had lab 10/2 and hemoglobin was 12.5 and then on 05/16 in clinic was 10.7. She had another melanotic stool at home after leaving clinic, but came here for admit last noc and started humate p and had dose later yest evening. No further stools yet, but still has some melanotic stool after she wipes. No bleed elsewhere. Past Medical History Cardiovascular: Other CENTRAL NERVOUS SYSTEM: Carpal Tunnel Syndrome GI: GERD Heme/Onc: Iron deficiency Anemia, Other Hepatobiliary: Cholelithiasis Rheumatologic: Other Renal/: Urinary Incontinence Endocrine: Hypothyroidism Past Surgical History Past Surgical History: Appendectomy, Hysterectomy, Colon Resection Family History Family History: No Significant, Other (She is not clear if anyone had bleeding issues in family. Mom lived to 80's without issues and father was 77 and of heart disease without major bleeding. A paternal grandmother in childbirth, but details not known. She has no biological sibs or children) Social History ALCOHOL: none Drugs: None Current Medications Current Medications Current Medications Sodium Chloride (Normal Saline Flush) 3 ml PRN DAILY PRN IV AFTER MEDS AND BLOOD DRAWS; Start 05/16/17 at 20:00 Ondansetron HCl (Zofran) 4 mg PRN Q6HRS PRN IV NAUSEA/VOMITING; Start 05/16/17 at 20:00 Oxycodone HCl (Roxicodone) 5 mg PRN Q3HRS PRN PO BREAKTHROUGH PAIN; Start 05/16 at 20:00 Aminocaproic Acid (Amicar) 1,000 mg QID PO Last administered on 05/16/17 21:23 ; Start 05/16/17 at 21:00 Antihemophilic Factor 3656 vwf/ Miscellaneous 30 ml @ 180 mls/hr DAILY@1400 IV ; Start 05/16/17 at 23:00; Stop 05/20/17 at 14:09; Status Cancel Sodium Chloride 1,000 ml @ 50 mls/hr 1X ONCE IV Last administered on 20:52; Start 05/16/17 at 20:30; Stop 05/17/17 at 16:29 Antihemophilic Factor 3656 vwf/ Miscellaneous 40 ml @ 240 mls/hr DAILY@1400 IV Last administered on 05/16/17 22:55; Start 05/16/17 at 22:00; Stop 05/20/17 at 14:09 Active Scripts Active Lasix (Furosemide) 40 Mg Tablet 1 Tab PO QOD Reported Vitamin D2 (Ergocalciferol (Vitamin D2)) 50,000 Unit Capsule 1,000 Unit PO DAILY Doxycycline Hyclate 100 Mg Tablet 1 Tab PO BID Resveratrol 250 Mg Capsule 250 Mg PO DAILY Vitamin D (Cholecalciferol (Vitamin D3)) 1,000 Unit Capsule 1 Cap PO DAILY Lysteda (Tranexamic Acid) 650 Mg Tablet 1,300 Mg PO BID Calcitriol 0.25 Mcg Capsule 1 Cap PO DAILY Selenium (Selenomethionine) 200 Mcg Tablet 200 Mcg PO DAILY Vitamin A 8,000 Unit Capsule 8,000 Unit PO Coconut Oil 1,000 Mg Capsule 1,000 Mg PO DAILY Magnesium (Magnesium Oxide) 500 Mg Capsule 500 Mg PO DAILY Omeprazole 40 Mg Capsule.dr 40 Mg PO DAILY Potassium Chloride 20 Meq Tab.er.prt 20 Meq PO DAILY Acetaminophen 500 Mg Tablet 500 Mg PO Q4-6HRS PRN Allopurinol 300 Mg Tablet 300 Mg PO DAILY Neurontin (Gabapentin) 100 Mg Capsule 100 Mg PO BID Vitamin B-12 (Cyanocobalamin (Vitamin B-12)) 1,000 Mcg Tablet 1,000 Mcg SL DAILY Osteo Bi-Flex Caplet (Gluc/Lyndon-Msm#1/C/Brandon/Alfredo/Bor) 1 Each Tablet 1 Each PO DAILY Levothyroxine Sodium Inj (Levothyroxine Sodium) 100 Mcg Vial 100 Mcg PO DAILY Nakita (Fexofenadine Hcl) 180 Mg Tablet 180 Mg PO DAILY Tramadol Hcl 50 Mg Tablet 50 Mg PO PRN QID Allergies Allergies: Coded Allergies: Iodinated Contrast- Oral and IV Dye (Verified Allergy, Severe, 03/03/17) Penicillins (Verified Allergy, Severe, Shortness of Air, 03/03/17) Sulfa (Sulfonamide Antibiotics) (Verified Allergy, Intermediate, 03/03/17) aspirin (Verified Adverse Reaction, Intermediate, 03/03/17) mcdonnell bleeding disorder and does not use aspirin codeine (Verified Adverse Reaction, Intermediate, Anxiety, 03/03/17) ROS Gastrointestinal: Yes Other (only mild pain in abdomen at times) Physical Exam General: Alert, Oriented X3, Cooperative, No acute distress HEENT: Atraumatic Lungs: Clear to auscultation Heart: Regular rate, Other (has murmur) Abdomen: Normal bowel sounds, Soft, No tenderness, No hepatosplenomegaly, No masses Extremities: No clubbing, No cyanosis, No edema, Normal pulses Skin: Other (diffuse ecchymosis on arms) Neuro: Normal speech, Normal tone, Cranial nerves 3-12 NL Psych/Mental Status: Mental status NL, Mood NL Vitals VITALS Vital Signs Date Time Temp Pulse Resp B/P (MAP) Pulse Ox O2 Delivery O2 Flow Rate FiO2 05/17/17 03:01 97.5 51 18 108/42 (64) 99 Room Air 97.5 Labs Labs Laboratory Tests Test 05/16/17 20:15 White Blood Count 6.2 x10^3/uL (4.0-11.0) Red Blood Count 3.16 x10^6/uL (3.50-5.40) Hemoglobin 10.6 g/dL (12.0-15.5) Hematocrit 32.1 % (36.0-47.0) Mean Corpuscular Volume 102 fL (79-100) Mean Corpuscular Hemoglobin 34 pg (25-35) Mean Corpuscular Hemoglobin Concent 33 g/dL (31-37) Red Cell Distribution Width 15.3 % (11.5-14.5) Platelet Count 141 x10^3/uL (140-400) Neutrophils (%) (Auto) 70 % (31-73) Lymphocytes (%) (Auto) 20 % (24-48) Monocytes (%) (Auto) 7 % (0-9) Eosinophils (%) (Auto) 2 % (0-3) Basophils (%) (Auto) 1 % (0-3) Neutrophils # (Auto) 4.3 x10^3uL (1.8-7.7) Lymphocytes # (Auto) 1.3 x10^3/uL (1.0-4.8) Monocytes # (Auto) 0.4 x10^3/uL (0.0-1.1) Eosinophils # (Auto) 0.1 x10^3/uL (0.0-0.7) Basophils # (Auto) 0.1 x10^3/uL (0.0-0.2) Prothrombin Time 13.0 SEC (11.7-14.0) Prothromb Time International Ratio 1.0 (0.8-1.1) Activated Partial Thromboplast Time 37 SEC (24-38) Sodium Level 140 mmol/L (136-145) Potassium Level 4.0 mmol/L (3.5-5.1) Chloride Level 99 mmol/L (98-107) Carbon Dioxide Level 37 mmol/L (21-32) Anion Gap 4 (6-14) Blood Urea Nitrogen 51 mg/dL (7-20) Creatinine 1.4 mg/dL (0.6-1.0) Estimated GFR (Cockcroft-Gault) 35.4 BUN/Creatinine Ratio 36 (6-20) Glucose Level 100 mg/dL (70-99) Calcium Level 10.9 mg/dL (8.5-10.1) Total Bilirubin 0.4 mg/dL (0.2-1.0) Aspartate Amino Transf (AST/SGOT) 27 U/L (15-37) Alanine Aminotransferase (ALT/SGPT) 21 U/L (14-59) Alkaline Phosphatase 97 U/L (46-116) Total Protein 8.2 g/dL (6.4-8.2) Albumin 3.8 g/dL (3.4-5.0) Albumin/Globulin Ratio 0.9 (1.0-1.7) Laboratory Tests Test 05/16/17 20:15 White Blood Count 6.2 x10^3/uL (4.0-11.0) Red Blood Count 3.16 x10^6/uL (3.50-5.40) Hemoglobin 10.6 g/dL (12.0-15.5) Hematocrit 32.1 % (36.0-47.0) Mean Corpuscular Volume 102 fL (79-100) Mean Corpuscular Hemoglobin 34 pg (25-35) Mean Corpuscular Hemoglobin Concent 33 g/dL (31-37) Red Cell Distribution Width 15.3 % (11.5-14.5) Platelet Count 141 x10^3/uL (140-400) Neutrophils (%) (Auto) 70 % (31-73) Lymphocytes (%) (Auto) 20 % (24-48) Monocytes (%) (Auto) 7 % (0-9) Eosinophils (%) (Auto) 2 % (0-3) Basophils (%) (Auto) 1 % (0-3) Neutrophils # (Auto) 4.3 x10^3uL (1.8-7.7) Lymphocytes # (Auto) 1.3 x10^3/uL (1.0-4.8) Monocytes # (Auto) 0.4 x10^3/uL (0.0-1.1) Eosinophils # (Auto) 0.1 x10^3/uL (0.0-0.7) Basophils # (Auto) 0.1 x10^3/uL (0.0-0.2) Prothrombin Time 13.0 SEC (11.7-14.0) Prothromb Time International Ratio 1.0 (0.8-1.1) Activated Partial Thromboplast Time 37 SEC (24-38) Sodium Level 140 mmol/L (136-145) Potassium Level 4.0 mmol/L (3.5-5.1) Chloride Level 99 mmol/L (98-107) Carbon Dioxide Level 37 mmol/L (21-32) Anion Gap 4 (6-14) Blood Urea Nitrogen 51 mg/dL (7-20) Creatinine 1.4 mg/dL (0.6-1.0) Estimated GFR (Cockcroft-Gault) 35.4 BUN/Creatinine Ratio 36 (6-20) Glucose Level 100 mg/dL (70-99) Calcium Level 10.9 mg/dL (8.5-10.1) Total Bilirubin 0.4 mg/dL (0.2-1.0) Aspartate Amino Transf (AST/SGOT) 27 U/L (15-37) Alanine Aminotransferase (ALT/SGPT) 21 U/L (14-59) Alkaline Phosphatase 97 U/L (46-116) Total Protein 8.2 g/dL (6.4-8.2) Albumin 3.8 g/dL (3.4-5.0) Albumin/Globulin Ratio 0.9 (1.0-1.7) Assessment/Plan Assessment/Plan 1. 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 Regardless, she should continue humate p at present dose every 12 hours and plan to continue over weekend. It looks like it is ordered once daily at present, so will d/w pharmacy to change. Also continue amicar QID at present. If stable by Friday, may be able to transition to once daily outpt dosing humate , but should continue twice daily at least thru weekend. As outpt she will also resume tranxemanic acid which is cheaper. Would follow cbc - daily should be ok, unless increase bleed and can be transfused with prbc if indicated. Will follow with you while she is inpt. ANNA SARABIA MD May 17, 2017 08:52
[2017-05-17] MEDS: AMINOCAPROIC ACID 500 MG TABLET. PO SCH ×4 (09:04→20:40)
[2017-05-17 09:56] LABS: BASO # 0.1 x10^3/uL (0.0-0.2); BASO % 1 % (0-3); EOS % 3 % (0-3); HEMATOCRIT 26.3 % (36.0-47.0); HEMOGLOBIN 8.9 g/dL (12.0-15.5); LYMPH # 0.8 x10^3/uL (1.0-4.8); LYMPH % 22 % (24-48); MEAN CORPUSCULAR HEMOGLOBIN 34 pg (25-35); MEAN CORPUSCULAR HGB CONC 34 g/dL (31-37); MEAN CORPUSCULAR VOLUME 101 fL (79-100); MONO % 7 % (0-9); NEUT % 67 % (31-73); PLATELET COUNT 109 x10^3/uL (140-400); RED BLOOD COUNT 2.62 x10^6/uL (3.50-5.40); RED CELL DISTRIBUTION WIDTH 14.9 % (11.5-14.5); WHITE BLOOD COUNT 3.8 x10^3/uL (4.0-11.0)
[2017-05-17] MEDS: VWF IV SCH ×2 (10:26→21:14)
[2017-05-17] MEDS: TOTAL VOLUME IV SCH ×2 (10:26→21:14)
[2017-05-17] MEDS: ANTIHEMOPHILIC FACTOR IV SCH ×2 (10:26→21:14)
[2017-05-17 10:39] VITALS: BP 124/37
[2017-05-17 15:00] VITALS: BP 118/36
[2017-05-17 19:00] VITALS: BP 106/33
[2017-05-17] MEDS ORDERED: LEVO100T5 PO (20:26)
[2017-05-17] MEDS: traMADol 50 MG TABLET PO PRN (20:43)
[2017-05-17 23:00] VITALS: BP 146/65
[2017-05-18] VITALS (12 sets, daily range): BP systolic 93–122; BP diastolic 34–53
[2017-05-18 05:40] LABS: BASO % 1 % (0-3); EOS % 2 % (0-3); HEMOGLOBIN 7.3 g/dL (12.0-15.5); LYMPH % 27 % (24-48); MEAN CORPUSCULAR HEMOGLOBIN 34 pg (25-35); MEAN CORPUSCULAR HGB CONC 33 g/dL (31-37); MEAN CORPUSCULAR VOLUME 101 fL (79-100); MONO % 8 % (0-9); NEUT % 61 % (31-73); PLATELET COUNT 95 x10^3/uL (140-400); RED BLOOD COUNT 2.18 x10^6/uL (3.50-5.40); RED CELL DISTRIBUTION WIDTH 15.3 % (11.5-14.5); WHITE BLOOD COUNT 3.7 x10^3/uL (4.0-11.0)
[2017-05-18] MEDS: LEVOTHYROXINE 100 MCG TABLET PO SCH (05:54)
--- NOTE | 2017-05-18 07:11 | PDOC ---
PROGRESS NOTES Subjective Subjective Heme f/u admitted with GI bleed/melena and vWD. Currently on humate p twice daily and amicar QID Did have another dark stool last noc - feels generally weak, but no specific pulm c/o Objective Objective Vital Signs Date Time Temp Pulse Resp B/P (MAP) Pulse Ox O2 Delivery O2 Flow Rate FiO2 05/18/17 03:00 97.5 54 20 93/34 (53) 96 Room Air 97.5 Physical Exam Abdomen: Normal bowel sounds, Soft, No tenderness Heart: Regular rate Extremities: No edema General: Alert, Oriented X3, Cooperative, No acute distress Lungs: Clear to auscultation Assessment Assessment 1. vWD and ongoing GI bleed hemoglobin has dropped from 10.6 Fri evening to 7.3 this am will plan 1 unit of blood, continue humate p q 12 hours and amicar. If bleeding persists, can increase humate p to every 8 hours. She voiced understanding of the plan and agrees to transfusion and continued humate p Comment Review of Relevant I have reviewed the following items benjy (where applicable) has been applied. Labs Laboratory Tests Test 05/16/17 20:15 05/17/17 09:29 05/18/17 04:17 White Blood Count 6.2 x10^3/uL (4.0-11.0) 3.8 x10^3/uL (4.0-11.0) 3.7 x10^3/uL (4.0-11.0) Red Blood Count 3.16 x10^6/uL (3.50-5.40) 2.62 x10^6/uL (3.50-5.40) 2.18 x10^6/uL (3.50-5.40) Hemoglobin 10.6 g/dL (12.0-15.5) 8.9 g/dL (12.0-15.5) 7.3 g/dL (12.0-15.5) Hematocrit 32.1 % (36.0-47.0) 26.3 % (36.0-47.0) 22.0 % (36.0-47.0) Mean Corpuscular Volume 102 fL (79-100) 101 fL (79-100) 101 fL (79-100) Mean Corpuscular Hemoglobin 34 pg (25-35) 34 pg (25-35) 34 pg (25-35) Mean Corpuscular Hemoglobin Concent 33 g/dL (31-37) 34 g/dL (31-37) 33 g/dL (31-37) Red Cell Distribution Width 15.3 % (11.5-14.5) 14.9 % (11.5-14.5) 15.3 % (11.5-14.5) Platelet Count 141 x10^3/uL (140-400) 109 x10^3/uL (140-400) 95 x10^3/uL (140-400) Neutrophils (%) (Auto) 70 % (31-73) 67 % (31-73) 61 % (31-73) Lymphocytes (%) (Auto) 20 % (24-48) 22 % (24-48) 27 % (24-48) Monocytes (%) (Auto) 7 % (0-9) 7 % (0-9) 8 % (0-9) Eosinophils (%) (Auto) 2 % (0-3) 3 % (0-3) 2 % (0-3) Basophils (%) (Auto) 1 % (0-3) 1 % (0-3) 1 % (0-3) Neutrophils # (Auto) 4.3 x10^3uL (1.8-7.7) 2.6 x10^3uL (1.8-7.7) 2.3 x10^3uL (1.8-7.7) Lymphocytes # (Auto) 1.3 x10^3/uL (1.0-4.8) 0.8 x10^3/uL (1.0-4.8) 1.0 x10^3/uL (1.0-4.8) Monocytes # (Auto) 0.4 x10^3/uL (0.0-1.1) 0.3 x10^3/uL (0.0-1.1) 0.3 x10^3/uL (0.0-1.1) Eosinophils # (Auto) 0.1 x10^3/uL (0.0-0.7) 0.1 x10^3/uL (0.0-0.7) 0.1 x10^3/uL (0.0-0.7) Basophils # (Auto) 0.1 x10^3/uL (0.0-0.2) 0.1 x10^3/uL (0.0-0.2) 0.0 x10^3/uL (0.0-0.2) Prothrombin Time 13.0 SEC (11.7-14.0) Prothromb Time International Ratio 1.0 (0.8-1.1) Activated Partial Thromboplast Time 37 SEC (24-38) Sodium Level 140 mmol/L (136-145) Potassium Level 4.0 mmol/L (3.5-5.1) Chloride Level 99 mmol/L (98-107) Carbon Dioxide Level 37 mmol/L (21-32) Anion Gap 4 (6-14) Blood Urea Nitrogen 51 mg/dL (7-20) Creatinine 1.4 mg/dL (0.6-1.0) Estimated GFR (Cockcroft-Gault) 35.4 BUN/Creatinine Ratio 36 (6-20) Glucose Level 100 mg/dL (70-99) Calcium Level 10.9 mg/dL (8.5-10.1) Total Bilirubin 0.4 mg/dL (0.2-1.0) Aspartate Amino Transf (AST/SGOT) 27 U/L (15-37) Alanine Aminotransferase (ALT/SGPT) 21 U/L (14-59) Alkaline Phosphatase 97 U/L (46-116) Total Protein 8.2 g/dL (6.4-8.2) Albumin 3.8 g/dL (3.4-5.0) Albumin/Globulin Ratio 0.9 (1.0-1.7) Laboratory Tests Test 05/17/17 09:29 05/18/17 04:17 White Blood Count 3.8 x10^3/uL (4.0-11.0) 3.7 x10^3/uL (4.0-11.0) Red Blood Count 2.62 x10^6/uL (3.50-5.40) 2.18 x10^6/uL (3.50-5.40) Hemoglobin 8.9 g/dL (12.0-15.5) 7.3 g/dL (12.0-15.5) Hematocrit 26.3 % (36.0-47.0) 22.0 % (36.0-47.0) Mean Corpuscular Volume 101 fL (79-100) 101 fL (79-100) Mean Corpuscular Hemoglobin 34 pg (25-35) 34 pg (25-35) Mean Corpuscular Hemoglobin Concent 34 g/dL (31-37) 33 g/dL (31-37) Red Cell Distribution Width 14.9 % (11.5-14.5) 15.3 % (11.5-14.5) Platelet Count 109 x10^3/uL (140-400) 95 x10^3/uL (140-400) Neutrophils (%) (Auto) 67 % (31-73) 61 % (31-73) Lymphocytes (%) (Auto) 22 % (24-48) 27 % (24-48) Monocytes (%) (Auto) 7 % (0-9) 8 % (0-9) Eosinophils (%) (Auto) 3 % (0-3) 2 % (0-3) Basophils (%) (Auto) 1 % (0-3) 1 % (0-3) Neutrophils # (Auto) 2.6 x10^3uL (1.8-7.7) 2.3 x10^3uL (1.8-7.7) Lymphocytes # (Auto) 0.8 x10^3/uL (1.0-4.8) 1.0 x10^3/uL (1.0-4.8) Monocytes # (Auto) 0.3 x10^3/uL (0.0-1.1) 0.3 x10^3/uL (0.0-1.1) Eosinophils # (Auto) 0.1 x10^3/uL (0.0-0.7) 0.1 x10^3/uL (0.0-0.7) Basophils # (Auto) 0.1 x10^3/uL (0.0-0.2) 0.0 x10^3/uL (0.0-0.2) Medications Current Medications Sodium Chloride (Normal Saline Flush) 3 ml PRN DAILY PRN IV AFTER MEDS AND BLOOD DRAWS; Start 05/16/17 at 20:00 Ondansetron HCl (Zofran) 4 mg PRN Q6HRS PRN IV NAUSEA/VOMITING; Start 05/16/17 at 20:00 Oxycodone HCl (Roxicodone) 5 mg PRN Q3HRS PRN PO BREAKTHROUGH PAIN; Start 05/16 at 20:00 Aminocaproic Acid (Amicar) 1,000 mg QID PO Last administered on 05/17/17 20:40 ; Start 05/16/17 at 21:00 Antihemophilic Factor 3656 vwf/ Miscellaneous 30 ml @ 180 mls/hr DAILY@1400 IV ; Start 05/16/17 at 23:00; Stop 05/20/17 at 14:09; Status Cancel Sodium Chloride 1,000 ml @ 50 mls/hr 1X ONCE IV Last administered on 20:52; Start 05/16/17 at 20:30; Stop 05/17/17 at 16:29; Status DC Antihemophilic Factor 3656 vwf/ Miscellaneous 40 ml @ 240 mls/hr DAILY@1400 IV Last administered on 05/16/17 22:55; Start 05/16/17 at 22:00; Stop 05/17/17 at 09:04; Status DC Antihemophilic Factor 3656 vwf/ Miscellaneous 40 ml @ 240 mls/hr BID IV Last administered on 05/17/17 21:14; Start 05/17/17 at 10:00; Stop 05/19/17 at 09:09 Tramadol HCl (Ultram) 50 mg PRN QID PRN PO PAIN Last administered on 05/17/17 20:43; Start 05/17/17 at 20:30 Levothyroxine Sodium (Synthroid) 100 mcg DAILY07 PO Last administered on 05:54; Start 05/18/17 at 07:00 Acetaminophen (Tylenol) 500 mg PRN Q6HRS PRN PO PAIN; Start 05/17/17 at 21:45 Active Scripts Active Lasix (Furosemide) 40 Mg Tablet 1 Tab PO QOD Reported Levothyroxine Sodium 100 Mcg Tablet 1 Tab PO DAILY Vitamin D2 (Ergocalciferol (Vitamin D2)) 50,000 Unit Capsule 1,000 Unit PO DAILY Doxycycline Hyclate 100 Mg Tablet 1 Tab PO BID Resveratrol 250 Mg Capsule 250 Mg PO DAILY Vitamin D (Cholecalciferol (Vitamin D3)) 1,000 Unit Capsule 1 Cap PO DAILY Lysteda (Tranexamic Acid) 650 Mg Tablet 1,300 Mg PO BID Calcitriol 0.25 Mcg Capsule 1 Cap PO DAILY Selenium (Selenomethionine) 200 Mcg Tablet 200 Mcg PO DAILY Vitamin A 8,000 Unit Capsule 8,000 Unit PO Coconut Oil 1,000 Mg Capsule 1,000 Mg PO DAILY Magnesium (Magnesium Oxide) 500 Mg Capsule 500 Mg PO DAILY Omeprazole 40 Mg Capsule.dr 40 Mg PO DAILY Potassium Chloride 20 Meq Tab.er.prt 20 Meq PO DAILY Acetaminophen 500 Mg Tablet 500 Mg PO Q4-6HRS PRN Allopurinol 300 Mg Tablet 300 Mg PO DAILY Neurontin (Gabapentin) 100 Mg Capsule 100 Mg PO BID Vitamin B-12 (Cyanocobalamin (Vitamin B-12)) 1,000 Mcg Tablet 1,000 Mcg SL DAILY Osteo Bi-Flex Caplet (Gluc/Lyndon-Msm#1/C/Brandon/Alfredo/Bor) 1 Each Tablet 1 Each PO DAILY Nakita (Fexofenadine Hcl) 180 Mg Tablet 180 Mg PO DAILY Tramadol Hcl 50 Mg Tablet 50 Mg PO PRN QID Vitals/I & O Vital Sign - Last 24 Hours 05/17/17 05/17/17 05/17/17 05/17/17 08:10 10:39 15:00 19:00 Temp 96.8 95.9 97.5 96.8 95.9 97.5 Pulse 57 60 60 Resp 20 20 20 B/P (MAP) 124/37 (66) 118/36 (63) 106/33 (57) Pulse Ox 97 97 95 O2 Delivery Room Air Room Air Room Air Room Air 05/17/17 05/17/17 05/17/17 05/18/17 20:43 21:55 23:00 03:00 Temp 97.9 97.5 97.9 97.5 Pulse 68 54 Resp 18 18 20 20 B/P (MAP) 146/65 (92) 93/34 (53) Pulse Ox 98 96 O2 Delivery Nasal Cannula Room Air Room Air Room Air ANNA SARABIA MD May 18, 2017 07:11
[2017-05-18] MEDS: AMINOCAPROIC ACID 500 MG TABLET. PO SCH ×4 (08:26→20:57)
--- NOTE | 2017-05-18 08:42 | PDOC ---
PROGRESS NOTES Chief Complaint Chief Complaint Plz note: late entry; pt was seen on 05/17/10 at 1600 CC: GIB vWD ASSESSMENT AND PLAN: 1. GIB: recurrent. ongong melena at this time. 2. vW coagulopathy: appreciate Heme input. cont HumateP and amicar 3. Anemia: acute bleed. monitor H/H transfuse for Hgb <8 History of Present Illness History of Present Illness melanotic stools x2 in past 12 h. no pain, no N/V Vitals Vitals Vital Signs Date Time Temp Pulse Resp B/P (MAP) Pulse Ox O2 Delivery O2 Flow Rate FiO2 05/18/17 07:00 97.6 55 16 104/45 (64) 95 Room Air 97.6 Physical Exam General: Alert, Oriented X3, Cooperative, No acute distress Heart: Regular rate Lungs: Clear Abdomen: Normal bowel sounds, Soft, No tenderness Extremities: No edema Skin: Other (diffuse ecchymosis on arms) Labs LABS Laboratory Tests Test 05/17/17 09:29 05/18/17 04:17 White Blood Count 3.8 x10^3/uL (4.0-11.0) 3.7 x10^3/uL (4.0-11.0) Red Blood Count 2.62 x10^6/uL (3.50-5.40) 2.18 x10^6/uL (3.50-5.40) Hemoglobin 8.9 g/dL (12.0-15.5) 7.3 g/dL (12.0-15.5) Hematocrit 26.3 % (36.0-47.0) 22.0 % (36.0-47.0) Mean Corpuscular Volume 101 fL (79-100) 101 fL (79-100) Mean Corpuscular Hemoglobin 34 pg (25-35) 34 pg (25-35) Mean Corpuscular Hemoglobin Concent 34 g/dL (31-37) 33 g/dL (31-37) Red Cell Distribution Width 14.9 % (11.5-14.5) 15.3 % (11.5-14.5) Platelet Count 109 x10^3/uL (140-400) 95 x10^3/uL (140-400) Neutrophils (%) (Auto) 67 % (31-73) 61 % (31-73) Lymphocytes (%) (Auto) 22 % (24-48) 27 % (24-48) Monocytes (%) (Auto) 7 % (0-9) 8 % (0-9) Eosinophils (%) (Auto) 3 % (0-3) 2 % (0-3) Basophils (%) (Auto) 1 % (0-3) 1 % (0-3) Neutrophils # (Auto) 2.6 x10^3uL (1.8-7.7) 2.3 x10^3uL (1.8-7.7) Lymphocytes # (Auto) 0.8 x10^3/uL (1.0-4.8) 1.0 x10^3/uL (1.0-4.8) Monocytes # (Auto) 0.3 x10^3/uL (0.0-1.1) 0.3 x10^3/uL (0.0-1.1) Eosinophils # (Auto) 0.1 x10^3/uL (0.0-0.7) 0.1 x10^3/uL (0.0-0.7) Basophils # (Auto) 0.1 x10^3/uL (0.0-0.2) 0.0 x10^3/uL (0.0-0.2) TRUNG VALENTE MD May 18, 2017 08:42
--- NOTE | 2017-05-18 08:50 | PDOC ---
PROGRESS NOTES Chief Complaint Chief Complaint GIB vWD ASSESSMENT AND PLAN: 1. GIB: recurrent. ongoing melena, scant amounts 2. vW coagulopathy: cont HumateP and amicar. Heme service following 3. Anemia: acute bleed. transfuse PRBC x1 today. H/H this PM. iron studies pending 4. hypothyroidism: on synthroid; check TSH 5. 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 no NSAIDs. tylenol, norco PRN 6. GI prophylaxis: PPI History of Present Illness History of Present Illness several smal melanotic BMs. no abd pain, mild rectal discomfort Vitals Vitals Vital Signs Date Time Temp Pulse Resp B/P (MAP) Pulse Ox O2 Delivery O2 Flow Rate FiO2 05/18/17 07:00 97.6 55 16 104/45 (64) 95 Room Air 97.6 Physical Exam General: Alert, Oriented X3, Cooperative, No acute distress Heart: Regular rate Lungs: Clear Abdomen: Normal bowel sounds, Soft, No tenderness Extremities: No edema Skin: Other (diffuse ecchymosis on arms) Labs LABS Laboratory Tests Test 05/17/17 09:29 05/18/17 04:17 White Blood Count 3.8 x10^3/uL (4.0-11.0) 3.7 x10^3/uL (4.0-11.0) Red Blood Count 2.62 x10^6/uL (3.50-5.40) 2.18 x10^6/uL (3.50-5.40) Hemoglobin 8.9 g/dL (12.0-15.5) 7.3 g/dL (12.0-15.5) Hematocrit 26.3 % (36.0-47.0) 22.0 % (36.0-47.0) Mean Corpuscular Volume 101 fL (79-100) 101 fL (79-100) Mean Corpuscular Hemoglobin 34 pg (25-35) 34 pg (25-35) Mean Corpuscular Hemoglobin Concent 34 g/dL (31-37) 33 g/dL (31-37) Red Cell Distribution Width 14.9 % (11.5-14.5) 15.3 % (11.5-14.5) Platelet Count 109 x10^3/uL (140-400) 95 x10^3/uL (140-400) Neutrophils (%) (Auto) 67 % (31-73) 61 % (31-73) Lymphocytes (%) (Auto) 22 % (24-48) 27 % (24-48) Monocytes (%) (Auto) 7 % (0-9) 8 % (0-9) Eosinophils (%) (Auto) 3 % (0-3) 2 % (0-3) Basophils (%) (Auto) 1 % (0-3) 1 % (0-3) Neutrophils # (Auto) 2.6 x10^3uL (1.8-7.7) 2.3 x10^3uL (1.8-7.7) Lymphocytes # (Auto) 0.8 x10^3/uL (1.0-4.8) 1.0 x10^3/uL (1.0-4.8) Monocytes # (Auto) 0.3 x10^3/uL (0.0-1.1) 0.3 x10^3/uL (0.0-1.1) Eosinophils # (Auto) 0.1 x10^3/uL (0.0-0.7) 0.1 x10^3/uL (0.0-0.7) Basophils # (Auto) 0.1 x10^3/uL (0.0-0.2) 0.0 x10^3/uL (0.0-0.2) TRUNG VALENTE MD May 18, 2017 08:50
[2017-05-18] MEDS ORDERED: RESVERATROL 250 MG PO SCH (09:00)
[2017-05-18] MEDS ORDERED: TRANEXAMIC ACID 1300 MG PO SCH (09:00)
[2017-05-18] MEDS ORDERED: [UNRECOGNIZED DRUG - OTHER] PO SCH (09:00)
[2017-05-18] MEDS ORDERED: ERGOCALCIFEROL (VITAMIN D2) 50,000 UNIT CAPSULE. PO SCH (09:00)
[2017-05-18] MEDS: ALLOPURINOL 300 MG TABLET. PO SCH (09:41)
[2017-05-18] MEDS: CALCITRIOL 0.25 MCG CAPSULE. PO SCH (09:41)
[2017-05-18] MEDS: FUROSEMIDE 40 MG TABLET. PO SCH (09:41)
[2017-05-18] MEDS: CETIRIZINE HCL 10 MG TABLET. PO SCH (09:41)
[2017-05-18] MEDS: POTASSIUM CHLORIDE 20 MEQ TABLET.ER. PO SCH (09:41)
[2017-05-18] MEDS: CYANOCOBALAMIN (VITAMIN B-12) 1,000 MCG TABLET. PO SCH (09:41)
[2017-05-18] MEDS: VWF IV SCH ×2 (09:48→21:27)
[2017-05-18] MEDS: ANTIHEMOPHILIC FACTOR IV SCH ×2 (09:48→21:27)
[2017-05-18] MEDS: TOTAL VOLUME IV SCH ×2 (09:48→21:27)
[2017-05-18] MEDS: GABAPENTIN 100 MG CAPSULE. PO SCH ×2 (11:52→20:55)
[2017-05-18] MEDS: PANTOPRAZOLE 40 MG TABLET.DR. PO SCH (11:52)
[2017-05-18] MEDS: ACETAMINOPHEN 500 MG TABLET PO PRN (22:36)
[2017-05-18] MEDS: traMADol 50 MG TABLET PO PRN (22:36)
[2017-05-19 03:00] VITALS: BP 105/35
[2017-05-19] MEDS: LEVOTHYROXINE 100 MCG TABLET PO SCH (06:02)
[2017-05-19 06:09] LABS: BASO % 1 % (0-3); EOS % 4 % (0-3); HEMATOCRIT 22.8 % (36.0-47.0); HEMOGLOBIN 7.6 g/dL (12.0-15.5); LYMPH # 1.1 x10^3/uL (1.0-4.8); LYMPH % 26 % (24-48); MEAN CORPUSCULAR HEMOGLOBIN 33 pg (25-35); MEAN CORPUSCULAR HGB CONC 33 g/dL (31-37); MEAN CORPUSCULAR VOLUME 98 fL (79-100); MONO % 9 % (0-9); NEUT % 60 % (31-73); PLATELET COUNT 99 x10^3/uL (140-400); RED BLOOD COUNT 2.34 x10^6/uL (3.50-5.40); RED CELL DISTRIBUTION WIDTH 17.9 % (11.5-14.5); WHITE BLOOD COUNT 4.1 x10^3/uL (4.0-11.0)
[2017-05-19 06:17] LABS: % SAT IRON 39 % (15-34); IRON,SERUM 89 ug/dL (50-170)
[2017-05-19 07:00] VITALS: BP 99/35
[2017-05-19] MEDS: PANTOPRAZOLE 40 MG TABLET.DR. PO SCH (07:55)
[2017-05-19] MEDS: VWF IV SCH ×3 (08:44→21:20)
[2017-05-19] MEDS: ANTIHEMOPHILIC FACTOR IV SCH ×3 (08:44→21:20)
[2017-05-19] MEDS: TOTAL VOLUME IV SCH ×3 (08:44→21:20)
[2017-05-19] MEDS: ALLOPURINOL 300 MG TABLET. PO SCH (09:00)
[2017-05-19] MEDS: FUROSEMIDE 40 MG TABLET. PO SCH (09:00)
[2017-05-19] MEDS: CHOLECALCIFEROL (VITAMIN D3) 1,000 UNIT TABLET PO SCH (09:01)
[2017-05-19] MEDS: MAGNESIUM OXIDE 400 MG TABLET PO SCH (09:01)
[2017-05-19] MEDS: CYANOCOBALAMIN (VITAMIN B-12) 1,000 MCG TABLET. PO SCH (09:01)
[2017-05-19] MEDS: CETIRIZINE HCL 10 MG TABLET. PO SCH (09:01)
[2017-05-19] MEDS: AMINOCAPROIC ACID 500 MG TABLET. PO SCH ×4 (09:01→21:18)
[2017-05-19] MEDS: GABAPENTIN 100 MG CAPSULE. PO SCH ×2 (09:01→21:00)
[2017-05-19] MEDS: CALCITRIOL 0.25 MCG CAPSULE. PO SCH (09:01)
[2017-05-19] MEDS: POTASSIUM CHLORIDE 20 MEQ TABLET.ER. PO SCH (09:03)
--- NOTE | 2017-05-19 09:21 | PDOC ---
PROGRESS NOTES Subjective Subjective HPI - vWD and ongoing GI bleed ROS - had melena Objective Objective Vital Signs Date Time Temp Pulse Resp B/P (MAP) Pulse Ox O2 Delivery O2 Flow Rate FiO2 05/19/17 03:00 97.5 55 20 105/35 (58) 96 Room Air 97.5 Intake and Output 05/20/17 07:00 Intake Total 40 ml Balance 40 ml IV Total 40 ml Physical Exam Heart: Normal S1, Normal S2 General: Alert, Oriented X3 Lungs: Clear to auscultation Neuro: Normal speech Assessment Assessment Assessment/Plan 1. vWD and ongoing GI bleed hemoglobin has dropped from 10.6 Fri evening to 7.3 on 05/18/17 s/p 1 u PRBC 05/18/17 Hb 7.6 on 05/19/17 Had black stools 05/18/17 Continue humate p , increase to q 8 hours from 05/19/17 and cont amicar. I 2. Anemia, monitor hb Comment Review of Relevant I have reviewed the following items benjy (where applicable) has been applied. Labs Laboratory Tests Test 05/17/17 09:29 05/18/17 04:17 05/19/17 03:15 White Blood Count 3.8 x10^3/uL (4.0-11.0) 3.7 x10^3/uL (4.0-11.0) 4.1 x10^3/uL (4.0-11.0) Red Blood Count 2.62 x10^6/uL (3.50-5.40) 2.18 x10^6/uL (3.50-5.40) 2.34 x10^6/uL (3.50-5.40) Hemoglobin 8.9 g/dL (12.0-15.5) 7.3 g/dL (12.0-15.5) 7.6 g/dL (12.0-15.5) Hematocrit 26.3 % (36.0-47.0) 22.0 % (36.0-47.0) 22.8 % (36.0-47.0) Mean Corpuscular Volume 101 fL (79-100) 101 fL (79-100) 98 fL (79-100) Mean Corpuscular Hemoglobin 34 pg (25-35) 34 pg (25-35) 33 pg (25-35) Mean Corpuscular Hemoglobin Concent 34 g/dL (31-37) 33 g/dL (31-37) 33 g/dL (31-37) Red Cell Distribution Width 14.9 % (11.5-14.5) 15.3 % (11.5-14.5) 17.9 % (11.5-14.5) Platelet Count 109 x10^3/uL (140-400) 95 x10^3/uL (140-400) 99 x10^3/uL (140-400) Neutrophils (%) (Auto) 67 % (31-73) 61 % (31-73) 60 % (31-73) Lymphocytes (%) (Auto) 22 % (24-48) 27 % (24-48) 26 % (24-48) Monocytes (%) (Auto) 7 % (0-9) 8 % (0-9) 9 % (0-9) Eosinophils (%) (Auto) 3 % (0-3) 2 % (0-3) 4 % (0-3) Basophils (%) (Auto) 1 % (0-3) 1 % (0-3) 1 % (0-3) Neutrophils # (Auto) 2.6 x10^3uL (1.8-7.7) 2.3 x10^3uL (1.8-7.7) 2.5 x10^3uL (1.8-7.7) Lymphocytes # (Auto) 0.8 x10^3/uL (1.0-4.8) 1.0 x10^3/uL (1.0-4.8) 1.1 x10^3/uL (1.0-4.8) Monocytes # (Auto) 0.3 x10^3/uL (0.0-1.1) 0.3 x10^3/uL (0.0-1.1) 0.4 x10^3/uL (0.0-1.1) Eosinophils # (Auto) 0.1 x10^3/uL (0.0-0.7) 0.1 x10^3/uL (0.0-0.7) 0.2 x10^3/uL (0.0-0.7) Basophils # (Auto) 0.1 x10^3/uL (0.0-0.2) 0.0 x10^3/uL (0.0-0.2) 0.0 x10^3/uL (0.0-0.2) Iron Level 89 ug/dL (50-170) Total Iron Binding Capacity 229 ug/dL (250-450) Iron Saturation 39 % (15-34) Ferritin 484 ng/mL (8-252) Laboratory Tests Test 05/19/17 03:15 White Blood Count 4.1 x10^3/uL (4.0-11.0) Red Blood Count 2.34 x10^6/uL (3.50-5.40) Hemoglobin 7.6 g/dL (12.0-15.5) Hematocrit 22.8 % (36.0-47.0) Mean Corpuscular Volume 98 fL (79-100) Mean Corpuscular Hemoglobin 33 pg (25-35) Mean Corpuscular Hemoglobin Concent 33 g/dL (31-37) Red Cell Distribution Width 17.9 % (11.5-14.5) Platelet Count 99 x10^3/uL (140-400) Neutrophils (%) (Auto) 60 % (31-73) Lymphocytes (%) (Auto) 26 % (24-48) Monocytes (%) (Auto) 9 % (0-9) Eosinophils (%) (Auto) 4 % (0-3) Basophils (%) (Auto) 1 % (0-3) Neutrophils # (Auto) 2.5 x10^3uL (1.8-7.7) Lymphocytes # (Auto) 1.1 x10^3/uL (1.0-4.8) Monocytes # (Auto) 0.4 x10^3/uL (0.0-1.1) Eosinophils # (Auto) 0.2 x10^3/uL (0.0-0.7) Basophils # (Auto) 0.0 x10^3/uL (0.0-0.2) Iron Level 89 ug/dL (50-170) Total Iron Binding Capacity 229 ug/dL (250-450) Iron Saturation 39 % (15-34) Ferritin 484 ng/mL (8-252) Medications Current Medications Sodium Chloride (Normal Saline Flush) 3 ml PRN DAILY PRN IV AFTER MEDS AND BLOOD DRAWS; Start 05/16/17 at 20:00 Ondansetron HCl (Zofran) 4 mg PRN Q6HRS PRN IV NAUSEA/VOMITING; Start 05/16/17 at 20:00 Oxycodone HCl (Roxicodone) 5 mg PRN Q3HRS PRN PO BREAKTHROUGH PAIN; Start 05/16 at 20:00 Aminocaproic Acid (Amicar) 1,000 mg QID PO Last administered on 05/19/17 09:01 ; Start 05/16/17 at 21:00 Antihemophilic Factor 3656 vwf/ Miscellaneous 30 ml @ 180 mls/hr DAILY@1400 IV ; Start 05/16/17 at 23:00; Stop 05/20/17 at 14:09; Status Cancel Sodium Chloride 1,000 ml @ 50 mls/hr 1X ONCE IV Last administered on 20:52; Start 05/16/17 at 20:30; Stop 05/17/17 at 16:29; Status DC Antihemophilic Factor 3656 vwf/ Miscellaneous 40 ml @ 240 mls/hr DAILY@1400 IV Last administered on 05/16/17 22:55; Start 05/16/17 at 22:00; Stop 05/17/17 at 09:04; Status DC Antihemophilic Factor 3656 vwf/ Miscellaneous 40 ml @ 240 mls/hr BID IV Last administered on 05/19/17 08:44; Start 05/17/17 at 10:00; Stop 05/19/17 at 09:09 ; Status DC Tramadol HCl (Ultram) 50 mg PRN QID PRN PO PAIN Last administered on 05/18/17 22:36; Start 05/17/17 at 20:30 Levothyroxine Sodium (Synthroid) 100 mcg DAILY07 PO Last administered on 06:02; Start 05/18/17 at 07:00 Acetaminophen (Tylenol) 500 mg PRN Q6HRS PRN PO PAIN Last administered on 22:36; Start 05/17/17 at 21:45 Allopurinol (Zyloprim) 300 mg DAILY PO Last administered on 05/19/17 09:00; Start 05/18/17 at 09:00 Calcitriol (Rocaltrol) 0.25 mcg DAILY PO Last administered on 05/19/17 09:01; Start 05/18/17 at 09:00 Cyanocobalamin (Vitamin B-12) 1,000 mcg DAILY PO Last administered on 09:01; Start 05/18/17 at 09:00 Ergocalciferol (Vitamin D2) 1,000 unit DAILY PO ; Start 05/18/17 at 09:00; Status Cancel Furosemide (Lasix) 40 mg DAILY PO Last administered on 05/18/17 09:41; Start 05/18/17 at 09:00 Gabapentin (Neurontin) 100 mg BID PO Last administered on 05/19/17 09:01; Start 05/18/17 at 09:00 Potassium Chloride (Klor-Con) 20 meq DAILY PO Last administered on 05/19/17 09 :03; Start 05/18/17 at 09:00 Vitamin D (Vitamin D3) 1,000 unit DAILY PO Last administered on 05/19/17 09:01 ; Start 05/19/17 at 09:00 Cetirizine HCl (ZyrTEC) 10 mg DAILY PO Last administered on 05/19/17 09:01; Start 05/18/17 at 09:00 Non-Formulary Medication 1 each DAILY PO ; Start 05/18/17 at 09:00; Stop at 09:04; Status DC Magnesium Oxide (Magnesium Oxide) 400 mg DAILY PO Last administered on 09:01; Start 05/19/17 at 09:00 Pantoprazole Sodium (Protonix) 40 mg DAILYAC PO Last administered on 05/19/17 07:55; Start 05/18/17 at 11:30 Non-Formulary Medication 250 mg DAILY PO ; Start 05/18/17 at 09:00; Stop at 09:23; Status DC Non-Formulary Medication 1,300 mg BID PO ; Start 05/18/17 at 09:00; Status UNV Active Scripts Active Lasix (Furosemide) 40 Mg Tablet 1 Tab PO QOD Reported Levothyroxine Sodium 100 Mcg Tablet 1 Tab PO DAILY Vitamin D2 (Ergocalciferol (Vitamin D2)) 50,000 Unit Capsule 1,000 Unit PO DAILY Doxycycline Hyclate 100 Mg Tablet 1 Tab PO BID Resveratrol 250 Mg Capsule 250 Mg PO DAILY Vitamin D (Cholecalciferol (Vitamin D3)) 1,000 Unit Capsule 1 Cap PO DAILY Lysteda (Tranexamic Acid) 650 Mg Tablet 1,300 Mg PO BID Calcitriol 0.25 Mcg Capsule 1 Cap PO DAILY Selenium (Selenomethionine) 200 Mcg Tablet 200 Mcg PO DAILY Vitamin A 8,000 Unit Capsule 8,000 Unit PO Coconut Oil 1,000 Mg Capsule 1,000 Mg PO DAILY Magnesium (Magnesium Oxide) 500 Mg Capsule 500 Mg PO DAILY Omeprazole 40 Mg Capsule.dr 40 Mg PO DAILY Potassium Chloride 20 Meq Tab.er.prt 20 Meq PO DAILY Acetaminophen 500 Mg Tablet 500 Mg PO Q4-6HRS PRN Allopurinol 300 Mg Tablet 300 Mg PO DAILY Neurontin (Gabapentin) 100 Mg Capsule 100 Mg PO BID Vitamin B-12 (Cyanocobalamin (Vitamin B-12)) 1,000 Mcg Tablet 1,000 Mcg SL DAILY Osteo Bi-Flex Caplet (Gluc/Lyndon-Msm#1/C/Brandon/Alfredo/Bor) 1 Each Tablet 1 Each PO DAILY Nakita (Fexofenadine Hcl) 180 Mg Tablet 180 Mg PO DAILY Tramadol Hcl 50 Mg Tablet 50 Mg PO PRN QID Vitals/I & O Vital Sign - Last 24 Hours 05/18/17 05/18/17 05/18/17 05/18/17 10:52 11:27 11:42 12:42 Temp 97.6 97.6 97.5 97.3 97.6 97.6 97.5 97.3 Pulse 56 68 68 59 Resp 16 20 20 18 B/P (MAP) 117/41 (66) 105/47 116/37 103/39 Pulse Ox 98 O2 Delivery Room Air 05/18/17 05/18/17 05/18/17 05/18/17 13:42 14:30 14:33 15:30 Temp 97.5 97.5 98.6 96.8 97.5 97.5 98.6 96.8 Pulse 61 60 61 62 Resp 20 18 16 20 B/P (MAP) 108/37 114/35 109/39 (62) 122/34 (63) Pulse Ox 95 98 O2 Delivery Room Air Room Air 05/18/17 05/18/17 05/19/17 19:00 23:00 03:00 Temp 96.7 97.6 97.5 96.7 97.6 97.5 Pulse 70 60 55 Resp 20 20 20 B/P (MAP) 119/51 (73) 101/53 (69) 105/35 (58) Pulse Ox 98 92 96 O2 Delivery Room Air Room Air Room Air Intake and Output 05/19/17 05/19/17 05/20/17 15:00 23:00 07:00 Intake Total 40 ml Balance 40 ml FREDIS PALMER MD May 19, 2017 09:20
[2017-05-19 11:00] VITALS: BP 106/33
--- NOTE | 2017-05-19 13:42 | PDOC ---
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 GIB: recurrent. ongoing melena, scant amounts 2. vW coagulopathy: cont HumateP and amicar. Heme service following 3. Anemia: acute bleed. transfuse PRBC x1 today. H/H this PM. iron studies pending 4. hypothyroidism: on synthroid; check TSH 5. 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 no NSAIDs. tylenol, norco PRN 6. GI prophylaxis: PPI History of Present Illness History of Present Illness no stool today, no abd pain, mild rectal discomfort Vitals Vitals Vital Signs Date Time Temp Pulse Resp B/P (MAP) Pulse Ox O2 Delivery O2 Flow Rate FiO2 05/19/17 11:00 96.6 58 18 106/33 (57) 94 Room Air 96.6 Physical Exam General: Alert, Oriented X3 Heart: Normal S1, Normal S2 Lungs: Clear Abdomen: Normal bowel sounds, Soft, No tenderness Extremities: No clubbing, No edema Skin: No rashes, Other (diffuse ecchymosis on arms) Labs LABS Laboratory Tests Test 05/19/17 03:15 White Blood Count 4.1 x10^3/uL (4.0-11.0) Red Blood Count 2.34 x10^6/uL (3.50-5.40) Hemoglobin 7.6 g/dL (12.0-15.5) Hematocrit 22.8 % (36.0-47.0) Mean Corpuscular Volume 98 fL (79-100) Mean Corpuscular Hemoglobin 33 pg (25-35) Mean Corpuscular Hemoglobin Concent 33 g/dL (31-37) Red Cell Distribution Width 17.9 % (11.5-14.5) Platelet Count 99 x10^3/uL (140-400) Neutrophils (%) (Auto) 60 % (31-73) Lymphocytes (%) (Auto) 26 % (24-48) Monocytes (%) (Auto) 9 % (0-9) Eosinophils (%) (Auto) 4 % (0-3) Basophils (%) (Auto) 1 % (0-3) Neutrophils # (Auto) 2.5 x10^3uL (1.8-7.7) Lymphocytes # (Auto) 1.1 x10^3/uL (1.0-4.8) Monocytes # (Auto) 0.4 x10^3/uL (0.0-1.1) Eosinophils # (Auto) 0.2 x10^3/uL (0.0-0.7) Basophils # (Auto) 0.0 x10^3/uL (0.0-0.2) Iron Level 89 ug/dL (50-170) Total Iron Binding Capacity 229 ug/dL (250-450) Iron Saturation 39 % (15-34) Ferritin 484 ng/mL (8-252) Comment Review of Relevant I have reviewed the following items benjy (where applicable) has been applied. Labs Laboratory Tests Test 05/18/17 04:17 05/19/17 03:15 White Blood Count 3.7 x10^3/uL (4.0-11.0) 4.1 x10^3/uL (4.0-11.0) Red Blood Count 2.18 x10^6/uL (3.50-5.40) 2.34 x10^6/uL (3.50-5.40) Hemoglobin 7.3 g/dL (12.0-15.5) 7.6 g/dL (12.0-15.5) Hematocrit 22.0 % (36.0-47.0) 22.8 % (36.0-47.0) Mean Corpuscular Volume 101 fL (79-100) 98 fL (79-100) Mean Corpuscular Hemoglobin 34 pg (25-35) 33 pg (25-35) Mean Corpuscular Hemoglobin Concent 33 g/dL (31-37) 33 g/dL (31-37) Red Cell Distribution Width 15.3 % (11.5-14.5) 17.9 % (11.5-14.5) Platelet Count 95 x10^3/uL (140-400) 99 x10^3/uL (140-400) Neutrophils (%) (Auto) 61 % (31-73) 60 % (31-73) Lymphocytes (%) (Auto) 27 % (24-48) 26 % (24-48) Monocytes (%) (Auto) 8 % (0-9) 9 % (0-9) Eosinophils (%) (Auto) 2 % (0-3) 4 % (0-3) Basophils (%) (Auto) 1 % (0-3) 1 % (0-3) Neutrophils # (Auto) 2.3 x10^3uL (1.8-7.7) 2.5 x10^3uL (1.8-7.7) Lymphocytes # (Auto) 1.0 x10^3/uL (1.0-4.8) 1.1 x10^3/uL (1.0-4.8) Monocytes # (Auto) 0.3 x10^3/uL (0.0-1.1) 0.4 x10^3/uL (0.0-1.1) Eosinophils # (Auto) 0.1 x10^3/uL (0.0-0.7) 0.2 x10^3/uL (0.0-0.7) Basophils # (Auto) 0.0 x10^3/uL (0.0-0.2) 0.0 x10^3/uL (0.0-0.2) Iron Level 89 ug/dL (50-170) Total Iron Binding Capacity 229 ug/dL (250-450) Iron Saturation 39 % (15-34) Ferritin 484 ng/mL (8-252) Laboratory Tests Test 05/19/17 03:15 White Blood Count 4.1 x10^3/uL (4.0-11.0) Red Blood Count 2.34 x10^6/uL (3.50-5.40) Hemoglobin 7.6 g/dL (12.0-15.5) Hematocrit 22.8 % (36.0-47.0) Mean Corpuscular Volume 98 fL (79-100) Mean Corpuscular Hemoglobin 33 pg (25-35) Mean Corpuscular Hemoglobin Concent 33 g/dL (31-37) Red Cell Distribution Width 17.9 % (11.5-14.5) Platelet Count 99 x10^3/uL (140-400) Neutrophils (%) (Auto) 60 % (31-73) Lymphocytes (%) (Auto) 26 % (24-48) Monocytes (%) (Auto) 9 % (0-9) Eosinophils (%) (Auto) 4 % (0-3) Basophils (%) (Auto) 1 % (0-3) Neutrophils # (Auto) 2.5 x10^3uL (1.8-7.7) Lymphocytes # (Auto) 1.1 x10^3/uL (1.0-4.8) Monocytes # (Auto) 0.4 x10^3/uL (0.0-1.1) Eosinophils # (Auto) 0.2 x10^3/uL (0.0-0.7) Basophils # (Auto) 0.0 x10^3/uL (0.0-0.2) Iron Level 89 ug/dL (50-170) Total Iron Binding Capacity 229 ug/dL (250-450) Iron Saturation 39 % (15-34) Ferritin 484 ng/mL (8-252) Medications Current Medications Sodium Chloride (Normal Saline Flush) 3 ml PRN DAILY PRN IV AFTER MEDS AND BLOOD DRAWS; Start 05/16/17 at 20:00 Ondansetron HCl (Zofran) 4 mg PRN Q6HRS PRN IV NAUSEA/VOMITING; Start 05/16/17 at 20:00 Oxycodone HCl (Roxicodone) 5 mg PRN Q3HRS PRN PO BREAKTHROUGH PAIN; Start 05/16 at 20:00 Aminocaproic Acid (Amicar) 1,000 mg QID PO Last administered on 05/19/17 12:40 ; Start 05/16/17 at 21:00 Antihemophilic Factor 3656 vwf/ Miscellaneous 30 ml @ 180 mls/hr DAILY@1400 IV ; Start 05/16/17 at 23:00; Stop 05/20/17 at 14:09; Status Cancel Sodium Chloride 1,000 ml @ 50 mls/hr 1X ONCE IV Last administered on 20:52; Start 05/16/17 at 20:30; Stop 05/17/17 at 16:29; Status DC Antihemophilic Factor 3656 vwf/ Miscellaneous 40 ml @ 240 mls/hr DAILY@1400 IV Last administered on 05/16/17 22:55; Start 05/16/17 at 22:00; Stop 05/17/17 at 09:04; Status DC Antihemophilic Factor 3656 vwf/ Miscellaneous 40 ml @ 240 mls/hr BID IV Last administered on 05/19/17 08:44; Start 05/17/17 at 10:00; Stop 05/19/17 at 09:09 ; Status DC Tramadol HCl (Ultram) 50 mg PRN QID PRN PO PAIN Last administered on 05/18/17 22:36; Start 05/17/17 at 20:30 Levothyroxine Sodium (Synthroid) 100 mcg DAILY07 PO Last administered on 06:02; Start 05/18/17 at 07:00 Acetaminophen (Tylenol) 500 mg PRN Q6HRS PRN PO PAIN Last administered on 22:36; Start 05/17/17 at 21:45 Allopurinol (Zyloprim) 300 mg DAILY PO Last administered on 05/19/17 09:00; Start 05/18/17 at 09:00 Calcitriol (Rocaltrol) 0.25 mcg DAILY PO Last administered on 05/19/17 09:01; Start 05/18/17 at 09:00 Cyanocobalamin (Vitamin B-12) 1,000 mcg DAILY PO Last administered on 09:01; Start 05/18/17 at 09:00 Ergocalciferol (Vitamin D2) 1,000 unit DAILY PO ; Start 05/18/17 at 09:00; Status Cancel Furosemide (Lasix) 40 mg DAILY PO Last administered on 05/18/17 09:41; Start 05/18/17 at 09:00 Gabapentin (Neurontin) 100 mg BID PO Last administered on 05/19/17 09:01; Start 05/18/17 at 09:00 Potassium Chloride (Klor-Con) 20 meq DAILY PO Last administered on 05/19/17 09 :03; Start 05/18/17 at 09:00 Vitamin D (Vitamin D3) 1,000 unit DAILY PO Last administered on 05/19/17 09:01 ; Start 05/19/17 at 09:00 Cetirizine HCl (ZyrTEC) 10 mg DAILY PO Last administered on 05/19/17 09:01; Start 05/18/17 at 09:00 Non-Formulary Medication 1 each DAILY PO ; Start 05/18/17 at 09:00; Stop at 09:04; Status DC Magnesium Oxide (Magnesium Oxide) 400 mg DAILY PO Last administered on 09:01; Start 05/19/17 at 09:00 Pantoprazole Sodium (Protonix) 40 mg DAILYAC PO Last administered on 05/19/17t 07:55; Start 05/18/17 at 11:30 Non-Formulary Medication 250 mg DAILY PO ; Start 05/18/17 at 09:00; Stop at 09:23; Status DC Non-Formulary Medication 1,300 mg BID PO ; Start 05/18/17 at 09:00; Status UNV Antihemophilic Factor 3400 vwf/ Miscellaneous 40 ml @ 240 mls/hr TID IV ; Start 05/19/17 at 14:00; Stop 05/23/17 at 21:09; Status Cancel Antihemophilic Factor 3592 vwf/ Miscellaneous 40 ml @ 240 mls/hr TID IV ; Start 05/19/17 at 14:00; Stop 05/23/17 at 21:09 Active Scripts Active Lasix (Furosemide) 40 Mg Tablet 1 Tab PO QOD Reported Levothyroxine Sodium 100 Mcg Tablet 1 Tab PO DAILY Vitamin D2 (Ergocalciferol (Vitamin D2)) 50,000 Unit Capsule 1,000 Unit PO DAILY Doxycycline Hyclate 100 Mg Tablet 1 Tab PO BID Resveratrol 250 Mg Capsule 250 Mg PO DAILY Vitamin D (Cholecalciferol (Vitamin D3)) 1,000 Unit Capsule 1 Cap PO DAILY Lysteda (Tranexamic Acid) 650 Mg Tablet 1,300 Mg PO BID Calcitriol 0.25 Mcg Capsule 1 Cap PO DAILY Selenium (Selenomethionine) 200 Mcg Tablet 200 Mcg PO DAILY Vitamin A 8,000 Unit Capsule 8,000 Unit PO Coconut Oil 1,000 Mg Capsule 1,000 Mg PO DAILY Magnesium (Magnesium Oxide) 500 Mg Capsule 500 Mg PO DAILY Omeprazole 40 Mg Capsule.dr 40 Mg PO DAILY Potassium Chloride 20 Meq Tab.er.prt 20 Meq PO DAILY Acetaminophen 500 Mg Tablet 500 Mg PO Q4-6HRS PRN Allopurinol 300 Mg Tablet 300 Mg PO DAILY Neurontin (Gabapentin) 100 Mg Capsule 100 Mg PO BID Vitamin B-12 (Cyanocobalamin (Vitamin B-12)) 1,000 Mcg Tablet 1,000 Mcg SL DAILY Osteo Bi-Flex Caplet (Gluc/Lyndon-Msm#1/C/Brandon/Alfredo/Bor) 1 Each Tablet 1 Each PO DAILY Nakita (Fexofenadine Hcl) 180 Mg Tablet 180 Mg PO DAILY Tramadol Hcl 50 Mg Tablet 50 Mg PO PRN QID Vitals/I & O Vital Sign - Last 24 Hours 05/18/17 05/18/17 05/18/17 05/18/17 13:42 14:30 14:33 15:30 Temp 97.5 97.5 98.6 96.8 97.5 97.5 98.6 96.8 Pulse 61 60 61 62 Resp 20 18 16 20 B/P (MAP) 108/37 114/35 109/39 (62) 122/34 (63) Pulse Ox 95 98 O2 Delivery Room Air Room Air 05/18/17 05/18/17 05/19/17 05/19/17 19:00 23:00 03:00 07:00 Temp 96.7 97.6 97.5 96.3 96.7 97.6 97.5 96.3 Pulse 70 60 55 52 Resp 20 20 20 18 B/P (MAP) 119/51 (73) 101/53 (69) 105/35 (58) 99/35 (56) Pulse Ox 98 92 96 98 O2 Delivery Room Air Room Air Room Air Room Air 05/19/17 05/19/17 08:00 11:00 Temp 96.6 96.6 Pulse 58 Resp 18 B/P (MAP) 106/33 (57) Pulse Ox 94 O2 Delivery Room Air Room Air Intake and Output 05/19/17 05/19/17 05/20/17 15:00 23:00 07:00 Intake Total 40 ml Balance 40 ml JAMARCUS LAI MD May 19, 2017 13:42
[2017-05-19] MEDS ORDERED: TOTAL VOLUME IV SCH (14:00)
[2017-05-19] MEDS ORDERED: ANTIHEMOPHILIC FACTOR IV SCH (14:00)
[2017-05-19] MEDS ORDERED: VWF IV SCH (14:00)
[2017-05-19 15:00] VITALS: BP 110/34
[2017-05-19 19:15] VITALS: BP 112/36
[2017-05-19] MEDS: traMADol 50 MG TABLET PO PRN (21:18)
[2017-05-19 23:00] VITALS: BP 119/47
[2017-05-20] VITALS (15 sets, daily range): BP systolic 95–136; BP diastolic 33–45
[2017-05-20] MEDS: LEVOTHYROXINE 100 MCG TABLET PO SCH (06:29)
[2017-05-20 06:42] LABS: BASO % 1 % (0-3); EOS % 4 % (0-3); LYMPH % 23 % (24-48); MEAN CORPUSCULAR HEMOGLOBIN 33 pg (25-35); MEAN CORPUSCULAR HGB CONC 33 g/dL (31-37); MEAN CORPUSCULAR VOLUME 98 fL (79-100); MONO % 9 % (0-9); NEUT % 63 % (31-73); PLATELET COUNT 101 x10^3/uL (140-400); RED CELL DISTRIBUTION WIDTH 17.6 % (11.5-14.5); WHITE BLOOD COUNT 4.5 x10^3/uL (4.0-11.0)
[2017-05-20 06:45] LABS: HEMATOCRIT 19.6 % (36.0-47.0); HEMOGLOBIN 6.5 g/dL (12.0-15.5)
[2017-05-20 06:51] LABS: ALBUMIN 2.5 g/dL (3.4-5.0); ALBUMIN/GLOBULIN RATIO 0.8 (1.0-1.7); CALCIUM 9.4 mg/dL (8.5-10.1); CREATININE 1.2 mg/dL (0.6-1.0); GFR 42.3; POTASSIUM 4.6 mmol/L (3.5-5.1); TOTAL BILIRUBIN 0.2 mg/dL (0.2-1.0); TOTAL PROTEIN 5.6 g/dL (6.4-8.2)
[2017-05-20] MEDS: AMINOCAPROIC ACID 500 MG TABLET. PO SCH ×4 (08:49→21:28)
[2017-05-20] MEDS: GABAPENTIN 100 MG CAPSULE. PO SCH ×2 (08:50→21:00)
[2017-05-20] MEDS: POTASSIUM CHLORIDE 20 MEQ TABLET.ER. PO SCH (08:50)
[2017-05-20] MEDS: FUROSEMIDE 40 MG TABLET. PO SCH (08:50)
[2017-05-20] MEDS: CHOLECALCIFEROL (VITAMIN D3) 1,000 UNIT TABLET PO SCH (08:50)
[2017-05-20] MEDS: MAGNESIUM OXIDE 400 MG TABLET PO SCH (08:51)
[2017-05-20] MEDS: CYANOCOBALAMIN (VITAMIN B-12) 1,000 MCG TABLET. PO SCH (08:51)
[2017-05-20] MEDS: CETIRIZINE HCL 10 MG TABLET. PO SCH (08:51)
[2017-05-20] MEDS: CALCITRIOL 0.25 MCG CAPSULE. PO SCH (08:51)
[2017-05-20] MEDS: ALLOPURINOL 300 MG TABLET. PO SCH (08:51)
[2017-05-20] MEDS: PANTOPRAZOLE 40 MG TABLET.DR. PO SCH (08:51)
[2017-05-20] MEDS: TOTAL VOLUME IV SCH ×3 (10:37→21:29)
[2017-05-20] MEDS: ANTIHEMOPHILIC FACTOR IV SCH ×3 (10:37→21:29)
[2017-05-20] MEDS: VWF IV SCH ×3 (10:37→21:29)
--- NOTE | 2017-05-20 11:44 | PDOC ---
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 GIB: recurrent. ongoing melena, scant amounts 2. vW coagulopathy: cont HumateP and amicar. Heme service following 3. Anemia: acute bleed. transfuse PRBC x1 today. H/H this PM. iron studies pending 4. hypothyroidism: on synthroid; check TSH 5. 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 no NSAIDs. tylenol, norco PRN 6. GI prophylaxis: PPI History of Present Illness History of Present Illness anemia worse today, will give 2 u PRBC, cont Humate P no stool no abd pain, mild rectal discomfort Vitals Vitals Vital Signs Date Time Temp Pulse Resp B/P (MAP) Pulse Ox O2 Delivery O2 Flow Rate FiO2 05/20/17 11:07 97.7 89 16 120/43 (68) 97 Room Air 97.7 Physical Exam General: Alert, Oriented X3, No acute distress Heart: Normal S1, Normal S2 Lungs: Clear Abdomen: Normal bowel sounds, Soft, No tenderness Extremities: No clubbing, No edema Skin: No rashes, Other (diffuse ecchymosis on arms) Labs LABS Laboratory Tests Test 05/20/17 05:10 White Blood Count 4.5 x10^3/uL (4.0-11.0) Red Blood Count 2.00 x10^6/uL (3.50-5.40) Hemoglobin 6.5 g/dL (12.0-15.5) Hematocrit 19.6 % (36.0-47.0) Mean Corpuscular Volume 98 fL (79-100) Mean Corpuscular Hemoglobin 33 pg (25-35) Mean Corpuscular Hemoglobin Concent 33 g/dL (31-37) Red Cell Distribution Width 17.6 % (11.5-14.5) Platelet Count 101 x10^3/uL (140-400) Neutrophils (%) (Auto) 63 % (31-73) Lymphocytes (%) (Auto) 23 % (24-48) Monocytes (%) (Auto) 9 % (0-9) Eosinophils (%) (Auto) 4 % (0-3) Basophils (%) (Auto) 1 % (0-3) Neutrophils # (Auto) 2.8 x10^3uL (1.8-7.7) Lymphocytes # (Auto) 1.0 x10^3/uL (1.0-4.8) Monocytes # (Auto) 0.4 x10^3/uL (0.0-1.1) Eosinophils # (Auto) 0.2 x10^3/uL (0.0-0.7) Basophils # (Auto) 0.0 x10^3/uL (0.0-0.2) Sodium Level 141 mmol/L (136-145) Potassium Level 4.6 mmol/L (3.5-5.1) Chloride Level 106 mmol/L (98-107) Carbon Dioxide Level 32 mmol/L (21-32) Anion Gap 3 (6-14) Blood Urea Nitrogen 56 mg/dL (7-20) Creatinine 1.2 mg/dL (0.6-1.0) Estimated GFR (Cockcroft-Gault) 42.3 BUN/Creatinine Ratio 47 (6-20) Glucose Level 93 mg/dL (70-99) Calcium Level 9.4 mg/dL (8.5-10.1) Total Bilirubin 0.2 mg/dL (0.2-1.0) Aspartate Amino Transf (AST/SGOT) 18 U/L (15-37) Alanine Aminotransferase (ALT/SGPT) 16 U/L (14-59) Alkaline Phosphatase 63 U/L (46-116) Total Protein 5.6 g/dL (6.4-8.2) Albumin 2.5 g/dL (3.4-5.0) Albumin/Globulin Ratio 0.8 (1.0-1.7) Review of Systems Review of Systems dyspnea, short of breath, excertion is limited Comment Review of Relevant I have reviewed the following items benjy (where applicable) has been applied. Labs Laboratory Tests Test 05/19/17 03:15 05/20/17 05:10 White Blood Count 4.1 x10^3/uL (4.0-11.0) 4.5 x10^3/uL (4.0-11.0) Red Blood Count 2.34 x10^6/uL (3.50-5.40) 2.00 x10^6/uL (3.50-5.40) Hemoglobin 7.6 g/dL (12.0-15.5) 6.5 g/dL (12.0-15.5) Hematocrit 22.8 % (36.0-47.0) 19.6 % (36.0-47.0) Mean Corpuscular Volume 98 fL (79-100) 98 fL (79-100) Mean Corpuscular Hemoglobin 33 pg (25-35) 33 pg (25-35) Mean Corpuscular Hemoglobin Concent 33 g/dL (31-37) 33 g/dL (31-37) Red Cell Distribution Width 17.9 % (11.5-14.5) 17.6 % (11.5-14.5) Platelet Count 99 x10^3/uL (140-400) 101 x10^3/uL (140-400) Neutrophils (%) (Auto) 60 % (31-73) 63 % (31-73) Lymphocytes (%) (Auto) 26 % (24-48) 23 % (24-48) Monocytes (%) (Auto) 9 % (0-9) 9 % (0-9) Eosinophils (%) (Auto) 4 % (0-3) 4 % (0-3) Basophils (%) (Auto) 1 % (0-3) 1 % (0-3) Neutrophils # (Auto) 2.5 x10^3uL (1.8-7.7) 2.8 x10^3uL (1.8-7.7) Lymphocytes # (Auto) 1.1 x10^3/uL (1.0-4.8) 1.0 x10^3/uL (1.0-4.8) Monocytes # (Auto) 0.4 x10^3/uL (0.0-1.1) 0.4 x10^3/uL (0.0-1.1) Eosinophils # (Auto) 0.2 x10^3/uL (0.0-0.7) 0.2 x10^3/uL (0.0-0.7) Basophils # (Auto) 0.0 x10^3/uL (0.0-0.2) 0.0 x10^3/uL (0.0-0.2) Iron Level 89 ug/dL (50-170) Total Iron Binding Capacity 229 ug/dL (250-450) Iron Saturation 39 % (15-34) Ferritin 484 ng/mL (8-252) Sodium Level 141 mmol/L (136-145) Potassium Level 4.6 mmol/L (3.5-5.1) Chloride Level 106 mmol/L (98-107) Carbon Dioxide Level 32 mmol/L (21-32) Anion Gap 3 (6-14) Blood Urea Nitrogen 56 mg/dL (7-20) Creatinine 1.2 mg/dL (0.6-1.0) Estimated GFR (Cockcroft-Gault) 42.3 BUN/Creatinine Ratio 47 (6-20) Glucose Level 93 mg/dL (70-99) Calcium Level 9.4 mg/dL (8.5-10.1) Total Bilirubin 0.2 mg/dL (0.2-1.0) Aspartate Amino Transf (AST/SGOT) 18 U/L (15-37) Alanine Aminotransferase (ALT/SGPT) 16 U/L (14-59) Alkaline Phosphatase 63 U/L (46-116) Total Protein 5.6 g/dL (6.4-8.2) Albumin 2.5 g/dL (3.4-5.0) Albumin/Globulin Ratio 0.8 (1.0-1.7) Laboratory Tests Test 05/20/17 05:10 White Blood Count 4.5 x10^3/uL (4.0-11.0) Red Blood Count 2.00 x10^6/uL (3.50-5.40) Hemoglobin 6.5 g/dL (12.0-15.5) Hematocrit 19.6 % (36.0-47.0) Mean Corpuscular Volume 98 fL (79-100) Mean Corpuscular Hemoglobin 33 pg (25-35) Mean Corpuscular Hemoglobin Concent 33 g/dL (31-37) Red Cell Distribution Width 17.6 % (11.5-14.5) Platelet Count 101 x10^3/uL (140-400) Neutrophils (%) (Auto) 63 % (31-73) Lymphocytes (%) (Auto) 23 % (24-48) Monocytes (%) (Auto) 9 % (0-9) Eosinophils (%) (Auto) 4 % (0-3) Basophils (%) (Auto) 1 % (0-3) Neutrophils # (Auto) 2.8 x10^3uL (1.8-7.7) Lymphocytes # (Auto) 1.0 x10^3/uL (1.0-4.8) Monocytes # (Auto) 0.4 x10^3/uL (0.0-1.1) Eosinophils # (Auto) 0.2 x10^3/uL (0.0-0.7) Basophils # (Auto) 0.0 x10^3/uL (0.0-0.2) Sodium Level 141 mmol/L (136-145) Potassium Level 4.6 mmol/L (3.5-5.1) Chloride Level 106 mmol/L (98-107) Carbon Dioxide Level 32 mmol/L (21-32) Anion Gap 3 (6-14) Blood Urea Nitrogen 56 mg/dL (7-20) Creatinine 1.2 mg/dL (0.6-1.0) Estimated GFR (Cockcroft-Gault) 42.3 BUN/Creatinine Ratio 47 (6-20) Glucose Level 93 mg/dL (70-99) Calcium Level 9.4 mg/dL (8.5-10.1) Total Bilirubin 0.2 mg/dL (0.2-1.0) Aspartate Amino Transf (AST/SGOT) 18 U/L (15-37) Alanine Aminotransferase (ALT/SGPT) 16 U/L (14-59) Alkaline Phosphatase 63 U/L (46-116) Total Protein 5.6 g/dL (6.4-8.2) Albumin 2.5 g/dL (3.4-5.0) Albumin/Globulin Ratio 0.8 (1.0-1.7) Medications Current Medications Sodium Chloride (Normal Saline Flush) 3 ml PRN DAILY PRN IV AFTER MEDS AND BLOOD DRAWS; Start 05/16/17 at 20:00 Ondansetron HCl (Zofran) 4 mg PRN Q6HRS PRN IV NAUSEA/VOMITING; Start 05/16/17 at 20:00 Oxycodone HCl (Roxicodone) 5 mg PRN Q3HRS PRN PO BREAKTHROUGH PAIN; Start 05/16 at 20:00 Aminocaproic Acid (Amicar) 1,000 mg QID PO Last administered on 05/20/17t 08: 49; Start 05/16/17 at 21:00 Antihemophilic Factor 3656 vwf/ Miscellaneous 30 ml @ 180 mls/hr DAILY@1400 IV ; Start 05/16/17 at 23:00; Stop 05/20/17 at 14:09; Status Cancel Sodium Chloride 1,000 ml @ 50 mls/hr 1X ONCE IV Last administered on 20:52; Start 05/16/17 at 20:30; Stop 05/17/17 at 16:29; Status DC Antihemophilic Factor 3656 vwf/ Miscellaneous 40 ml @ 240 mls/hr DAILY@1400 IV Last administered on 05/16/17 22:55; Start 05/16/17 at 22:00; Stop 05/17/17 at 09:04; Status DC Antihemophilic Factor 3656 vwf/ Miscellaneous 40 ml @ 240 mls/hr BID IV Last administered on 05/19/17 08:44; Start 05/17/17 at 10:00; Stop 05/19/17 at 09:09 ; Status DC Tramadol HCl (Ultram) 50 mg PRN QID PRN PO PAIN Last administered on 05/19/17 21:18; Start 05/17/17 at 20:30 Levothyroxine Sodium (Synthroid) 100 mcg DAILY07 PO Last administered on 06:29; Start 05/18/17 at 07:00 Acetaminophen (Tylenol) 500 mg PRN Q6HRS PRN PO PAIN Last administered on 22:36; Start 05/17/17 at 21:45 Allopurinol (Zyloprim) 300 mg DAILY PO Last administered on 05/20/17 08:51; Start 05/18/17 at 09:00 Calcitriol (Rocaltrol) 0.25 mcg DAILY PO Last administered on 05/20/17 08:51 ; Start 05/18/17 at 09:00 Cyanocobalamin (Vitamin B-12) 1,000 mcg DAILY PO Last administered on 08:51; Start 05/18/17 at 09:00 Ergocalciferol (Vitamin D2) 1,000 unit DAILY PO ; Start 05/18/17 at 09:00; Status Cancel Furosemide (Lasix) 40 mg DAILY PO Last administered on 05/20/17 08:50; Start 05/18/17 at 09:00 Gabapentin (Neurontin) 100 mg BID PO Last administered on 05/20/17 08:50; Start 05/18/17 at 09:00 Potassium Chloride (Klor-Con) 20 meq DAILY PO Last administered on 05/20/17 08:50; Start 05/18/17 at 09:00 Vitamin D (Vitamin D3) 1,000 unit DAILY PO Last administered on 05/20/17 08: 50; Start 05/19/17 at 09:00 Cetirizine HCl (ZyrTEC) 10 mg DAILY PO Last administered on 05/20/17 08:51; Start 05/18/17 at 09:00 Non-Formulary Medication 1 each DAILY PO ; Start 05/18/17 at 09:00; Stop at 09:04; Status DC Magnesium Oxide (Magnesium Oxide) 400 mg DAILY PO Last administered on 08:51; Start 05/19/17 at 09:00 Pantoprazole Sodium (Protonix) 40 mg DAILYAC PO Last administered on 08:51; Start 05/18/17 at 11:30 Non-Formulary Medication 250 mg DAILY PO ; Start 05/18/17 at 09:00; Stop at 09:23; Status DC Non-Formulary Medication 1,300 mg BID PO ; Start 05/18/17 at 09:00; Status UNV Antihemophilic Factor 3400 vwf/ Miscellaneous 40 ml @ 240 mls/hr TID IV ; Start 05/19/17 at 14:00; Stop 05/23/17 at 21:09; Status Cancel Antihemophilic Factor 3592 vwf/ Miscellaneous 40 ml @ 240 mls/hr TID IV Last administered on 05/20/17 10:37; Start 05/19/17 at 14:00; Stop 05/23/17 at 21: 09 Active Scripts Active Lasix (Furosemide) 40 Mg Tablet 1 Tab PO QOD Reported Levothyroxine Sodium 100 Mcg Tablet 1 Tab PO DAILY Vitamin D2 (Ergocalciferol (Vitamin D2)) 50,000 Unit Capsule 1,000 Unit PO DAILY Doxycycline Hyclate 100 Mg Tablet 1 Tab PO BID Resveratrol 250 Mg Capsule 250 Mg PO DAILY Vitamin D (Cholecalciferol (Vitamin D3)) 1,000 Unit Capsule 1 Cap PO DAILY Lysteda (Tranexamic Acid) 650 Mg Tablet 1,300 Mg PO BID Calcitriol 0.25 Mcg Capsule 1 Cap PO DAILY Selenium (Selenomethionine) 200 Mcg Tablet 200 Mcg PO DAILY Vitamin A 8,000 Unit Capsule 8,000 Unit PO Coconut Oil 1,000 Mg Capsule 1,000 Mg PO DAILY Magnesium (Magnesium Oxide) 500 Mg Capsule 500 Mg PO DAILY Omeprazole 40 Mg Capsule.dr 40 Mg PO DAILY Potassium Chloride 20 Meq Tab.er.prt 20 Meq PO DAILY Acetaminophen 500 Mg Tablet 500 Mg PO Q4-6HRS PRN Allopurinol 300 Mg Tablet 300 Mg PO DAILY Neurontin (Gabapentin) 100 Mg Capsule 100 Mg PO BID Vitamin B-12 (Cyanocobalamin (Vitamin B-12)) 1,000 Mcg Tablet 1,000 Mcg SL DAILY Osteo Bi-Flex Caplet (Gluc/Lyndon-Msm#1/C/Brandon/Alfredo/Bor) 1 Each Tablet 1 Each PO DAILY Nakita (Fexofenadine Hcl) 180 Mg Tablet 180 Mg PO DAILY Tramadol Hcl 50 Mg Tablet 50 Mg PO PRN QID Vitals/I & O Vital Sign - Last 24 Hours 05/19/17 05/19/17 05/19/17 05/19/17 15:00 19:15 20:00 21:18 Temp 96.1 97.5 96.1 97.5 Pulse 60 68 Resp 18 18 B/P (MAP) 110/34 (59) 112/36 (61) Pulse Ox 97 99 99 O2 Delivery Room Air Room Air Room Air Room Air 05/19/17 05/19/17 05/20/17 05/20/17 22:18 23:00 03:00 07:07 Temp 97.9 97.3 98.0 97.9 97.3 98.0 Pulse 69 59 53 Resp 18 16 16 B/P (MAP) 119/47 (71) 104/41 (62) 102/42 (62) Pulse Ox 99 99 97 98 O2 Delivery Room Air Room Air Room Air Room Air 05/20/17 05/20/17 10:36 11:07 Temp 97.7 97.7 Pulse 89 Resp 16 B/P (MAP) 120/43 (68) Pulse Ox 97 O2 Delivery Room Air Room Air JAMARCUS LAI MD May 20, 2017 11:44
[2017-05-20] MEDS: IPRATRPIUM/ALBUTEROL 0.5/2.5MG 3 ML NEBU. NEB SCH ×3 (13:35→19:11)
[2017-05-20] MEDS: ACETAMINOPHEN 500 MG TABLET PO PRN (14:11)
--- NOTE | 2017-05-20 17:09 | PDOC ---
PROGRESS NOTES Subjective Subjective HPI - vWD and ongoing GI bleed ROS - no CP Objective Objective Vital Signs Date Time Temp Pulse Resp B/P (MAP) Pulse Ox O2 Delivery O2 Flow Rate FiO2 05/20/17 16:45 97.7 68 20 113/37 97.7 05/20/17 15:13 Room Air 05/20/17 14:42 99 Intake and Output 05/21/17 07:00 Intake Total 420 ml Balance 420 ml IV Total 80 ml Blood Product 290 ml Blood Product IV Normal Saline Flush 50 ml Physical Exam Heart: Normal S1, Normal S2 General: Alert, Oriented X3, No acute distress Lungs: Clear to auscultation Neuro: Normal speech Psych/Mental Status: Mental status NL Assessment Assessment Assessment/Plan 1. vWD and ongoing GI bleed hemoglobin has dropped from 10.6 Fri evening to 7.3 on 05/18/17 s/p 1 u PRBC 05/18/17 Hb 7.6 on 05/19/17 Hb worse at 6.5. Plan 2 PRBC 05/20/17 Had black stools 05/18/17 Continue humate p , increased to q 8 hours from 05/19/17 and cont amicar. 2. Anemia, monitor hb Comment Review of Relevant I have reviewed the following items benjy (where applicable) has been applied. Labs Laboratory Tests Test 05/19/17 03:15 05/20/17 05:10 White Blood Count 4.1 x10^3/uL (4.0-11.0) 4.5 x10^3/uL (4.0-11.0) Red Blood Count 2.34 x10^6/uL (3.50-5.40) 2.00 x10^6/uL (3.50-5.40) Hemoglobin 7.6 g/dL (12.0-15.5) 6.5 g/dL (12.0-15.5) Hematocrit 22.8 % (36.0-47.0) 19.6 % (36.0-47.0) Mean Corpuscular Volume 98 fL (79-100) 98 fL (79-100) Mean Corpuscular Hemoglobin 33 pg (25-35) 33 pg (25-35) Mean Corpuscular Hemoglobin Concent 33 g/dL (31-37) 33 g/dL (31-37) Red Cell Distribution Width 17.9 % (11.5-14.5) 17.6 % (11.5-14.5) Platelet Count 99 x10^3/uL (140-400) 101 x10^3/uL (140-400) Neutrophils (%) (Auto) 60 % (31-73) 63 % (31-73) Lymphocytes (%) (Auto) 26 % (24-48) 23 % (24-48) Monocytes (%) (Auto) 9 % (0-9) 9 % (0-9) Eosinophils (%) (Auto) 4 % (0-3) 4 % (0-3) Basophils (%) (Auto) 1 % (0-3) 1 % (0-3) Neutrophils # (Auto) 2.5 x10^3uL (1.8-7.7) 2.8 x10^3uL (1.8-7.7) Lymphocytes # (Auto) 1.1 x10^3/uL (1.0-4.8) 1.0 x10^3/uL (1.0-4.8) Monocytes # (Auto) 0.4 x10^3/uL (0.0-1.1) 0.4 x10^3/uL (0.0-1.1) Eosinophils # (Auto) 0.2 x10^3/uL (0.0-0.7) 0.2 x10^3/uL (0.0-0.7) Basophils # (Auto) 0.0 x10^3/uL (0.0-0.2) 0.0 x10^3/uL (0.0-0.2) Iron Level 89 ug/dL (50-170) Total Iron Binding Capacity 229 ug/dL (250-450) Iron Saturation 39 % (15-34) Ferritin 484 ng/mL (8-252) Sodium Level 141 mmol/L (136-145) Potassium Level 4.6 mmol/L (3.5-5.1) Chloride Level 106 mmol/L (98-107) Carbon Dioxide Level 32 mmol/L (21-32) Anion Gap 3 (6-14) Blood Urea Nitrogen 56 mg/dL (7-20) Creatinine 1.2 mg/dL (0.6-1.0) Estimated GFR (Cockcroft-Gault) 42.3 BUN/Creatinine Ratio 47 (6-20) Glucose Level 93 mg/dL (70-99) Calcium Level 9.4 mg/dL (8.5-10.1) Total Bilirubin 0.2 mg/dL (0.2-1.0) Aspartate Amino Transf (AST/SGOT) 18 U/L (15-37) Alanine Aminotransferase (ALT/SGPT) 16 U/L (14-59) Alkaline Phosphatase 63 U/L (46-116) Total Protein 5.6 g/dL (6.4-8.2) Albumin 2.5 g/dL (3.4-5.0) Albumin/Globulin Ratio 0.8 (1.0-1.7) Laboratory Tests Test 05/20/17 05:10 White Blood Count 4.5 x10^3/uL (4.0-11.0) Red Blood Count 2.00 x10^6/uL (3.50-5.40) Hemoglobin 6.5 g/dL (12.0-15.5) Hematocrit 19.6 % (36.0-47.0) Mean Corpuscular Volume 98 fL (79-100) Mean Corpuscular Hemoglobin 33 pg (25-35) Mean Corpuscular Hemoglobin Concent 33 g/dL (31-37) Red Cell Distribution Width 17.6 % (11.5-14.5) Platelet Count 101 x10^3/uL (140-400) Neutrophils (%) (Auto) 63 % (31-73) Lymphocytes (%) (Auto) 23 % (24-48) Monocytes (%) (Auto) 9 % (0-9) Eosinophils (%) (Auto) 4 % (0-3) Basophils (%) (Auto) 1 % (0-3) Neutrophils # (Auto) 2.8 x10^3uL (1.8-7.7) Lymphocytes # (Auto) 1.0 x10^3/uL (1.0-4.8) Monocytes # (Auto) 0.4 x10^3/uL (0.0-1.1) Eosinophils # (Auto) 0.2 x10^3/uL (0.0-0.7) Basophils # (Auto) 0.0 x10^3/uL (0.0-0.2) Sodium Level 141 mmol/L (136-145) Potassium Level 4.6 mmol/L (3.5-5.1) Chloride Level 106 mmol/L (98-107) Carbon Dioxide Level 32 mmol/L (21-32) Anion Gap 3 (6-14) Blood Urea Nitrogen 56 mg/dL (7-20) Creatinine 1.2 mg/dL (0.6-1.0) Estimated GFR (Cockcroft-Gault) 42.3 BUN/Creatinine Ratio 47 (6-20) Glucose Level 93 mg/dL (70-99) Calcium Level 9.4 mg/dL (8.5-10.1) Total Bilirubin 0.2 mg/dL (0.2-1.0) Aspartate Amino Transf (AST/SGOT) 18 U/L (15-37) Alanine Aminotransferase (ALT/SGPT) 16 U/L (14-59) Alkaline Phosphatase 63 U/L (46-116) Total Protein 5.6 g/dL (6.4-8.2) Albumin 2.5 g/dL (3.4-5.0) Albumin/Globulin Ratio 0.8 (1.0-1.7) Medications Current Medications Sodium Chloride (Normal Saline Flush) 3 ml PRN DAILY PRN IV AFTER MEDS AND BLOOD DRAWS; Start 05/16/17 at 20:00 Ondansetron HCl (Zofran) 4 mg PRN Q6HRS PRN IV NAUSEA/VOMITING; Start 05/16/17 at 20:00 Oxycodone HCl (Roxicodone) 5 mg PRN Q3HRS PRN PO BREAKTHROUGH PAIN; Start 05/16 at 20:00 Aminocaproic Acid (Amicar) 1,000 mg QID PO Last administered on 05/20/17t 14: 11; Start 05/16/17 at 21:00 Antihemophilic Factor 3656 vwf/ Miscellaneous 30 ml @ 180 mls/hr DAILY@1400 IV ; Start 05/16/17 at 23:00; Stop 05/20/17 at 14:09; Status Cancel Sodium Chloride 1,000 ml @ 50 mls/hr 1X ONCE IV Last administered on 20:52; Start 05/16/17 at 20:30; Stop 05/17/17 at 16:29; Status DC Antihemophilic Factor 3656 vwf/ Miscellaneous 40 ml @ 240 mls/hr DAILY@1400 IV Last administered on 05/16/17 22:55; Start 05/16/17 at 22:00; Stop 05/17/17 at 09:04; Status DC Antihemophilic Factor 3656 vwf/ Miscellaneous 40 ml @ 240 mls/hr BID IV Last administered on 05/19/17 08:44; Start 05/17/17 at 10:00; Stop 05/19/17 at 09:09 ; Status DC Tramadol HCl (Ultram) 50 mg PRN QID PRN PO PAIN Last administered on 05/19/17 21:18; Start 05/17/17 at 20:30 Levothyroxine Sodium (Synthroid) 100 mcg DAILY07 PO Last administered on 06:29; Start 05/18/17 at 07:00 Acetaminophen (Tylenol) 500 mg PRN Q6HRS PRN PO PAIN Last administered on 05/20 14:11; Start 05/17/17 at 21:45 Allopurinol (Zyloprim) 300 mg DAILY PO Last administered on 05/20/17 08:51; Start 05/18/17 at 09:00 Calcitriol (Rocaltrol) 0.25 mcg DAILY PO Last administered on 05/20/17 08:51 ; Start 05/18/17 at 09:00 Cyanocobalamin (Vitamin B-12) 1,000 mcg DAILY PO Last administered on 08:51; Start 05/18/17 at 09:00 Ergocalciferol (Vitamin D2) 1,000 unit DAILY PO ; Start 05/18/17 at 09:00; Status Cancel Furosemide (Lasix) 40 mg DAILY PO Last administered on 05/20/17 08:50; Start 05/18/17 at 09:00 Gabapentin (Neurontin) 100 mg BID PO Last administered on 05/20/17 08:50; Start 05/18/17 at 09:00 Potassium Chloride (Klor-Con) 20 meq DAILY PO Last administered on 05/20/17 08:50; Start 05/18/17 at 09:00 Vitamin D (Vitamin D3) 1,000 unit DAILY PO Last administered on 05/20/17 08: 50; Start 05/19/17 at 09:00 Cetirizine HCl (ZyrTEC) 10 mg DAILY PO Last administered on 05/20/17 08:51; Start 05/18/17 at 09:00 Non-Formulary Medication 1 each DAILY PO ; Start 05/18/17 at 09:00; Stop at 09:04; Status DC Magnesium Oxide (Magnesium Oxide) 400 mg DAILY PO Last administered on 08:51; Start 05/19/17 at 09:00 Pantoprazole Sodium (Protonix) 40 mg DAILYAC PO Last administered on 08:51; Start 05/18/17 at 11:30 Non-Formulary Medication 250 mg DAILY PO ; Start 05/18/17 at 09:00; Stop at 09:23; Status DC Non-Formulary Medication 1,300 mg BID PO ; Start 05/18/17 at 09:00; Status UNV Antihemophilic Factor 3400 vwf/ Miscellaneous 40 ml @ 240 mls/hr TID IV ; Start 05/19/17 at 14:00; Stop 05/23/17 at 21:09; Status Cancel Antihemophilic Factor 3592 vwf/ Miscellaneous 40 ml @ 240 mls/hr TID IV Last administered on 05/20/17 14:12; Start 05/19/17 at 14:00; Stop 05/23/17 at 21: 09 Albuterol/ Ipratropium (Duoneb) 3 ml RTQID NEB Last administered on 05/20/17 15:12; Start 05/20/17 at 12:00 Active Scripts Active Lasix (Furosemide) 40 Mg Tablet 1 Tab PO QOD Reported Levothyroxine Sodium 100 Mcg Tablet 1 Tab PO DAILY Vitamin D2 (Ergocalciferol (Vitamin D2)) 50,000 Unit Capsule 1,000 Unit PO DAILY Doxycycline Hyclate 100 Mg Tablet 1 Tab PO BID Resveratrol 250 Mg Capsule 250 Mg PO DAILY Vitamin D (Cholecalciferol (Vitamin D3)) 1,000 Unit Capsule 1 Cap PO DAILY Lysteda (Tranexamic Acid) 650 Mg Tablet 1,300 Mg PO BID Calcitriol 0.25 Mcg Capsule 1 Cap PO DAILY Selenium (Selenomethionine) 200 Mcg Tablet 200 Mcg PO DAILY Vitamin A 8,000 Unit Capsule 8,000 Unit PO Coconut Oil 1,000 Mg Capsule 1,000 Mg PO DAILY Magnesium (Magnesium Oxide) 500 Mg Capsule 500 Mg PO DAILY Omeprazole 40 Mg Capsule.dr 40 Mg PO DAILY Potassium Chloride 20 Meq Tab.er.prt 20 Meq PO DAILY Acetaminophen 500 Mg Tablet 500 Mg PO Q4-6HRS PRN Allopurinol 300 Mg Tablet 300 Mg PO DAILY Neurontin (Gabapentin) 100 Mg Capsule 100 Mg PO BID Vitamin B-12 (Cyanocobalamin (Vitamin B-12)) 1,000 Mcg Tablet 1,000 Mcg SL DAILY Osteo Bi-Flex Caplet (Gluc/Lyndon-Msm#1/C/Brandon/Alfredo/Bor) 1 Each Tablet 1 Each PO DAILY Nakita (Fexofenadine Hcl) 180 Mg Tablet 180 Mg PO DAILY Tramadol Hcl 50 Mg Tablet 50 Mg PO PRN QID Vitals/I & O Vital Sign - Last 24 Hours 05/19/17 05/19/17 05/19/17 05/19/17 19:15 20:00 21:18 22:18 Temp 97.5 97.5 Pulse 68 Resp 18 B/P (MAP) 112/36 (61) Pulse Ox 99 99 99 O2 Delivery Room Air Room Air Room Air Room Air 05/19/17 05/20/17 05/20/17 05/20/17 23:00 03:00 07:07 08:00 Temp 97.9 97.3 98.0 97.9 97.3 98.0 Pulse 69 59 53 Resp 18 16 16 B/P (MAP) 119/47 (71) 104/41 (62) 102/42 (62) Pulse Ox 99 97 98 O2 Delivery Room Air Room Air Room Air Room Air 05/20/17 05/20/17 05/20/17 05/20/17 10:36 11:07 12:45 13:02 Temp 97.7 97.9 97.7 97.7 97.9 97.7 Pulse 89 67 61 Resp 16 20 18 B/P (MAP) 120/43 (68) 136/39 117/33 Pulse Ox 97 O2 Delivery Room Air Room Air 05/20/17 05/20/17 05/20/17 05/20/17 13:35 14:05 14:42 14:51 Temp 97.7 97.7 97.4 97.7 97.7 97.4 Pulse 60 68 70 Resp 16 16 18 B/P (MAP) 113/43 113/43 (66) 110/43 Pulse Ox 99 99 O2 Delivery Room Air Room Air 05/20/17 05/20/17 05/20/17 15:13 16:28 16:45 Temp 97.6 97.7 97.6 97.7 Pulse 71 68 Resp 20 20 B/P (MAP) 111/43 113/37 O2 Delivery Room Air Intake and Output 05/20/17 05/20/17 05/21/17 15:00 23:00 07:00 Intake Total 420 ml Balance 420 ml FREDIS PALMER MD May 20, 2017 17:09
[2017-05-21] MEDS: traMADol 50 MG TABLET PO PRN ×2 (00:10→21:08)
[2017-05-21] MEDS: ACETAMINOPHEN 500 MG TABLET PO PRN ×2 (02:10→21:09)
[2017-05-21 03:00] VITALS: BP 120/44
[2017-05-21 04:47] LABS: BASO % 1 % (0-3); EOS % 3 % (0-3); HEMATOCRIT 24.9 % (36.0-47.0); HEMOGLOBIN 8.5 g/dL (12.0-15.5); LYMPH # 0.9 x10^3/uL (1.0-4.8); LYMPH % 18 % (24-48); MEAN CORPUSCULAR HEMOGLOBIN 33 pg (25-35); MEAN CORPUSCULAR HGB CONC 34 g/dL (31-37); MEAN CORPUSCULAR VOLUME 95 fL (79-100); MONO % 8 % (0-9); NEUT % 70 % (31-73); PLATELET COUNT 84 x10^3/uL (140-400); RED BLOOD COUNT 2.62 x10^6/uL (3.50-5.40); RED CELL DISTRIBUTION WIDTH 16.4 % (11.5-14.5); WHITE BLOOD COUNT 4.7 x10^3/uL (4.0-11.0)
[2017-05-21 05:05] LABS: CALCIUM 9.3 mg/dL (8.5-10.1); CREATININE 1.5 mg/dL (0.6-1.0); GFR 32.7; POTASSIUM 3.8 mmol/L (3.5-5.1)
[2017-05-21] MEDS: LEVOTHYROXINE 100 MCG TABLET PO SCH (06:31)
[2017-05-21 07:00] VITALS: BP 106/44
[2017-05-21] MEDS: IPRATRPIUM/ALBUTEROL 0.5/2.5MG 3 ML NEBU. NEB SCH ×4 (08:12→19:24)
[2017-05-21] MEDS: CYANOCOBALAMIN (VITAMIN B-12) 1,000 MCG TABLET. PO SCH (08:33)
[2017-05-21] MEDS: CALCITRIOL 0.25 MCG CAPSULE. PO SCH (08:33)
[2017-05-21] MEDS: CHOLECALCIFEROL (VITAMIN D3) 1,000 UNIT TABLET PO SCH (08:34)
[2017-05-21] MEDS: POTASSIUM CHLORIDE 20 MEQ TABLET.ER. PO SCH (08:34)
[2017-05-21] MEDS: FUROSEMIDE 40 MG TABLET. PO SCH (08:34)
[2017-05-21] MEDS: GABAPENTIN 100 MG CAPSULE. PO SCH ×2 (08:34→21:00)
[2017-05-21] MEDS: MAGNESIUM OXIDE 400 MG TABLET PO SCH (08:34)
[2017-05-21] MEDS: AMINOCAPROIC ACID 500 MG TABLET. PO SCH ×4 (08:34→21:08)
[2017-05-21] MEDS: ALLOPURINOL 300 MG TABLET. PO SCH (08:34)
[2017-05-21] MEDS: CETIRIZINE HCL 10 MG TABLET. PO SCH (08:34)
[2017-05-21] MEDS: PANTOPRAZOLE 40 MG TABLET.DR. PO SCH (08:34)
--- NOTE | 2017-05-21 09:38 | PDOC ---
PROGRESS NOTES Subjective Subjective HPI - vWD and ongoing GI bleed hemoglobin has dropped from 10.6 Fri evening to 7.3 on 05/18/17 ROS - had black stools Objective Objective Vital Signs Date Time Temp Pulse Resp B/P (MAP) Pulse Ox O2 Delivery O2 Flow Rate FiO2 05/21/17 08:14 98 Room Air 05/21/17 07:00 97.6 56 17 106/44 (64) 97.6 Physical Exam Heart: Normal S1, Normal S2 General: Alert, Oriented X3, No acute distress Lungs: Clear to auscultation Neuro: Normal speech Psych/Mental Status: Mental status NL Assessment Assessment Assessment/Plan 1. vWD and ongoing GI bleed hemoglobin has dropped from 10.6 Fri evening to 7.3 on 05/18/17 s/p 1 u PRBC 05/18/17 Hb 7.6 on 05/19/17 Hb worse at 6.5. s/p 2 PRBC 05/20/17 Hb better at 8.5 on 05/21/17 Monitor cbc Had black stools 05/18/17 Continue humate p , increased to q 8 hours from 05/19/17 and cont amicar. 2. Anemia, monitor hb Comment Review of Relevant I have reviewed the following items benjy (where applicable) has been applied. Labs Laboratory Tests Test 05/20/17 05:10 05/21/17 03:15 White Blood Count 4.5 x10^3/uL (4.0-11.0) 4.7 x10^3/uL (4.0-11.0) Red Blood Count 2.00 x10^6/uL (3.50-5.40) 2.62 x10^6/uL (3.50-5.40) Hemoglobin 6.5 g/dL (12.0-15.5) 8.5 g/dL (12.0-15.5) Hematocrit 19.6 % (36.0-47.0) 24.9 % (36.0-47.0) Mean Corpuscular Volume 98 fL (79-100) 95 fL (79-100) Mean Corpuscular Hemoglobin 33 pg (25-35) 33 pg (25-35) Mean Corpuscular Hemoglobin Concent 33 g/dL (31-37) 34 g/dL (31-37) Red Cell Distribution Width 17.6 % (11.5-14.5) 16.4 % (11.5-14.5) Platelet Count 101 x10^3/uL (140-400) 84 x10^3/uL (140-400) Neutrophils (%) (Auto) 63 % (31-73) 70 % (31-73) Lymphocytes (%) (Auto) 23 % (24-48) 18 % (24-48) Monocytes (%) (Auto) 9 % (0-9) 8 % (0-9) Eosinophils (%) (Auto) 4 % (0-3) 3 % (0-3) Basophils (%) (Auto) 1 % (0-3) 1 % (0-3) Neutrophils # (Auto) 2.8 x10^3uL (1.8-7.7) 3.3 x10^3uL (1.8-7.7) Lymphocytes # (Auto) 1.0 x10^3/uL (1.0-4.8) 0.9 x10^3/uL (1.0-4.8) Monocytes # (Auto) 0.4 x10^3/uL (0.0-1.1) 0.4 x10^3/uL (0.0-1.1) Eosinophils # (Auto) 0.2 x10^3/uL (0.0-0.7) 0.1 x10^3/uL (0.0-0.7) Basophils # (Auto) 0.0 x10^3/uL (0.0-0.2) 0.0 x10^3/uL (0.0-0.2) Sodium Level 141 mmol/L (136-145) 140 mmol/L (136-145) Potassium Level 4.6 mmol/L (3.5-5.1) 3.8 mmol/L (3.5-5.1) Chloride Level 106 mmol/L (98-107) 106 mmol/L (98-107) Carbon Dioxide Level 32 mmol/L (21-32) 30 mmol/L (21-32) Anion Gap 3 (6-14) 4 (6-14) Blood Urea Nitrogen 56 mg/dL (7-20) 52 mg/dL (7-20) Creatinine 1.2 mg/dL (0.6-1.0) 1.5 mg/dL (0.6-1.0) Estimated GFR (Cockcroft-Gault) 42.3 32.7 BUN/Creatinine Ratio 47 (6-20) Glucose Level 93 mg/dL (70-99) 96 mg/dL (70-99) Calcium Level 9.4 mg/dL (8.5-10.1) 9.3 mg/dL (8.5-10.1) Total Bilirubin 0.2 mg/dL (0.2-1.0) Aspartate Amino Transf (AST/SGOT) 18 U/L (15-37) Alanine Aminotransferase (ALT/SGPT) 16 U/L (14-59) Alkaline Phosphatase 63 U/L (46-116) Total Protein 5.6 g/dL (6.4-8.2) Albumin 2.5 g/dL (3.4-5.0) Albumin/Globulin Ratio 0.8 (1.0-1.7) Laboratory Tests Test 05/21/17 03:15 White Blood Count 4.7 x10^3/uL (4.0-11.0) Red Blood Count 2.62 x10^6/uL (3.50-5.40) Hemoglobin 8.5 g/dL (12.0-15.5) Hematocrit 24.9 % (36.0-47.0) Mean Corpuscular Volume 95 fL (79-100) Mean Corpuscular Hemoglobin 33 pg (25-35) Mean Corpuscular Hemoglobin Concent 34 g/dL (31-37) Red Cell Distribution Width 16.4 % (11.5-14.5) Platelet Count 84 x10^3/uL (140-400) Neutrophils (%) (Auto) 70 % (31-73) Lymphocytes (%) (Auto) 18 % (24-48) Monocytes (%) (Auto) 8 % (0-9) Eosinophils (%) (Auto) 3 % (0-3) Basophils (%) (Auto) 1 % (0-3) Neutrophils # (Auto) 3.3 x10^3uL (1.8-7.7) Lymphocytes # (Auto) 0.9 x10^3/uL (1.0-4.8) Monocytes # (Auto) 0.4 x10^3/uL (0.0-1.1) Eosinophils # (Auto) 0.1 x10^3/uL (0.0-0.7) Basophils # (Auto) 0.0 x10^3/uL (0.0-0.2) Sodium Level 140 mmol/L (136-145) Potassium Level 3.8 mmol/L (3.5-5.1) Chloride Level 106 mmol/L (98-107) Carbon Dioxide Level 30 mmol/L (21-32) Anion Gap 4 (6-14) Blood Urea Nitrogen 52 mg/dL (7-20) Creatinine 1.5 mg/dL (0.6-1.0) Estimated GFR (Cockcroft-Gault) 32.7 Glucose Level 96 mg/dL (70-99) Calcium Level 9.3 mg/dL (8.5-10.1) Medications Current Medications Sodium Chloride (Normal Saline Flush) 3 ml PRN DAILY PRN IV AFTER MEDS AND BLOOD DRAWS; Start 05/16/17 at 20:00 Ondansetron HCl (Zofran) 4 mg PRN Q6HRS PRN IV NAUSEA/VOMITING; Start 05/16/17 at 20:00 Oxycodone HCl (Roxicodone) 5 mg PRN Q3HRS PRN PO BREAKTHROUGH PAIN; Start 05/16 at 20:00 Aminocaproic Acid (Amicar) 1,000 mg QID PO Last administered on 05/21/17 08: 34; Start 05/16/17 at 21:00 Antihemophilic Factor 3656 vwf/ Miscellaneous 30 ml @ 180 mls/hr DAILY@1400 IV ; Start 05/16/17 at 23:00; Stop 05/20/17 at 14:09; Status Cancel Sodium Chloride 1,000 ml @ 50 mls/hr 1X ONCE IV Last administered on 20:52; Start 05/16/17 at 20:30; Stop 05/17/17 at 16:29; Status DC Antihemophilic Factor 3656 vwf/ Miscellaneous 40 ml @ 240 mls/hr DAILY@1400 IV Last administered on 05/16/17 22:55; Start 05/16/17 at 22:00; Stop 05/17/17 at 09:04; Status DC Antihemophilic Factor 3656 vwf/ Miscellaneous 40 ml @ 240 mls/hr BID IV Last administered on 05/19/17 08:44; Start 05/17/17 at 10:00; Stop 05/19/17 at 09:09 ; Status DC Tramadol HCl (Ultram) 50 mg PRN QID PRN PO PAIN Last administered on 00:10; Start 05/17/17 at 20:30 Levothyroxine Sodium (Synthroid) 100 mcg DAILY07 PO Last administered on 06:31; Start 05/18/17 at 07:00 Acetaminophen (Tylenol) 500 mg PRN Q6HRS PRN PO PAIN Last administered on 05/21 02:10; Start 05/17/17 at 21:45 Allopurinol (Zyloprim) 300 mg DAILY PO Last administered on 05/21/17 08:34; Start 05/18/17 at 09:00 Calcitriol (Rocaltrol) 0.25 mcg DAILY PO Last administered on 05/21/17 08:33 ; Start 05/18/17 at 09:00 Cyanocobalamin (Vitamin B-12) 1,000 mcg DAILY PO Last administered on 08:33; Start 05/18/17 at 09:00 Ergocalciferol (Vitamin D2) 1,000 unit DAILY PO ; Start 05/18/17 at 09:00; Status Cancel Furosemide (Lasix) 40 mg DAILY PO Last administered on 05/21/17 08:34; Start 05/18/17 at 09:00 Gabapentin (Neurontin) 100 mg BID PO Last administered on 05/21/17 08:34; Start 05/18/17 at 09:00 Potassium Chloride (Klor-Con) 20 meq DAILY PO Last administered on 05/21/17 08:34; Start 05/18/17 at 09:00 Vitamin D (Vitamin D3) 1,000 unit DAILY PO Last administered on 05/21/17 08: 34; Start 05/19/17 at 09:00 Cetirizine HCl (ZyrTEC) 10 mg DAILY PO Last administered on 05/21/17 08:34; Start 05/18/17 at 09:00 Non-Formulary Medication 1 each DAILY PO ; Start 05/18/17 at 09:00; Stop at 09:04; Status DC Magnesium Oxide (Magnesium Oxide) 400 mg DAILY PO Last administered on 08:34; Start 05/19/17 at 09:00 Pantoprazole Sodium (Protonix) 40 mg DAILYAC PO Last administered on 08:34; Start 05/18/17 at 11:30 Non-Formulary Medication 250 mg DAILY PO ; Start 05/18/17 at 09:00; Stop at 09:23; Status DC Non-Formulary Medication 1,300 mg BID PO ; Start 05/18/17 at 09:00; Status UNV Antihemophilic Factor 3400 vwf/ Miscellaneous 40 ml @ 240 mls/hr TID IV ; Start 05/19/17 at 14:00; Stop 05/23/17 at 21:09; Status Cancel Antihemophilic Factor 3592 vwf/ Miscellaneous 40 ml @ 240 mls/hr TID IV Last administered on 05/20/17 21:29; Start 05/19/17 at 14:00; Stop 05/23/17 at 21: 09 Albuterol/ Ipratropium (Duoneb) 3 ml RTQID NEB Last administered on 05/21/17 08:12; Start 05/20/17 at 12:00 Active Scripts Active Lasix (Furosemide) 40 Mg Tablet 1 Tab PO QOD Reported Levothyroxine Sodium 100 Mcg Tablet 1 Tab PO DAILY Vitamin D2 (Ergocalciferol (Vitamin D2)) 50,000 Unit Capsule 1,000 Unit PO DAILY Doxycycline Hyclate 100 Mg Tablet 1 Tab PO BID Resveratrol 250 Mg Capsule 250 Mg PO DAILY Vitamin D (Cholecalciferol (Vitamin D3)) 1,000 Unit Capsule 1 Cap PO DAILY Lysteda (Tranexamic Acid) 650 Mg Tablet 1,300 Mg PO BID Calcitriol 0.25 Mcg Capsule 1 Cap PO DAILY Selenium (Selenomethionine) 200 Mcg Tablet 200 Mcg PO DAILY Vitamin A 8,000 Unit Capsule 8,000 Unit PO Coconut Oil 1,000 Mg Capsule 1,000 Mg PO DAILY Magnesium (Magnesium Oxide) 500 Mg Capsule 500 Mg PO DAILY Omeprazole 40 Mg Capsule.dr 40 Mg PO DAILY Potassium Chloride 20 Meq Tab.er.prt 20 Meq PO DAILY Acetaminophen 500 Mg Tablet 500 Mg PO Q4-6HRS PRN Allopurinol 300 Mg Tablet 300 Mg PO DAILY Neurontin (Gabapentin) 100 Mg Capsule 100 Mg PO BID Vitamin B-12 (Cyanocobalamin (Vitamin B-12)) 1,000 Mcg Tablet 1,000 Mcg SL DAILY Osteo Bi-Flex Caplet (Gluc/Lyndon-Msm#1/C/Brandon/Alfredo/Bor) 1 Each Tablet 1 Each PO DAILY Nakita (Fexofenadine Hcl) 180 Mg Tablet 180 Mg PO DAILY Tramadol Hcl 50 Mg Tablet 50 Mg PO PRN QID Vitals/I & O Vital Sign - Last 24 Hours 05/20/17 05/20/17 05/20/17 05/20/17 10:36 11:07 12:45 13:02 Temp 97.7 97.9 97.7 97.7 97.9 97.7 Pulse 89 67 61 Resp 16 20 18 B/P (MAP) 120/43 (68) 136/39 117/33 Pulse Ox 97 O2 Delivery Room Air Room Air 05/20/17 05/20/17 05/20/17 05/20/17 13:35 14:05 14:42 14:51 Temp 97.7 97.7 97.4 97.7 97.7 97.4 Pulse 60 68 70 Resp 16 16 18 B/P (MAP) 113/43 113/43 (66) 110/43 Pulse Ox 99 99 O2 Delivery Room Air Room Air 05/20/17 05/20/17 05/20/17 05/20/17 15:13 16:28 16:45 18:45 Temp 97.6 97.7 97.9 97.6 97.7 97.9 Pulse 71 68 66 Resp 20 20 18 B/P (MAP) 111/43 113/37 117/43 O2 Delivery Room Air 05/20/17 05/20/17 05/20/17 05/20/17 19:11 19:15 19:32 19:40 Temp 97.7 98.0 97.7 98.0 Pulse 67 74 74 Resp 16 17 B/P (MAP) 95/45 (62) 116/40 116/40 (65) Pulse Ox 98 98 O2 Delivery Room Air Room Air 05/20/17 05/20/17 05/21/17 05/21/17 20:00 23:15 00:10 02:11 Temp 97.9 97.9 Pulse 71 Resp 16 17 16 B/P (MAP) 116/39 (64) Pulse Ox 97 97 97 O2 Delivery Room Air Room Air Room Air Room Air 05/21/17 05/21/17 05/21/17 03:00 07:00 08:14 Temp 96.6 97.6 96.6 97.6 Pulse 64 56 Resp 18 17 B/P (MAP) 120/44 (69) 106/44 (64) Pulse Ox 97 99 98 O2 Delivery Room Air Room Air Room Air FREDIS PALMER MD May 21, 2017 09:38
[2017-05-21] MEDS: TOTAL VOLUME IV SCH ×3 (09:54→21:08)
[2017-05-21] MEDS: VWF IV SCH ×3 (09:54→21:08)
[2017-05-21] MEDS: ANTIHEMOPHILIC FACTOR IV SCH ×3 (09:54→21:08)
--- NOTE | 2017-05-21 13:06 | PDOC ---
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 GIB: recurrent. ongoing melena, scant amounts 2. vW coagulopathy: cont HumateP and amicar. Heme service following 3. Anemia: acute bleed. transfuse PRBC x1 today. H/H this PM. iron studies pending 4. hypothyroidism: on synthroid; check TSH 5. 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 no NSAIDs. tylenol, norco PRN 6. GI prophylaxis: PPI History of Present Illness History of Present Illness hgb better, appropriate s/p 2 u PRBC, cont Humate P some sore throat, dry cough, wanted lozenge and vicks rub large black stool overnight, she is worried about new bleeding no abd pain, mild rectal discomfort Vitals Vitals Vital Signs Date Time Temp Pulse Resp B/P (MAP) Pulse Ox O2 Delivery O2 Flow Rate FiO2 05/21/17 11:23 97 Room Air 05/21/17 07:00 97.6 56 17 106/44 (64) 97.6 Physical Exam General: Alert, Oriented X3, No acute distress Heart: Normal S1, Normal S2 Lungs: Clear Abdomen: Normal bowel sounds, Soft, No tenderness Extremities: No clubbing, No edema Skin: No rashes, Other (diffuse ecchymosis on arms) Labs LABS Laboratory Tests Test 05/21/17 03:15 White Blood Count 4.7 x10^3/uL (4.0-11.0) Red Blood Count 2.62 x10^6/uL (3.50-5.40) Hemoglobin 8.5 g/dL (12.0-15.5) Hematocrit 24.9 % (36.0-47.0) Mean Corpuscular Volume 95 fL (79-100) Mean Corpuscular Hemoglobin 33 pg (25-35) Mean Corpuscular Hemoglobin Concent 34 g/dL (31-37) Red Cell Distribution Width 16.4 % (11.5-14.5) Platelet Count 84 x10^3/uL (140-400) Neutrophils (%) (Auto) 70 % (31-73) Lymphocytes (%) (Auto) 18 % (24-48) Monocytes (%) (Auto) 8 % (0-9) Eosinophils (%) (Auto) 3 % (0-3) Basophils (%) (Auto) 1 % (0-3) Neutrophils # (Auto) 3.3 x10^3uL (1.8-7.7) Lymphocytes # (Auto) 0.9 x10^3/uL (1.0-4.8) Monocytes # (Auto) 0.4 x10^3/uL (0.0-1.1) Eosinophils # (Auto) 0.1 x10^3/uL (0.0-0.7) Basophils # (Auto) 0.0 x10^3/uL (0.0-0.2) Sodium Level 140 mmol/L (136-145) Potassium Level 3.8 mmol/L (3.5-5.1) Chloride Level 106 mmol/L (98-107) Carbon Dioxide Level 30 mmol/L (21-32) Anion Gap 4 (6-14) Blood Urea Nitrogen 52 mg/dL (7-20) Creatinine 1.5 mg/dL (0.6-1.0) Estimated GFR (Cockcroft-Gault) 32.7 Glucose Level 96 mg/dL (70-99) Calcium Level 9.3 mg/dL (8.5-10.1) Review of Systems Review of Systems large black stool sore throat and cough Comment Review of Relevant I have reviewed the following items benjy (where applicable) has been applied. Labs Laboratory Tests Test 05/20/17 05:10 05/21/17 03:15 White Blood Count 4.5 x10^3/uL (4.0-11.0) 4.7 x10^3/uL (4.0-11.0) Red Blood Count 2.00 x10^6/uL (3.50-5.40) 2.62 x10^6/uL (3.50-5.40) Hemoglobin 6.5 g/dL (12.0-15.5) 8.5 g/dL (12.0-15.5) Hematocrit 19.6 % (36.0-47.0) 24.9 % (36.0-47.0) Mean Corpuscular Volume 98 fL (79-100) 95 fL (79-100) Mean Corpuscular Hemoglobin 33 pg (25-35) 33 pg (25-35) Mean Corpuscular Hemoglobin Concent 33 g/dL (31-37) 34 g/dL (31-37) Red Cell Distribution Width 17.6 % (11.5-14.5) 16.4 % (11.5-14.5) Platelet Count 101 x10^3/uL (140-400) 84 x10^3/uL (140-400) Neutrophils (%) (Auto) 63 % (31-73) 70 % (31-73) Lymphocytes (%) (Auto) 23 % (24-48) 18 % (24-48) Monocytes (%) (Auto) 9 % (0-9) 8 % (0-9) Eosinophils (%) (Auto) 4 % (0-3) 3 % (0-3) Basophils (%) (Auto) 1 % (0-3) 1 % (0-3) Neutrophils # (Auto) 2.8 x10^3uL (1.8-7.7) 3.3 x10^3uL (1.8-7.7) Lymphocytes # (Auto) 1.0 x10^3/uL (1.0-4.8) 0.9 x10^3/uL (1.0-4.8) Monocytes # (Auto) 0.4 x10^3/uL (0.0-1.1) 0.4 x10^3/uL (0.0-1.1) Eosinophils # (Auto) 0.2 x10^3/uL (0.0-0.7) 0.1 x10^3/uL (0.0-0.7) Basophils # (Auto) 0.0 x10^3/uL (0.0-0.2) 0.0 x10^3/uL (0.0-0.2) Sodium Level 141 mmol/L (136-145) 140 mmol/L (136-145) Potassium Level 4.6 mmol/L (3.5-5.1) 3.8 mmol/L (3.5-5.1) Chloride Level 106 mmol/L (98-107) 106 mmol/L (98-107) Carbon Dioxide Level 32 mmol/L (21-32) 30 mmol/L (21-32) Anion Gap 3 (6-14) 4 (6-14) Blood Urea Nitrogen 56 mg/dL (7-20) 52 mg/dL (7-20) Creatinine 1.2 mg/dL (0.6-1.0) 1.5 mg/dL (0.6-1.0) Estimated GFR (Cockcroft-Gault) 42.3 32.7 BUN/Creatinine Ratio 47 (6-20) Glucose Level 93 mg/dL (70-99) 96 mg/dL (70-99) Calcium Level 9.4 mg/dL (8.5-10.1) 9.3 mg/dL (8.5-10.1) Total Bilirubin 0.2 mg/dL (0.2-1.0) Aspartate Amino Transf (AST/SGOT) 18 U/L (15-37) Alanine Aminotransferase (ALT/SGPT) 16 U/L (14-59) Alkaline Phosphatase 63 U/L (46-116) Total Protein 5.6 g/dL (6.4-8.2) Albumin 2.5 g/dL (3.4-5.0) Albumin/Globulin Ratio 0.8 (1.0-1.7) Laboratory Tests Test 05/21/17 03:15 White Blood Count 4.7 x10^3/uL (4.0-11.0) Red Blood Count 2.62 x10^6/uL (3.50-5.40) Hemoglobin 8.5 g/dL (12.0-15.5) Hematocrit 24.9 % (36.0-47.0) Mean Corpuscular Volume 95 fL (79-100) Mean Corpuscular Hemoglobin 33 pg (25-35) Mean Corpuscular Hemoglobin Concent 34 g/dL (31-37) Red Cell Distribution Width 16.4 % (11.5-14.5) Platelet Count 84 x10^3/uL (140-400) Neutrophils (%) (Auto) 70 % (31-73) Lymphocytes (%) (Auto) 18 % (24-48) Monocytes (%) (Auto) 8 % (0-9) Eosinophils (%) (Auto) 3 % (0-3) Basophils (%) (Auto) 1 % (0-3) Neutrophils # (Auto) 3.3 x10^3uL (1.8-7.7) Lymphocytes # (Auto) 0.9 x10^3/uL (1.0-4.8) Monocytes # (Auto) 0.4 x10^3/uL (0.0-1.1) Eosinophils # (Auto) 0.1 x10^3/uL (0.0-0.7) Basophils # (Auto) 0.0 x10^3/uL (0.0-0.2) Sodium Level 140 mmol/L (136-145) Potassium Level 3.8 mmol/L (3.5-5.1) Chloride Level 106 mmol/L (98-107) Carbon Dioxide Level 30 mmol/L (21-32) Anion Gap 4 (6-14) Blood Urea Nitrogen 52 mg/dL (7-20) Creatinine 1.5 mg/dL (0.6-1.0) Estimated GFR (Cockcroft-Gault) 32.7 Glucose Level 96 mg/dL (70-99) Calcium Level 9.3 mg/dL (8.5-10.1) Medications Current Medications Sodium Chloride (Normal Saline Flush) 3 ml PRN DAILY PRN IV AFTER MEDS AND BLOOD DRAWS; Start 05/16/17 at 20:00 Ondansetron HCl (Zofran) 4 mg PRN Q6HRS PRN IV NAUSEA/VOMITING; Start 05/16/17 at 20:00 Oxycodone HCl (Roxicodone) 5 mg PRN Q3HRS PRN PO BREAKTHROUGH PAIN; Start 05/16 at 20:00 Aminocaproic Acid (Amicar) 1,000 mg QID PO Last administered on 05/21/17 08: 34; Start 05/16/17 at 21:00 Antihemophilic Factor 3656 vwf/ Miscellaneous 30 ml @ 180 mls/hr DAILY@1400 IV ; Start 05/16/17 at 23:00; Stop 05/20/17 at 14:09; Status Cancel Sodium Chloride 1,000 ml @ 50 mls/hr 1X ONCE IV Last administered on 20:52; Start 05/16/17 at 20:30; Stop 05/17/17 at 16:29; Status DC Antihemophilic Factor 3656 vwf/ Miscellaneous 40 ml @ 240 mls/hr DAILY@1400 IV Last administered on 05/16/17 22:55; Start 05/16/17 at 22:00; Stop 05/17/17 at 09:04; Status DC Antihemophilic Factor 3656 vwf/ Miscellaneous 40 ml @ 240 mls/hr BID IV Last administered on 05/19/17 08:44; Start 05/17/17 at 10:00; Stop 05/19/17 at 09:09 ; Status DC Tramadol HCl (Ultram) 50 mg PRN QID PRN PO MODERATE - SEVERE PAIN Last administered on 05/21/17 00:10; Start 05/17/17 at 20:30 Levothyroxine Sodium (Synthroid) 100 mcg DAILY07 PO Last administered on 06:31; Start 05/18/17 at 07:00 Acetaminophen (Tylenol) 500 mg PRN Q6HRS PRN PO MILD PAIN Last administered on 05/21/17 02:10; Start 05/17/17 at 21:45 Allopurinol (Zyloprim) 300 mg DAILY PO Last administered on 05/21/17 08:34; Start 05/18/17 at 09:00 Calcitriol (Rocaltrol) 0.25 mcg DAILY PO Last administered on 05/21/17 08:33 ; Start 05/18/17 at 09:00 Cyanocobalamin (Vitamin B-12) 1,000 mcg DAILY PO Last administered on 08:33; Start 05/18/17 at 09:00 Ergocalciferol (Vitamin D2) 1,000 unit DAILY PO ; Start 05/18/17 at 09:00; Status Cancel Furosemide (Lasix) 40 mg DAILY PO Last administered on 05/21/17 08:34; Start 05/18/17 at 09:00 Gabapentin (Neurontin) 100 mg BID PO Last administered on 05/21/17 08:34; Start 05/18/17 at 09:00 Potassium Chloride (Klor-Con) 20 meq DAILY PO Last administered on 05/21/17 08:34; Start 05/18/17 at 09:00 Vitamin D (Vitamin D3) 1,000 unit DAILY PO Last administered on 05/21/17 08: 34; Start 05/19/17 at 09:00 Cetirizine HCl (ZyrTEC) 10 mg DAILY PO Last administered on 05/21/17 08:34; Start 05/18/17 at 09:00 Non-Formulary Medication 1 each DAILY PO ; Start 05/18/17 at 09:00; Stop at 09:04; Status DC Magnesium Oxide (Magnesium Oxide) 400 mg DAILY PO Last administered on 08:34; Start 05/19/17 at 09:00 Pantoprazole Sodium (Protonix) 40 mg DAILYAC PO Last administered on 08:34; Start 05/18/17 at 11:30 Non-Formulary Medication 250 mg DAILY PO ; Start 05/18/17 at 09:00; Stop at 09:23; Status DC Non-Formulary Medication 1,300 mg BID PO ; Start 05/18/17 at 09:00; Status UNV Antihemophilic Factor 3400 vwf/ Miscellaneous 40 ml @ 240 mls/hr TID IV ; Start 05/19/17 at 14:00; Stop 05/23/17 at 21:09; Status Cancel Antihemophilic Factor 3592 vwf/ Miscellaneous 40 ml @ 240 mls/hr TID IV Last administered on 05/21/17 09:54; Start 05/19/17 at 14:00; Stop 05/23/17 at 21: 09 Albuterol/ Ipratropium (Duoneb) 3 ml RTQID NEB Last administered on 05/21/17 11:23; Start 05/20/17 at 12:00 Active Scripts Active Lasix (Furosemide) 40 Mg Tablet 1 Tab PO QOD Reported Levothyroxine Sodium 100 Mcg Tablet 1 Tab PO DAILY Vitamin D2 (Ergocalciferol (Vitamin D2)) 50,000 Unit Capsule 1,000 Unit PO DAILY Doxycycline Hyclate 100 Mg Tablet 1 Tab PO BID Resveratrol 250 Mg Capsule 250 Mg PO DAILY Vitamin D (Cholecalciferol (Vitamin D3)) 1,000 Unit Capsule 1 Cap PO DAILY Lysteda (Tranexamic Acid) 650 Mg Tablet 1,300 Mg PO BID Calcitriol 0.25 Mcg Capsule 1 Cap PO DAILY Selenium (Selenomethionine) 200 Mcg Tablet 200 Mcg PO DAILY Vitamin A 8,000 Unit Capsule 8,000 Unit PO Coconut Oil 1,000 Mg Capsule 1,000 Mg PO DAILY Magnesium (Magnesium Oxide) 500 Mg Capsule 500 Mg PO DAILY Omeprazole 40 Mg Capsule.dr 40 Mg PO DAILY Potassium Chloride 20 Meq Tab.er.prt 20 Meq PO DAILY Acetaminophen 500 Mg Tablet 500 Mg PO Q4-6HRS PRN Allopurinol 300 Mg Tablet 300 Mg PO DAILY Neurontin (Gabapentin) 100 Mg Capsule 100 Mg PO BID Vitamin B-12 (Cyanocobalamin (Vitamin B-12)) 1,000 Mcg Tablet 1,000 Mcg SL DAILY Osteo Bi-Flex Caplet (Gluc/Lyndon-Msm#1/C/Brandon/Alfredo/Bor) 1 Each Tablet 1 Each PO DAILY Nakita (Fexofenadine Hcl) 180 Mg Tablet 180 Mg PO DAILY Tramadol Hcl 50 Mg Tablet 50 Mg PO PRN QID Vitals/I & O Vital Sign - Last 24 Hours 05/20/17 05/20/17 05/20/17 05/20/17 13:35 14:05 14:42 14:51 Temp 97.7 97.7 97.4 97.7 97.7 97.4 Pulse 60 68 70 Resp 16 16 18 B/P (MAP) 113/43 113/43 (66) 110/43 Pulse Ox 99 99 O2 Delivery Room Air Room Air 05/20/17 05/20/17 05/20/17 05/20/17 15:13 16:28 16:45 18:45 Temp 97.6 97.7 97.9 97.6 97.7 97.9 Pulse 71 68 66 Resp 20 20 18 B/P (MAP) 111/43 113/37 117/43 O2 Delivery Room Air 05/20/17 05/20/17 05/20/17 05/20/17 19:11 19:15 19:32 19:40 Temp 97.7 98.0 97.7 98.0 Pulse 67 74 74 Resp 16 17 B/P (MAP) 95/45 (62) 116/40 116/40 (65) Pulse Ox 98 98 O2 Delivery Room Air Room Air 05/20/17 05/20/17 05/21/17 05/21/17 20:00 23:15 00:10 02:11 Temp 97.9 97.9 Pulse 71 Resp 16 17 16 B/P (MAP) 116/39 (64) Pulse Ox 97 97 97 O2 Delivery Room Air Room Air Room Air Room Air 05/21/17 05/21/17 05/21/17 05/21/17 03:00 07:00 08:00 08:14 Temp 96.6 97.6 96.6 97.6 Pulse 64 56 Resp 18 17 B/P (MAP) 120/44 (69) 106/44 (64) Pulse Ox 97 99 98 O2 Delivery Room Air Room Air Room Air Room Air 05/21/17 11:23 Pulse Ox 97 O2 Delivery Room Air JAMARCUS LAI MD May 21, 2017 13:06
[2017-05-21] MEDS: BENZOCAINE/MENTHOL LOZENGE. PO PRN ×2 (14:42→17:53)
[2017-05-21 15:00] VITALS: BP 111/40
[2017-05-21 19:00] VITALS: BP 114/46
[2017-05-21 23:00] VITALS: BP 113/45
[2017-05-22 03:04] VITALS: BP 108/48
[2017-05-22 05:14] LABS: BASO % 1 % (0-3); EOS % 4 % (0-3); HEMOGLOBIN 8.4 g/dL (12.0-15.5); LYMPH # 0.7 x10^3/uL (1.0-4.8); LYMPH % 19 % (24-48); MEAN CORPUSCULAR HEMOGLOBIN 33 pg (25-35); MEAN CORPUSCULAR HGB CONC 34 g/dL (31-37); MEAN CORPUSCULAR VOLUME 97 fL (79-100); MONO % 8 % (0-9); NEUT % 69 % (31-73); PLATELET COUNT 86 x10^3/uL (140-400); RED BLOOD COUNT 2.58 x10^6/uL (3.50-5.40); RED CELL DISTRIBUTION WIDTH 16.5 % (11.5-14.5); WHITE BLOOD COUNT 3.8 x10^3/uL (4.0-11.0)
[2017-05-22 05:52] LABS: ALBUMIN 2.8 g/dL (3.4-5.0); ALBUMIN/GLOBULIN RATIO 0.9 (1.0-1.7); CALCIUM 9.2 mg/dL (8.5-10.1); CREATININE 1.3 mg/dL (0.6-1.0); GFR 38.6; TOTAL BILIRUBIN 0.4 mg/dL (0.2-1.0); TOTAL PROTEIN 5.8 g/dL (6.4-8.2)
[2017-05-22] MEDS: LEVOTHYROXINE 100 MCG TABLET PO SCH (06:15)
[2017-05-22] MEDS: IPRATRPIUM/ALBUTEROL 0.5/2.5MG 3 ML NEBU. NEB SCH ×4 (06:51→19:25)
[2017-05-22 07:00] VITALS: BP 117/32
[2017-05-22] MEDS: PANTOPRAZOLE 40 MG TABLET.DR. PO SCH (08:02)
[2017-05-22] MEDS: CHOLECALCIFEROL (VITAMIN D3) 1,000 UNIT TABLET PO SCH (09:02)
[2017-05-22] MEDS: ALLOPURINOL 300 MG TABLET. PO SCH (09:02)
[2017-05-22] MEDS: POTASSIUM CHLORIDE 20 MEQ TABLET.ER. PO SCH (09:02)
[2017-05-22] MEDS: AMINOCAPROIC ACID 500 MG TABLET. PO SCH ×4 (09:02→21:32)
[2017-05-22] MEDS: CALCITRIOL 0.25 MCG CAPSULE. PO SCH (09:02)
[2017-05-22] MEDS: CETIRIZINE HCL 10 MG TABLET. PO SCH (09:02)
[2017-05-22] MEDS: VWF IV SCH ×3 (09:03→21:33)
[2017-05-22] MEDS: FUROSEMIDE 40 MG TABLET. PO SCH (09:03)
[2017-05-22] MEDS: ANTIHEMOPHILIC FACTOR IV SCH ×3 (09:03→21:33)
[2017-05-22] MEDS: GABAPENTIN 100 MG CAPSULE. PO SCH ×2 (09:03→21:00)
[2017-05-22] MEDS: MAGNESIUM OXIDE 400 MG TABLET PO SCH (09:03)
[2017-05-22] MEDS: TOTAL VOLUME IV SCH ×3 (09:03→21:33)
[2017-05-22] MEDS: CYANOCOBALAMIN (VITAMIN B-12) 1,000 MCG TABLET. PO SCH (09:03)
--- NOTE | 2017-05-22 10:51 | PDOC ---
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 vWD and ongoing GI bleed hemoglobin has dropped from 10.6 Fri evening to 7.3 on 05/18/17 s/p 1 u PRBC 05/18/17 Hb 7.6 on 05/19/17 Hb worse at 6.5. s/p 2 PRBC 05/20/17 Hb better at 8.5 on 05/21/17 Hb stable at 8.4 on 05/22/17 Monitor cbc Had black stools 05/18/17 Continue humate p , increased to q 8 hours from 05/19/17 and cont amicar. If she continues to have melena, then I will continue Humate P for 3-4 days. 2. Anemia, monitor hb Comment Review of Relevant I have reviewed the following items benjy (where applicable) has been applied. Labs Laboratory Tests Test 05/21/17 03:15 05/22/17 04:00 White Blood Count 4.7 x10^3/uL (4.0-11.0) 3.8 x10^3/uL (4.0-11.0) Red Blood Count 2.62 x10^6/uL (3.50-5.40) 2.58 x10^6/uL (3.50-5.40) Hemoglobin 8.5 g/dL (12.0-15.5) 8.4 g/dL (12.0-15.5) Hematocrit 24.9 % (36.0-47.0) 25.0 % (36.0-47.0) Mean Corpuscular Volume 95 fL (79-100) 97 fL (79-100) Mean Corpuscular Hemoglobin 33 pg (25-35) 33 pg (25-35) Mean Corpuscular Hemoglobin Concent 34 g/dL (31-37) 34 g/dL (31-37) Red Cell Distribution Width 16.4 % (11.5-14.5) 16.5 % (11.5-14.5) Platelet Count 84 x10^3/uL (140-400) 86 x10^3/uL (140-400) Neutrophils (%) (Auto) 70 % (31-73) 69 % (31-73) Lymphocytes (%) (Auto) 18 % (24-48) 19 % (24-48) Monocytes (%) (Auto) 8 % (0-9) 8 % (0-9) Eosinophils (%) (Auto) 3 % (0-3) 4 % (0-3) Basophils (%) (Auto) 1 % (0-3) 1 % (0-3) Neutrophils # (Auto) 3.3 x10^3uL (1.8-7.7) 2.6 x10^3uL (1.8-7.7) Lymphocytes # (Auto) 0.9 x10^3/uL (1.0-4.8) 0.7 x10^3/uL (1.0-4.8) Monocytes # (Auto) 0.4 x10^3/uL (0.0-1.1) 0.3 x10^3/uL (0.0-1.1) Eosinophils # (Auto) 0.1 x10^3/uL (0.0-0.7) 0.1 x10^3/uL (0.0-0.7) Basophils # (Auto) 0.0 x10^3/uL (0.0-0.2) 0.0 x10^3/uL (0.0-0.2) Sodium Level 140 mmol/L (136-145) 142 mmol/L (136-145) Potassium Level 3.8 mmol/L (3.5-5.1) 4.0 mmol/L (3.5-5.1) Chloride Level 106 mmol/L (98-107) 107 mmol/L (98-107) Carbon Dioxide Level 30 mmol/L (21-32) 32 mmol/L (21-32) Anion Gap 4 (6-14) 3 (6-14) Blood Urea Nitrogen 52 mg/dL (7-20) 39 mg/dL (7-20) Creatinine 1.5 mg/dL (0.6-1.0) 1.3 mg/dL (0.6-1.0) Estimated GFR (Cockcroft-Gault) 32.7 38.6 Glucose Level 96 mg/dL (70-99) 84 mg/dL (70-99) Calcium Level 9.3 mg/dL (8.5-10.1) 9.2 mg/dL (8.5-10.1) BUN/Creatinine Ratio 30 (6-20) Total Bilirubin 0.4 mg/dL (0.2-1.0) Aspartate Amino Transf (AST/SGOT) 21 U/L (15-37) Alanine Aminotransferase (ALT/SGPT) 17 U/L (14-59) Alkaline Phosphatase 65 U/L (46-116) Total Protein 5.8 g/dL (6.4-8.2) Albumin 2.8 g/dL (3.4-5.0) Albumin/Globulin Ratio 0.9 (1.0-1.7) Laboratory Tests Test 05/22/17 04:00 White Blood Count 3.8 x10^3/uL (4.0-11.0) Red Blood Count 2.58 x10^6/uL (3.50-5.40) Hemoglobin 8.4 g/dL (12.0-15.5) Hematocrit 25.0 % (36.0-47.0) Mean Corpuscular Volume 97 fL (79-100) Mean Corpuscular Hemoglobin 33 pg (25-35) Mean Corpuscular Hemoglobin Concent 34 g/dL (31-37) Red Cell Distribution Width 16.5 % (11.5-14.5) Platelet Count 86 x10^3/uL (140-400) Neutrophils (%) (Auto) 69 % (31-73) Lymphocytes (%) (Auto) 19 % (24-48) Monocytes (%) (Auto) 8 % (0-9) Eosinophils (%) (Auto) 4 % (0-3) Basophils (%) (Auto) 1 % (0-3) Neutrophils # (Auto) 2.6 x10^3uL (1.8-7.7) Lymphocytes # (Auto) 0.7 x10^3/uL (1.0-4.8) Monocytes # (Auto) 0.3 x10^3/uL (0.0-1.1) Eosinophils # (Auto) 0.1 x10^3/uL (0.0-0.7) Basophils # (Auto) 0.0 x10^3/uL (0.0-0.2) Sodium Level 142 mmol/L (136-145) Potassium Level 4.0 mmol/L (3.5-5.1) Chloride Level 107 mmol/L (98-107) Carbon Dioxide Level 32 mmol/L (21-32) Anion Gap 3 (6-14) Blood Urea Nitrogen 39 mg/dL (7-20) Creatinine 1.3 mg/dL (0.6-1.0) Estimated GFR (Cockcroft-Gault) 38.6 BUN/Creatinine Ratio 30 (6-20) Glucose Level 84 mg/dL (70-99) Calcium Level 9.2 mg/dL (8.5-10.1) Total Bilirubin 0.4 mg/dL (0.2-1.0) Aspartate Amino Transf (AST/SGOT) 21 U/L (15-37) Alanine Aminotransferase (ALT/SGPT) 17 U/L (14-59) Alkaline Phosphatase 65 U/L (46-116) Total Protein 5.8 g/dL (6.4-8.2) Albumin 2.8 g/dL (3.4-5.0) Albumin/Globulin Ratio 0.9 (1.0-1.7) Medications Current Medications Sodium Chloride (Normal Saline Flush) 3 ml PRN DAILY PRN IV AFTER MEDS AND BLOOD DRAWS; Start 05/16/17 at 20:00 Ondansetron HCl (Zofran) 4 mg PRN Q6HRS PRN IV NAUSEA/VOMITING; Start 05/16/17 at 20:00 Oxycodone HCl (Roxicodone) 5 mg PRN Q3HRS PRN PO BREAKTHROUGH PAIN; Start 05/16 at 20:00 Aminocaproic Acid (Amicar) 1,000 mg QID PO Last administered on 05/22/17t 09: 02; Start 05/16/17 at 21:00 Antihemophilic Factor 3656 vwf/ Miscellaneous 30 ml @ 180 mls/hr DAILY@1400 IV ; Start 05/16/17 at 23:00; Stop 05/20/17 at 14:09; Status Cancel Sodium Chloride 1,000 ml @ 50 mls/hr 1X ONCE IV Last administered on 20:52; Start 05/16/17 at 20:30; Stop 05/17/17 at 16:29; Status DC Antihemophilic Factor 3656 vwf/ Miscellaneous 40 ml @ 240 mls/hr DAILY@1400 IV Last administered on 05/16/17 22:55; Start 05/16/17 at 22:00; Stop 05/17/17 at 09:04; Status DC Antihemophilic Factor 3656 vwf/ Miscellaneous 40 ml @ 240 mls/hr BID IV Last administered on 05/19/17 08:44; Start 05/17/17 at 10:00; Stop 05/19/17 at 09:09 ; Status DC Tramadol HCl (Ultram) 50 mg PRN QID PRN PO MODERATE - SEVERE PAIN Last administered on 05/21/17 21:08; Start 05/17/17 at 20:30 Levothyroxine Sodium (Synthroid) 100 mcg DAILY07 PO Last administered on 06:15; Start 05/18/17 at 07:00 Acetaminophen (Tylenol) 500 mg PRN Q6HRS PRN PO MILD PAIN Last administered on 05/21/17 21:09; Start 05/17/17 at 21:45 Allopurinol (Zyloprim) 300 mg DAILY PO Last administered on 05/22/17 09:02; Start 05/18/17 at 09:00 Calcitriol (Rocaltrol) 0.25 mcg DAILY PO Last administered on 05/22/17 09:02 ; Start 05/18/17 at 09:00 Cyanocobalamin (Vitamin B-12) 1,000 mcg DAILY PO Last administered on 09:03; Start 05/18/17 at 09:00 Ergocalciferol (Vitamin D2) 1,000 unit DAILY PO ; Start 05/18/17 at 09:00; Status Cancel Furosemide (Lasix) 40 mg DAILY PO Last administered on 05/22/17 09:03; Start 05/18/17 at 09:00 Gabapentin (Neurontin) 100 mg BID PO Last administered on 05/22/17 09:03; Start 05/18/17 at 09:00 Potassium Chloride (Klor-Con) 20 meq DAILY PO Last administered on 05/22/17 09:02; Start 05/18/17 at 09:00 Vitamin D (Vitamin D3) 1,000 unit DAILY PO Last administered on 05/22/17 09: 02; Start 05/19/17 at 09:00 Cetirizine HCl (ZyrTEC) 10 mg DAILY PO Last administered on 05/22/17 09:02; Start 05/18/17 at 09:00 Non-Formulary Medication 1 each DAILY PO ; Start 05/18/17 at 09:00; Stop at 09:04; Status DC Magnesium Oxide (Magnesium Oxide) 400 mg DAILY PO Last administered on 09:03; Start 05/19/17 at 09:00 Pantoprazole Sodium (Protonix) 40 mg DAILYAC PO Last administered on 08:02; Start 05/18/17 at 11:30 Non-Formulary Medication 250 mg DAILY PO ; Start 05/18/17 at 09:00; Stop at 09:23; Status DC Non-Formulary Medication 1,300 mg BID PO ; Start 05/18/17 at 09:00; Status UNV Antihemophilic Factor 3400 vwf/ Miscellaneous 40 ml @ 240 mls/hr TID IV ; Start 05/19/17 at 14:00; Stop 05/23/17 at 21:09; Status Cancel Antihemophilic Factor 3592 vwf/ Miscellaneous 40 ml @ 240 mls/hr TID IV Last administered on 05/22/17 09:03; Start 05/19/17 at 14:00; Stop 05/23/17 at 21: 09 Albuterol/ Ipratropium (Duoneb) 3 ml RTQID NEB Last administered on 05/22/17 06:51; Start 05/20/17 at 12:00 Throat Lozenges (Cepacol Sore Throat Lozenge) 1 shaheen PRN Q2HRS PRN PO SORE THROAT Last administered on 05/21/17t 17:53; Start 05/21/17 at 13:15 Active Scripts Active Lasix (Furosemide) 40 Mg Tablet 1 Tab PO QOD Reported Levothyroxine Sodium 100 Mcg Tablet 1 Tab PO DAILY Vitamin D2 (Ergocalciferol (Vitamin D2)) 50,000 Unit Capsule 1,000 Unit PO DAILY Doxycycline Hyclate 100 Mg Tablet 1 Tab PO BID Resveratrol 250 Mg Capsule 250 Mg PO DAILY Vitamin D (Cholecalciferol (Vitamin D3)) 1,000 Unit Capsule 1 Cap PO DAILY Lysteda (Tranexamic Acid) 650 Mg Tablet 1,300 Mg PO BID Calcitriol 0.25 Mcg Capsule 1 Cap PO DAILY Selenium (Selenomethionine) 200 Mcg Tablet 200 Mcg PO DAILY Vitamin A 8,000 Unit Capsule 8,000 Unit PO Coconut Oil 1,000 Mg Capsule 1,000 Mg PO DAILY Magnesium (Magnesium Oxide) 500 Mg Capsule 500 Mg PO DAILY Omeprazole 40 Mg Capsule.dr 40 Mg PO DAILY Potassium Chloride 20 Meq Tab.er.prt 20 Meq PO DAILY Acetaminophen 500 Mg Tablet 500 Mg PO Q4-6HRS PRN Allopurinol 300 Mg Tablet 300 Mg PO DAILY Neurontin (Gabapentin) 100 Mg Capsule 100 Mg PO BID Vitamin B-12 (Cyanocobalamin (Vitamin B-12)) 1,000 Mcg Tablet 1,000 Mcg SL DAILY Osteo Bi-Flex Caplet (Gluc/Lyndon-Msm#1/C/Brandon/Alfredo/Bor) 1 Each Tablet 1 Each PO DAILY Nakita (Fexofenadine Hcl) 180 Mg Tablet 180 Mg PO DAILY Tramadol Hcl 50 Mg Tablet 50 Mg PO PRN QID Vitals/I & O Vital Sign - Last 24 Hours 05/21/17 05/21/17 05/21/17 05/21/17 11:23 15:00 16:06 19:00 Temp 97.4 97.7 97.4 97.7 Pulse 70 71 Resp 18 20 B/P (MAP) 111/40 (63) 114/46 (68) Pulse Ox 97 99 100 O2 Delivery Room Air Room Air Room Air Room Air 05/21/17 05/21/17 05/21/17 05/21/17 19:22 19:25 21:08 22:08 Pulse Ox 96 96 96 O2 Delivery Room Air Room Air Room Air Room Air 05/21/17 05/22/17 05/22/17 10/12/17 23:00 03:04 06:51 07:00 Temp 98.0 97.8 96.6 98.0 97.8 96.6 Pulse 64 61 58 Resp 20 20 18 B/P (MAP) 113/45 (67) 108/48 (68) 117/32 (60) Pulse Ox 96 96 99 99 O2 Delivery Room Air Room Air Room Air Room Air 05/22/17 07:45 O2 Delivery Room Air Intake and Output 05/22/17 05/22/17 05/23/17 15:00 23:00 07:00 Intake Total 390 ml Balance 390 ml FREDIS PALMER MD May 22, 2017 10:51
[2017-05-22 11:00] VITALS: BP 109/36
--- NOTE | 2017-05-22 11:17 | PDOC ---
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 Stallings - Had capsule endoscopy done SOme bleeding LLQ area colon, but not advisable for sx or any more invasive hence on Supportive care i.e transfusions prn - these were all per pt relay In the potty now, so unable to see if melena still occurring PLAN: GI consult HH Likely dc shiva if no more melena and hgb stable cleared from heme onc dw her Vitals Vitals Vital Signs Date Time Temp Pulse Resp B/P (MAP) Pulse Ox O2 Delivery O2 Flow Rate FiO2 05/22/17 10:55 96 Room Air 05/22/17 07:00 96.6 58 18 117/32 (60) 96.6 Physical Exam General: Alert, Oriented X3 Heart: Normal S1, Normal S2 Lungs: Clear Abdomen: Normal bowel sounds, Soft, No tenderness Extremities: No clubbing, No edema Skin: No rashes, Other (diffuse ecchymosis on arms) Labs LABS Laboratory Tests Test 05/22/17 04:00 White Blood Count 3.8 x10^3/uL (4.0-11.0) Red Blood Count 2.58 x10^6/uL (3.50-5.40) Hemoglobin 8.4 g/dL (12.0-15.5) Hematocrit 25.0 % (36.0-47.0) Mean Corpuscular Volume 97 fL (79-100) Mean Corpuscular Hemoglobin 33 pg (25-35) Mean Corpuscular Hemoglobin Concent 34 g/dL (31-37) Red Cell Distribution Width 16.5 % (11.5-14.5) Platelet Count 86 x10^3/uL (140-400) Neutrophils (%) (Auto) 69 % (31-73) Lymphocytes (%) (Auto) 19 % (24-48) Monocytes (%) (Auto) 8 % (0-9) Eosinophils (%) (Auto) 4 % (0-3) Basophils (%) (Auto) 1 % (0-3) Neutrophils # (Auto) 2.6 x10^3uL (1.8-7.7) Lymphocytes # (Auto) 0.7 x10^3/uL (1.0-4.8) Monocytes # (Auto) 0.3 x10^3/uL (0.0-1.1) Eosinophils # (Auto) 0.1 x10^3/uL (0.0-0.7) Basophils # (Auto) 0.0 x10^3/uL (0.0-0.2) Sodium Level 142 mmol/L (136-145) Potassium Level 4.0 mmol/L (3.5-5.1) Chloride Level 107 mmol/L (98-107) Carbon Dioxide Level 32 mmol/L (21-32) Anion Gap 3 (6-14) Blood Urea Nitrogen 39 mg/dL (7-20) Creatinine 1.3 mg/dL (0.6-1.0) Estimated GFR (Cockcroft-Gault) 38.6 BUN/Creatinine Ratio 30 (6-20) Glucose Level 84 mg/dL (70-99) Calcium Level 9.2 mg/dL (8.5-10.1) Total Bilirubin 0.4 mg/dL (0.2-1.0) Aspartate Amino Transf (AST/SGOT) 21 U/L (15-37) Alanine Aminotransferase (ALT/SGPT) 17 U/L (14-59) Alkaline Phosphatase 65 U/L (46-116) Total Protein 5.8 g/dL (6.4-8.2) Albumin 2.8 g/dL (3.4-5.0) Albumin/Globulin Ratio 0.9 (1.0-1.7) Review of Systems Review of Systems denies 14 pt Comment Review of Relevant I have reviewed the following items benjy (where applicable) has been applied. Labs Laboratory Tests Test 05/21/17 03:15 05/22/17 04:00 White Blood Count 4.7 x10^3/uL (4.0-11.0) 3.8 x10^3/uL (4.0-11.0) Red Blood Count 2.62 x10^6/uL (3.50-5.40) 2.58 x10^6/uL (3.50-5.40) Hemoglobin 8.5 g/dL (12.0-15.5) 8.4 g/dL (12.0-15.5) Hematocrit 24.9 % (36.0-47.0) 25.0 % (36.0-47.0) Mean Corpuscular Volume 95 fL (79-100) 97 fL (79-100) Mean Corpuscular Hemoglobin 33 pg (25-35) 33 pg (25-35) Mean Corpuscular Hemoglobin Concent 34 g/dL (31-37) 34 g/dL (31-37) Red Cell Distribution Width 16.4 % (11.5-14.5) 16.5 % (11.5-14.5) Platelet Count 84 x10^3/uL (140-400) 86 x10^3/uL (140-400) Neutrophils (%) (Auto) 70 % (31-73) 69 % (31-73) Lymphocytes (%) (Auto) 18 % (24-48) 19 % (24-48) Monocytes (%) (Auto) 8 % (0-9) 8 % (0-9) Eosinophils (%) (Auto) 3 % (0-3) 4 % (0-3) Basophils (%) (Auto) 1 % (0-3) 1 % (0-3) Neutrophils # (Auto) 3.3 x10^3uL (1.8-7.7) 2.6 x10^3uL (1.8-7.7) Lymphocytes # (Auto) 0.9 x10^3/uL (1.0-4.8) 0.7 x10^3/uL (1.0-4.8) Monocytes # (Auto) 0.4 x10^3/uL (0.0-1.1) 0.3 x10^3/uL (0.0-1.1) Eosinophils # (Auto) 0.1 x10^3/uL (0.0-0.7) 0.1 x10^3/uL (0.0-0.7) Basophils # (Auto) 0.0 x10^3/uL (0.0-0.2) 0.0 x10^3/uL (0.0-0.2) Sodium Level 140 mmol/L (136-145) 142 mmol/L (136-145) Potassium Level 3.8 mmol/L (3.5-5.1) 4.0 mmol/L (3.5-5.1) Chloride Level 106 mmol/L (98-107) 107 mmol/L (98-107) Carbon Dioxide Level 30 mmol/L (21-32) 32 mmol/L (21-32) Anion Gap 4 (6-14) 3 (6-14) Blood Urea Nitrogen 52 mg/dL (7-20) 39 mg/dL (7-20) Creatinine 1.5 mg/dL (0.6-1.0) 1.3 mg/dL (0.6-1.0) Estimated GFR (Cockcroft-Gault) 32.7 38.6 Glucose Level 96 mg/dL (70-99) 84 mg/dL (70-99) Calcium Level 9.3 mg/dL (8.5-10.1) 9.2 mg/dL (8.5-10.1) BUN/Creatinine Ratio 30 (6-20) Total Bilirubin 0.4 mg/dL (0.2-1.0) Aspartate Amino Transf (AST/SGOT) 21 U/L (15-37) Alanine Aminotransferase (ALT/SGPT) 17 U/L (14-59) Alkaline Phosphatase 65 U/L (46-116) Total Protein 5.8 g/dL (6.4-8.2) Albumin 2.8 g/dL (3.4-5.0) Albumin/Globulin Ratio 0.9 (1.0-1.7) Laboratory Tests Test 05/22/17 04:00 White Blood Count 3.8 x10^3/uL (4.0-11.0) Red Blood Count 2.58 x10^6/uL (3.50-5.40) Hemoglobin 8.4 g/dL (12.0-15.5) Hematocrit 25.0 % (36.0-47.0) Mean Corpuscular Volume 97 fL (79-100) Mean Corpuscular Hemoglobin 33 pg (25-35) Mean Corpuscular Hemoglobin Concent 34 g/dL (31-37) Red Cell Distribution Width 16.5 % (11.5-14.5) Platelet Count 86 x10^3/uL (140-400) Neutrophils (%) (Auto) 69 % (31-73) Lymphocytes (%) (Auto) 19 % (24-48) Monocytes (%) (Auto) 8 % (0-9) Eosinophils (%) (Auto) 4 % (0-3) Basophils (%) (Auto) 1 % (0-3) Neutrophils # (Auto) 2.6 x10^3uL (1.8-7.7) Lymphocytes # (Auto) 0.7 x10^3/uL (1.0-4.8) Monocytes # (Auto) 0.3 x10^3/uL (0.0-1.1) Eosinophils # (Auto) 0.1 x10^3/uL (0.0-0.7) Basophils # (Auto) 0.0 x10^3/uL (0.0-0.2) Sodium Level 142 mmol/L (136-145) Potassium Level 4.0 mmol/L (3.5-5.1) Chloride Level 107 mmol/L (98-107) Carbon Dioxide Level 32 mmol/L (21-32) Anion Gap 3 (6-14) Blood Urea Nitrogen 39 mg/dL (7-20) Creatinine 1.3 mg/dL (0.6-1.0) Estimated GFR (Cockcroft-Gault) 38.6 BUN/Creatinine Ratio 30 (6-20) Glucose Level 84 mg/dL (70-99) Calcium Level 9.2 mg/dL (8.5-10.1) Total Bilirubin 0.4 mg/dL (0.2-1.0) Aspartate Amino Transf (AST/SGOT) 21 U/L (15-37) Alanine Aminotransferase (ALT/SGPT) 17 U/L (14-59) Alkaline Phosphatase 65 U/L (46-116) Total Protein 5.8 g/dL (6.4-8.2) Albumin 2.8 g/dL (3.4-5.0) Albumin/Globulin Ratio 0.9 (1.0-1.7) Medications Current Medications Sodium Chloride (Normal Saline Flush) 3 ml PRN DAILY PRN IV AFTER MEDS AND BLOOD DRAWS; Start 05/16/17 at 20:00 Ondansetron HCl (Zofran) 4 mg PRN Q6HRS PRN IV NAUSEA/VOMITING; Start 05/16/17 at 20:00 Oxycodone HCl (Roxicodone) 5 mg PRN Q3HRS PRN PO BREAKTHROUGH PAIN; Start 05/16 at 20:00 Aminocaproic Acid (Amicar) 1,000 mg QID PO Last administered on 05/22/17 09: 02; Start 05/16/17 at 21:00 Antihemophilic Factor 3656 vwf/ Miscellaneous 30 ml @ 180 mls/hr DAILY@1400 IV ; Start 05/16/17 at 23:00; Stop 05/20/17 at 14:09; Status Cancel Sodium Chloride 1,000 ml @ 50 mls/hr 1X ONCE IV Last administered on 20:52; Start 05/16/17 at 20:30; Stop 05/17/17 at 16:29; Status DC Antihemophilic Factor 3656 vwf/ Miscellaneous 40 ml @ 240 mls/hr DAILY@1400 IV Last administered on 05/16/17 22:55; Start 05/16/17 at 22:00; Stop 05/17/17 at 09:04; Status DC Antihemophilic Factor 3656 vwf/ Miscellaneous 40 ml @ 240 mls/hr BID IV Last administered on 05/19/17 08:44; Start 05/17/17 at 10:00; Stop 05/19/17 at 09:09 ; Status DC Tramadol HCl (Ultram) 50 mg PRN QID PRN PO MODERATE - SEVERE PAIN Last administered on 05/21/17 21:08; Start 05/17/17 at 20:30 Levothyroxine Sodium (Synthroid) 100 mcg DAILY07 PO Last administered on 06:15; Start 05/18/17 at 07:00 Acetaminophen (Tylenol) 500 mg PRN Q6HRS PRN PO MILD PAIN Last administered on 05/21/17 21:09; Start 05/17/17 at 21:45 Allopurinol (Zyloprim) 300 mg DAILY PO Last administered on 05/22/17 09:02; Start 05/18/17 at 09:00 Calcitriol (Rocaltrol) 0.25 mcg DAILY PO Last administered on 05/22/17 09:02 ; Start 05/18/17 at 09:00 Cyanocobalamin (Vitamin B-12) 1,000 mcg DAILY PO Last administered on 09:03; Start 05/18/17 at 09:00 Ergocalciferol (Vitamin D2) 1,000 unit DAILY PO ; Start 05/18/17 at 09:00; Status Cancel Furosemide (Lasix) 40 mg DAILY PO Last administered on 05/22/17 09:03; Start 05/18/17 at 09:00 Gabapentin (Neurontin) 100 mg BID PO Last administered on 05/22/17 09:03; Start 05/18/17 at 09:00 Potassium Chloride (Klor-Con) 20 meq DAILY PO Last administered on 05/22/17 09:02; Start 05/18/17 at 09:00 Vitamin D (Vitamin D3) 1,000 unit DAILY PO Last administered on 05/22/17 09: 02; Start 05/19/17 at 09:00 Cetirizine HCl (ZyrTEC) 10 mg DAILY PO Last administered on 05/22/17 09:02; Start 05/18/17 at 09:00 Non-Formulary Medication 1 each DAILY PO ; Start 05/18/17 at 09:00; Stop at 09:04; Status DC Magnesium Oxide (Magnesium Oxide) 400 mg DAILY PO Last administered on 09:03; Start 05/19/17 at 09:00 Pantoprazole Sodium (Protonix) 40 mg DAILYAC PO Last administered on 08:02; Start 05/18/17 at 11:30 Non-Formulary Medication 250 mg DAILY PO ; Start 05/18/17 at 09:00; Stop at 09:23; Status DC Non-Formulary Medication 1,300 mg BID PO ; Start 05/18/17 at 09:00; Status UNV Antihemophilic Factor 3400 vwf/ Miscellaneous 40 ml @ 240 mls/hr TID IV ; Start 05/19/17 at 14:00; Stop 05/23/17 at 21:09; Status Cancel Antihemophilic Factor 3592 vwf/ Miscellaneous 40 ml @ 240 mls/hr TID IV Last administered on 05/22/17 09:03; Start 05/19/17 at 14:00; Stop 05/23/17 at 21: 09 Albuterol/ Ipratropium (Duoneb) 3 ml RTQID NEB Last administered on 05/22/17 10:55; Start 05/20/17 at 12:00 Throat Lozenges (Cepacol Sore Throat Lozenge) 1 shaheen PRN Q2HRS PRN PO SORE THROAT Last administered on 05/21/17t 17:53; Start 05/21/17 at 13:15 Active Scripts Active Lasix (Furosemide) 40 Mg Tablet 1 Tab PO QOD Reported Levothyroxine Sodium 100 Mcg Tablet 1 Tab PO DAILY Vitamin D2 (Ergocalciferol (Vitamin D2)) 50,000 Unit Capsule 1,000 Unit PO DAILY Doxycycline Hyclate 100 Mg Tablet 1 Tab PO BID Resveratrol 250 Mg Capsule 250 Mg PO DAILY Vitamin D (Cholecalciferol (Vitamin D3)) 1,000 Unit Capsule 1 Cap PO DAILY Lysteda (Tranexamic Acid) 650 Mg Tablet 1,300 Mg PO BID Calcitriol 0.25 Mcg Capsule 1 Cap PO DAILY Selenium (Selenomethionine) 200 Mcg Tablet 200 Mcg PO DAILY Vitamin A 8,000 Unit Capsule 8,000 Unit PO Coconut Oil 1,000 Mg Capsule 1,000 Mg PO DAILY Magnesium (Magnesium Oxide) 500 Mg Capsule 500 Mg PO DAILY Omeprazole 40 Mg Capsule.dr 40 Mg PO DAILY Potassium Chloride 20 Meq Tab.er.prt 20 Meq PO DAILY Acetaminophen 500 Mg Tablet 500 Mg PO Q4-6HRS PRN Allopurinol 300 Mg Tablet 300 Mg PO DAILY Neurontin (Gabapentin) 100 Mg Capsule 100 Mg PO BID Vitamin B-12 (Cyanocobalamin (Vitamin B-12)) 1,000 Mcg Tablet 1,000 Mcg SL DAILY Osteo Bi-Flex Caplet (Gluc/Lyndon-Msm#1/C/Brandon/Alfredo/Bor) 1 Each Tablet 1 Each PO DAILY Nakita (Fexofenadine Hcl) 180 Mg Tablet 180 Mg PO DAILY Tramadol Hcl 50 Mg Tablet 50 Mg PO PRN QID Vitals/I & O Vital Sign - Last 24 Hours 05/21/17 05/21/17 05/21/17 05/21/17 11:23 15:00 16:06 19:00 Temp 97.4 97.7 97.4 97.7 Pulse 70 71 Resp 18 20 B/P (MAP) 111/40 (63) 114/46 (68) Pulse Ox 97 99 100 O2 Delivery Room Air Room Air Room Air Room Air 05/21/17 05/21/17 05/21/17 05/21/17 19:22 19:25 21:08 22:08 Pulse Ox 96 96 96 O2 Delivery Room Air Room Air Room Air Room Air 05/21/17 05/22/17 05/22/17 05/22/17 23:00 03:04 06:51 07:00 Temp 98.0 97.8 96.6 98.0 97.8 96.6 Pulse 64 61 58 Resp 20 20 18 B/P (MAP) 113/45 (67) 108/48 (68) 117/32 (60) Pulse Ox 96 96 99 99 O2 Delivery Room Air Room Air Room Air Room Air 05/22/17 05/22/17 07:45 10:55 Pulse Ox 96 O2 Delivery Room Air Room Air Intake and Output 05/22/17 05/22/17 05/23/17 15:00 23:00 07:00 Intake Total 390 ml Balance 390 ml LEOLA ZHONG MD May 22, 2017 11:17
--- NOTE | 2017-05-22 12:17 | PDOC2 ---
GI CONSULT Reason For Consult: Melena HPI: HPI: 89 y/o female well-known to GI/Dr. Stallings for anemia and GI bleeding. H/o vWD followed by hematology @ [facility] on Lysteda BID at home (she says QID would be preferred but cost prohibits). Hgb was up to 12.5 as an outpt but then last week had "the feeling" that melena would begin again. Describes stomach rumbling, not really pain. Began having black stools on 05/16, prompting ER evaluation and another admission. Hgb has fluctuated since, at one point down to 6.5, is now stable in 8s s/p transfusion 3 units pRBCs. No stools today. Yesterday had two, reports "less black," then describes brownish stools w/ scant amount of black stool on toilet tissue. Appetite is improving and abdomen feels better ("less rumbling"). Per Dr. Rodriguez, is on Amicar QID and Humate TID here. Also PPI. Possible DC tomorrow. Last EGD and colonoscopy in 11/2015 showed normal esophagus, gastritis, normal duodenum, cecal tubular adenoma, sigmoid diverticulosis, and internal hemorrhoids. 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 Previously this year did have positive GI bleeding scan in [facility]/splenic flexure and also underwent mesenteric arteriogram which was unrevealing for bleeding. PMH: PMH: von Willebrand's disease, cholelithiasis, hypothyroidism, OA, HTN, gout, SLE, anal fissure, Raynaud's, GERD, adenomatous colon polyp, diverticulosis, hemorrhoids, hysterectomy, appendectomy, colon resection FH: Family History: No pertinent hx, Other Social History: Smoke: No ALCOHOL: none Drugs: None ROS: GEN: Denies fevers, chills, sweats HEENT: Denies blurred vision, sore throat CV: Denies chest pain RESP: Denies shortness of air, cough GI: Per HPI : Denies hematuria, dysuria ENDO: Denies weight changes NEURO: Denies confusion, dizziness MSK: Denies weakness, joint pain/swelling SKIN: Denies jaundice, pruritus Vitals: Vitals: Vital Signs Date Time Temp Pulse Resp B/P (MAP) Pulse Ox O2 Delivery O2 Flow Rate FiO2 05/22/17 11:00 97.6 64 18 109/36 (60) 99 Room Air 97.6 Labs: Labs: Laboratory Tests Test 05/22/17 04:00 White Blood Count 3.8 x10^3/uL (4.0-11.0) Red Blood Count 2.58 x10^6/uL (3.50-5.40) Hemoglobin 8.4 g/dL (12.0-15.5) Hematocrit 25.0 % (36.0-47.0) Mean Corpuscular Volume 97 fL (79-100) Mean Corpuscular Hemoglobin 33 pg (25-35) Mean Corpuscular Hemoglobin Concent 34 g/dL (31-37) Red Cell Distribution Width 16.5 % (11.5-14.5) Platelet Count 86 x10^3/uL (140-400) Neutrophils (%) (Auto) 69 % (31-73) Lymphocytes (%) (Auto) 19 % (24-48) Monocytes (%) (Auto) 8 % (0-9) Eosinophils (%) (Auto) 4 % (0-3) Basophils (%) (Auto) 1 % (0-3) Neutrophils # (Auto) 2.6 x10^3uL (1.8-7.7) Lymphocytes # (Auto) 0.7 x10^3/uL (1.0-4.8) Monocytes # (Auto) 0.3 x10^3/uL (0.0-1.1) Eosinophils # (Auto) 0.1 x10^3/uL (0.0-0.7) Basophils # (Auto) 0.0 x10^3/uL (0.0-0.2) Sodium Level 142 mmol/L (136-145) Potassium Level 4.0 mmol/L (3.5-5.1) Chloride Level 107 mmol/L (98-107) Carbon Dioxide Level 32 mmol/L (21-32) Anion Gap 3 (6-14) Blood Urea Nitrogen 39 mg/dL (7-20) Creatinine 1.3 mg/dL (0.6-1.0) Estimated GFR (Cockcroft-Gault) 38.6 BUN/Creatinine Ratio 30 (6-20) Glucose Level 84 mg/dL (70-99) Calcium Level 9.2 mg/dL (8.5-10.1) Total Bilirubin 0.4 mg/dL (0.2-1.0) Aspartate Amino Transf (AST/SGOT) 21 U/L (15-37) Alanine Aminotransferase (ALT/SGPT) 17 U/L (14-59) Alkaline Phosphatase 65 U/L (46-116) Total Protein 5.8 g/dL (6.4-8.2) Albumin 2.8 g/dL (3.4-5.0) Albumin/Globulin Ratio 0.9 (1.0-1.7) Allergies: Coded Allergies: Iodinated Contrast- Oral and IV Dye (Verified Allergy, Severe, 03/03/17) Penicillins (Verified Allergy, Severe, Shortness of Air, 03/03/17) Sulfa (Sulfonamide Antibiotics) (Verified Allergy, Intermediate, 03/03/17) aspirin (Verified Adverse Reaction, Intermediate, 03/03/17) mcdonnell bleeding disorder and does not use aspirin codeine (Verified Adverse Reaction, Intermediate, Anxiety, 03/03/17) Medications: Current Medications Medications (Trade) Dose Ordered Sig/Tim Route PRN Reason Start Time Stop Time Status Last Admin Dose Admin Throat Lozenges (Cepacol Sore Throat Lozenge) 1 shaheen PRN Q2HRS PRN PO SORE THROAT 05/21/17 13:15 05/21/17 17:53 Imaging: Imaging: - PE: GEN: NAD, up to chair, very talkative as usual HEENT: Atraumatic, PERRL LUNGS: CTAB HEART: RRR ABD: NABS, S/ND/NT EXTREMITY: No edema SKIN: No rashes, no jaundice NEURO/PSYCH: A & O 3 A/P: A/P: vWD -readmitted last week w/ melena and anemia -Hgb now stable in 8s (transfused 3 units pRBCs), on Humate and Amicar per Dr. Rodriguez, stools normalizing -last EGD and colonoscopy in 11/2015 per HPI, on PPI -positive bleeding scan earlier this year w/ negative arteriogram -- Melena slowing w/ stable Hgb. Continue per hematology. ERENDIRA DORSEY May 22, 2017 12:17
[2017-05-22] MEDS: traMADol 50 MG TABLET PO PRN ×2 (14:11→21:33)
[2017-05-22] MEDS: ACETAMINOPHEN 500 MG TABLET PO PRN ×2 (14:11→21:32)
[2017-05-22 15:00] VITALS: BP 124/36
[2017-05-22 19:00] VITALS: BP 118/34
[2017-05-22 22:50] VITALS: BP 125/72
[2017-05-23 02:44] VITALS: BP 101/46
[2017-05-23 05:48] LABS: HEMATOCRIT 25.1 % (36.0-47.0); HEMOGLOBIN 8.5 g/dL (12.0-15.5)
[2017-05-23] MEDS: LEVOTHYROXINE 100 MCG TABLET PO SCH (05:52)
[2017-05-23 07:00] VITALS: BP 102/33
[2017-05-23] MEDS: IPRATRPIUM/ALBUTEROL 0.5/2.5MG 3 ML NEBU. NEB SCH ×4 (07:43→19:36)
[2017-05-23] MEDS: PANTOPRAZOLE 40 MG TABLET.DR. PO SCH (08:13)
[2017-05-23] MEDS: AMINOCAPROIC ACID 500 MG TABLET. PO SCH ×4 (08:15→21:10)
[2017-05-23] MEDS: POTASSIUM CHLORIDE 20 MEQ TABLET.ER. PO SCH (08:15)
[2017-05-23] MEDS: GABAPENTIN 100 MG CAPSULE. PO SCH ×2 (08:18→21:00)
[2017-05-23] MEDS: MAGNESIUM OXIDE 400 MG TABLET PO SCH (08:18)
[2017-05-23] MEDS: CYANOCOBALAMIN (VITAMIN B-12) 1,000 MCG TABLET. PO SCH (08:19)
[2017-05-23] MEDS: CALCITRIOL 0.25 MCG CAPSULE. PO SCH (08:19)
[2017-05-23] MEDS: CHOLECALCIFEROL (VITAMIN D3) 1,000 UNIT TABLET PO SCH (08:20)
[2017-05-23] MEDS: ALLOPURINOL 300 MG TABLET. PO SCH (08:21)
[2017-05-23] MEDS: CETIRIZINE HCL 10 MG TABLET. PO SCH (08:23)
[2017-05-23] MEDS: FUROSEMIDE 40 MG TABLET. PO SCH (08:26)
[2017-05-23] MEDS: ANTIHEMOPHILIC FACTOR IV SCH ×3 (09:19→21:10)
[2017-05-23] MEDS: VWF IV SCH ×3 (09:19→21:10)
[2017-05-23] MEDS: TOTAL VOLUME IV SCH ×3 (09:19→21:10)
--- NOTE | 2017-05-23 11:12 | PDOC ---
PROGRESS NOTES Subjective Subjective HPI - vWD and ongoing GI bleed hemoglobin has dropped from 10.6 Fri evening to 7.3 on 05/18/17 ROS - has melena Objective Objective Vital Signs Date Time Temp Pulse Resp B/P (MAP) Pulse Ox O2 Delivery O2 Flow Rate FiO2 05/23/17 07:55 Room Air 05/23/17 07:44 97 05/23/17 07:00 95.9 52 18 102/33 (56) 95.9 Physical Exam Heart: Normal S1, Normal S2 General: Alert, Oriented X3 Lungs: Clear to auscultation Neuro: Normal speech Psych/Mental Status: Mental status NL Assessment Assessment Assessment/Plan 1. vWD and ongoing GI bleed hemoglobin has dropped from 10.6 on 05/16/17 evening to 7.3 on 05/18/17 s/p 1 u PRBC 05/18/17 Hb 7.6 on 05/19/17 Hb worse at 6.5. s/p 2 PRBC 05/20/17 Hb better at 8.5 on 05/21/17 Hb stable at 8.4 on 05/22/17 Hb stable at 8.5 on 05/23/17 Monitor cbc Had black stools. Not normalized yet. Continue humate p , increased to q 8 hours from 05/19/17 and atleast till . cont amicar. 2. Anemia, monitor hb. Comment Review of Relevant I have reviewed the following items benjy (where applicable) has been applied. Labs Laboratory Tests Test 05/22/17 04:00 05/23/17 04:10 White Blood Count 3.8 x10^3/uL (4.0-11.0) Red Blood Count 2.58 x10^6/uL (3.50-5.40) Hemoglobin 8.4 g/dL (12.0-15.5) 8.5 g/dL (12.0-15.5) Hematocrit 25.0 % (36.0-47.0) 25.1 % (36.0-47.0) Mean Corpuscular Volume 97 fL (79-100) Mean Corpuscular Hemoglobin 33 pg (25-35) Mean Corpuscular Hemoglobin Concent 34 g/dL (31-37) 34 g/dL (31-37) Red Cell Distribution Width 16.5 % (11.5-14.5) Platelet Count 86 x10^3/uL (140-400) Neutrophils (%) (Auto) 69 % (31-73) Lymphocytes (%) (Auto) 19 % (24-48) Monocytes (%) (Auto) 8 % (0-9) Eosinophils (%) (Auto) 4 % (0-3) Basophils (%) (Auto) 1 % (0-3) Neutrophils # (Auto) 2.6 x10^3uL (1.8-7.7) Lymphocytes # (Auto) 0.7 x10^3/uL (1.0-4.8) Monocytes # (Auto) 0.3 x10^3/uL (0.0-1.1) Eosinophils # (Auto) 0.1 x10^3/uL (0.0-0.7) Basophils # (Auto) 0.0 x10^3/uL (0.0-0.2) Sodium Level 142 mmol/L (136-145) Potassium Level 4.0 mmol/L (3.5-5.1) Chloride Level 107 mmol/L (98-107) Carbon Dioxide Level 32 mmol/L (21-32) Anion Gap 3 (6-14) Blood Urea Nitrogen 39 mg/dL (7-20) Creatinine 1.3 mg/dL (0.6-1.0) Estimated GFR (Cockcroft-Gault) 38.6 BUN/Creatinine Ratio 30 (6-20) Glucose Level 84 mg/dL (70-99) Calcium Level 9.2 mg/dL (8.5-10.1) Total Bilirubin 0.4 mg/dL (0.2-1.0) Aspartate Amino Transf (AST/SGOT) 21 U/L (15-37) Alanine Aminotransferase (ALT/SGPT) 17 U/L (14-59) Alkaline Phosphatase 65 U/L (46-116) Total Protein 5.8 g/dL (6.4-8.2) Albumin 2.8 g/dL (3.4-5.0) Albumin/Globulin Ratio 0.9 (1.0-1.7) Laboratory Tests Test 05/23/17 04:10 Hemoglobin 8.5 g/dL (12.0-15.5) Hematocrit 25.1 % (36.0-47.0) Mean Corpuscular Hemoglobin Concent 34 g/dL (31-37) Medications Current Medications Sodium Chloride (Normal Saline Flush) 3 ml PRN DAILY PRN IV AFTER MEDS AND BLOOD DRAWS; Start 05/16/17 at 20:00 Ondansetron HCl (Zofran) 4 mg PRN Q6HRS PRN IV NAUSEA/VOMITING; Start 05/16/17 at 20:00 Oxycodone HCl (Roxicodone) 5 mg PRN Q3HRS PRN PO BREAKTHROUGH PAIN; Start 05/16 at 20:00 Aminocaproic Acid (Amicar) 1,000 mg QID PO Last administered on 05/23/17 08: 15; Start 05/16/17 at 21:00 Antihemophilic Factor 3656 vwf/ Miscellaneous 30 ml @ 180 mls/hr DAILY@1400 IV ; Start 05/16/17 at 23:00; Stop 05/20/17 at 14:09; Status Cancel Sodium Chloride 1,000 ml @ 50 mls/hr 1X ONCE IV Last administered on 20:52; Start 05/16/17 at 20:30; Stop 05/17/17 at 16:29; Status DC Antihemophilic Factor 3656 vwf/ Miscellaneous 40 ml @ 240 mls/hr DAILY@1400 IV Last administered on 05/16/17 22:55; Start 05/16/17 at 22:00; Stop 05/17/17 at 09:04; Status DC Antihemophilic Factor 3656 vwf/ Miscellaneous 40 ml @ 240 mls/hr BID IV Last administered on 05/19/17 08:44; Start 05/17/17 at 10:00; Stop 05/19/17 at 09:09 ; Status DC Tramadol HCl (Ultram) 50 mg PRN QID PRN PO MODERATE - SEVERE PAIN Last administered on 05/22/17 21:33; Start 05/17/17 at 20:30 Levothyroxine Sodium (Synthroid) 100 mcg DAILY07 PO Last administered on 05:52; Start 05/18/17 at 07:00 Acetaminophen (Tylenol) 500 mg PRN Q6HRS PRN PO MILD PAIN Last administered on 05/22/17 21:32; Start 05/17/17 at 21:45 Allopurinol (Zyloprim) 300 mg DAILY PO Last administered on 05/23/17 08:21; Start 05/18/17 at 09:00 Calcitriol (Rocaltrol) 0.25 mcg DAILY PO Last administered on 05/23/17 08:19 ; Start 05/18/17 at 09:00 Cyanocobalamin (Vitamin B-12) 1,000 mcg DAILY PO Last administered on 08:19; Start 05/18/17 at 09:00 Ergocalciferol (Vitamin D2) 1,000 unit DAILY PO ; Start 05/18/17 at 09:00; Status Cancel Furosemide (Lasix) 40 mg DAILY PO Last administered on 05/23/17 08:26; Start 05/18/17 at 09:00 Gabapentin (Neurontin) 100 mg BID PO Last administered on 05/23/17 08:18; Start 05/18/17 at 09:00 Potassium Chloride (Klor-Con) 20 meq DAILY PO Last administered on 05/23/17 08:15; Start 05/18/17 at 09:00 Vitamin D (Vitamin D3) 1,000 unit DAILY PO Last administered on 05/23/17 08: 20; Start 05/19/17 at 09:00 Cetirizine HCl (ZyrTEC) 10 mg DAILY PO Last administered on 05/23/17 08:23; Start 05/18/17 at 09:00 Non-Formulary Medication 1 each DAILY PO ; Start 05/18/17 at 09:00; Stop at 09:04; Status DC Magnesium Oxide (Magnesium Oxide) 400 mg DAILY PO Last administered on 08:18; Start 05/19/17 at 09:00 Pantoprazole Sodium (Protonix) 40 mg DAILYAC PO Last administered on 08:13; Start 05/18/17 at 11:30 Non-Formulary Medication 250 mg DAILY PO ; Start 05/18/17 at 09:00; Stop at 09:23; Status DC Non-Formulary Medication 1,300 mg BID PO ; Start 05/18/17 at 09:00; Status UNV Antihemophilic Factor 3400 vwf/ Miscellaneous 40 ml @ 240 mls/hr TID IV ; Start 05/19/17 at 14:00; Stop 05/23/17 at 21:09; Status Cancel Antihemophilic Factor 3592 vwf/ Miscellaneous 40 ml @ 240 mls/hr TID IV Last administered on 05/23/17 09:19; Start 05/19/17 at 14:00; Stop 05/26/17 at 13: 59 Albuterol/ Ipratropium (Duoneb) 3 ml RTQID NEB Last administered on 05/23/17 07:43; Start 05/20/17 at 12:00 Throat Lozenges (Cepacol Sore Throat Lozenge) 1 shaheen PRN Q2HRS PRN PO SORE THROAT Last administered on 05/21/17 17:53; Start 05/21/17 at 13:15 Active Scripts Active Lasix (Furosemide) 40 Mg Tablet 1 Tab PO QOD Reported Levothyroxine Sodium 100 Mcg Tablet 1 Tab PO DAILY Vitamin D2 (Ergocalciferol (Vitamin D2)) 50,000 Unit Capsule 1,000 Unit PO DAILY Doxycycline Hyclate 100 Mg Tablet 1 Tab PO BID Resveratrol 250 Mg Capsule 250 Mg PO DAILY Vitamin D (Cholecalciferol (Vitamin D3)) 1,000 Unit Capsule 1 Cap PO DAILY Lysteda (Tranexamic Acid) 650 Mg Tablet 1,300 Mg PO BID Calcitriol 0.25 Mcg Capsule 1 Cap PO DAILY Selenium (Selenomethionine) 200 Mcg Tablet 200 Mcg PO DAILY Vitamin A 8,000 Unit Capsule 8,000 Unit PO Coconut Oil 1,000 Mg Capsule 1,000 Mg PO DAILY Magnesium (Magnesium Oxide) 500 Mg Capsule 500 Mg PO DAILY Omeprazole 40 Mg Capsule.dr 40 Mg PO DAILY Potassium Chloride 20 Meq Tab.er.prt 20 Meq PO DAILY Acetaminophen 500 Mg Tablet 500 Mg PO Q4-6HRS PRN Allopurinol 300 Mg Tablet 300 Mg PO DAILY Neurontin (Gabapentin) 100 Mg Capsule 100 Mg PO BID Vitamin B-12 (Cyanocobalamin (Vitamin B-12)) 1,000 Mcg Tablet 1,000 Mcg SL DAILY Osteo Bi-Flex Caplet (Gluc/Lyndon-Msm#1/C/Brandon/Alfredo/Bor) 1 Each Tablet 1 Each PO DAILY Nakita (Fexofenadine Hcl) 180 Mg Tablet 180 Mg PO DAILY Tramadol Hcl 50 Mg Tablet 50 Mg PO PRN QID Vitals/I & O Vital Sign - Last 24 Hours 10/12/17 10/12/17 10/12/17 10/12/17 14:11 15:00 15:52 19:00 Temp 97.7 96.8 97.7 96.8 Pulse 69 67 Resp 20 18 B/P (MAP) 124/36 (65) 118/34 (62) Pulse Ox 99 98 O2 Delivery Room Air Room Air Room Air Room Air 05/22/17 05/22/17 05/22/17 05/22/17 19:26 20:10 21:33 22:33 Pulse Ox 98 98 O2 Delivery Room Air Room Air Room Air Room Air 05/22/17 05/23/17 05/23/17 05/23/17 22:50 02:44 07:00 07:44 Temp 96.4 97.5 95.9 96.4 97.5 95.9 Pulse 65 56 52 Resp 18 18 18 B/P (MAP) 125/72 (89) 101/46 (64) 102/33 (56) Pulse Ox 99 97 98 97 O2 Delivery Room Air Room Air Room Air Room Air 05/23/17 07:55 O2 Delivery Room Air FREDIS PALMER MD May 23, 2017 11:12
[2017-05-23] MEDS: BENZOCAINE/MENTHOL LOZENGE. PO PRN ×2 (11:27→18:26)
--- NOTE | 2017-05-23 12:17 | PDOC ---
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 Coagulopathy History of Present Illness History of Present Illness Hgb stable at 8 post BT (hgb was 9) Had sigmoid flexural bleeding as OP but conservative mx given age and co morbids - appreciate gI BAseline is 14 accdg to her KNown to GI Dr. Stallings - Had capsule endoscopy done VS stable, comfortable,w atching TV PLAN: [facility] onc wants her to stay over weekend while on the vW medication HH on friday CPM Transfuse prn - so far not needing that lately [facility] dc friday Vitals Vitals Vital Signs Date Time Temp Pulse Resp B/P (MAP) Pulse Ox O2 Delivery O2 Flow Rate FiO2 05/23/17 11:45 Room Air 05/23/17 07:44 97 05/23/17 07:00 95.9 52 18 102/33 (56) 95.9 Physical Exam General: Alert, Oriented X3 Heart: Normal S1, Normal S2 Lungs: Clear Abdomen: Normal bowel sounds, Soft, No tenderness Extremities: No clubbing, No edema Skin: No rashes, Other (diffuse ecchymosis on arms) Labs LABS Laboratory Tests Test 05/23/17 04:10 Hemoglobin 8.5 g/dL (12.0-15.5) Hematocrit 25.1 % (36.0-47.0) Mean Corpuscular Hemoglobin Concent 34 g/dL (31-37) Review of Systems Review of Systems denies 14 pt - has not moved BM today Comment Review of Relevant I have reviewed the following items benjy (where applicable) has been applied. Labs Laboratory Tests Test 05/22/17 04:00 05/23/17 04:10 White Blood Count 3.8 x10^3/uL (4.0-11.0) Red Blood Count 2.58 x10^6/uL (3.50-5.40) Hemoglobin 8.4 g/dL (12.0-15.5) 8.5 g/dL (12.0-15.5) Hematocrit 25.0 % (36.0-47.0) 25.1 % (36.0-47.0) Mean Corpuscular Volume 97 fL (79-100) Mean Corpuscular Hemoglobin 33 pg (25-35) Mean Corpuscular Hemoglobin Concent 34 g/dL (31-37) 34 g/dL (31-37) Red Cell Distribution Width 16.5 % (11.5-14.5) Platelet Count 86 x10^3/uL (140-400) Neutrophils (%) (Auto) 69 % (31-73) Lymphocytes (%) (Auto) 19 % (24-48) Monocytes (%) (Auto) 8 % (0-9) Eosinophils (%) (Auto) 4 % (0-3) Basophils (%) (Auto) 1 % (0-3) Neutrophils # (Auto) 2.6 x10^3uL (1.8-7.7) Lymphocytes # (Auto) 0.7 x10^3/uL (1.0-4.8) Monocytes # (Auto) 0.3 x10^3/uL (0.0-1.1) Eosinophils # (Auto) 0.1 x10^3/uL (0.0-0.7) Basophils # (Auto) 0.0 x10^3/uL (0.0-0.2) Sodium Level 142 mmol/L (136-145) Potassium Level 4.0 mmol/L (3.5-5.1) Chloride Level 107 mmol/L (98-107) Carbon Dioxide Level 32 mmol/L (21-32) Anion Gap 3 (6-14) Blood Urea Nitrogen 39 mg/dL (7-20) Creatinine 1.3 mg/dL (0.6-1.0) Estimated GFR (Cockcroft-Gault) 38.6 BUN/Creatinine Ratio 30 (6-20) Glucose Level 84 mg/dL (70-99) Calcium Level 9.2 mg/dL (8.5-10.1) Total Bilirubin 0.4 mg/dL (0.2-1.0) Aspartate Amino Transf (AST/SGOT) 21 U/L (15-37) Alanine Aminotransferase (ALT/SGPT) 17 U/L (14-59) Alkaline Phosphatase 65 U/L (46-116) Total Protein 5.8 g/dL (6.4-8.2) Albumin 2.8 g/dL (3.4-5.0) Albumin/Globulin Ratio 0.9 (1.0-1.7) Laboratory Tests Test 05/23/17 04:10 Hemoglobin 8.5 g/dL (12.0-15.5) Hematocrit 25.1 % (36.0-47.0) Mean Corpuscular Hemoglobin Concent 34 g/dL (31-37) Medications Current Medications Sodium Chloride (Normal Saline Flush) 3 ml PRN DAILY PRN IV AFTER MEDS AND BLOOD DRAWS; Start 05/16/17 at 20:00 Ondansetron HCl (Zofran) 4 mg PRN Q6HRS PRN IV NAUSEA/VOMITING; Start 05/16/17 at 20:00 Oxycodone HCl (Roxicodone) 5 mg PRN Q3HRS PRN PO BREAKTHROUGH PAIN; Start 05/16 at 20:00 Aminocaproic Acid (Amicar) 1,000 mg QID PO Last administered on 05/23/17 08: 15; Start 05/16/17 at 21:00 Antihemophilic Factor 3656 vwf/ Miscellaneous 30 ml @ 180 mls/hr DAILY@1400 IV ; Start 05/16/17 at 23:00; Stop 05/20/17 at 14:09; Status Cancel Sodium Chloride 1,000 ml @ 50 mls/hr 1X ONCE IV Last administered on 20:52; Start 05/16/17 at 20:30; Stop 05/17/17 at 16:29; Status DC Antihemophilic Factor 3656 vwf/ Miscellaneous 40 ml @ 240 mls/hr DAILY@1400 IV Last administered on 05/16/17 22:55; Start 05/16/17 at 22:00; Stop 05/17/17 at 09:04; Status DC Antihemophilic Factor 3656 vwf/ Miscellaneous 40 ml @ 240 mls/hr BID IV Last administered on 05/19/17 08:44; Start 05/17/17 at 10:00; Stop 05/19/17 at 09:09 ; Status DC Tramadol HCl (Ultram) 50 mg PRN QID PRN PO MODERATE - SEVERE PAIN Last administered on 05/22/17 21:33; Start 05/17/17 at 20:30 Levothyroxine Sodium (Synthroid) 100 mcg DAILY07 PO Last administered on 05:52; Start 05/18/17 at 07:00 Acetaminophen (Tylenol) 500 mg PRN Q6HRS PRN PO MILD PAIN Last administered on 05/22/17 21:32; Start 05/17/17 at 21:45 Allopurinol (Zyloprim) 300 mg DAILY PO Last administered on 05/23/17 08:21; Start 05/18/17 at 09:00 Calcitriol (Rocaltrol) 0.25 mcg DAILY PO Last administered on 05/23/17 08:19 ; Start 05/18/17 at 09:00 Cyanocobalamin (Vitamin B-12) 1,000 mcg DAILY PO Last administered on 08:19; Start 05/18/17 at 09:00 Ergocalciferol (Vitamin D2) 1,000 unit DAILY PO ; Start 05/18/17 at 09:00; Status Cancel Furosemide (Lasix) 40 mg DAILY PO Last administered on 05/23/17 08:26; Start 05/18/17 at 09:00 Gabapentin (Neurontin) 100 mg BID PO Last administered on 05/23/17 08:18; Start 05/18/17 at 09:00 Potassium Chloride (Klor-Con) 20 meq DAILY PO Last administered on 05/23/17 08:15; Start 05/18/17 at 09:00 Vitamin D (Vitamin D3) 1,000 unit DAILY PO Last administered on 05/23/17 08: 20; Start 05/19/17 at 09:00 Cetirizine HCl (ZyrTEC) 10 mg DAILY PO Last administered on 05/23/17 08:23; Start 05/18/17 at 09:00 Non-Formulary Medication 1 each DAILY PO ; Start 05/18/17 at 09:00; Stop at 09:04; Status DC Magnesium Oxide (Magnesium Oxide) 400 mg DAILY PO Last administered on 08:18; Start 05/19/17 at 09:00 Pantoprazole Sodium (Protonix) 40 mg DAILYAC PO Last administered on 08:13; Start 05/18/17 at 11:30 Non-Formulary Medication 250 mg DAILY PO ; Start 05/18/17 at 09:00; Stop at 09:23; Status DC Non-Formulary Medication 1,300 mg BID PO ; Start 05/18/17 at 09:00; Status UNV Antihemophilic Factor 3400 vwf/ Miscellaneous 40 ml @ 240 mls/hr TID IV ; Start 05/19/17 at 14:00; Stop 05/23/17 at 21:09; Status Cancel Antihemophilic Factor 3592 vwf/ Miscellaneous 40 ml @ 240 mls/hr TID IV Last administered on 05/23/17 09:19; Start 05/19/17 at 14:00; Stop 05/26/17 at 13: 59 Albuterol/ Ipratropium (Duoneb) 3 ml RTQID NEB Last administered on 05/23/17 11:44; Start 05/20/17 at 12:00 Throat Lozenges (Cepacol Sore Throat Lozenge) 1 shaheen PRN Q2HRS PRN PO SORE THROAT Last administered on 05/23/17 11:27; Start 05/21/17 at 13:15 Active Scripts Active Lasix (Furosemide) 40 Mg Tablet 1 Tab PO QOD Reported Levothyroxine Sodium 100 Mcg Tablet 1 Tab PO DAILY Vitamin D2 (Ergocalciferol (Vitamin D2)) 50,000 Unit Capsule 1,000 Unit PO DAILY Doxycycline Hyclate 100 Mg Tablet 1 Tab PO BID Resveratrol 250 Mg Capsule 250 Mg PO DAILY Vitamin D (Cholecalciferol (Vitamin D3)) 1,000 Unit Capsule 1 Cap PO DAILY Lysteda (Tranexamic Acid) 650 Mg Tablet 1,300 Mg PO BID Calcitriol 0.25 Mcg Capsule 1 Cap PO DAILY Selenium (Selenomethionine) 200 Mcg Tablet 200 Mcg PO DAILY Vitamin A 8,000 Unit Capsule 8,000 Unit PO Coconut Oil 1,000 Mg Capsule 1,000 Mg PO DAILY Magnesium (Magnesium Oxide) 500 Mg Capsule 500 Mg PO DAILY Omeprazole 40 Mg Capsule.dr 40 Mg PO DAILY Potassium Chloride 20 Meq Tab.er.prt 20 Meq PO DAILY Acetaminophen 500 Mg Tablet 500 Mg PO Q4-6HRS PRN Allopurinol 300 Mg Tablet 300 Mg PO DAILY Neurontin (Gabapentin) 100 Mg Capsule 100 Mg PO BID Vitamin B-12 (Cyanocobalamin (Vitamin B-12)) 1,000 Mcg Tablet 1,000 Mcg SL DAILY Osteo Bi-Flex Caplet (Gluc/Lyndon-Msm#1/C/Brandon/Alfredo/Bor) 1 Each Tablet 1 Each PO DAILY Nakita (Fexofenadine Hcl) 180 Mg Tablet 180 Mg PO DAILY Tramadol Hcl 50 Mg Tablet 50 Mg PO PRN QID Vitals/I & O Vital Sign - Last 24 Hours 05/22/17 05/22/17 05/22/17 05/22/17 14:11 15:00 15:52 19:00 Temp 97.7 96.8 97.7 96.8 Pulse 69 67 Resp 20 18 B/P (MAP) 124/36 (65) 118/34 (62) Pulse Ox 99 98 O2 Delivery Room Air Room Air Room Air Room Air 05/22/17 05/22/17 05/22/17 05/22/17 19:26 20:10 21:33 22:33 Pulse Ox 98 98 O2 Delivery Room Air Room Air Room Air Room Air 05/22/17 05/23/17 05/23/17 05/23/17 22:50 02:44 07:00 07:44 Temp 96.4 97.5 95.9 96.4 97.5 95.9 Pulse 65 56 52 Resp 18 18 18 B/P (MAP) 125/72 (89) 101/46 (64) 102/33 (56) Pulse Ox 99 97 98 97 O2 Delivery Room Air Room Air Room Air Room Air 05/23/17 05/23/17 07:55 11:45 O2 Delivery Room Air Room Air Intake and Output 05/23/17 05/23/17 05/24/17 15:00 23:00 07:00 Intake Total 300 ml Balance 300 ml LEOLA ZOHNG MD May 23, 2017 12:17
--- NOTE | 2017-05-23 15:41 | PDOC ---
Subjective: Subjective: Stools looking better. Objective: Objective: Per RN - stools less dark. Vital Signs: Vital Signs Date Time Temp Pulse Resp B/P (MAP) Pulse Ox O2 Delivery O2 Flow Rate FiO2 05/23/17 11:45 Room Air 05/23/17 07:44 97 05/23/17 07:00 95.9 52 18 102/33 (56) 95.9 Labs: Laboratory Tests Test 05/23/17 04:10 Hemoglobin 8.5 g/dL Hematocrit 25.1 % Mean Corpuscular Hemoglobin Concent 34 g/dL PE: GEN: NAD LUNGS: CTAB HEART: RRR ABD: S/ND/NT NEURO/PSYCH: A & O 3 A/P: vWD -melena improving -Hgb now stable s/p transfusion, on Humate and Amicar per Dr. Rodriguez -last EGD and colonoscopy in 11/2015 per HPI, on PPI -positive bleeding scan earlier this year w/ negative arteriogram -- Continue per hematology. ERENDIRA DORSEY May 23, 2017 15:41
[2017-05-23 15:53] VITALS: BP 125/52
[2017-05-23] MEDS: traMADol 50 MG TABLET PO PRN ×3 (18:27→21:11)
[2017-05-23 20:25] VITALS: BP 112/41
[2017-05-23] MEDS: ACETAMINOPHEN 500 MG TABLET PO PRN (21:11)
[2017-05-23] MEDS ORDERED: SODI30SP NS (21:18)
[2017-05-23] MEDS ORDERED: BENZ1LOZ48 MM (23:13)
[2017-05-23] MEDS: SODIUM CHLORIDE 0.65% NASAL SPRAY 45ML BOTTLE. NS PRN (23:28)
[2017-05-23] MEDS: BENZOCAINE/MENTHOL LOZENGE. MM PRN (23:28)
[2017-05-23 23:59] VITALS: BP 107/32
[2017-05-24 03:56] VITALS: BP 98/37
[2017-05-24] MEDS: LEVOTHYROXINE 100 MCG TABLET PO SCH (05:49)
[2017-05-24] MEDS: SODIUM CHLORIDE 0.65% NASAL SPRAY 45ML BOTTLE. NS PRN ×3 (05:50→20:47)
[2017-05-24] MEDS: BENZOCAINE/MENTHOL LOZENGE. MM PRN ×3 (05:50→20:45)
[2017-05-24 05:52] LABS: HEMATOCRIT 25.8 % (36.0-47.0); HEMOGLOBIN 8.7 g/dL (12.0-15.5)
[2017-05-24 07:00] VITALS: BP 107/40
[2017-05-24] MEDS: IPRATRPIUM/ALBUTEROL 0.5/2.5MG 3 ML NEBU. NEB SCH ×4 (07:35→21:19)
[2017-05-24] MEDS: PANTOPRAZOLE 40 MG TABLET.DR. PO SCH (08:05)
[2017-05-24] MEDS: CALCITRIOL 0.25 MCG CAPSULE. PO SCH (09:11)
[2017-05-24] MEDS: CYANOCOBALAMIN (VITAMIN B-12) 1,000 MCG TABLET. PO SCH (09:11)
[2017-05-24] MEDS: MAGNESIUM OXIDE 400 MG TABLET PO SCH (09:12)
[2017-05-24] MEDS: AMINOCAPROIC ACID 500 MG TABLET. PO SCH ×4 (09:12→20:46)
[2017-05-24] MEDS: FUROSEMIDE 40 MG TABLET. PO SCH (09:12)
[2017-05-24] MEDS: CETIRIZINE HCL 10 MG TABLET. PO SCH (09:12)
[2017-05-24] MEDS: POTASSIUM CHLORIDE 20 MEQ TABLET.ER. PO SCH (09:13)
[2017-05-24] MEDS: ALLOPURINOL 300 MG TABLET. PO SCH (09:13)
[2017-05-24] MEDS: GABAPENTIN 100 MG CAPSULE. PO SCH ×2 (09:13→20:49)
[2017-05-24] MEDS: CHOLECALCIFEROL (VITAMIN D3) 1,000 UNIT TABLET PO SCH (09:16)
[2017-05-24] MEDS: VWF IV SCH ×3 (10:29→22:24)
[2017-05-24] MEDS: ANTIHEMOPHILIC FACTOR IV SCH ×3 (10:29→22:24)
[2017-05-24] MEDS: TOTAL VOLUME IV SCH ×3 (10:29→22:24)
--- NOTE | 2017-05-24 10:34 | PDOC ---
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 Coagulopathy History of Present Illness History of Present Illness Hgb 8.7 She tells me her baseline 10 - she targets that HEAVY DISCUSSION TODAY about numbers and that she is getting better Very opinionated about her care Long stories about her vW, that she does not have had a BM so hard to say if melena continues I told her to address her queries to consultants as my explanations dont seem to content her PLAN: [facility] onc wants her to stay over weekend while on the vW medication HH on friday CPM Transfuse prn - so far not needing that lately [facility] dc friday Vitals Vitals Vital Signs Date Time Temp Pulse Resp B/P (MAP) Pulse Ox O2 Delivery O2 Flow Rate FiO2 05/24/17 07:36 99 Room Air 05/24/17 07:00 97.8 52 18 107/40 (62) 97.8 Physical Exam General: Alert, Oriented X3 Heart: Normal S1, Normal S2 Lungs: Clear Abdomen: Normal bowel sounds, Soft, No tenderness Extremities: No clubbing, No edema Skin: No rashes, Other (diffuse ecchymosis on arms) Labs LABS Laboratory Tests Test 05/24/17 05:25 Hemoglobin 8.7 g/dL (12.0-15.5) Hematocrit 25.8 % (36.0-47.0) Mean Corpuscular Hemoglobin Concent 34 g/dL (31-37) Review of Systems Review of Systems lots of concerns,none real concerning- Comment Review of Relevant I have reviewed the following items benjy (where applicable) has been applied. Labs Laboratory Tests Test 05/23/17 04:10 05/24/17 05:25 Hemoglobin 8.5 g/dL (12.0-15.5) 8.7 g/dL (12.0-15.5) Hematocrit 25.1 % (36.0-47.0) 25.8 % (36.0-47.0) Mean Corpuscular Hemoglobin Concent 34 g/dL (31-37) 34 g/dL (31-37) Laboratory Tests Test 05/24/17 05:25 Hemoglobin 8.7 g/dL (12.0-15.5) Hematocrit 25.8 % (36.0-47.0) Mean Corpuscular Hemoglobin Concent 34 g/dL (31-37) Medications Current Medications Sodium Chloride (Normal Saline Flush) 3 ml PRN DAILY PRN IV AFTER MEDS AND BLOOD DRAWS; Start 05/16/17 at 20:00 Ondansetron HCl (Zofran) 4 mg PRN Q6HRS PRN IV NAUSEA/VOMITING; Start 05/16/17 at 20:00 Oxycodone HCl (Roxicodone) 5 mg PRN Q3HRS PRN PO BREAKTHROUGH PAIN; Start 05/16 at 20:00 Aminocaproic Acid (Amicar) 1,000 mg QID PO Last administered on 05/24/17 09: 12; Start 05/16/17 at 21:00 Antihemophilic Factor 3656 vwf/ Miscellaneous 30 ml @ 180 mls/hr DAILY@1400 IV ; Start 05/16/17 at 23:00; Stop 05/20/17 at 14:09; Status Cancel Sodium Chloride 1,000 ml @ 50 mls/hr 1X ONCE IV Last administered on 20:52; Start 05/16/17 at 20:30; Stop 05/17/17 at 16:29; Status DC Antihemophilic Factor 3656 vwf/ Miscellaneous 40 ml @ 240 mls/hr DAILY@1400 IV Last administered on 05/16/17 22:55; Start 05/16/17 at 22:00; Stop 05/17/17 at 09:04; Status DC Antihemophilic Factor 3656 vwf/ Miscellaneous 40 ml @ 240 mls/hr BID IV Last administered on 05/19/17 08:44; Start 05/17/17 at 10:00; Stop 05/19/17 at 09:09 ; Status DC Tramadol HCl (Ultram) 50 mg PRN QID PRN PO MODERATE - SEVERE PAIN Last administered on 05/23/17 21:11; Start 05/17/17 at 20:30 Levothyroxine Sodium (Synthroid) 100 mcg DAILY07 PO Last administered on 05:49; Start 05/18/17 at 07:00 Acetaminophen (Tylenol) 500 mg PRN Q6HRS PRN PO MILD PAIN Last administered on 05/23/17 21:11; Start 05/17/17 at 21:45 Allopurinol (Zyloprim) 300 mg DAILY PO Last administered on 05/24/17 09:13; Start 05/18/17 at 09:00 Calcitriol (Rocaltrol) 0.25 mcg DAILY PO Last administered on 05/24/17 09:11 ; Start 05/18/17 at 09:00 Cyanocobalamin (Vitamin B-12) 1,000 mcg DAILY PO Last administered on 09:11; Start 05/18/17 at 09:00 Ergocalciferol (Vitamin D2) 1,000 unit DAILY PO ; Start 05/18/17 at 09:00; Status Cancel Furosemide (Lasix) 40 mg DAILY PO Last administered on 05/24/17 09:12; Start 05/18/17 at 09:00 Gabapentin (Neurontin) 100 mg BID PO Last administered on 05/24/17 09:13; Start 05/18/17 at 09:00 Potassium Chloride (Klor-Con) 20 meq DAILY PO Last administered on 05/24/17 09:13; Start 05/18/17 at 09:00 Vitamin D (Vitamin D3) 1,000 unit DAILY PO Last administered on 05/24/17 09: 16; Start 05/19/17 at 09:00 Cetirizine HCl (ZyrTEC) 10 mg DAILY PO Last administered on 05/24/17 09:12; Start 05/18/17 at 09:00 Non-Formulary Medication 1 each DAILY PO ; Start 05/18/17 at 09:00; Stop at 09:04; Status DC Magnesium Oxide (Magnesium Oxide) 400 mg DAILY PO Last administered on 09:12; Start 05/19/17 at 09:00 Pantoprazole Sodium (Protonix) 40 mg DAILYAC PO Last administered on 08:05; Start 05/18/17 at 11:30 Non-Formulary Medication 250 mg DAILY PO ; Start 05/18/17 at 09:00; Stop at 09:23; Status DC Non-Formulary Medication 1,300 mg BID PO ; Start 05/18/17 at 09:00; Status UNV Antihemophilic Factor 3400 vwf/ Miscellaneous 40 ml @ 240 mls/hr TID IV ; Start 05/19/17 at 14:00; Stop 05/23/17 at 21:09; Status Cancel Antihemophilic Factor 3592 vwf/ Miscellaneous 40 ml @ 240 mls/hr TID IV Last administered on 05/24/17 10:29; Start 05/19/17 at 14:00; Stop 05/26/17 at 13: 59 Albuterol/ Ipratropium (Duoneb) 3 ml RTQID NEB Last administered on 05/24/17 07:35; Start 05/20/17 at 12:00 Throat Lozenges (Cepacol Sore Throat Lozenge) 1 shaheen PRN Q2HRS PRN PO SORE THROAT Last administered on 05/23/17 18:26; Start 05/21/17 at 13:15; Stop at 23:20; Status DC Throat Lozenges (Cepacol Sore Throat Lozenge) 1 shaheen PRN Q2HR PRN MM SORE THROAT Last administered on 05/24/17 05:50; Start 05/23/17 at 23:30 Sodium Chloride (Saline Mist Nasal) 1 roberta QIDPRN PRN NS SORE THROAT Last administered on 05/24/17 05:50; Start 05/23/17 at 23:30 Active Scripts Active Lasix (Furosemide) 40 Mg Tablet 1 Tab PO QOD Reported Cepacol Sore Throat Lozenge (Benzocaine/Menthol) 1 Each Lozenge 1 Each MM Saline Nasal [place] (Sodium Chloride) 30 Ml [place] 1 [place] NS QIDPRN PRN Levothyroxine Sodium 100 Mcg Tablet 1 Tab PO DAILY Vitamin D2 (Ergocalciferol (Vitamin D2)) 50,000 Unit Capsule 1,000 Unit PO DAILY Doxycycline Hyclate 100 Mg Tablet 1 Tab PO BID Resveratrol 250 Mg Capsule 250 Mg PO DAILY Vitamin D (Cholecalciferol (Vitamin D3)) 1,000 Unit Capsule 1 Cap PO DAILY Lysteda (Tranexamic Acid) 650 Mg Tablet 1,300 Mg PO BID Calcitriol 0.25 Mcg Capsule 1 Cap PO DAILY Selenium (Selenomethionine) 200 Mcg Tablet 200 Mcg PO DAILY Vitamin A 8,000 Unit Capsule 8,000 Unit PO Coconut Oil 1,000 Mg Capsule 1,000 Mg PO DAILY Magnesium (Magnesium Oxide) 500 Mg Capsule 500 Mg PO DAILY Omeprazole 40 Mg Capsule.dr 40 Mg PO DAILY Potassium Chloride 20 Meq Tab.er.prt 20 Meq PO DAILY Acetaminophen 500 Mg Tablet 500 Mg PO Q4-6HRS PRN Allopurinol 300 Mg Tablet 300 Mg PO DAILY Neurontin (Gabapentin) 100 Mg Capsule 100 Mg PO BID Vitamin B-12 (Cyanocobalamin (Vitamin B-12)) 1,000 Mcg Tablet 1,000 Mcg SL DAILY Osteo Bi-Flex Caplet (Gluc/Lyndon-Msm#1/C/Brandon/Alfredo/Bor) 1 Each Tablet 1 Each PO DAILY Nakita (Fexofenadine Hcl) 180 Mg Tablet 180 Mg PO DAILY Tramadol Hcl 50 Mg Tablet 50 Mg PO PRN QID Vitals/I & O Vital Sign - Last 24 Hours 05/23/17 05/23/17 05/23/17 05/23/17 11:45 15:53 15:58 18:27 Temp 98.6 98.6 Pulse 65 Resp 14 B/P (MAP) 125/52 (76) Pulse Ox 99 98 O2 Delivery Room Air Room Air Room Air Room Air 05/23/17 05/23/17 05/23/17 05/23/17 19:38 19:59 20:00 20:25 Temp 97.5 97.5 Pulse 68 Resp 18 B/P (MAP) 112/41 (64) Pulse Ox 97 98 O2 Delivery Room Air Room Air Room Air Room Air 05/23/17 05/23/17 05/23/17 05/24/17 21:11 23:19 23:59 03:56 Temp 97.7 97.3 97.7 97.3 Pulse 63 54 Resp 19 19 18 18 B/P (MAP) 107/32 (57) 98/37 (57) Pulse Ox 96 95 O2 Delivery Room Air Room Air Room Air Room Air 05/24/17 05/24/17 07:00 07:36 Temp 97.8 97.8 Pulse 52 Resp 18 B/P (MAP) 107/40 (62) Pulse Ox 98 99 O2 Delivery Room Air Room Air Intake and Output 05/24/17 05/24/17 05/25/17 15:00 23:00 07:00 Intake Total 300 ml Balance 300 ml LEOLA ZHONG MD May 24, 2017 10:34
[2017-05-24 11:00] VITALS: BP 133/45
--- NOTE | 2017-05-24 13:28 | PDOC ---
PROGRESS NOTES Subjective Subjective Eating normal diet and tolerating well. Hb stable. Melena improving. No BRBPR Objective Objective Vital Signs Date Time Temp Pulse Resp B/P (MAP) Pulse Ox O2 Delivery O2 Flow Rate FiO2 05/24/17 11:26 99 Room Air 05/24/17 11:00 97.8 62 18 133/45 (74) 97.8 Intake and Output 05/25/17 07:00 Intake Total 540 ml Balance 540 ml Intake Oral 540 ml Physical Exam Abdomen: Normal bowel sounds, Soft Heart: Regular rate General: Alert HEENT: Atraumatic Lungs: Clear to auscultation Neck: Supple Neuro: Normal speech Psych/Mental Status: Mental status NL Skin: No rashes Assessment Assessment vWD GI bleed Thrombocytopenia Plan Plan of Care Improving. Continue Humate-P and amicar. Daily CBC If stable when Dr Rodriguez sees Friday, can likely be discharged then. Comment Review of Relevant I have reviewed the following items benjy (where applicable) has been applied. Labs Laboratory Tests Test 05/23/17 04:10 05/24/17 05:25 Hemoglobin 8.5 g/dL (12.0-15.5) 8.7 g/dL (12.0-15.5) Hematocrit 25.1 % (36.0-47.0) 25.8 % (36.0-47.0) Mean Corpuscular Hemoglobin Concent 34 g/dL (31-37) 34 g/dL (31-37) Laboratory Tests Test 05/24/17 05:25 Hemoglobin 8.7 g/dL (12.0-15.5) Hematocrit 25.8 % (36.0-47.0) Mean Corpuscular Hemoglobin Concent 34 g/dL (31-37) Medications Current Medications Sodium Chloride (Normal Saline Flush) 3 ml PRN DAILY PRN IV AFTER MEDS AND BLOOD DRAWS; Start 05/16/17 at 20:00 Ondansetron HCl (Zofran) 4 mg PRN Q6HRS PRN IV NAUSEA/VOMITING; Start 05/16/17 at 20:00 Oxycodone HCl (Roxicodone) 5 mg PRN Q3HRS PRN PO BREAKTHROUGH PAIN; Start 05/16 at 20:00 Aminocaproic Acid (Amicar) 1,000 mg QID PO Last administered on 05/24/17t 09: 12; Start 05/16/17 at 21:00 Antihemophilic Factor 3656 vwf/ Miscellaneous 30 ml @ 180 mls/hr DAILY@1400 IV ; Start 05/16/17 at 23:00; Stop 05/20/17 at 14:09; Status Cancel Sodium Chloride 1,000 ml @ 50 mls/hr 1X ONCE IV Last administered on 20:52; Start 05/16/17 at 20:30; Stop 05/17/17 at 16:29; Status DC Antihemophilic Factor 3656 vwf/ Miscellaneous 40 ml @ 240 mls/hr DAILY@1400 IV Last administered on 05/16/17 22:55; Start 05/16/17 at 22:00; Stop 05/17/17 at 09:04; Status DC Antihemophilic Factor 3656 vwf/ Miscellaneous 40 ml @ 240 mls/hr BID IV Last administered on 05/19/17 08:44; Start 05/17/17 at 10:00; Stop 05/19/17 at 09:09 ; Status DC Tramadol HCl (Ultram) 50 mg PRN QID PRN PO MODERATE - SEVERE PAIN Last administered on 05/23/17 21:11; Start 05/17/17 at 20:30 Levothyroxine Sodium (Synthroid) 100 mcg DAILY07 PO Last administered on 05:49; Start 05/18/17 at 07:00 Acetaminophen (Tylenol) 500 mg PRN Q6HRS PRN PO MILD PAIN Last administered on 05/23/17 21:11; Start 05/17/17 at 21:45 Allopurinol (Zyloprim) 300 mg DAILY PO Last administered on 05/24/17 09:13; Start 05/18/17 at 09:00 Calcitriol (Rocaltrol) 0.25 mcg DAILY PO Last administered on 05/24/17 09:11 ; Start 05/18/17 at 09:00 Cyanocobalamin (Vitamin B-12) 1,000 mcg DAILY PO Last administered on 09:11; Start 05/18/17 at 09:00 Ergocalciferol (Vitamin D2) 1,000 unit DAILY PO ; Start 05/18/17 at 09:00; Status Cancel Furosemide (Lasix) 40 mg DAILY PO Last administered on 05/24/17 09:12; Start 05/18/17 at 09:00 Gabapentin (Neurontin) 100 mg BID PO Last administered on 05/24/17 09:13; Start 05/18/17 at 09:00 Potassium Chloride (Klor-Con) 20 meq DAILY PO Last administered on 05/24/17 09:13; Start 05/18/17 at 09:00 Vitamin D (Vitamin D3) 1,000 unit DAILY PO Last administered on 05/24/17 09: 16; Start 05/19/17 at 09:00 Cetirizine HCl (ZyrTEC) 10 mg DAILY PO Last administered on 05/24/17 09:12; Start 05/18/17 at 09:00 Non-Formulary Medication 1 each DAILY PO ; Start 05/18/17 at 09:00; Stop at 09:04; Status DC Magnesium Oxide (Magnesium Oxide) 400 mg DAILY PO Last administered on 09:12; Start 05/19/17 at 09:00 Pantoprazole Sodium (Protonix) 40 mg DAILYAC PO Last administered on 08:05; Start 05/18/17 at 11:30 Non-Formulary Medication 250 mg DAILY PO ; Start 05/18/17 at 09:00; Stop at 09:23; Status DC Non-Formulary Medication 1,300 mg BID PO ; Start 05/18/17 at 09:00; Status UNV Antihemophilic Factor 3400 vwf/ Miscellaneous 40 ml @ 240 mls/hr TID IV ; Start 05/19/17 at 14:00; Stop 05/23/17 at 21:09; Status Cancel Antihemophilic Factor 3592 vwf/ Miscellaneous 40 ml @ 240 mls/hr TID IV Last administered on 05/24/17 10:29; Start 05/19/17 at 14:00; Stop 05/26/17 at 13: 59 Albuterol/ Ipratropium (Duoneb) 3 ml RTQID NEB Last administered on 05/24/17 11:25; Start 05/20/17 at 12:00 Throat Lozenges (Cepacol Sore Throat Lozenge) 1 shaheen PRN Q2HRS PRN PO SORE THROAT Last administered on 05/23/17 18:26; Start 05/21/17 at 13:15; Stop at 23:20; Status DC Throat Lozenges (Cepacol Sore Throat Lozenge) 1 shaheen PRN Q2HR PRN MM SORE THROAT Last administered on 05/24/17 05:50; Start 05/23/17 at 23:30 Sodium Chloride (Saline Mist Nasal) 1 roberta QIDPRN PRN NS SORE THROAT Last administered on 05/24/17 05:50; Start 05/23/17 at 23:30 Active Scripts Active Lasix (Furosemide) 40 Mg Tablet 1 Tab PO QOD Reported Cepacol Sore Throat Lozenge (Benzocaine/Menthol) 1 Each Lozenge 1 Each MM Saline Nasal [place] (Sodium Chloride) 30 Ml [place] 1 [place] NS QIDPRN PRN Levothyroxine Sodium 100 Mcg Tablet 1 Tab PO DAILY Vitamin D2 (Ergocalciferol (Vitamin D2)) 50,000 Unit Capsule 1,000 Unit PO DAILY Doxycycline Hyclate 100 Mg Tablet 1 Tab PO BID Resveratrol 250 Mg Capsule 250 Mg PO DAILY Vitamin D (Cholecalciferol (Vitamin D3)) 1,000 Unit Capsule 1 Cap PO DAILY Lysteda (Tranexamic Acid) 650 Mg Tablet 1,300 Mg PO BID Calcitriol 0.25 Mcg Capsule 1 Cap PO DAILY Selenium (Selenomethionine) 200 Mcg Tablet 200 Mcg PO DAILY Vitamin A 8,000 Unit Capsule 8,000 Unit PO Coconut Oil 1,000 Mg Capsule 1,000 Mg PO DAILY Magnesium (Magnesium Oxide) 500 Mg Capsule 500 Mg PO DAILY Omeprazole 40 Mg Capsule.dr 40 Mg PO DAILY Potassium Chloride 20 Meq Tab.er.prt 20 Meq PO DAILY Acetaminophen 500 Mg Tablet 500 Mg PO Q4-6HRS PRN Allopurinol 300 Mg Tablet 300 Mg PO DAILY Neurontin (Gabapentin) 100 Mg Capsule 100 Mg PO BID Vitamin B-12 (Cyanocobalamin (Vitamin B-12)) 1,000 Mcg Tablet 1,000 Mcg SL DAILY Osteo Bi-Flex Caplet (Gluc/Lyndon-Msm#1/C/Brandon/Alfredo/Bor) 1 Each Tablet 1 Each PO DAILY Nakita (Fexofenadine Hcl) 180 Mg Tablet 180 Mg PO DAILY Tramadol Hcl 50 Mg Tablet 50 Mg PO PRN QID Vitals/I & O Vital Sign - Last 24 Hours 05/23/17 05/23/17 05/23/17 05/23/17 15:53 15:58 18:27 19:38 Temp 98.6 98.6 Pulse 65 Resp 14 B/P (MAP) 125/52 (76) Pulse Ox 99 98 97 O2 Delivery Room Air Room Air Room Air Room Air 05/23/17 05/23/17 05/23/17 05/23/17 19:59 20:00 20:25 21:11 Temp 97.5 97.5 Pulse 68 Resp 18 19 B/P (MAP) 112/41 (64) Pulse Ox 98 O2 Delivery Room Air Room Air Room Air Room Air 05/23/17 05/23/17 05/24/17 05/24/17 23:19 23:59 03:56 07:00 Temp 97.7 97.3 97.8 97.7 97.3 97.8 Pulse 63 54 52 Resp 19 18 18 18 B/P (MAP) 107/32 (57) 98/37 (57) 107/40 (62) Pulse Ox 96 95 98 O2 Delivery Room Air Room Air Room Air Room Air 05/24/17 05/24/17 05/24/17 05/24/17 07:36 08:00 11:00 11:26 Temp 97.8 97.8 Pulse 62 Resp 18 B/P (MAP) 133/45 (74) Pulse Ox 99 98 99 O2 Delivery Room Air Room Air Room Air Room Air Intake and Output 05/24/17 05/24/17 05/25/17 15:00 23:00 07:00 Intake Total 540 ml Balance 540 ml HARRIET RIVERA MD May 24, 2017 13:28
[2017-05-24 15:00] VITALS: BP 105/33
[2017-05-24] MEDS: traMADol 50 MG TABLET PO PRN ×2 (16:22→20:46)
[2017-05-24 19:59] VITALS: BP 104/33
[2017-05-24] MEDS: ACETAMINOPHEN 500 MG TABLET PO PRN (20:46)
[2017-05-24 22:58] VITALS: BP 109/31
[2017-05-25 03:54] VITALS: BP 99/32
[2017-05-25 05:24] LABS: BASO % 1 % (0-3); EOS % 5 % (0-3); HEMATOCRIT 23.8 % (36.0-47.0); LYMPH # 0.7 x10^3/uL (1.0-4.8); LYMPH % 24 % (24-48); MEAN CORPUSCULAR HEMOGLOBIN 33 pg (25-35); MEAN CORPUSCULAR HGB CONC 34 g/dL (31-37); MEAN CORPUSCULAR VOLUME 99 fL (79-100); MONO % 11 % (0-9); NEUT % 60 % (31-73); PLATELET COUNT 89 x10^3/uL (140-400); RED BLOOD COUNT 2.41 x10^6/uL (3.50-5.40); RED CELL DISTRIBUTION WIDTH 17.2 % (11.5-14.5); WHITE BLOOD COUNT 3.1 x10^3/uL (4.0-11.0)
[2017-05-25] MEDS: LEVOTHYROXINE 100 MCG TABLET PO SCH (05:56)
[2017-05-25 07:00] VITALS: BP 134/64
[2017-05-25] MEDS: IPRATRPIUM/ALBUTEROL 0.5/2.5MG 3 ML NEBU. NEB SCH ×4 (07:42→20:14)
[2017-05-25] MEDS: PANTOPRAZOLE 40 MG TABLET.DR. PO SCH (08:22)
[2017-05-25] MEDS: CYANOCOBALAMIN (VITAMIN B-12) 1,000 MCG TABLET. PO SCH (08:23)
[2017-05-25] MEDS: AMINOCAPROIC ACID 500 MG TABLET. PO SCH (08:23)
[2017-05-25] MEDS: CALCITRIOL 0.25 MCG CAPSULE. PO SCH (08:23)
[2017-05-25] MEDS: GABAPENTIN 100 MG CAPSULE. PO SCH ×2 (08:23→21:00)
[2017-05-25] MEDS: CHOLECALCIFEROL (VITAMIN D3) 1,000 UNIT TABLET PO SCH (08:24)
[2017-05-25] MEDS: CETIRIZINE HCL 10 MG TABLET. PO SCH (08:24)
[2017-05-25] MEDS: ALLOPURINOL 300 MG TABLET. PO SCH (08:24)
[2017-05-25] MEDS: MAGNESIUM OXIDE 400 MG TABLET PO SCH (08:24)
[2017-05-25] MEDS: POTASSIUM CHLORIDE 20 MEQ TABLET.ER. PO SCH (08:25)
[2017-05-25] MEDS: FUROSEMIDE 40 MG TABLET. PO SCH (08:33)
[2017-05-25 08:35] LABS: HEMATOCRIT 26.3 % (36.0-47.0); HEMOGLOBIN 8.8 g/dL (12.0-15.5)
[2017-05-25] MEDS: ANTIHEMOPHILIC FACTOR IV SCH ×3 (10:16→22:58)
[2017-05-25] MEDS: VWF IV SCH ×3 (10:16→22:58)
[2017-05-25] MEDS: TOTAL VOLUME IV SCH ×3 (10:16→22:58)
--- NOTE | 2017-05-25 10:20 | PDOC ---
PROGRESS NOTES Subjective Subjective Melena resolved. No other bleeding. Hemoglobin stable on recheck this AM. Objective Objective Vital Signs Date Time Temp Pulse Resp B/P (MAP) Pulse Ox O2 Delivery O2 Flow Rate FiO2 05/25/17 07:50 Room Air 2.0 05/25/17 07:43 96 05/25/17 07:00 97.8 80 18 134/64 (87) 97.8 Intake and Output 05/26/17 07:00 Intake Total 120 ml Balance 120 ml Intake Oral 120 ml Physical Exam Abdomen: Soft Heart: Regular rate Extremities: No clubbing General: Alert HEENT: Atraumatic Lungs: Normal air movement MUSCULOSKELETAL: No deformity Neck: Supple Neuro: Normal speech Psych/Mental Status: Mental status NL Skin: No rashes Assessment Assessment vWD GI bleed Plan Plan of Care Bleeding seems to have resolved. Continue Humate-P Stop amicar Check CBC in AM. Dr Rodriguez will see her. If stable, likely able to d/c tomorrow. Comment Review of Relevant I have reviewed the following items benjy (where applicable) has been applied. Labs Laboratory Tests Test 05/24/17 05:25 05/25/17 04:20 05/25/17 08:00 Hemoglobin 8.7 g/dL (12.0-15.5) 8.0 g/dL (12.0-15.5) 8.8 g/dL (12.0-15.5) Hematocrit 25.8 % (36.0-47.0) 23.8 % (36.0-47.0) 26.3 % (36.0-47.0) Mean Corpuscular Hemoglobin Concent 34 g/dL (31-37) 34 g/dL (31-37) 33 g/dL (31-37) White Blood Count 3.1 x10^3/uL (4.0-11.0) Red Blood Count 2.41 x10^6/uL (3.50-5.40) Mean Corpuscular Volume 99 fL (79-100) Mean Corpuscular Hemoglobin 33 pg (25-35) Red Cell Distribution Width 17.2 % (11.5-14.5) Platelet Count 89 x10^3/uL (140-400) Neutrophils (%) (Auto) 60 % (31-73) Lymphocytes (%) (Auto) 24 % (24-48) Monocytes (%) (Auto) 11 % (0-9) Eosinophils (%) (Auto) 5 % (0-3) Basophils (%) (Auto) 1 % (0-3) Neutrophils # (Auto) 1.9 x10^3uL (1.8-7.7) Lymphocytes # (Auto) 0.7 x10^3/uL (1.0-4.8) Monocytes # (Auto) 0.3 x10^3/uL (0.0-1.1) Eosinophils # (Auto) 0.2 x10^3/uL (0.0-0.7) Basophils # (Auto) 0.0 x10^3/uL (0.0-0.2) Laboratory Tests Test 05/25/17 04:20 05/25/17 08:00 White Blood Count 3.1 x10^3/uL (4.0-11.0) Red Blood Count 2.41 x10^6/uL (3.50-5.40) Hemoglobin 8.0 g/dL (12.0-15.5) 8.8 g/dL (12.0-15.5) Hematocrit 23.8 % (36.0-47.0) 26.3 % (36.0-47.0) Mean Corpuscular Volume 99 fL (79-100) Mean Corpuscular Hemoglobin 33 pg (25-35) Mean Corpuscular Hemoglobin Concent 34 g/dL (31-37) 33 g/dL (31-37) Red Cell Distribution Width 17.2 % (11.5-14.5) Platelet Count 89 x10^3/uL (140-400) Neutrophils (%) (Auto) 60 % (31-73) Lymphocytes (%) (Auto) 24 % (24-48) Monocytes (%) (Auto) 11 % (0-9) Eosinophils (%) (Auto) 5 % (0-3) Basophils (%) (Auto) 1 % (0-3) Neutrophils # (Auto) 1.9 x10^3uL (1.8-7.7) Lymphocytes # (Auto) 0.7 x10^3/uL (1.0-4.8) Monocytes # (Auto) 0.3 x10^3/uL (0.0-1.1) Eosinophils # (Auto) 0.2 x10^3/uL (0.0-0.7) Basophils # (Auto) 0.0 x10^3/uL (0.0-0.2) Medications Current Medications Sodium Chloride (Normal Saline Flush) 3 ml PRN DAILY PRN IV AFTER MEDS AND BLOOD DRAWS; Start 05/16/17 at 20:00 Ondansetron HCl (Zofran) 4 mg PRN Q6HRS PRN IV NAUSEA/VOMITING; Start 05/16/17 at 20:00 Oxycodone HCl (Roxicodone) 5 mg PRN Q3HRS PRN PO BREAKTHROUGH PAIN; Start 05/16 at 20:00 Aminocaproic Acid (Amicar) 1,000 mg QID PO Last administered on 05/25/17 08: 23; Start 05/16/17 at 21:00 Antihemophilic Factor 3656 vwf/ Miscellaneous 30 ml @ 180 mls/hr DAILY@1400 IV ; Start 05/16/17 at 23:00; Stop 05/20/17 at 14:09; Status Cancel Sodium Chloride 1,000 ml @ 50 mls/hr 1X ONCE IV Last administered on 20:52; Start 05/16/17 at 20:30; Stop 05/17/17 at 16:29; Status DC Antihemophilic Factor 3656 vwf/ Miscellaneous 40 ml @ 240 mls/hr DAILY@1400 IV Last administered on 05/16/17 22:55; Start 05/16/17 at 22:00; Stop 05/17/17 at 09:04; Status DC Antihemophilic Factor 3656 vwf/ Miscellaneous 40 ml @ 240 mls/hr BID IV Last administered on 05/19/17 08:44; Start 05/17/17 at 10:00; Stop 05/19/17 at 09:09 ; Status DC Tramadol HCl (Ultram) 50 mg PRN QID PRN PO MODERATE - SEVERE PAIN Last administered on 05/24/17 20:46; Start 05/17/17 at 20:30 Levothyroxine Sodium (Synthroid) 100 mcg DAILY07 PO Last administered on 05:56; Start 05/18/17 at 07:00 Acetaminophen (Tylenol) 500 mg PRN Q6HRS PRN PO MILD PAIN Last administered on 05/24/17 20:46; Start 05/17/17 at 21:45 Allopurinol (Zyloprim) 300 mg DAILY PO Last administered on 05/25/17 08:24; Start 05/18/17 at 09:00 Calcitriol (Rocaltrol) 0.25 mcg DAILY PO Last administered on 05/25/17 08:23 ; Start 05/18/17 at 09:00 Cyanocobalamin (Vitamin B-12) 1,000 mcg DAILY PO Last administered on 08:23; Start 05/18/17 at 09:00 Ergocalciferol (Vitamin D2) 1,000 unit DAILY PO ; Start 05/18/17 at 09:00; Status Cancel Furosemide (Lasix) 40 mg DAILY PO Last administered on 05/25/17 08:33; Start 05/18/17 at 09:00 Gabapentin (Neurontin) 100 mg BID PO Last administered on 05/25/17 08:23; Start 05/18/17 at 09:00 Potassium Chloride (Klor-Con) 20 meq DAILY PO Last administered on 05/25/17 08:25; Start 05/18/17 at 09:00 Vitamin D (Vitamin D3) 1,000 unit DAILY PO Last administered on 05/25/17 08: 24; Start 05/19/17 at 09:00 Cetirizine HCl (ZyrTEC) 10 mg DAILY PO Last administered on 05/25/17 08:24; Start 05/18/17 at 09:00 Non-Formulary Medication 1 each DAILY PO ; Start 05/18/17 at 09:00; Stop at 09:04; Status DC Magnesium Oxide (Magnesium Oxide) 400 mg DAILY PO Last administered on 08:24; Start 05/19/17 at 09:00 Pantoprazole Sodium (Protonix) 40 mg DAILYAC PO Last administered on 08:22; Start 05/18/17 at 11:30 Non-Formulary Medication 250 mg DAILY PO ; Start 05/18/17 at 09:00; Stop at 09:23; Status DC Non-Formulary Medication 1,300 mg BID PO ; Start 05/18/17 at 09:00; Status UNV Antihemophilic Factor 3400 vwf/ Miscellaneous 40 ml @ 240 mls/hr TID IV ; Start 05/19/17 at 14:00; Stop 05/23/17 at 21:09; Status Cancel Antihemophilic Factor 3592 vwf/ Miscellaneous 40 ml @ 240 mls/hr TID IV Last administered on 05/25/17 10:16; Start 05/19/17 at 14:00; Stop 05/26/17 at 13: 59 Albuterol/ Ipratropium (Duoneb) 3 ml RTQID NEB Last administered on 05/25/17 07:42; Start 05/20/17 at 12:00 Throat Lozenges (Cepacol Sore Throat Lozenge) 1 shaheen PRN Q2HRS PRN PO SORE THROAT Last administered on 05/23/17 18:26; Start 05/21/17 at 13:15; Stop at 23:20; Status DC Throat Lozenges (Cepacol Sore Throat Lozenge) 1 shaheen PRN Q2HR PRN MM SORE THROAT Last administered on 05/24/17 20:45; Start 05/23/17 at 23:30 Sodium Chloride (Saline Mist Nasal) 1 roberta QIDPRN PRN NS SORE THROAT Last administered on 05/24/17 20:47; Start 05/23/17 at 23:30 Active Scripts Active Lasix (Furosemide) 40 Mg Tablet 1 Tab PO QOD Reported Cepacol Sore Throat Lozenge (Benzocaine/Menthol) 1 Each Lozenge 1 Each MM Saline Nasal [place] (Sodium Chloride) 30 Ml [place] 1 [place] NS QIDPRN PRN Levothyroxine Sodium 100 Mcg Tablet 1 Tab PO DAILY Vitamin D2 (Ergocalciferol (Vitamin D2)) 50,000 Unit Capsule 1,000 Unit PO DAILY Doxycycline Hyclate 100 Mg Tablet 1 Tab PO BID Resveratrol 250 Mg Capsule 250 Mg PO DAILY Vitamin D (Cholecalciferol (Vitamin D3)) 1,000 Unit Capsule 1 Cap PO DAILY Lysteda (Tranexamic Acid) 650 Mg Tablet 1,300 Mg PO BID Calcitriol 0.25 Mcg Capsule 1 Cap PO DAILY Selenium (Selenomethionine) 200 Mcg Tablet 200 Mcg PO DAILY Vitamin A 8,000 Unit Capsule 8,000 Unit PO Coconut Oil 1,000 Mg Capsule 1,000 Mg PO DAILY Magnesium (Magnesium Oxide) 500 Mg Capsule 500 Mg PO DAILY Omeprazole 40 Mg Capsule.dr 40 Mg PO DAILY Potassium Chloride 20 Meq Tab.er.prt 20 Meq PO DAILY Acetaminophen 500 Mg Tablet 500 Mg PO Q4-6HRS PRN Allopurinol 300 Mg Tablet 300 Mg PO DAILY Neurontin (Gabapentin) 100 Mg Capsule 100 Mg PO BID Vitamin B-12 (Cyanocobalamin (Vitamin B-12)) 1,000 Mcg Tablet 1,000 Mcg SL DAILY Osteo Bi-Flex Caplet (Gluc/Lyndon-Msm#1/C/Brandon/Alfredo/Bor) 1 Each Tablet 1 Each PO DAILY Nakita (Fexofenadine Hcl) 180 Mg Tablet 180 Mg PO DAILY Tramadol Hcl 50 Mg Tablet 50 Mg PO PRN QID Vitals/I & O Vital Sign - Last 24 Hours 05/24/17 05/24/17 05/24/17 05/24/17 11:00 11:26 15:00 16:22 Temp 97.8 97.9 97.8 97.9 Pulse 62 65 Resp 18 18 18 B/P (MAP) 133/45 (74) 105/33 (57) Pulse Ox 98 99 98 O2 Delivery Room Air Room Air Room Air Room Air 05/24/17 05/24/17 05/24/17 05/24/17 18:23 19:24 19:59 20:46 Temp 97.5 97.5 Pulse 60 Resp 18 20 B/P (MAP) 104/33 (56) Pulse Ox 99 O2 Delivery Room Air Room Air Room Air Room Air 05/24/17 05/24/17 05/24/17 05/25/17 21:20 22:28 22:58 03:54 Temp 97.5 97.9 97.5 97.9 Pulse 62 57 Resp 18 18 18 B/P (MAP) 109/31 (57) 99/32 (54) Pulse Ox 99 98 95 O2 Delivery Room Air Room Air Room Air Room Air 05/25/17 05/25/17 05/25/17 07:00 07:43 07:50 Temp 97.8 97.8 Pulse 80 Resp 18 B/P (MAP) 134/64 (87) Pulse Ox 94 96 O2 Delivery Nasal Cannula Room Air Room Air O2 Flow Rate 2.0 2.0 Intake and Output 05/25/17 05/25/17 05/26/17 15:00 23:00 07:00 Intake Total 120 ml Balance 120 ml HARRIET RIVERA MD May 25, 2017 10:20
[2017-05-25 11:07] VITALS: BP 107/54
[2017-05-25] MEDS: traMADol 50 MG TABLET PO PRN ×2 (11:31→21:09)
[2017-05-25] MEDS: ACETAMINOPHEN 500 MG TABLET PO PRN ×2 (11:36→21:08)
--- NOTE | 2017-05-25 13:11 | PDOC ---
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 Coagulopathy History of Present Illness History of Present Illness Hgb 8.8 - has been stable NO more melena, no BRBPR Target dc friday after heme onc rounds PLAN: HEme onc wants her to stay over weekend while on the vW medication dc friday if ok with heme onc CBC friday as per pt request Vitals Vitals Vital Signs Date Time Temp Pulse Resp B/P (MAP) Pulse Ox O2 Delivery O2 Flow Rate FiO2 05/25/17 11:54 Room Air 05/25/17 11:07 97.8 65 18 107/54 (71) 97 97.8 05/25/17 07:50 2.0 Physical Exam General: Alert Heart: Regular rate Lungs: Clear Abdomen: Soft Extremities: No clubbing Skin: No rashes Labs LABS Laboratory Tests Test 05/25/17 04:20 05/25/17 08:00 White Blood Count 3.1 x10^3/uL (4.0-11.0) Red Blood Count 2.41 x10^6/uL (3.50-5.40) Hemoglobin 8.0 g/dL (12.0-15.5) 8.8 g/dL (12.0-15.5) Hematocrit 23.8 % (36.0-47.0) 26.3 % (36.0-47.0) Mean Corpuscular Volume 99 fL (79-100) Mean Corpuscular Hemoglobin 33 pg (25-35) Mean Corpuscular Hemoglobin Concent 34 g/dL (31-37) 33 g/dL (31-37) Red Cell Distribution Width 17.2 % (11.5-14.5) Platelet Count 89 x10^3/uL (140-400) Neutrophils (%) (Auto) 60 % (31-73) Lymphocytes (%) (Auto) 24 % (24-48) Monocytes (%) (Auto) 11 % (0-9) Eosinophils (%) (Auto) 5 % (0-3) Basophils (%) (Auto) 1 % (0-3) Neutrophils # (Auto) 1.9 x10^3uL (1.8-7.7) Lymphocytes # (Auto) 0.7 x10^3/uL (1.0-4.8) Monocytes # (Auto) 0.3 x10^3/uL (0.0-1.1) Eosinophils # (Auto) 0.2 x10^3/uL (0.0-0.7) Basophils # (Auto) 0.0 x10^3/uL (0.0-0.2) Review of Systems Review of Systems denies 14 pt reviewed Comment Review of Relevant I have reviewed the following items benjy (where applicable) has been applied. Labs Laboratory Tests Test 05/24/17 05:25 05/25/17 04:20 05/25/17 08:00 Hemoglobin 8.7 g/dL (12.0-15.5) 8.0 g/dL (12.0-15.5) 8.8 g/dL (12.0-15.5) Hematocrit 25.8 % (36.0-47.0) 23.8 % (36.0-47.0) 26.3 % (36.0-47.0) Mean Corpuscular Hemoglobin Concent 34 g/dL (31-37) 34 g/dL (31-37) 33 g/dL (31-37) White Blood Count 3.1 x10^3/uL (4.0-11.0) Red Blood Count 2.41 x10^6/uL (3.50-5.40) Mean Corpuscular Volume 99 fL (79-100) Mean Corpuscular Hemoglobin 33 pg (25-35) Red Cell Distribution Width 17.2 % (11.5-14.5) Platelet Count 89 x10^3/uL (140-400) Neutrophils (%) (Auto) 60 % (31-73) Lymphocytes (%) (Auto) 24 % (24-48) Monocytes (%) (Auto) 11 % (0-9) Eosinophils (%) (Auto) 5 % (0-3) Basophils (%) (Auto) 1 % (0-3) Neutrophils # (Auto) 1.9 x10^3uL (1.8-7.7) Lymphocytes # (Auto) 0.7 x10^3/uL (1.0-4.8) Monocytes # (Auto) 0.3 x10^3/uL (0.0-1.1) Eosinophils # (Auto) 0.2 x10^3/uL (0.0-0.7) Basophils # (Auto) 0.0 x10^3/uL (0.0-0.2) Laboratory Tests Test 05/25/17 04:20 05/25/17 08:00 White Blood Count 3.1 x10^3/uL (4.0-11.0) Red Blood Count 2.41 x10^6/uL (3.50-5.40) Hemoglobin 8.0 g/dL (12.0-15.5) 8.8 g/dL (12.0-15.5) Hematocrit 23.8 % (36.0-47.0) 26.3 % (36.0-47.0) Mean Corpuscular Volume 99 fL (79-100) Mean Corpuscular Hemoglobin 33 pg (25-35) Mean Corpuscular Hemoglobin Concent 34 g/dL (31-37) 33 g/dL (31-37) Red Cell Distribution Width 17.2 % (11.5-14.5) Platelet Count 89 x10^3/uL (140-400) Neutrophils (%) (Auto) 60 % (31-73) Lymphocytes (%) (Auto) 24 % (24-48) Monocytes (%) (Auto) 11 % (0-9) Eosinophils (%) (Auto) 5 % (0-3) Basophils (%) (Auto) 1 % (0-3) Neutrophils # (Auto) 1.9 x10^3uL (1.8-7.7) Lymphocytes # (Auto) 0.7 x10^3/uL (1.0-4.8) Monocytes # (Auto) 0.3 x10^3/uL (0.0-1.1) Eosinophils # (Auto) 0.2 x10^3/uL (0.0-0.7) Basophils # (Auto) 0.0 x10^3/uL (0.0-0.2) Medications Current Medications Sodium Chloride (Normal Saline Flush) 3 ml PRN DAILY PRN IV AFTER MEDS AND BLOOD DRAWS; Start 05/16/17 at 20:00 Ondansetron HCl (Zofran) 4 mg PRN Q6HRS PRN IV NAUSEA/VOMITING; Start 05/16/17 at 20:00 Oxycodone HCl (Roxicodone) 5 mg PRN Q3HRS PRN PO BREAKTHROUGH PAIN; Start 05/16 at 20:00 Aminocaproic Acid (Amicar) 1,000 mg QID PO Last administered on 05/25/17 08: 23; Start 05/16/17 at 21:00; Stop 05/25/17 at 10:22; Status DC Antihemophilic Factor 3656 vwf/ Miscellaneous 30 ml @ 180 mls/hr DAILY@1400 IV ; Start 05/16/17 at 23:00; Stop 05/20/17 at 14:09; Status Cancel Sodium Chloride 1,000 ml @ 50 mls/hr 1X ONCE IV Last administered on 20:52; Start 05/16/17 at 20:30; Stop 05/17/17 at 16:29; Status DC Antihemophilic Factor 3656 vwf/ Miscellaneous 40 ml @ 240 mls/hr DAILY@1400 IV Last administered on 05/16/17 22:55; Start 05/16/17 at 22:00; Stop 05/17/17 at 09:04; Status DC Antihemophilic Factor 3656 vwf/ Miscellaneous 40 ml @ 240 mls/hr BID IV Last administered on 05/19/17 08:44; Start 05/17/17 at 10:00; Stop 05/19/17 at 09:09 ; Status DC Tramadol HCl (Ultram) 50 mg PRN QID PRN PO MODERATE - SEVERE PAIN Last administered on 05/25/17 11:31; Start 05/17/17 at 20:30 Levothyroxine Sodium (Synthroid) 100 mcg DAILY07 PO Last administered on 05:56; Start 05/18/17 at 07:00 Acetaminophen (Tylenol) 500 mg PRN Q6HRS PRN PO MILD PAIN Last administered on 05/25/17 11:36; Start 05/17/17 at 21:45 Allopurinol (Zyloprim) 300 mg DAILY PO Last administered on 05/25/17 08:24; Start 05/18/17 at 09:00 Calcitriol (Rocaltrol) 0.25 mcg DAILY PO Last administered on 05/25/17 08:23 ; Start 05/18/17 at 09:00 Cyanocobalamin (Vitamin B-12) 1,000 mcg DAILY PO Last administered on 08:23; Start 05/18/17 at 09:00 Ergocalciferol (Vitamin D2) 1,000 unit DAILY PO ; Start 05/18/17 at 09:00; Status Cancel Furosemide (Lasix) 40 mg DAILY PO Last administered on 05/25/17 08:33; Start 05/18/17 at 09:00 Gabapentin (Neurontin) 100 mg BID PO Last administered on 05/25/17 08:23; Start 05/18/17 at 09:00 Potassium Chloride (Klor-Con) 20 meq DAILY PO Last administered on 05/25/17 08:25; Start 05/18/17 at 09:00 Vitamin D (Vitamin D3) 1,000 unit DAILY PO Last administered on 05/25/17 08: 24; Start 05/19/17 at 09:00 Cetirizine HCl (ZyrTEC) 10 mg DAILY PO Last administered on 05/25/17 08:24; Start 05/18/17 at 09:00 Non-Formulary Medication 1 each DAILY PO ; Start 05/18/17 at 09:00; Stop at 09:04; Status DC Magnesium Oxide (Magnesium Oxide) 400 mg DAILY PO Last administered on 08:24; Start 05/19/17 at 09:00 Pantoprazole Sodium (Protonix) 40 mg DAILYAC PO Last administered on 08:22; Start 05/18/17 at 11:30 Non-Formulary Medication 250 mg DAILY PO ; Start 05/18/17 at 09:00; Stop at 09:23; Status DC Non-Formulary Medication 1,300 mg BID PO ; Start 05/18/17 at 09:00; Status UNV Antihemophilic Factor 3400 vwf/ Miscellaneous 40 ml @ 240 mls/hr TID IV ; Start 05/19/17 at 14:00; Stop 05/23/17 at 21:09; Status Cancel Antihemophilic Factor 3592 vwf/ Miscellaneous 40 ml @ 240 mls/hr TID IV Last administered on 05/25/17 10:16; Start 05/19/17 at 14:00; Stop 05/26/17 at 13: 59 Albuterol/ Ipratropium (Duoneb) 3 ml RTQID NEB Last administered on 05/25/17 11:53; Start 05/20/17 at 12:00 Throat Lozenges (Cepacol Sore Throat Lozenge) 1 shaheen PRN Q2HRS PRN PO SORE THROAT Last administered on 05/23/17 18:26; Start 05/21/17 at 13:15; Stop at 23:20; Status DC Throat Lozenges (Cepacol Sore Throat Lozenge) 1 shaheen PRN Q2HR PRN MM SORE THROAT Last administered on 05/24/17 20:45; Start 05/23/17 at 23:30 Sodium Chloride (Saline Mist Nasal) 1 roberta QIDPRN PRN NS SORE THROAT Last administered on 05/24/17 20:47; Start 05/23/17 at 23:30 Active Scripts Active Lasix (Furosemide) 40 Mg Tablet 1 Tab PO QOD Reported Cepacol Sore Throat Lozenge (Benzocaine/Menthol) 1 Each Lozenge 1 Each MM Saline Nasal Folcroft (Sodium Chloride) 30 Ml Folcroft 1 Folcroft NS QIDPRN PRN Levothyroxine Sodium 100 Mcg Tablet 1 Tab PO DAILY Vitamin D2 (Ergocalciferol (Vitamin D2)) 50,000 Unit Capsule 1,000 Unit PO DAILY Doxycycline Hyclate 100 Mg Tablet 1 Tab PO BID Resveratrol 250 Mg Capsule 250 Mg PO DAILY Vitamin D (Cholecalciferol (Vitamin D3)) 1,000 Unit Capsule 1 Cap PO DAILY Lysteda (Tranexamic Acid) 650 Mg Tablet 1,300 Mg PO BID Calcitriol 0.25 Mcg Capsule 1 Cap PO DAILY Selenium (Selenomethionine) 200 Mcg Tablet 200 Mcg PO DAILY Vitamin A 8,000 Unit Capsule 8,000 Unit PO Coconut Oil 1,000 Mg Capsule 1,000 Mg PO DAILY Magnesium (Magnesium Oxide) 500 Mg Capsule 500 Mg PO DAILY Omeprazole 40 Mg Capsule.dr 40 Mg PO DAILY Potassium Chloride 20 Meq Tab.er.prt 20 Meq PO DAILY Acetaminophen 500 Mg Tablet 500 Mg PO Q4-6HRS PRN Allopurinol 300 Mg Tablet 300 Mg PO DAILY Neurontin (Gabapentin) 100 Mg Capsule 100 Mg PO BID Vitamin B-12 (Cyanocobalamin (Vitamin B-12)) 1,000 Mcg Tablet 1,000 Mcg SL DAILY Osteo Bi-Flex Caplet (Gluc/Lyndon-Msm#1/C/Brandon/Alfredo/Bor) 1 Each Tablet 1 Each PO DAILY Nakita (Fexofenadine Hcl) 180 Mg Tablet 180 Mg PO DAILY Tramadol Hcl 50 Mg Tablet 50 Mg PO PRN QID Vitals/I & O Vital Sign - Last 24 Hours 05/24/17 05/24/17 05/24/17 05/24/17 15:00 16:22 18:23 19:24 Temp 97.9 97.9 Pulse 65 Resp 18 18 B/P (MAP) 105/33 (57) Pulse Ox 98 O2 Delivery Room Air Room Air Room Air Room Air 05/24/17 05/24/17 05/24/17 05/24/17 19:59 20:46 21:20 22:28 Temp 97.5 97.5 Pulse 60 Resp 18 20 18 B/P (MAP) 104/33 (56) Pulse Ox 99 99 O2 Delivery Room Air Room Air Room Air Room Air 05/24/17 05/25/17 05/25/17 05/25/17 22:58 03:54 07:00 07:43 Temp 97.5 97.9 97.8 97.5 97.9 97.8 Pulse 62 57 80 Resp 18 18 18 B/P (MAP) 109/31 (57) 99/32 (54) 134/64 (87) Pulse Ox 98 95 94 96 O2 Delivery Room Air Room Air Nasal Cannula Room Air O2 Flow Rate 2.0 05/25/17 05/25/17 05/25/17 05/25/17 07:50 11:07 11:31 11:54 Temp 97.8 97.8 Pulse 65 Resp 18 B/P (MAP) 107/54 (71) Pulse Ox 97 O2 Delivery Room Air Room Air Room Air Room Air O2 Flow Rate 2.0 Intake and Output 05/25/17 05/25/17 05/26/17 15:00 23:00 07:00 Intake Total 120 ml Balance 120 ml LEOLA ZHONG MD May 25, 2017 13:11
[2017-05-25 15:00] VITALS: BP 115/55
[2017-05-25 19:00] VITALS: BP 117/40
[2017-05-25] MEDS: BENZOCAINE/MENTHOL LOZENGE. MM PRN (19:41)
[2017-05-25] MEDS: SODIUM CHLORIDE 0.65% NASAL SPRAY 45ML BOTTLE. NS PRN (19:41)
[2017-05-25 23:00] VITALS: BP 100/49
[2017-05-26] VITALS (10 sets, daily range): BP systolic 100–131; BP diastolic 33–77
[2017-05-26 04:52] LABS: BASO % 1 % (0-3); EOS % 5 % (0-3); HEMATOCRIT 25.7 % (36.0-47.0); HEMOGLOBIN 8.5 g/dL (12.0-15.5); LYMPH # 0.7 x10^3/uL (1.0-4.8); LYMPH % 22 % (24-48); MEAN CORPUSCULAR HEMOGLOBIN 33 pg (25-35); MEAN CORPUSCULAR HGB CONC 33 g/dL (31-37); MEAN CORPUSCULAR VOLUME 100 fL (79-100); MONO % 10 % (0-9); NEUT % 62 % (31-73); PLATELET COUNT 68 x10^3/uL (140-400); RED BLOOD COUNT 2.57 x10^6/uL (3.50-5.40); RED CELL DISTRIBUTION WIDTH 17.5 % (11.5-14.5); WHITE BLOOD COUNT 3.3 x10^3/uL (4.0-11.0)
[2017-05-26] MEDS: LEVOTHYROXINE 100 MCG TABLET PO SCH (05:36)
[2017-05-26] MEDS: IPRATRPIUM/ALBUTEROL 0.5/2.5MG 3 ML NEBU. NEB SCH ×4 (07:52→20:52)
[2017-05-26] MEDS: PANTOPRAZOLE 40 MG TABLET.DR. PO SCH (07:53)
--- NOTE | 2017-05-26 09:28 | PDOC ---
PROGRESS NOTES Subjective Subjective HPI - vWD and ongoing GI bleed hemoglobin has dropped from 10.6 on 05/16/17 evening to 7.3 on 05/18/17 ROS - no melena Objective Objective Vital Signs Date Time Temp Pulse Resp B/P (MAP) Pulse Ox O2 Delivery O2 Flow Rate FiO2 05/26/17 07:58 99 Room Air 05/26/17 07:15 97.5 57 16 113/47 (69) 97.5 05/25/17 07:50 2.0 Intake and Output 05/27/17 06:59 Output Total 1 ml Balance -1 ml Urine/Stool Mix 1 ml Physical Exam Heart: Normal S1, Normal S2 General: Alert, Oriented X3 Lungs: Clear to auscultation Neuro: Normal speech Psych/Mental Status: Mental status NL Assessment Assessment Assessment/Plan 1. vWD and ongoing GI bleed hemoglobin has dropped from 10.6 on 05/16/17 evening to 7.3 on 05/18/17 s/p 1 u PRBC 05/18/17 Hb 7.6 on 05/19/17 Hb worse at 6.5. s/p 2 PRBC 05/20/17 Hb better at 8.5 on 05/21/17 Hb stable at 8.4 on 05/22/17 Hb stable at 8.5 on 05/23/17 Hb stable at 8.5 on 05/26/17 Monitor cbc No black stools. Continue humate p , increased to q 8 hours from 05/19/17 and till 05/26/17. cont amicar. Plan to d/c home tomorrow if stable 2. Anemia, monitor hb. Transfuse 1 PRBC as she has dyspnea and h/o cardiac issues. Comment Review of Relevant I have reviewed the following items benjy (where applicable) has been applied. Labs Laboratory Tests Test 05/25/17 04:20 05/25/17 08:00 05/26/17 03:30 White Blood Count 3.1 x10^3/uL (4.0-11.0) 3.3 x10^3/uL (4.0-11.0) Red Blood Count 2.41 x10^6/uL (3.50-5.40) 2.57 x10^6/uL (3.50-5.40) Hemoglobin 8.0 g/dL (12.0-15.5) 8.8 g/dL (12.0-15.5) 8.5 g/dL (12.0-15.5) Hematocrit 23.8 % (36.0-47.0) 26.3 % (36.0-47.0) 25.7 % (36.0-47.0) Mean Corpuscular Volume 99 fL (79-100) 100 fL (79-100) Mean Corpuscular Hemoglobin 33 pg (25-35) 33 pg (25-35) Mean Corpuscular Hemoglobin Concent 34 g/dL (31-37) 33 g/dL (31-37) 33 g/dL (31-37) Red Cell Distribution Width 17.2 % (11.5-14.5) 17.5 % (11.5-14.5) Platelet Count 89 x10^3/uL (140-400) 68 x10^3/uL (140-400) Neutrophils (%) (Auto) 60 % (31-73) 62 % (31-73) Lymphocytes (%) (Auto) 24 % (24-48) 22 % (24-48) Monocytes (%) (Auto) 11 % (0-9) 10 % (0-9) Eosinophils (%) (Auto) 5 % (0-3) 5 % (0-3) Basophils (%) (Auto) 1 % (0-3) 1 % (0-3) Neutrophils # (Auto) 1.9 x10^3uL (1.8-7.7) 2.0 x10^3uL (1.8-7.7) Lymphocytes # (Auto) 0.7 x10^3/uL (1.0-4.8) 0.7 x10^3/uL (1.0-4.8) Monocytes # (Auto) 0.3 x10^3/uL (0.0-1.1) 0.3 x10^3/uL (0.0-1.1) Eosinophils # (Auto) 0.2 x10^3/uL (0.0-0.7) 0.2 x10^3/uL (0.0-0.7) Basophils # (Auto) 0.0 x10^3/uL (0.0-0.2) 0.0 x10^3/uL (0.0-0.2) Laboratory Tests Test 05/26/17 03:30 White Blood Count 3.3 x10^3/uL (4.0-11.0) Red Blood Count 2.57 x10^6/uL (3.50-5.40) Hemoglobin 8.5 g/dL (12.0-15.5) Hematocrit 25.7 % (36.0-47.0) Mean Corpuscular Volume 100 fL (79-100) Mean Corpuscular Hemoglobin 33 pg (25-35) Mean Corpuscular Hemoglobin Concent 33 g/dL (31-37) Red Cell Distribution Width 17.5 % (11.5-14.5) Platelet Count 68 x10^3/uL (140-400) Neutrophils (%) (Auto) 62 % (31-73) Lymphocytes (%) (Auto) 22 % (24-48) Monocytes (%) (Auto) 10 % (0-9) Eosinophils (%) (Auto) 5 % (0-3) Basophils (%) (Auto) 1 % (0-3) Neutrophils # (Auto) 2.0 x10^3uL (1.8-7.7) Lymphocytes # (Auto) 0.7 x10^3/uL (1.0-4.8) Monocytes # (Auto) 0.3 x10^3/uL (0.0-1.1) Eosinophils # (Auto) 0.2 x10^3/uL (0.0-0.7) Basophils # (Auto) 0.0 x10^3/uL (0.0-0.2) Medications Current Medications Sodium Chloride (Normal Saline Flush) 3 ml PRN DAILY PRN IV AFTER MEDS AND BLOOD DRAWS; Start 05/16/17 at 20:00 Ondansetron HCl (Zofran) 4 mg PRN Q6HRS PRN IV NAUSEA/VOMITING; Start 05/16/17 at 20:00 Oxycodone HCl (Roxicodone) 5 mg PRN Q3HRS PRN PO BREAKTHROUGH PAIN; Start 05/16 at 20:00 Aminocaproic Acid (Amicar) 1,000 mg QID PO Last administered on 05/25/17t 08: 23; Start 05/16/17 at 21:00; Stop 05/25/17 at 10:22; Status DC Antihemophilic Factor 3656 vwf/ Miscellaneous 30 ml @ 180 mls/hr DAILY@1400 IV ; Start 05/16/17 at 23:00; Stop 05/20/17 at 14:09; Status Cancel Sodium Chloride 1,000 ml @ 50 mls/hr 1X ONCE IV Last administered on 20:52; Start 05/16/17 at 20:30; Stop 05/17/17 at 16:29; Status DC Antihemophilic Factor 3656 vwf/ Miscellaneous 40 ml @ 240 mls/hr DAILY@1400 IV Last administered on 05/16/17 22:55; Start 05/16/17 at 22:00; Stop 05/17/17 at 09:04; Status DC Antihemophilic Factor 3656 vwf/ Miscellaneous 40 ml @ 240 mls/hr BID IV Last administered on 05/19/17 08:44; Start 05/17/17 at 10:00; Stop 05/19/17 at 09:09 ; Status DC Tramadol HCl (Ultram) 50 mg PRN QID PRN PO MODERATE - SEVERE PAIN Last administered on 05/25/17 21:09; Start 05/17/17 at 20:30 Levothyroxine Sodium (Synthroid) 100 mcg DAILY07 PO Last administered on 05:36; Start 05/18/17 at 07:00 Acetaminophen (Tylenol) 500 mg PRN Q6HRS PRN PO MILD PAIN Last administered on 05/25/17 21:08; Start 05/17/17 at 21:45 Allopurinol (Zyloprim) 300 mg DAILY PO Last administered on 05/25/17 08:24; Start 05/18/17 at 09:00 Calcitriol (Rocaltrol) 0.25 mcg DAILY PO Last administered on 05/25/17 08:23 ; Start 05/18/17 at 09:00 Cyanocobalamin (Vitamin B-12) 1,000 mcg DAILY PO Last administered on 08:23; Start 05/18/17 at 09:00 Ergocalciferol (Vitamin D2) 1,000 unit DAILY PO ; Start 05/18/17 at 09:00; Status Cancel Furosemide (Lasix) 40 mg DAILY PO Last administered on 05/25/17 08:33; Start 05/18/17 at 09:00 Gabapentin (Neurontin) 100 mg BID PO Last administered on 05/25/17 08:23; Start 05/18/17 at 09:00 Potassium Chloride (Klor-Con) 20 meq DAILY PO Last administered on 05/25/17 08:25; Start 05/18/17 at 09:00 Vitamin D (Vitamin D3) 1,000 unit DAILY PO Last administered on 05/25/17 08: 24; Start 05/19/17 at 09:00 Cetirizine HCl (ZyrTEC) 10 mg DAILY PO Last administered on 05/25/17 08:24; Start 05/18/17 at 09:00 Non-Formulary Medication 1 each DAILY PO ; Start 05/18/17 at 09:00; Stop at 09:04; Status DC Magnesium Oxide (Magnesium Oxide) 400 mg DAILY PO Last administered on 08:24; Start 05/19/17 at 09:00 Pantoprazole Sodium (Protonix) 40 mg DAILYAC PO Last administered on 07:53; Start 05/18/17 at 11:30 Non-Formulary Medication 250 mg DAILY PO ; Start 05/18/17 at 09:00; Stop at 09:23; Status DC Non-Formulary Medication 1,300 mg BID PO ; Start 05/18/17 at 09:00; Status UNV Antihemophilic Factor 3400 vwf/ Miscellaneous 40 ml @ 240 mls/hr TID IV ; Start 05/19/17 at 14:00; Stop 05/23/17 at 21:09; Status Cancel Antihemophilic Factor 3592 vwf/ Miscellaneous 40 ml @ 240 mls/hr TID IV Last administered on 05/25/17 22:58; Start 05/19/17 at 14:00; Stop 05/26/17 at 13: 59 Albuterol/ Ipratropium (Duoneb) 3 ml RTQID NEB Last administered on 05/26/17 07:52; Start 05/20/17 at 12:00 Throat Lozenges (Cepacol Sore Throat Lozenge) 1 shaheen PRN Q2HRS PRN PO SORE THROAT Last administered on 05/23/17 18:26; Start 05/21/17 at 13:15; Stop at 23:20; Status DC Throat Lozenges (Cepacol Sore Throat Lozenge) 1 shaheen PRN Q2HR PRN MM SORE THROAT Last administered on 05/25/17 19:41; Start 05/23/17 at 23:30 Sodium Chloride (Saline Mist Nasal) 1 roberta QIDPRN PRN NS SORE THROAT Last administered on 05/25/17 19:41; Start 05/23/17 at 23:30 Aminocaproic Acid (Amicar) 1,000 mg QID PO ; Start 05/26/17 at 09:00 Active Scripts Active Lasix (Furosemide) 40 Mg Tablet 1 Tab PO QOD Reported Cepacol Sore Throat Lozenge (Benzocaine/Menthol) 1 Each Lozenge 1 Each MM Saline Nasal Calder (Sodium Chloride) 30 Ml Calder 1 Calder NS QIDPRN PRN Levothyroxine Sodium 100 Mcg Tablet 1 Tab PO DAILY Vitamin D2 (Ergocalciferol (Vitamin D2)) 50,000 Unit Capsule 1,000 Unit PO DAILY Doxycycline Hyclate 100 Mg Tablet 1 Tab PO BID Resveratrol 250 Mg Capsule 250 Mg PO DAILY Vitamin D (Cholecalciferol (Vitamin D3)) 1,000 Unit Capsule 1 Cap PO DAILY Lysteda (Tranexamic Acid) 650 Mg Tablet 1,300 Mg PO BID Calcitriol 0.25 Mcg Capsule 1 Cap PO DAILY Selenium (Selenomethionine) 200 Mcg Tablet 200 Mcg PO DAILY Vitamin A 8,000 Unit Capsule 8,000 Unit PO Coconut Oil 1,000 Mg Capsule 1,000 Mg PO DAILY Magnesium (Magnesium Oxide) 500 Mg Capsule 500 Mg PO DAILY Omeprazole 40 Mg Capsule.dr 40 Mg PO DAILY Potassium Chloride 20 Meq Tab.er.prt 20 Meq PO DAILY Acetaminophen 500 Mg Tablet 500 Mg PO Q4-6HRS PRN Allopurinol 300 Mg Tablet 300 Mg PO DAILY Neurontin (Gabapentin) 100 Mg Capsule 100 Mg PO BID Vitamin B-12 (Cyanocobalamin (Vitamin B-12)) 1,000 Mcg Tablet 1,000 Mcg SL DAILY Osteo Bi-Flex Caplet (Gluc/Lyndon-Msm#1/C/Brandon/Alfredo/Bor) 1 Each Tablet 1 Each PO DAILY Nakita (Fexofenadine Hcl) 180 Mg Tablet 180 Mg PO DAILY Tramadol Hcl 50 Mg Tablet 50 Mg PO PRN QID Vitals/I & O Vital Sign - Last 24 Hours 05/25/17 05/25/17 05/25/17 05/25/17 11:07 11:31 11:54 15:00 Temp 97.8 97.8 97.8 97.8 Pulse 65 69 Resp 18 18 B/P (MAP) 107/54 (71) 115/55 (75) Pulse Ox 97 99 O2 Delivery Room Air Room Air Room Air Room Air 05/25/17 05/25/17 05/25/17 05/25/17 15:59 19:00 20:00 20:14 Temp 98.3 98.3 Pulse 64 Resp 20 B/P (MAP) 117/40 (65) Pulse Ox 98 98 O2 Delivery Room Air Room Air Room Air 05/25/17 05/25/17 05/25/17 05/26/17 21:09 22:19 23:00 03:00 Temp 97.5 96.6 97.5 96.6 Pulse 59 57 Resp 20 18 16 22 B/P (MAP) 100/49 (66) 104/33 (56) Pulse Ox 96 98 O2 Delivery Room Air Room Air Room Air 05/26/17 05/26/17 07:15 07:58 Temp 97.5 97.5 Pulse 57 Resp 16 B/P (MAP) 113/47 (69) Pulse Ox 96 99 O2 Delivery Room Air Room Air Intake and Output 05/26/17 05/26/17 05/27/17 14:59 22:59 06:59 Output Total 1 ml Balance -1 ml FREDIS PALMER MD May 26, 2017 09:27
[2017-05-26] MEDS: MAGNESIUM OXIDE 400 MG TABLET PO SCH (10:06)
[2017-05-26] MEDS: AMINOCAPROIC ACID 500 MG TABLET. PO SCH ×4 (10:07→21:37)
[2017-05-26] MEDS: CALCITRIOL 0.25 MCG CAPSULE. PO SCH (10:07)
[2017-05-26] MEDS: CETIRIZINE HCL 10 MG TABLET. PO SCH (10:07)
[2017-05-26] MEDS: GABAPENTIN 100 MG CAPSULE. PO SCH ×2 (10:08→21:00)
[2017-05-26] MEDS: CHOLECALCIFEROL (VITAMIN D3) 1,000 UNIT TABLET PO SCH (10:08)
[2017-05-26] MEDS: FUROSEMIDE 40 MG TABLET. PO SCH (10:08)
[2017-05-26] MEDS: POTASSIUM CHLORIDE 20 MEQ TABLET.ER. PO SCH (10:08)
[2017-05-26] MEDS: ALLOPURINOL 300 MG TABLET. PO SCH (10:08)
[2017-05-26] MEDS: CYANOCOBALAMIN (VITAMIN B-12) 1,000 MCG TABLET. PO SCH (10:08)
[2017-05-26] MEDS: TOTAL VOLUME IV SCH (10:16)
[2017-05-26] MEDS: VWF IV SCH (10:16)
[2017-05-26] MEDS: ANTIHEMOPHILIC FACTOR IV SCH (10:16)
--- NOTE | 2017-05-26 10:53 | PDOC ---
Subjective: Subjective: Hasn't had many stools; however, they are no longer black. Objective: Vital Signs: Vital Signs Date Time Temp Pulse Resp B/P (MAP) Pulse Ox O2 Delivery O2 Flow Rate FiO2 05/26/17 10:38 98.2 78 17 100/47 (64) 97 Room Air 98.2 05/25/17 07:50 2.0 Labs: Laboratory Tests Test 05/26/17 03:30 White Blood Count 3.3 x10^3/uL Red Blood Count 2.57 x10^6/uL Hemoglobin 8.5 g/dL Hematocrit 25.7 % Mean Corpuscular Volume 100 fL Mean Corpuscular Hemoglobin 33 pg Mean Corpuscular Hemoglobin Concent 33 g/dL Red Cell Distribution Width 17.5 % Platelet Count 68 x10^3/uL Neutrophils (%) (Auto) 62 % Lymphocytes (%) (Auto) 22 % Monocytes (%) (Auto) 10 % Eosinophils (%) (Auto) 5 % Basophils (%) (Auto) 1 % Neutrophils # (Auto) 2.0 x10^3uL Lymphocytes # (Auto) 0.7 x10^3/uL Monocytes # (Auto) 0.3 x10^3/uL Eosinophils # (Auto) 0.2 x10^3/uL Basophils # (Auto) 0.0 x10^3/uL PE: GEN: NAD, talkative LUNGS: CTAB HEART: RRR ABD: S/ND/NT NEURO/PSYCH: A & O 3 A/P: vWD -melena resolved -Hgb stable, another transfusion ordered, on Humate and Amicar per Dr. Rodriguez -last EGD and colonoscopy in 11/2015 per HPI, on PPI -positive bleeding scan earlier this year w/ negative arteriogram -- Continue per hematology. Continue PPI, add Miralax PRN. ERENDIRA DORSEY May 26, 2017 10:53
[2017-05-26] MEDS ORDERED: POLYETHYLENE GLYCOL 3350 17 GM PACKET. PO PRN (11:00)
[2017-05-26] MEDS: BENZOCAINE/MENTHOL LOZENGE. MM PRN ×2 (11:40→21:43)
[2017-05-26] MEDS: ACETAMINOPHEN 500 MG TABLET PO PRN ×2 (11:41→21:40)
[2017-05-26] MEDS: traMADol 50 MG TABLET PO PRN ×2 (11:41→17:50)
--- NOTE | 2017-05-26 11:47 | PDOC ---
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 Coagulopathy symptomatic anemia, history of CAD History of Present Illness History of Present Illness Hgb 8.5 - Dr. Rodriguez ordered PRBC for symptomatic anemia, and hx cardiac disease stool normal feels well DC soon she discussed medical issues at length with me, recent history fully reviewed again today, the patient is very sharp and talkative and has questions NO more melena, no BRBPR Vitals Vitals Vital Signs Date Time Temp Pulse Resp B/P (MAP) Pulse Ox O2 Delivery O2 Flow Rate FiO2 05/26/17 11:41 18 Room Air 05/26/17 10:38 98.2 78 100/47 (64) 97 98.2 05/25/17 07:50 2.0 Physical Exam General: Alert, Oriented X3, No acute distress Heart: Normal S1, Normal S2, No murmurs Lungs: Clear Abdomen: Soft Extremities: No clubbing Skin: No rashes Labs LABS Laboratory Tests Test 05/26/17 03:30 White Blood Count 3.3 x10^3/uL (4.0-11.0) Red Blood Count 2.57 x10^6/uL (3.50-5.40) Hemoglobin 8.5 g/dL (12.0-15.5) Hematocrit 25.7 % (36.0-47.0) Mean Corpuscular Volume 100 fL (79-100) Mean Corpuscular Hemoglobin 33 pg (25-35) Mean Corpuscular Hemoglobin Concent 33 g/dL (31-37) Red Cell Distribution Width 17.5 % (11.5-14.5) Platelet Count 68 x10^3/uL (140-400) Neutrophils (%) (Auto) 62 % (31-73) Lymphocytes (%) (Auto) 22 % (24-48) Monocytes (%) (Auto) 10 % (0-9) Eosinophils (%) (Auto) 5 % (0-3) Basophils (%) (Auto) 1 % (0-3) Neutrophils # (Auto) 2.0 x10^3uL (1.8-7.7) Lymphocytes # (Auto) 0.7 x10^3/uL (1.0-4.8) Monocytes # (Auto) 0.3 x10^3/uL (0.0-1.1) Eosinophils # (Auto) 0.2 x10^3/uL (0.0-0.7) Basophils # (Auto) 0.0 x10^3/uL (0.0-0.2) Review of Systems Review of Systems + dyspnea on exertion no n.v.d Comment Review of Relevant I have reviewed the following items benjy (where applicable) has been applied. Labs Laboratory Tests Test 05/25/17 04:20 05/25/17 08:00 05/26/17 03:30 White Blood Count 3.1 x10^3/uL (4.0-11.0) 3.3 x10^3/uL (4.0-11.0) Red Blood Count 2.41 x10^6/uL (3.50-5.40) 2.57 x10^6/uL (3.50-5.40) Hemoglobin 8.0 g/dL (12.0-15.5) 8.8 g/dL (12.0-15.5) 8.5 g/dL (12.0-15.5) Hematocrit 23.8 % (36.0-47.0) 26.3 % (36.0-47.0) 25.7 % (36.0-47.0) Mean Corpuscular Volume 99 fL (79-100) 100 fL (79-100) Mean Corpuscular Hemoglobin 33 pg (25-35) 33 pg (25-35) Mean Corpuscular Hemoglobin Concent 34 g/dL (31-37) 33 g/dL (31-37) 33 g/dL (31-37) Red Cell Distribution Width 17.2 % (11.5-14.5) 17.5 % (11.5-14.5) Platelet Count 89 x10^3/uL (140-400) 68 x10^3/uL (140-400) Neutrophils (%) (Auto) 60 % (31-73) 62 % (31-73) Lymphocytes (%) (Auto) 24 % (24-48) 22 % (24-48) Monocytes (%) (Auto) 11 % (0-9) 10 % (0-9) Eosinophils (%) (Auto) 5 % (0-3) 5 % (0-3) Basophils (%) (Auto) 1 % (0-3) 1 % (0-3) Neutrophils # (Auto) 1.9 x10^3uL (1.8-7.7) 2.0 x10^3uL (1.8-7.7) Lymphocytes # (Auto) 0.7 x10^3/uL (1.0-4.8) 0.7 x10^3/uL (1.0-4.8) Monocytes # (Auto) 0.3 x10^3/uL (0.0-1.1) 0.3 x10^3/uL (0.0-1.1) Eosinophils # (Auto) 0.2 x10^3/uL (0.0-0.7) 0.2 x10^3/uL (0.0-0.7) Basophils # (Auto) 0.0 x10^3/uL (0.0-0.2) 0.0 x10^3/uL (0.0-0.2) Laboratory Tests Test 05/26/17 03:30 White Blood Count 3.3 x10^3/uL (4.0-11.0) Red Blood Count 2.57 x10^6/uL (3.50-5.40) Hemoglobin 8.5 g/dL (12.0-15.5) Hematocrit 25.7 % (36.0-47.0) Mean Corpuscular Volume 100 fL (79-100) Mean Corpuscular Hemoglobin 33 pg (25-35) Mean Corpuscular Hemoglobin Concent 33 g/dL (31-37) Red Cell Distribution Width 17.5 % (11.5-14.5) Platelet Count 68 x10^3/uL (140-400) Neutrophils (%) (Auto) 62 % (31-73) Lymphocytes (%) (Auto) 22 % (24-48) Monocytes (%) (Auto) 10 % (0-9) Eosinophils (%) (Auto) 5 % (0-3) Basophils (%) (Auto) 1 % (0-3) Neutrophils # (Auto) 2.0 x10^3uL (1.8-7.7) Lymphocytes # (Auto) 0.7 x10^3/uL (1.0-4.8) Monocytes # (Auto) 0.3 x10^3/uL (0.0-1.1) Eosinophils # (Auto) 0.2 x10^3/uL (0.0-0.7) Basophils # (Auto) 0.0 x10^3/uL (0.0-0.2) Medications Current Medications Sodium Chloride (Normal Saline Flush) 3 ml PRN DAILY PRN IV AFTER MEDS AND BLOOD DRAWS; Start 05/16/17 at 20:00 Ondansetron HCl (Zofran) 4 mg PRN Q6HRS PRN IV NAUSEA/VOMITING; Start 05/16/17 at 20:00 Oxycodone HCl (Roxicodone) 5 mg PRN Q3HRS PRN PO BREAKTHROUGH PAIN; Start 05/16 at 20:00 Aminocaproic Acid (Amicar) 1,000 mg QID PO Last administered on 05/25/17 08: 23; Start 05/16/17 at 21:00; Stop 05/25/17 at 10:22; Status DC Antihemophilic Factor 3656 vwf/ Miscellaneous 30 ml @ 180 mls/hr DAILY@1400 IV ; Start 05/16/17 at 23:00; Stop 05/20/17 at 14:09; Status Cancel Sodium Chloride 1,000 ml @ 50 mls/hr 1X ONCE IV Last administered on 20:52; Start 05/16/17 at 20:30; Stop 05/17/17 at 16:29; Status DC Antihemophilic Factor 3656 vwf/ Miscellaneous 40 ml @ 240 mls/hr DAILY@1400 IV Last administered on 05/16/17 22:55; Start 05/16/17 at 22:00; Stop 05/17/17 at 09:04; Status DC Antihemophilic Factor 3656 vwf/ Miscellaneous 40 ml @ 240 mls/hr BID IV Last administered on 05/19/17 08:44; Start 05/17/17 at 10:00; Stop 05/19/17 at 09:09 ; Status DC Tramadol HCl (Ultram) 50 mg PRN QID PRN PO MODERATE - SEVERE PAIN Last administered on 05/26/17 11:41; Start 05/17/17 at 20:30 Levothyroxine Sodium (Synthroid) 100 mcg DAILY07 PO Last administered on 05:36; Start 05/18/17 at 07:00 Acetaminophen (Tylenol) 500 mg PRN Q6HRS PRN PO MILD PAIN Last administered on 05/26/17 11:41; Start 05/17/17 at 21:45 Allopurinol (Zyloprim) 300 mg DAILY PO Last administered on 05/26/17 10:08; Start 05/18/17 at 09:00 Calcitriol (Rocaltrol) 0.25 mcg DAILY PO Last administered on 05/26/17 10:07 ; Start 05/18/17 at 09:00 Cyanocobalamin (Vitamin B-12) 1,000 mcg DAILY PO Last administered on 10:08; Start 05/18/17 at 09:00 Ergocalciferol (Vitamin D2) 1,000 unit DAILY PO ; Start 05/18/17 at 09:00; Status Cancel Furosemide (Lasix) 40 mg DAILY PO Last administered on 05/26/17 10:08; Start 05/18/17 at 09:00 Gabapentin (Neurontin) 100 mg BID PO Last administered on 05/26/17 10:08; Start 05/18/17 at 09:00 Potassium Chloride (Klor-Con) 20 meq DAILY PO Last administered on 05/26/17 10:08; Start 05/18/17 at 09:00 Vitamin D (Vitamin D3) 1,000 unit DAILY PO Last administered on 05/26/17 10: 08; Start 05/19/17 at 09:00 Cetirizine HCl (ZyrTEC) 10 mg DAILY PO Last administered on 05/26/17 10:07; Start 05/18/17 at 09:00 Non-Formulary Medication 1 each DAILY PO ; Start 05/18/17 at 09:00; Stop at 09:04; Status DC Magnesium Oxide (Magnesium Oxide) 400 mg DAILY PO Last administered on 10:06; Start 05/19/17 at 09:00 Pantoprazole Sodium (Protonix) 40 mg DAILYAC PO Last administered on 07:53; Start 05/18/17 at 11:30 Non-Formulary Medication 250 mg DAILY PO ; Start 05/18/17 at 09:00; Stop at 09:23; Status DC Non-Formulary Medication 1,300 mg BID PO ; Start 05/18/17 at 09:00; Status UNV Antihemophilic Factor 3400 vwf/ Miscellaneous 40 ml @ 240 mls/hr TID IV ; Start 05/19/17 at 14:00; Stop 05/23/17 at 21:09; Status Cancel Antihemophilic Factor 3592 vwf/ Miscellaneous 40 ml @ 240 mls/hr TID IV Last administered on 05/26/17 10:16; Start 05/19/17 at 14:00; Stop 05/26/17 at 13: 59 Albuterol/ Ipratropium (Duoneb) 3 ml RTQID NEB Last administered on 05/26/17 07:52; Start 05/20/17 at 12:00 Throat Lozenges (Cepacol Sore Throat Lozenge) 1 shaheen PRN Q2HRS PRN PO SORE THROAT Last administered on 05/23/17 18:26; Start 05/21/17 at 13:15; Stop at 23:20; Status DC Throat Lozenges (Cepacol Sore Throat Lozenge) 1 shaheen PRN Q2HR PRN MM SORE THROAT Last administered on 05/26/17 11:40; Start 05/23/17 at 23:30 Sodium Chloride (Saline Mist Nasal) 1 roberta QIDPRN PRN NS SORE THROAT Last administered on 05/25/17 19:41; Start 05/23/17 at 23:30 Aminocaproic Acid (Amicar) 1,000 mg QID PO Last administered on 05/26/17 10: 07; Start 05/26/17 at 09:00 Polyethylene Glycol (miraLAX PACKET) 17 gm PRN DAILY PRN PO CONSTIPATION; Start 05/26/17 at 11:00 Active Scripts Active Lasix (Furosemide) 40 Mg Tablet 1 Tab PO QOD Reported Cepacol Sore Throat Lozenge (Benzocaine/Menthol) 1 Each Lozenge 1 Each MM Saline Nasal [place] (Sodium Chloride) 30 Ml [place] 1 [place] NS QIDPRN PRN Levothyroxine Sodium 100 Mcg Tablet 1 Tab PO DAILY Vitamin D2 (Ergocalciferol (Vitamin D2)) 50,000 Unit Capsule 1,000 Unit PO DAILY Doxycycline Hyclate 100 Mg Tablet 1 Tab PO BID Resveratrol 250 Mg Capsule 250 Mg PO DAILY Vitamin D (Cholecalciferol (Vitamin D3)) 1,000 Unit Capsule 1 Cap PO DAILY Lysteda (Tranexamic Acid) 650 Mg Tablet 1,300 Mg PO BID Calcitriol 0.25 Mcg Capsule 1 Cap PO DAILY Selenium (Selenomethionine) 200 Mcg Tablet 200 Mcg PO DAILY Vitamin A 8,000 Unit Capsule 8,000 Unit PO Coconut Oil 1,000 Mg Capsule 1,000 Mg PO DAILY Magnesium (Magnesium Oxide) 500 Mg Capsule 500 Mg PO DAILY Omeprazole 40 Mg Capsule.dr 40 Mg PO DAILY Potassium Chloride 20 Meq Tab.er.prt 20 Meq PO DAILY Acetaminophen 500 Mg Tablet 500 Mg PO Q4-6HRS PRN Allopurinol 300 Mg Tablet 300 Mg PO DAILY Neurontin (Gabapentin) 100 Mg Capsule 100 Mg PO BID Vitamin B-12 (Cyanocobalamin (Vitamin B-12)) 1,000 Mcg Tablet 1,000 Mcg SL DAILY Osteo Bi-Flex Caplet (Gluc/Lyndon-Msm#1/C/Brandon/Alfredo/Bor) 1 Each Tablet 1 Each PO DAILY Nakita (Fexofenadine Hcl) 180 Mg Tablet 180 Mg PO DAILY Tramadol Hcl 50 Mg Tablet 50 Mg PO PRN QID Vitals/I & O Vital Sign - Last 24 Hours 05/25/17 05/25/17 05/25/17 05/25/17 11:54 15:00 15:59 19:00 Temp 97.8 98.3 97.8 98.3 Pulse 69 64 Resp 18 20 B/P (MAP) 115/55 (75) 117/40 (65) Pulse Ox 99 98 O2 Delivery Room Air Room Air Room Air 05/25/17 05/25/17 05/25/17 05/25/17 20:00 20:14 21:09 22:19 Resp 20 18 Pulse Ox 98 O2 Delivery Room Air Room Air Room Air Room Air 05/25/17 05/26/17 05/26/17 05/26/17 23:00 03:00 07:15 07:58 Temp 97.5 96.6 97.5 97.5 96.6 97.5 Pulse 59 57 57 Resp 16 22 16 B/P (MAP) 100/49 (66) 104/33 (56) 113/47 (69) Pulse Ox 96 98 96 99 O2 Delivery Room Air Room Air Room Air 05/26/17 05/26/17 10:38 11:41 Temp 98.2 98.2 Pulse 78 Resp 17 18 B/P (MAP) 100/47 (64) Pulse Ox 97 O2 Delivery Room Air Room Air Intake and Output 05/26/17 05/26/17 05/27/17 15:00 23:00 07:00 Output Total 1 ml Balance -1 ml JAMARCUS LAI MD May 26, 2017 11:47
[2017-05-26] MEDS: SODIUM CHLORIDE 0.65% NASAL SPRAY 45ML BOTTLE. NS PRN (21:44)
[2017-05-27 03:00] VITALS: BP 104/53
[2017-05-27 07:05] LABS: BASO % 1 % (0-3); EOS % 5 % (0-3); HEMATOCRIT 31.8 % (36.0-47.0); HEMOGLOBIN 10.6 g/dL (12.0-15.5); LYMPH # 0.6 x10^3/uL (1.0-4.8); LYMPH % 22 % (24-48); MEAN CORPUSCULAR HEMOGLOBIN 33 pg (25-35); MEAN CORPUSCULAR HGB CONC 34 g/dL (31-37); MEAN CORPUSCULAR VOLUME 98 fL (79-100); MONO % 8 % (0-9); NEUT % 63 % (31-73); PLATELET COUNT 99 x10^3/uL (140-400); RED BLOOD COUNT 3.26 x10^6/uL (3.50-5.40); RED CELL DISTRIBUTION WIDTH 16.7 % (11.5-14.5); WHITE BLOOD COUNT 2.9 x10^3/uL (4.0-11.0)
[2017-05-27] MEDS: LEVOTHYROXINE 100 MCG TABLET PO SCH (07:10)
[2017-05-27] MEDS: IPRATRPIUM/ALBUTEROL 0.5/2.5MG 3 ML NEBU. NEB SCH ×2 (07:15→11:46)
[2017-05-27 07:25] VITALS: BP 121/51
[2017-05-27] MEDS: POTASSIUM CHLORIDE 20 MEQ TABLET.ER. PO SCH (08:29)
[2017-05-27] MEDS: ALLOPURINOL 300 MG TABLET. PO SCH (08:29)
[2017-05-27] MEDS: MAGNESIUM OXIDE 400 MG TABLET PO SCH (08:29)
[2017-05-27] MEDS: AMINOCAPROIC ACID 500 MG TABLET. PO SCH ×2 (08:29→14:02)
[2017-05-27] MEDS: CALCITRIOL 0.25 MCG CAPSULE. PO SCH (08:29)
[2017-05-27] MEDS: PANTOPRAZOLE 40 MG TABLET.DR. PO SCH (08:30)
[2017-05-27] MEDS: FUROSEMIDE 40 MG TABLET. PO SCH (08:30)
[2017-05-27] MEDS: GABAPENTIN 100 MG CAPSULE. PO SCH (08:30)
[2017-05-27] MEDS: CETIRIZINE HCL 10 MG TABLET. PO SCH (08:30)
[2017-05-27] MEDS: CHOLECALCIFEROL (VITAMIN D3) 1,000 UNIT TABLET PO SCH (08:30)
[2017-05-27] MEDS: CYANOCOBALAMIN (VITAMIN B-12) 1,000 MCG TABLET. PO SCH (08:30)
--- NOTE | 2017-05-27 09:10 | PDOC ---
PROGRESS NOTES Subjective Subjective HPI - vWD and ongoing GI bleed hemoglobin has dropped from 10.6 on 05/16/17 evening to 7.3 on 05/18/17 ROS - no melena Objective Objective Vital Signs Date Time Temp Pulse Resp B/P (MAP) Pulse Ox O2 Delivery O2 Flow Rate FiO2 05/27/17 07:25 97.7 54 16 121/51 (74) 96 Room Air 97.7 05/26/17 20:00 2.0 Physical Exam Heart: Normal S1, Normal S2 General: Alert, Oriented X3 Lungs: Clear to auscultation Neuro: Normal speech Psych/Mental Status: Mental status NL Assessment Assessment Assessment/Plan 1. vWD and ongoing GI bleed hemoglobin has dropped from 10.6 on 05/16/17 evening to 7.3 on 05/18/17 s/p 1 u PRBC 05/18/17 Hb 7.6 on 05/19/17 Hb worse at 6.5. s/p 2 PRBC 05/20/17 Hb better at 8.5 on 05/21/17 Hb stable at 8.4 on 05/22/17 Hb stable at 8.5 on 05/23/17 Hb stable at 8.5 on 05/26/17 - 1 unit PRBC given Hb better at 10.8 on 05/27/17 Monitor cbc No black stools. Continue humate p , increased to q 8 hours from 05/19/17 and till 05/26/17. cont amicar. Ok to d/c home, f/u with Dr Bermudez tomorrow. 2. Anemia, monitor hb. I d/w RN Comment Review of Relevant I have reviewed the following items benjy (where applicable) has been applied. Labs Laboratory Tests Test 05/26/17 03:30 05/27/17 06:35 White Blood Count 3.3 x10^3/uL (4.0-11.0) 2.9 x10^3/uL (4.0-11.0) Red Blood Count 2.57 x10^6/uL (3.50-5.40) 3.26 x10^6/uL (3.50-5.40) Hemoglobin 8.5 g/dL (12.0-15.5) 10.6 g/dL (12.0-15.5) Hematocrit 25.7 % (36.0-47.0) 31.8 % (36.0-47.0) Mean Corpuscular Volume 100 fL (79-100) 98 fL (79-100) Mean Corpuscular Hemoglobin 33 pg (25-35) 33 pg (25-35) Mean Corpuscular Hemoglobin Concent 33 g/dL (31-37) 34 g/dL (31-37) Red Cell Distribution Width 17.5 % (11.5-14.5) 16.7 % (11.5-14.5) Platelet Count 68 x10^3/uL (140-400) 99 x10^3/uL (140-400) Neutrophils (%) (Auto) 62 % (31-73) 63 % (31-73) Lymphocytes (%) (Auto) 22 % (24-48) 22 % (24-48) Monocytes (%) (Auto) 10 % (0-9) 8 % (0-9) Eosinophils (%) (Auto) 5 % (0-3) 5 % (0-3) Basophils (%) (Auto) 1 % (0-3) 1 % (0-3) Neutrophils # (Auto) 2.0 x10^3uL (1.8-7.7) 1.9 x10^3uL (1.8-7.7) Lymphocytes # (Auto) 0.7 x10^3/uL (1.0-4.8) 0.6 x10^3/uL (1.0-4.8) Monocytes # (Auto) 0.3 x10^3/uL (0.0-1.1) 0.2 x10^3/uL (0.0-1.1) Eosinophils # (Auto) 0.2 x10^3/uL (0.0-0.7) 0.1 x10^3/uL (0.0-0.7) Basophils # (Auto) 0.0 x10^3/uL (0.0-0.2) 0.0 x10^3/uL (0.0-0.2) Laboratory Tests Test 05/27/17 06:35 White Blood Count 2.9 x10^3/uL (4.0-11.0) Red Blood Count 3.26 x10^6/uL (3.50-5.40) Hemoglobin 10.6 g/dL (12.0-15.5) Hematocrit 31.8 % (36.0-47.0) Mean Corpuscular Volume 98 fL (79-100) Mean Corpuscular Hemoglobin 33 pg (25-35) Mean Corpuscular Hemoglobin Concent 34 g/dL (31-37) Red Cell Distribution Width 16.7 % (11.5-14.5) Platelet Count 99 x10^3/uL (140-400) Neutrophils (%) (Auto) 63 % (31-73) Lymphocytes (%) (Auto) 22 % (24-48) Monocytes (%) (Auto) 8 % (0-9) Eosinophils (%) (Auto) 5 % (0-3) Basophils (%) (Auto) 1 % (0-3) Neutrophils # (Auto) 1.9 x10^3uL (1.8-7.7) Lymphocytes # (Auto) 0.6 x10^3/uL (1.0-4.8) Monocytes # (Auto) 0.2 x10^3/uL (0.0-1.1) Eosinophils # (Auto) 0.1 x10^3/uL (0.0-0.7) Basophils # (Auto) 0.0 x10^3/uL (0.0-0.2) Medications Current Medications Sodium Chloride (Normal Saline Flush) 3 ml PRN DAILY PRN IV AFTER MEDS AND BLOOD DRAWS; Start 05/16/17 at 20:00 Ondansetron HCl (Zofran) 4 mg PRN Q6HRS PRN IV NAUSEA/VOMITING; Start 05/16/17 at 20:00 Oxycodone HCl (Roxicodone) 5 mg PRN Q3HRS PRN PO BREAKTHROUGH PAIN; Start 05/16 at 20:00 Aminocaproic Acid (Amicar) 1,000 mg QID PO Last administered on 05/25/17t 08: 23; Start 05/16/17 at 21:00; Stop 05/25/17 at 10:22; Status DC Antihemophilic Factor 3656 vwf/ Miscellaneous 30 ml @ 180 mls/hr DAILY@1400 IV ; Start 05/16/17 at 23:00; Stop 05/20/17 at 14:09; Status Cancel Sodium Chloride 1,000 ml @ 50 mls/hr 1X ONCE IV Last administered on 20:52; Start 05/16/17 at 20:30; Stop 05/17/17 at 16:29; Status DC Antihemophilic Factor 3656 vwf/ Miscellaneous 40 ml @ 240 mls/hr DAILY@1400 IV Last administered on 05/16/17 22:55; Start 05/16/17 at 22:00; Stop 05/17/17 at 09:04; Status DC Antihemophilic Factor 3656 vwf/ Miscellaneous 40 ml @ 240 mls/hr BID IV Last administered on 05/19/17 08:44; Start 05/17/17 at 10:00; Stop 05/19/17 at 09:09 ; Status DC Tramadol HCl (Ultram) 50 mg PRN QID PRN PO MODERATE - SEVERE PAIN Last administered on 05/26/17 17:50; Start 05/17/17 at 20:30 Levothyroxine Sodium (Synthroid) 100 mcg DAILY07 PO Last administered on 07:10; Start 05/18/17 at 07:00 Acetaminophen (Tylenol) 500 mg PRN Q6HRS PRN PO MILD PAIN Last administered on 05/26/17 21:40; Start 05/17/17 at 21:45 Allopurinol (Zyloprim) 300 mg DAILY PO Last administered on 05/27/17 08:29; Start 05/18/17 at 09:00 Calcitriol (Rocaltrol) 0.25 mcg DAILY PO Last administered on 05/27/17 08:29 ; Start 05/18/17 at 09:00 Cyanocobalamin (Vitamin B-12) 1,000 mcg DAILY PO Last administered on 08:30; Start 05/18/17 at 09:00 Ergocalciferol (Vitamin D2) 1,000 unit DAILY PO ; Start 05/18/17 at 09:00; Status Cancel Furosemide (Lasix) 40 mg DAILY PO Last administered on 05/27/17 08:30; Start 05/18/17 at 09:00 Gabapentin (Neurontin) 100 mg BID PO Last administered on 05/27/17 08:30; Start 05/18/17 at 09:00 Potassium Chloride (Klor-Con) 20 meq DAILY PO Last administered on 05/27/17 08:29; Start 05/18/17 at 09:00 Vitamin D (Vitamin D3) 1,000 unit DAILY PO Last administered on 05/27/17 08: 30; Start 05/19/17 at 09:00 Cetirizine HCl (ZyrTEC) 10 mg DAILY PO Last administered on 05/27/17 08:30; Start 05/18/17 at 09:00 Non-Formulary Medication 1 each DAILY PO ; Start 05/18/17 at 09:00; Stop at 09:04; Status DC Magnesium Oxide (Magnesium Oxide) 400 mg DAILY PO Last administered on 08:29; Start 05/19/17 at 09:00 Pantoprazole Sodium (Protonix) 40 mg DAILYAC PO Last administered on 08:30; Start 05/18/17 at 11:30 Non-Formulary Medication 250 mg DAILY PO ; Start 05/18/17 at 09:00; Stop at 09:23; Status DC Non-Formulary Medication 1,300 mg BID PO ; Start 05/18/17 at 09:00; Status UNV Antihemophilic Factor 3400 vwf/ Miscellaneous 40 ml @ 240 mls/hr TID IV ; Start 05/19/17 at 14:00; Stop 05/23/17 at 21:09; Status Cancel Antihemophilic Factor 3592 vwf/ Miscellaneous 40 ml @ 240 mls/hr TID IV Last administered on 05/26/17 10:16; Start 05/19/17 at 14:00; Stop 05/26/17 at 13: 59; Status DC Albuterol/ Ipratropium (Duoneb) 3 ml RTQID NEB Last administered on 05/27/17 07:15; Start 05/20/17 at 12:00 Throat Lozenges (Cepacol Sore Throat Lozenge) 1 shaheen PRN Q2HRS PRN PO SORE THROAT Last administered on 05/23/17 18:26; Start 05/21/17 at 13:15; Stop at 23:20; Status DC Throat Lozenges (Cepacol Sore Throat Lozenge) 1 shaheen PRN Q2HR PRN MM SORE THROAT Last administered on 05/26/17 21:43; Start 05/23/17 at 23:30 Sodium Chloride (Saline Mist Nasal) 1 roberta QIDPRN PRN NS SORE THROAT Last administered on 05/26/17 21:44; Start 05/23/17 at 23:30 Aminocaproic Acid (Amicar) 1,000 mg QID PO Last administered on 05/27/17 08: 29; Start 05/26/17 at 09:00 Polyethylene Glycol (miraLAX PACKET) 17 gm PRN DAILY PRN PO CONSTIPATION; Start 05/26/17 at 11:00 Active Scripts Active Lasix (Furosemide) 40 Mg Tablet 1 Tab PO QOD Reported Cepacol Sore Throat Lozenge (Benzocaine/Menthol) 1 Each Lozenge 1 Each MM Saline Nasal [place] (Sodium Chloride) 30 Ml [place] 1 [place] NS QIDPRN PRN Levothyroxine Sodium 100 Mcg Tablet 1 Tab PO DAILY Vitamin D2 (Ergocalciferol (Vitamin D2)) 50,000 Unit Capsule 1,000 Unit PO DAILY Doxycycline Hyclate 100 Mg Tablet 1 Tab PO BID Resveratrol 250 Mg Capsule 250 Mg PO DAILY Vitamin D (Cholecalciferol (Vitamin D3)) 1,000 Unit Capsule 1 Cap PO DAILY Lysteda (Tranexamic Acid) 650 Mg Tablet 1,300 Mg PO BID Calcitriol 0.25 Mcg Capsule 1 Cap PO DAILY Selenium (Selenomethionine) 200 Mcg Tablet 200 Mcg PO DAILY Vitamin A 8,000 Unit Capsule 8,000 Unit PO Coconut Oil 1,000 Mg Capsule 1,000 Mg PO DAILY Magnesium (Magnesium Oxide) 500 Mg Capsule 500 Mg PO DAILY Omeprazole 40 Mg Capsule.dr 40 Mg PO DAILY Potassium Chloride 20 Meq Tab.er.prt 20 Meq PO DAILY Acetaminophen 500 Mg Tablet 500 Mg PO Q4-6HRS PRN Allopurinol 300 Mg Tablet 300 Mg PO DAILY Neurontin (Gabapentin) 100 Mg Capsule 100 Mg PO BID Vitamin B-12 (Cyanocobalamin (Vitamin B-12)) 1,000 Mcg Tablet 1,000 Mcg SL DAILY Osteo Bi-Flex Caplet (Gluc/Lyndon-Msm#1/C/Brandon/Alfredo/Bor) 1 Each Tablet 1 Each PO DAILY Nakita (Fexofenadine Hcl) 180 Mg Tablet 180 Mg PO DAILY Tramadol Hcl 50 Mg Tablet 50 Mg PO PRN QID Vitals/I & O Vital Sign - Last 24 Hours 05/26/17 05/26/17 05/26/17 05/26/17 10:38 11:41 12:10 12:41 Temp 98.2 98.2 Pulse 78 Resp 17 18 18 B/P (MAP) 100/47 (64) Pulse Ox 97 97 O2 Delivery Room Air Room Air Room Air Room Air O2 Flow Rate 2.0 05/26/17 05/26/17 05/26/17 05/26/17 14:33 14:55 15:12 16:11 Temp 99.2 98.1 97.3 99.0 99.2 98.1 97.3 99.0 Pulse 76 75 62 59 Resp 17 18 20 20 B/P (MAP) 131/51 (77) 114/48 107/54 106/40 Pulse Ox 100 O2 Delivery Room Air 05/26/17 05/26/17 05/26/17 05/26/17 16:17 17:33 17:50 19:00 Temp 99.0 97.5 99.0 97.5 Pulse 77 75 Resp 20 18 B/P (MAP) 129/46 109/77 (88) Pulse Ox 99 O2 Delivery Room Air Room Air Room Air O2 Flow Rate 2.0 05/26/17 05/26/17 05/26/17 05/27/17 20:00 20:52 23:00 03:00 Temp 97.6 98.2 97.6 98.2 Pulse 66 53 Resp 18 18 B/P (MAP) 104/54 (71) 104/53 (70) Pulse Ox 97 96 93 O2 Delivery Room Air Room Air Room Air Room Air O2 Flow Rate 2.0 05/27/17 05/27/17 07:15 07:25 Temp 97.7 97.7 Pulse 54 Resp 16 B/P (MAP) 121/51 (74) Pulse Ox 97 96 O2 Delivery Room Air Room Air FREDIS PALMER MD May 27, 2017 09:10
[2017-05-27 10:30] VITALS: BP 133/51
[2017-05-27] MEDS: traMADol 50 MG TABLET PO PRN (11:20)
--- NOTE | 2017-05-27 12:51 | PDOC ---
Subjective: Subjective: Delighted Hgb is up to 10. Had a large normal-colored stool this morning. Feels ready to DC. Objective: Vital Signs: Vital Signs Date Time Temp Pulse Resp B/P (MAP) Pulse Ox O2 Delivery O2 Flow Rate FiO2 05/27/17 11:46 Room Air 05/27/17 10:30 97.4 76 16 133/51 (78) 97 97.4 05/27/17 08:00 2.0 Labs: Laboratory Tests Test 05/27/17 06:35 White Blood Count 2.9 x10^3/uL Red Blood Count 3.26 x10^6/uL Hemoglobin 10.6 g/dL Hematocrit 31.8 % Mean Corpuscular Volume 98 fL Mean Corpuscular Hemoglobin 33 pg Mean Corpuscular Hemoglobin Concent 34 g/dL Red Cell Distribution Width 16.7 % Platelet Count 99 x10^3/uL Neutrophils (%) (Auto) 63 % Lymphocytes (%) (Auto) 22 % Monocytes (%) (Auto) 8 % Eosinophils (%) (Auto) 5 % Basophils (%) (Auto) 1 % Neutrophils # (Auto) 1.9 x10^3uL Lymphocytes # (Auto) 0.6 x10^3/uL Monocytes # (Auto) 0.2 x10^3/uL Eosinophils # (Auto) 0.1 x10^3/uL Basophils # (Auto) 0.0 x10^3/uL PE: GEN: NAD, walking around room, talkative NEURO/PSYCH: A & O 3 A/P: vWD -melena resolved -Hgb improved after transfusions, on Humate and Amicar -last EGD and colonoscopy in 11/2015 per consult note, on PPI -also positive bleeding scan earlier this year w/ negative arteriogram -- DC per primary/hematology - has f/u tomorrow. ERENDIRA DORSEY May 27, 2017 12:51
--- NOTE | 2017-06-02 01:32 | PDOC3 ---
Discharge Summary Visit Information Date of Admission: May 16, 2017 Date of Discharge: May 27, 2017 Admitting Diagnosis: GI bleed Final Diagnosis acute blood loss anemia, acute lower GI bleed, melena - resolving von willibrands disease since childhood Hypothyroidism OA vW Coagulopathy symptomatic anemia, history of CAD Brief Hospital Course Allergies Allergies Coded Allergies Type Severity Reaction Last Updated Verified Iodinated Contrast- Oral and IV Dye Allergy Severe 03/03/17 Yes Penicillins Allergy Severe Shortness of Air 03/03/17 Yes Sulfa (Sulfonamide Antibiotics) Allergy Intermediate 03/03/17 Yes aspirin Adverse Reaction Intermediate 03/03/17 Yes codeine Adverse Reaction Intermediate Anxiety 03/03/17 Yes Brief Hospital Course Ms. Dale is a 89 old female, with Von WIllebrand, admit with GI bleed, small vessel dz gi bleed Humate P, TID infusion, mult PRBC given, long hospitalization, symptomatic anemia, goal near 10, difficult for blood bank, pt has antibodises Dr. Rodriguez followed close stool normal after many days felt well at DC Discharge Information Condition at Discharge: Improved Follow Up: Weeks Disposition/Orders: D/C to Home Scheduled Allopurinol (Allopurinol), 300 MG PO DAILY, (Reported) Calcitriol (Calcitriol), 1 CAP PO DAILY, (Reported) Cholecalciferol (Vitamin D3) (Vitamin D), 1 CAP PO DAILY, (Reported) Coconut Oil (Coconut Oil), 1,000 MG PO DAILY, (Reported) Cyanocobalamin (Vitamin B-12) (Vitamin B-12), 1,000 MCG SL DAILY, (Reported) Doxycycline Hyclate (Doxycycline Hyclate), 1 TAB PO BID, (Reported) Ergocalciferol (Vitamin D2) (Vitamin D2), 1,000 UNIT PO DAILY, (Reported) Fexofenadine Hcl (N[place]), 180 MG PO DAILY, (Reported) Furosemide (Lasix), 1 TAB PO qod Gabapentin (Neurontin), 100 MG PO BID, (Reported) Gluc/Lyndon-Msm#1/C/Brandon/Alfredo/Bor (Osteo Bi-Flex Caplet), 1 EACH PO DAILY, ( Reported) Levothyroxine Sodium (Levothyroxine Sodium), 1 TAB PO DAILY, (Reported) Magnesium Oxide (Magnesium), 500 MG PO DAILY, (Reported) Omeprazole (Omeprazole), 40 MG PO DAILY, (Reported) Potassium Chloride (Potassium Chloride), 20 MEQ PO DAILY, (Reported) Resveratrol (Resveratrol), 250 MG PO DAILY, (Reported) Selenomethionine (Selenium), 200 MCG PO DAILY, (Reported) Tramadol Hcl (Tramadol Hcl), 50 MG PO PRN QID, (Reported) Tranexamic Acid (Lysteda), 1,300 MG PO BID, (Reported) Scheduled PRN Acetaminophen (Acetaminophen), 500 MG PO Q4-6HRS PRN for PAIN, (Reported) Sodium Chloride (Saline Nasal Carson), 1 SPRAY NS QIDPRN PRN for SORE THROAT, ( Reported) Miscellaneous Medications Benzocaine/Menthol (Cepacol Sore Throat Lozenge), 1 EACH MM, (Reported) Vitamin A (Vitamin A), 8,000 UNIT PO, (Reported) Patient Instructions Patient Instructions > 30 min JAMARCUS LAI MD Jun 02, 2017 01:32
== END 2017-05-27 14:05 | disposition home or self-care (01) | DRG 813 ==
LOC: 5 NORTH 18:30
PROVIDERS: ADMIT Internal Medicine Hematology & Oncology; ATTEND Internal Medicine Hematology & Oncology
PROC: 30233N1 Transfusion of Nonautologous Red Blood Cells into Peripheral Vein, Percutaneous Approach (ICD-10-PCS; principal; 2017-05-16)
PROC: 30233V1 Transfusion of Nonautologous Antihemophilic Factors into Peripheral Vein, Percutaneous Approach (ICD-10-PCS; 2017-05-16)
DX: D68.0 Von Willebrand disease (principal); K92.2 Gastrointestinal hemorrhage, unspecified; D69.6 Thrombocytopenia, unspecified; M32.9 Systemic lupus erythematosus, unspecified; D62 Acute posthemorrhagic anemia; K92.1 Melena; E03.9 Hypothyroidism, unspecified; I10 Essential (primary) hypertension; I25.10 Atherosclerotic heart disease of native coronary artery without angina pectoris; K21.9 Gastro-esophageal reflux disease without esophagitis; M10.9 Gout, unspecified; Z90.49 Acquired absence of other specified parts of digestive tract; Z88.5 Allergy status to narcotic agent; Z88.0 Allergy status to penicillin; Z88.2 Allergy status to sulfonamides; Z88.8 Allergy status to other drugs, medicaments and biological substances; Z91.041 Radiographic dye allergy status; M19.90 Unspecified osteoarthritis, unspecified site
CPT/HCPCS: 36415; 80048; 80053; 82728; 83540; 83550; 85014; 85018; 85025; 85027; 85610; 85730; 86850; 86900; 86901; 86902; 86922; 94250; 94640; 94660; 94760; J7030; J7186; J7620; P9016; 97110; 97116; 97530; 97535

== ENCOUNTER → 2017-08-15 | Outpatient (CLI) | payer MEDICARE ==
[2017-08-15 11:57] LABS: HEMATOCRIT 25.6 % (36.0-47.0); HEMOGLOBIN 8.3 g/dL (12.0-15.5); MEAN CORPUSCULAR HGB CONC 33 g/dL (31-37)
[2017-08-15 12:50] LABS: CROSSMATCH AHG 1 1
== END | disposition home or self-care (01) ==
LOC: OPS 10:30
DX: D68.0 Von Willebrand disease (principal)
CPT/HCPCS: 36415; 85014; 85018; 86850; 86900; 86901; 86902; 86922; P9016

== ENCOUNTER 2017-08-18 13:20 | Inpatient (IN) | payer MEDICARE ==
[2017-08-18 14:01] LABS: ADD MAN DIFF? NO
[2017-08-18 14:11] LABS: BASO # 0.1 x10^3/uL (0.0-0.2); BASO % 1 % (0-3); EOS % 0 % (0-3); LYMPH # 0.8 x10^3/uL (1.0-4.8); LYMPH % 8 % (24-48); MEAN CORPUSCULAR HEMOGLOBIN 34 pg (25-35); MEAN CORPUSCULAR HGB CONC 33 g/dL (31-37); MEAN CORPUSCULAR VOLUME 104 fL (79-100); MONO # 0.5 x10^3/uL (0.0-1.1); MONO % 6 % (0-9); NEUT # 8.2 x10^3uL (1.8-7.7); NEUT % 86 % (31-73); PLATELET COUNT 157 x10^3/uL (140-400); RED BLOOD COUNT 1.69 x10^6/uL (3.50-5.40); RED CELL DISTRIBUTION WIDTH 19.4 % (11.5-14.5); WHITE BLOOD COUNT 9.6 x10^3/uL (4.0-11.0)
[2017-08-18 14:18] LABS: HEMATOCRIT 17.6 % (36.0-47.0); HEMOGLOBIN 5.7 g/dL (12.0-15.5)
[2017-08-18 14:20] LABS: ANION GAP 9 (6-14); BLOOD UREA NITROGEN 72 mg/dL (7-20); BUN/CREATININE RATIO 48 (6-20); CALCIUM 9.8 mg/dL (8.5-10.1); CARBON DIOXIDE 31 mmol/L (21-32); CHLORIDE 99 mmol/L (98-107); CREATININE 1.5 mg/dL (0.6-1.0); GFR 32.7; GLUCOSE 129 mg/dL (70-99); POTASSIUM 4.2 mmol/L (3.5-5.1); SODIUM 139 mmol/L (136-145)
[2017-08-18 14:25] LABS: ALBUMIN 3.2 g/dL (3.4-5.0); ALBUMIN/GLOBULIN RATIO 1.1 (1.0-1.7); ALK PHOS 65 U/L (46-116); ALT (SGPT) 20 U/L (14-59); AST (SGOT) 24 U/L (15-37); INR 1.1 (0.8-1.1); MAGNESIUM 2.1 mg/dL (1.8-2.4); PARTIAL THROMBOPLASTIN TIME 23 SEC (24-38); PROTHROMBIN TIME PATIENT 13.2 SEC (11.7-14.0); TOTAL BILIRUBIN 0.3 mg/dL (0.2-1.0); TOTAL PROTEIN 6.2 g/dL (6.4-8.2)
[2017-08-18 14:27] LABS: TROPONINI 0.018 ng/mL (0.000-0.055)
[2017-08-18] MEDS ORDERED: ONDANSETRON PF 4 MG/2 ML VIAL. IV (14:30)
[2017-08-18] MEDS: AMINOCAPROIC ACID 500 MG TABLET. PO (15:01)
[2017-08-18] MEDS: PANTOPRAZOLE IV PUSH 40 MG VIAL. IVP (15:02)
[2017-08-18] MEDS: PANTOPRAZOLE SODIUM IV DRIP 80 MG in IV NORMAL SALINE 100ML 100 ML IV (15:10)
[2017-08-18 15:15] LABS: FECAL OB PT NEGATIVE (NEG)
[2017-08-18 15:16] LABS: NEG OBC FOB NEG; POS OBC FOB POS
[2017-08-18 16:25] LABS: CROSSMATCH AHG 1 3
[2017-08-18] MEDS: TRANEXAMIC ACID IV (17:02)
[2017-08-18] MEDS: NORMAL SALINE IV (17:02)
[2017-08-18] MEDS ORDERED: TOTAL VOLUME IV (17:30)
[2017-08-18] MEDS ORDERED: ANTIHEMOPHILIC FACTOR IV (17:30)
[2017-08-18] MEDS ORDERED: VWF IV (17:30)
[2017-08-19] MEDS: PANTOPRAZOLE SODIUM IV DRIP 80 MG in IV NORMAL SALINE 100ML 100 ML IV ×2 (00:01→10:30)
[2017-08-19] MEDS: AMINOCAPROIC ACID 500 MG TABLET. PO ×3 (00:01→20:42)
[2017-08-19] MEDS: traMADol 50 MG TABLET PO ×2 (00:02→20:44)
[2017-08-19] MEDS: ANTIHEMOPHILIC FACTOR IV ×3 (01:17→21:38)
[2017-08-19] MEDS: VWF IV ×3 (01:17→21:38)
[2017-08-19] MEDS: TOTAL VOLUME IV ×3 (01:17→21:38)
[2017-08-19 06:51] LABS: ADD MAN DIFF? NO
[2017-08-19 06:57] LABS: BASO % 1 % (0-3); EOS # 0.1 x10^3/uL (0.0-0.7); EOS % 1 % (0-3); HEMATOCRIT 24.1 % (36.0-47.0); LYMPH # 0.9 x10^3/uL (1.0-4.8); LYMPH % 19 % (24-48); MEAN CORPUSCULAR HEMOGLOBIN 33 pg (25-35); MEAN CORPUSCULAR HGB CONC 34 g/dL (31-37); MEAN CORPUSCULAR VOLUME 97 fL (79-100); MONO # 0.4 x10^3/uL (0.0-1.1); MONO % 8 % (0-9); NEUT # 3.4 x10^3uL (1.8-7.7); NEUT % 70 % (31-73); PLATELET COUNT 100 x10^3/uL (140-400); RED BLOOD COUNT 2.49 x10^6/uL (3.50-5.40); RED CELL DISTRIBUTION WIDTH 16.6 % (11.5-14.5); WHITE BLOOD COUNT 4.8 x10^3/uL (4.0-11.0)
[2017-08-19 07:03] LABS: HEMOGLOBIN 8.1 g/dL (12.0-15.5)
[2017-08-19 07:16] LABS: ANION GAP 6 (6-14); BLOOD UREA NITROGEN 58 mg/dL (7-20); CALCIUM 9.5 mg/dL (8.5-10.1); CARBON DIOXIDE 32 mmol/L (21-32); CHLORIDE 102 mmol/L (98-107); CREATININE 1.5 mg/dL (0.6-1.0); GFR 32.7; GLUCOSE 96 mg/dL (70-99); POTASSIUM 3.9 mmol/L (3.5-5.1); SODIUM 140 mmol/L (136-145)
[2017-08-19] MEDS: TRANEXAMIC ACID IV ×3 (09:18→21:37)
[2017-08-19] MEDS: NORMAL SALINE IV ×3 (09:18→21:37)
[2017-08-19] MEDS ORDERED: BENZOCAINE/MENTHOL LOZENGE. MM (09:45)
[2017-08-19] MEDS ORDERED: SODIUM CHLORIDE 0.65% NASAL SPRAY 45ML BOTTLE. NS (09:45)
[2017-08-19] MEDS ORDERED: ACETAMINOPHEN 500 MG TABLET PO (09:45)
[2017-08-19] MEDS ORDERED: ERGOCALCIFEROL (VITAMIN D2) 50,000 UNIT CAPSULE. PO (10:00)
[2017-08-19] MEDS: ALLOPURINOL 300 MG TABLET. PO (10:32)
[2017-08-19] MEDS: POTASSIUM CHLORIDE 20 MEQ TABLET.ER. PO (10:32)
[2017-08-19] MEDS: CETIRIZINE HCL 10 MG TABLET. PO (10:32)
[2017-08-19] MEDS: CALCITRIOL 0.25 MCG CAPSULE. PO (10:32)
[2017-08-19] MEDS: CYANOCOBALAMIN (VITAMIN B-12) 1,000 MCG TABLET. PO (10:32)
[2017-08-19] MEDS: FUROSEMIDE 40 MG TABLET. PO (10:33)
[2017-08-19] MEDS: CHOLECALCIFEROL (VITAMIN D3) 1,000 UNIT TABLET PO (10:33)
[2017-08-19] MEDS: GABAPENTIN 100 MG CAPSULE. PO ×2 (10:33→20:43)
[2017-08-19] MEDS: MAGNESIUM OXIDE 400 MG TABLET PO (10:33)
[2017-08-19] MEDS: LEVOTHYROXINE 100 MCG TABLET PO (11:12)
[2017-08-19] MEDS ORDERED: PANTOPRAZOLE 40 MG TABLET.DR. PO (11:30)
[2017-08-19] MEDS: ALBUTEROL SULFATE 2.5 MG/3 ML NEBU. NEB (19:19)
[2017-08-19] MEDS ORDERED: TRANEXAMIC ACID 1300 MG PO (21:00)
[2017-08-19 21:10] LABS: MRSA BY PCR Negative (Negative)
[2017-08-20] MEDS: LEVOTHYROXINE 100 MCG TABLET PO (05:53)
[2017-08-20 06:02] LABS: ADD MAN DIFF? NO
[2017-08-20] MEDS: PANTOPRAZOLE 40 MG TABLET.DR. PO (07:53)
[2017-08-20] MEDS: POTASSIUM CHLORIDE 20 MEQ TABLET.ER. PO (07:53)
[2017-08-20] MEDS: AMINOCAPROIC ACID 500 MG TABLET. PO ×2 (07:54→21:38)
[2017-08-20] MEDS: FUROSEMIDE 40 MG TABLET. PO ×2 (07:54→08:59)
[2017-08-20] MEDS: MAGNESIUM OXIDE 400 MG TABLET PO (07:55)
[2017-08-20] MEDS: GABAPENTIN 100 MG CAPSULE. PO ×2 (07:55→21:39)
[2017-08-20] MEDS: CETIRIZINE HCL 10 MG TABLET. PO (07:56)
[2017-08-20] MEDS: ALLOPURINOL 300 MG TABLET. PO (07:56)
[2017-08-20] MEDS: CALCITRIOL 0.25 MCG CAPSULE. PO (07:56)
[2017-08-20] MEDS: CYANOCOBALAMIN (VITAMIN B-12) 1,000 MCG TABLET. PO (07:56)
[2017-08-20 08:11] LABS: BASO # 0.1 x10^3/uL (0.0-0.2); BASO % 3 % (0-3); EOS # 0.1 x10^3/uL (0.0-0.7); EOS % 2 % (0-3); HEMATOCRIT 23.2 % (36.0-47.0); HEMOGLOBIN 7.6 g/dL (12.0-15.5); LYMPH # 0.7 x10^3/uL (1.0-4.8); LYMPH % 17 % (24-48); MEAN CORPUSCULAR HEMOGLOBIN 32 pg (25-35); MEAN CORPUSCULAR HGB CONC 33 g/dL (31-37); MEAN CORPUSCULAR VOLUME 99 fL (79-100); MONO # 0.4 x10^3/uL (0.0-1.1); MONO % 9 % (0-9); NEUT # 2.8 x10^3uL (1.8-7.7); NEUT % 69 % (31-73); PLATELET COUNT 100 x10^3/uL (140-400); RED BLOOD COUNT 2.36 x10^6/uL (3.50-5.40); RED CELL DISTRIBUTION WIDTH 16.8 % (11.5-14.5)
[2017-08-20] MEDS: TOTAL VOLUME IV ×3 (09:00→21:39)
[2017-08-20] MEDS ORDERED: SELENOMETHIONINE 200 MCG PO (09:00)
[2017-08-20] MEDS ORDERED: NON FORMULARY ITEM (Coconut Oil 1,000 MG) PO (09:00)
[2017-08-20] MEDS ORDERED: [UNRECOGNIZED DRUG - OTHER] PO (09:00)
[2017-08-20] MEDS: VWF IV ×3 (09:00→21:39)
[2017-08-20] MEDS: ANTIHEMOPHILIC FACTOR IV ×3 (09:00→21:39)
[2017-08-20] MEDS ORDERED: RESVERATROL 250 MG PO (09:00)
[2017-08-20] MEDS ORDERED: NON FORMULARY ITEM (Cholecalciferol (Vitamin D3) (Vitamin D) 1 CAP) PO (09:00)
[2017-08-20] MEDS: TRANEXAMIC ACID IV ×2 (09:11→21:38)
[2017-08-20] MEDS: NORMAL SALINE IV ×2 (09:11→21:38)
[2017-08-20] MEDS: CHOLECALCIFEROL (VITAMIN D3) 1,000 UNIT TABLET PO (09:11)
[2017-08-20] MEDS: traMADol 50 MG TABLET PO ×2 (09:12→21:39)
[2017-08-20 09:39] LABS: VITAMIN-B12 1884 pg/mL (247-911)
[2017-08-20] MEDS: IRON SUCROSE COMPLEX 500 MG in IV NORMAL SALINE 250ML 250 ML IV (10:31)
[2017-08-20 11:54] LABS: HEMOGLOBIN 8.6 g/dL (12.0-15.5); RED BLOOD COUNT 2.68 x10^6/uL (3.50-5.40); WHITE BLOOD COUNT 4.6 x10^3/uL (4.0-11.0)
[2017-08-20 11:55] LABS: MEAN CORPUSCULAR HEMOGLOBIN 32 pg (25-35); MEAN CORPUSCULAR HGB CONC 33 g/dL (31-37); MEAN CORPUSCULAR VOLUME 97 fL (79-100); PLATELET COUNT 122 x10^3/uL (140-400); RED CELL DISTRIBUTION WIDTH 16.6 % (11.5-14.5)
[2017-08-21] MEDS: LEVOTHYROXINE 100 MCG TABLET PO (06:18)
[2017-08-21] MEDS: PANTOPRAZOLE 40 MG TABLET.DR. PO ×2 (06:18→08:54)
[2017-08-21 06:40] LABS: ADD MAN DIFF? NO
[2017-08-21 06:44] LABS: BASO % 1 % (0-3); EOS # 0.1 x10^3/uL (0.0-0.7); EOS % 3 % (0-3); HEMATOCRIT 27.2 % (36.0-47.0); HEMOGLOBIN 8.9 g/dL (12.0-15.5); LYMPH # 0.5 x10^3/uL (1.0-4.8); LYMPH % 14 % (24-48); MEAN CORPUSCULAR HEMOGLOBIN 32 pg (25-35); MEAN CORPUSCULAR HGB CONC 33 g/dL (31-37); MEAN CORPUSCULAR VOLUME 99 fL (79-100); MONO # 0.3 x10^3/uL (0.0-1.1); MONO % 9 % (0-9); NEUT # 2.9 x10^3uL (1.8-7.7); NEUT % 74 % (31-73); PLATELET COUNT 94 x10^3/uL (140-400); RED BLOOD COUNT 2.76 x10^6/uL (3.50-5.40); RED CELL DISTRIBUTION WIDTH 15.5 % (11.5-14.5); WHITE BLOOD COUNT 3.9 x10^3/uL (4.0-11.0)
[2017-08-21] MEDS: CHOLECALCIFEROL (VITAMIN D3) 1,000 UNIT TABLET PO (08:53)
[2017-08-21] MEDS: GABAPENTIN 100 MG CAPSULE. PO ×2 (08:53→22:02)
[2017-08-21] MEDS: POTASSIUM CHLORIDE 20 MEQ TABLET.ER. PO (08:53)
[2017-08-21] MEDS: ALLOPURINOL 300 MG TABLET. PO (08:54)
[2017-08-21] MEDS: CETIRIZINE HCL 10 MG TABLET. PO (08:54)
[2017-08-21] MEDS: CALCITRIOL 0.25 MCG CAPSULE. PO (08:54)
[2017-08-21] MEDS: MAGNESIUM OXIDE 400 MG TABLET PO (08:54)
[2017-08-21] MEDS: CYANOCOBALAMIN (VITAMIN B-12) 1,000 MCG TABLET. PO (08:54)
[2017-08-21] MEDS: AMINOCAPROIC ACID 500 MG TABLET. PO ×2 (08:54→22:02)
[2017-08-21] MEDS: TRANEXAMIC ACID IV ×2 (08:55→22:02)
[2017-08-21] MEDS: NORMAL SALINE IV ×2 (08:55→22:02)
[2017-08-21] MEDS: TOTAL VOLUME IV ×3 (09:00→22:02)
[2017-08-21] MEDS: VWF IV ×3 (09:00→22:02)
[2017-08-21] MEDS: ANTIHEMOPHILIC FACTOR IV ×3 (09:00→22:02)
[2017-08-21] MEDS ORDERED: TOTAL VOLUME IV (11:00)
[2017-08-21] MEDS ORDERED: ANTIHEMOPHILIC FACTOR IV (11:00)
[2017-08-21] MEDS ORDERED: VWF IV (11:00)
[2017-08-21] MEDS: traMADol 50 MG TABLET PO (22:01)
[2017-08-22] MEDS: LEVOTHYROXINE 100 MCG TABLET PO (06:28)
[2017-08-22 07:42] LABS: ADD MAN DIFF? NO
[2017-08-22 07:50] LABS: BASO % 1 % (0-3); EOS # 0.1 x10^3/uL (0.0-0.7); EOS % 3 % (0-3); HEMATOCRIT 31.4 % (36.0-47.0); HEMOGLOBIN 10.1 g/dL (12.0-15.5); LYMPH # 0.7 x10^3/uL (1.0-4.8); LYMPH % 17 % (24-48); MEAN CORPUSCULAR HEMOGLOBIN 33 pg (25-35); MEAN CORPUSCULAR HGB CONC 32 g/dL (31-37); MEAN CORPUSCULAR VOLUME 101 fL (79-100); MONO # 0.3 x10^3/uL (0.0-1.1); MONO % 8 % (0-9); NEUT % 72 % (31-73); PLATELET COUNT 102 x10^3/uL (140-400); WHITE BLOOD COUNT 4.1 x10^3/uL (4.0-11.0)
[2017-08-22 07:59] LABS: ANION GAP 6 (6-14); BLOOD UREA NITROGEN 29 mg/dL (7-20); CALCIUM 9.2 mg/dL (8.5-10.1); CARBON DIOXIDE 30 mmol/L (21-32); CHLORIDE 104 mmol/L (98-107); CREATININE 1.4 mg/dL (0.6-1.0); GFR 35.4; GLUCOSE 95 mg/dL (70-99); POTASSIUM 3.9 mmol/L (3.5-5.1); SODIUM 140 mmol/L (136-145)
[2017-08-22] MEDS: MAGNESIUM OXIDE 400 MG TABLET PO (08:09)
[2017-08-22] MEDS: AMINOCAPROIC ACID 500 MG TABLET. PO ×2 (08:09→20:21)
[2017-08-22] MEDS: CALCITRIOL 0.25 MCG CAPSULE. PO (08:09)
[2017-08-22] MEDS: ALLOPURINOL 300 MG TABLET. PO (08:10)
[2017-08-22] MEDS: CYANOCOBALAMIN (VITAMIN B-12) 1,000 MCG TABLET. PO (08:10)
[2017-08-22] MEDS: FUROSEMIDE 40 MG TABLET. PO (08:10)
[2017-08-22] MEDS: CETIRIZINE HCL 10 MG TABLET. PO (08:10)
[2017-08-22] MEDS: CHOLECALCIFEROL (VITAMIN D3) 1,000 UNIT TABLET PO (08:10)
[2017-08-22] MEDS: PANTOPRAZOLE 40 MG TABLET.DR. PO (08:10)
[2017-08-22] MEDS: GABAPENTIN 100 MG CAPSULE. PO ×2 (08:10→20:22)
[2017-08-22] MEDS: POTASSIUM CHLORIDE 20 MEQ TABLET.ER. PO (08:10)
[2017-08-22] MEDS: TRANEXAMIC ACID IV ×2 (09:43→20:04)
[2017-08-22] MEDS: NORMAL SALINE IV ×2 (09:43→20:04)
[2017-08-22] MEDS: ANTIHEMOPHILIC FACTOR IV ×2 (09:44→20:04)
[2017-08-22] MEDS: VWF IV ×2 (09:44→20:04)
[2017-08-22] MEDS: TOTAL VOLUME IV ×2 (09:44→20:04)
[2017-08-22] MEDS: traMADol 50 MG TABLET PO (20:21)
[2017-08-23] MEDS: LEVOTHYROXINE 100 MCG TABLET PO (05:40)
[2017-08-23] MEDS: ALLOPURINOL 300 MG TABLET. PO (09:47)
[2017-08-23] MEDS: CHOLECALCIFEROL (VITAMIN D3) 1,000 UNIT TABLET PO (09:47)
[2017-08-23] MEDS: CALCITRIOL 0.25 MCG CAPSULE. PO (09:47)
[2017-08-23] MEDS: POTASSIUM CHLORIDE 20 MEQ TABLET.ER. PO (09:53)
[2017-08-23] MEDS: CETIRIZINE HCL 10 MG TABLET. PO (09:57)
[2017-08-23] MEDS: PANTOPRAZOLE 40 MG TABLET.DR. PO (09:57)
[2017-08-23] MEDS: MAGNESIUM OXIDE 400 MG TABLET PO (09:57)
[2017-08-23] MEDS: CYANOCOBALAMIN (VITAMIN B-12) 1,000 MCG TABLET. PO (09:57)
[2017-08-23] MEDS: AMINOCAPROIC ACID 500 MG TABLET. PO ×2 (09:58→21:09)
[2017-08-23] MEDS: GABAPENTIN 100 MG CAPSULE. PO ×2 (09:59→21:00)
[2017-08-23] MEDS: NORMAL SALINE IV ×2 (10:01→21:42)
[2017-08-23] MEDS: TRANEXAMIC ACID IV ×2 (10:01→21:42)
[2017-08-23 11:05] LABS: ADD MAN DIFF? NO
[2017-08-23 11:10] LABS: BASO % 1 % (0-3); EOS # 0.1 x10^3/uL (0.0-0.7); EOS % 2 % (0-3); HEMATOCRIT 31.9 % (36.0-47.0); HEMOGLOBIN 10.3 g/dL (12.0-15.5); LYMPH # 0.5 x10^3/uL (1.0-4.8); LYMPH % 13 % (24-48); MEAN CORPUSCULAR HEMOGLOBIN 33 pg (25-35); MEAN CORPUSCULAR HGB CONC 32 g/dL (31-37); MEAN CORPUSCULAR VOLUME 103 fL (79-100); MONO # 0.3 x10^3/uL (0.0-1.1); MONO % 9 % (0-9); NEUT # 2.7 x10^3uL (1.8-7.7); NEUT % 74 % (31-73); PLATELET COUNT 100 x10^3/uL (140-400); RED BLOOD COUNT 3.09 x10^6/uL (3.50-5.40); RED CELL DISTRIBUTION WIDTH 20.1 % (11.5-14.5); WHITE BLOOD COUNT 3.6 x10^3/uL (4.0-11.0)
[2017-08-23] MEDS: VWF IV ×2 (12:19→21:10)
[2017-08-23] MEDS: ANTIHEMOPHILIC FACTOR IV ×2 (12:19→21:10)
[2017-08-23] MEDS: TOTAL VOLUME IV ×2 (12:19→21:10)
[2017-08-23] MEDS: traMADol 50 MG TABLET PO (21:09)
[2017-08-23] MEDS: HYDROCORTISONE ACETATE 25 MG SUPP.RECT PR (21:09)
[2017-08-24] MEDS: LEVOTHYROXINE 100 MCG TABLET PO (05:05)
[2017-08-24 06:04] LABS: HEMATOCRIT 28.6 % (36.0-47.0); HEMOGLOBIN 9.3 g/dL (12.0-15.5); MEAN CORPUSCULAR HEMOGLOBIN 33 pg (25-35); MEAN CORPUSCULAR HGB CONC 33 g/dL (31-37); MEAN CORPUSCULAR VOLUME 102 fL (79-100); PLATELET COUNT 99 x10^3/uL (140-400); RED BLOOD COUNT 2.81 x10^6/uL (3.50-5.40)
[2017-08-24 06:10] LABS: ANION GAP 4 (6-14); BLOOD UREA NITROGEN 28 mg/dL (7-20); CALCIUM 9.8 mg/dL (8.5-10.1); CARBON DIOXIDE 31 mmol/L (21-32); CHLORIDE 108 mmol/L (98-107); CREATININE 1.2 mg/dL (0.6-1.0); GFR 42.3; GLUCOSE 102 mg/dL (70-99); POTASSIUM 4.9 mmol/L (3.5-5.1); SODIUM 143 mmol/L (136-145)
[2017-08-24] MEDS: CALCITRIOL 0.25 MCG CAPSULE. PO (09:32)
[2017-08-24] MEDS: CETIRIZINE HCL 10 MG TABLET. PO (09:32)
[2017-08-24] MEDS: GABAPENTIN 100 MG CAPSULE. PO ×2 (09:32→20:45)
[2017-08-24] MEDS: ALLOPURINOL 300 MG TABLET. PO (09:33)
[2017-08-24] MEDS: CHOLECALCIFEROL (VITAMIN D3) 1,000 UNIT TABLET PO (09:33)
[2017-08-24] MEDS: MAGNESIUM OXIDE 400 MG TABLET PO (09:33)
[2017-08-24] MEDS: CYANOCOBALAMIN (VITAMIN B-12) 1,000 MCG TABLET. PO (09:33)
[2017-08-24] MEDS: AMINOCAPROIC ACID 500 MG TABLET. PO ×2 (09:34→20:43)
[2017-08-24] MEDS: POTASSIUM CHLORIDE 20 MEQ TABLET.ER. PO (09:34)
[2017-08-24] MEDS: TOTAL VOLUME IV ×2 (10:07→20:44)
[2017-08-24] MEDS: ANTIHEMOPHILIC FACTOR IV ×2 (10:07→20:44)
[2017-08-24] MEDS: VWF IV ×2 (10:07→20:44)
[2017-08-24] MEDS: TRANEXAMIC ACID IV ×2 (10:50→20:44)
[2017-08-24] MEDS: NORMAL SALINE IV ×2 (10:50→20:44)
[2017-08-24] MEDS: SENNOSIDES 8.6 MG TABLET PO ×2 (15:00→20:45)
[2017-08-24] MEDS: ALBUTEROL SULFATE 2.5 MG/3 ML NEBU. NEB (17:08)
[2017-08-24] MEDS: FUROSEMIDE 20 MG/2 ML VIAL. IVP (18:29)
[2017-08-24] MEDS: traMADol 50 MG TABLET PO (20:43)
[2017-08-24] MEDS: HYDROCORTISONE ACETATE 25 MG SUPP.RECT PR (20:44)
[2017-08-25] MEDS: LEVOTHYROXINE 100 MCG TABLET PO (05:02)
[2017-08-25 06:46] LABS: ADD MAN DIFF? NO
[2017-08-25 06:55] LABS: BASO % 2 % (0-3); EOS # 0.1 x10^3/uL (0.0-0.7); EOS % 4 % (0-3); HEMATOCRIT 27.9 % (36.0-47.0); LYMPH # 0.6 x10^3/uL (1.0-4.8); LYMPH % 18 % (24-48); MEAN CORPUSCULAR HEMOGLOBIN 33 pg (25-35); MEAN CORPUSCULAR HGB CONC 32 g/dL (31-37); MEAN CORPUSCULAR VOLUME 102 fL (79-100); MONO # 0.3 x10^3/uL (0.0-1.1); MONO % 11 % (0-9); NEUT # 2.1 x10^3uL (1.8-7.7); NEUT % 66 % (31-73); PLATELET COUNT 98 x10^3/uL (140-400); RED BLOOD COUNT 2.74 x10^6/uL (3.50-5.40); RED CELL DISTRIBUTION WIDTH 21.1 % (11.5-14.5); WHITE BLOOD COUNT 3.2 x10^3/uL (4.0-11.0)
[2017-08-25 07:25] LABS: ANION GAP 5 (6-14); BLOOD UREA NITROGEN 28 mg/dL (7-20); CALCIUM 9.6 mg/dL (8.5-10.1); CARBON DIOXIDE 30 mmol/L (21-32); CHLORIDE 107 mmol/L (98-107); CREATININE 1.2 mg/dL (0.6-1.0); GFR 42.3; GLUCOSE 88 mg/dL (70-99); POTASSIUM 4.7 mmol/L (3.5-5.1); SODIUM 142 mmol/L (136-145)
[2017-08-25] MEDS: PANTOPRAZOLE 40 MG TABLET.DR. PO (07:31)
[2017-08-25] MEDS: ALBUTEROL SULFATE 2.5 MG/3 ML NEBU. NEB ×4 (08:45→20:11)
[2017-08-25] MEDS: MAGNESIUM OXIDE 400 MG TABLET PO (08:51)
[2017-08-25] MEDS: CALCITRIOL 0.25 MCG CAPSULE. PO (08:51)
[2017-08-25] MEDS: AMINOCAPROIC ACID 500 MG TABLET. PO ×2 (08:51→21:09)
[2017-08-25] MEDS: ALLOPURINOL 300 MG TABLET. PO (08:51)
[2017-08-25] MEDS: VWF IV ×2 (08:51→21:09)
[2017-08-25] MEDS: TOTAL VOLUME IV ×2 (08:51→21:09)
[2017-08-25] MEDS: ANTIHEMOPHILIC FACTOR IV ×2 (08:51→21:09)
[2017-08-25] MEDS: CHOLECALCIFEROL (VITAMIN D3) 1,000 UNIT TABLET PO (08:51)
[2017-08-25] MEDS: CETIRIZINE HCL 10 MG TABLET. PO (08:51)
[2017-08-25] MEDS: GABAPENTIN 100 MG CAPSULE. PO ×2 (08:52→21:00)
[2017-08-25] MEDS: POTASSIUM CHLORIDE 20 MEQ TABLET.ER. PO (08:52)
[2017-08-25] MEDS: SENNOSIDES 8.6 MG TABLET PO ×2 (08:52→21:00)
[2017-08-25] MEDS: CYANOCOBALAMIN (VITAMIN B-12) 1,000 MCG TABLET. PO (08:52)
[2017-08-25] MEDS: FUROSEMIDE 40 MG TABLET. PO (08:52)
[2017-08-25] MEDS: NORMAL SALINE IV ×2 (09:59→21:10)
[2017-08-25] MEDS: TRANEXAMIC ACID IV ×2 (09:59→21:10)
[2017-08-25] MEDS: FUROSEMIDE 40 MG/4 ML VIAL. IVP (11:22)
[2017-08-25] MEDS: traMADol 50 MG TABLET PO (21:09)
[2017-08-26 05:09] LABS: ADD MAN DIFF? NO
[2017-08-26 05:33] LABS: BASO % 1 % (0-3); EOS # 0.1 x10^3/uL (0.0-0.7); EOS % 4 % (0-3); HEMATOCRIT 29.1 % (36.0-47.0); HEMOGLOBIN 9.4 g/dL (12.0-15.5); LYMPH # 0.6 x10^3/uL (1.0-4.8); LYMPH % 17 % (24-48); MEAN CORPUSCULAR HEMOGLOBIN 33 pg (25-35); MEAN CORPUSCULAR HGB CONC 32 g/dL (31-37); MEAN CORPUSCULAR VOLUME 104 fL (79-100); MONO # 0.4 x10^3/uL (0.0-1.1); MONO % 10 % (0-9); NEUT # 2.7 x10^3uL (1.8-7.7); NEUT % 68 % (31-73); PLATELET COUNT 108 x10^3/uL (140-400); RED BLOOD COUNT 2.81 x10^6/uL (3.50-5.40); RED CELL DISTRIBUTION WIDTH 20.3 % (11.5-14.5); WHITE BLOOD COUNT 3.9 x10^3/uL (4.0-11.0)
[2017-08-26] MEDS: LEVOTHYROXINE 100 MCG TABLET PO (05:38)
[2017-08-26] MEDS: PANTOPRAZOLE 40 MG TABLET.DR. PO (05:38)
[2017-08-26 05:39] LABS: ANION GAP 3 (6-14); BLOOD UREA NITROGEN 32 mg/dL (7-20); CALCIUM 9.7 mg/dL (8.5-10.1); CARBON DIOXIDE 35 mmol/L (21-32); CHLORIDE 106 mmol/L (98-107); CREATININE 1.2 mg/dL (0.6-1.0); GFR 42.3; GLUCOSE 87 mg/dL (70-99); POTASSIUM 4.6 mmol/L (3.5-5.1); SODIUM 144 mmol/L (136-145)
[2017-08-26] MEDS: ALBUTEROL SULFATE 2.5 MG/3 ML NEBU. NEB ×3 (08:46→19:07)
[2017-08-26] MEDS: POTASSIUM CHLORIDE 20 MEQ TABLET.ER. PO (08:58)
[2017-08-26] MEDS: MAGNESIUM OXIDE 400 MG TABLET PO (08:58)
[2017-08-26] MEDS: ANTIHEMOPHILIC FACTOR IV ×2 (08:58→21:43)
[2017-08-26] MEDS: CYANOCOBALAMIN (VITAMIN B-12) 1,000 MCG TABLET. PO (08:58)
[2017-08-26] MEDS: GABAPENTIN 100 MG CAPSULE. PO ×2 (08:58→21:00)
[2017-08-26] MEDS: TOTAL VOLUME IV ×2 (08:58→21:43)
[2017-08-26] MEDS: VWF IV ×2 (08:58→21:43)
[2017-08-26] MEDS: CALCITRIOL 0.25 MCG CAPSULE. PO (08:58)
[2017-08-26] MEDS: CETIRIZINE HCL 10 MG TABLET. PO (08:58)
[2017-08-26] MEDS: ALLOPURINOL 300 MG TABLET. PO (08:58)
[2017-08-26] MEDS: CHOLECALCIFEROL (VITAMIN D3) 1,000 UNIT TABLET PO (08:58)
[2017-08-26] MEDS: SENNOSIDES 8.6 MG TABLET PO ×2 (08:59→21:00)
[2017-08-26] MEDS: AMINOCAPROIC ACID 500 MG TABLET. PO ×2 (08:59→21:43)
[2017-08-26] MEDS: TRANEXAMIC ACID IV ×2 (09:42→21:43)
[2017-08-26] MEDS: NORMAL SALINE IV ×2 (09:42→21:43)
[2017-08-26 11:32] LABS: ANISOCYTOSIS SLIGHT; PLT ESTIMATE DECREASED (ADEQUATE)
[2017-08-26] MEDS: traMADol 50 MG TABLET PO (21:44)
[2017-08-27 04:50] LABS: ADD MAN DIFF? NO
[2017-08-27 04:52] LABS: BASO # 0.1 x10^3/uL (0.0-0.2); BASO % 1 % (0-3); EOS # 0.1 x10^3/uL (0.0-0.7); EOS % 3 % (0-3); HEMOGLOBIN 9.1 g/dL (12.0-15.5); LYMPH # 0.5 x10^3/uL (1.0-4.8); LYMPH % 15 % (24-48); MEAN CORPUSCULAR HEMOGLOBIN 34 pg (25-35); MEAN CORPUSCULAR HGB CONC 33 g/dL (31-37); MEAN CORPUSCULAR VOLUME 103 fL (79-100); MONO # 0.4 x10^3/uL (0.0-1.1); MONO % 11 % (0-9); NEUT # 2.5 x10^3uL (1.8-7.7); NEUT % 69 % (31-73); PLATELET COUNT 107 x10^3/uL (140-400); RED CELL DISTRIBUTION WIDTH 19.8 % (11.5-14.5); WHITE BLOOD COUNT 3.6 x10^3/uL (4.0-11.0)
[2017-08-27] MEDS: PANTOPRAZOLE 40 MG TABLET.DR. PO (04:59)
[2017-08-27] MEDS: LEVOTHYROXINE 100 MCG TABLET PO (04:59)
[2017-08-27] MEDS: ALBUTEROL SULFATE 2.5 MG/3 ML NEBU. NEB ×2 (08:57→13:10)
[2017-08-27] MEDS: SENNOSIDES 8.6 MG TABLET PO (09:00)
[2017-08-27] MEDS: NORMAL SALINE IV (09:31)
[2017-08-27] MEDS: TRANEXAMIC ACID IV (09:31)
[2017-08-27] MEDS: POTASSIUM CHLORIDE 20 MEQ TABLET.ER. PO (09:31)
[2017-08-27] MEDS: CETIRIZINE HCL 10 MG TABLET. PO (09:32)
[2017-08-27] MEDS: CHOLECALCIFEROL (VITAMIN D3) 1,000 UNIT TABLET PO (09:32)
[2017-08-27] MEDS: CYANOCOBALAMIN (VITAMIN B-12) 1,000 MCG TABLET. PO (09:32)
[2017-08-27] MEDS: GABAPENTIN 100 MG CAPSULE. PO (09:32)
[2017-08-27] MEDS: FUROSEMIDE 40 MG TABLET. PO (09:32)
[2017-08-27] MEDS: CALCITRIOL 0.25 MCG CAPSULE. PO (09:32)
[2017-08-27] MEDS: AMINOCAPROIC ACID 500 MG TABLET. PO (09:32)
[2017-08-27] MEDS: ALLOPURINOL 300 MG TABLET. PO (09:32)
[2017-08-27] MEDS: MAGNESIUM OXIDE 400 MG TABLET PO (09:32)
[2017-08-27] MEDS: VWF IV (13:05)
[2017-08-27] MEDS: ANTIHEMOPHILIC FACTOR IV (13:05)
[2017-08-27] MEDS: TOTAL VOLUME IV (13:05)
== END 2017-08-27 17:00 | disposition home or self-care (01) | DRG 813 ==
LOC: 5 NORTH 08-19 16:45 → ER 13:20 → ED HOLD 14:19 → 1 WEST ICU 22:29
PROC: 30233N1 Transfusion of Nonautologous Red Blood Cells into Peripheral Vein, Percutaneous Approach (ICD-10-PCS; principal; 2017-08-18)
DX: D68.0 Von Willebrand disease (principal); D69.6 Thrombocytopenia, unspecified; D62 Acute posthemorrhagic anemia; I11.0 Hypertensive heart disease with heart failure; I50.9 Heart failure, unspecified; I13.0 Hypertensive heart and chronic kidney disease with heart failure and stage 1 through stage 4 chronic kidney disease, or unspecified chronic kidney disease; Q27.33 Arteriovenous malformation of digestive system vessel; M32.9 Systemic lupus erythematosus, unspecified; E03.9 Hypothyroidism, unspecified; I73.00 Raynaud's syndrome without gangrene; K21.9 Gastro-esophageal reflux disease without esophagitis; K59.00 Constipation, unspecified; M10.9 Gout, unspecified; Z80.0 Family history of malignant neoplasm of digestive organs; Z90.49 Acquired absence of other specified parts of digestive tract; Z90.710 Acquired absence of both cervix and uterus; M19.90 Unspecified osteoarthritis, unspecified site; Z88.5 Allergy status to narcotic agent; Z88.0 Allergy status to penicillin; Z88.2 Allergy status to sulfonamides; Z88.8 Allergy status to other drugs, medicaments and biological substances; Z91.041 Radiographic dye allergy status; N18.9 Chronic kidney disease, unspecified; K57.30 Diverticulosis of large intestine without perforation or abscess without bleeding
CPT/HCPCS: 36415; 36430; 80048; 80053; 82274; 82607; 83735; 84484; 85014; 85018; 85025; 85027; 85610; 85730; 86850; 86900; 86901; 86902; 86922; 87641; 94640; 94760; 96374; 99285; 99285-25; C9113; J1756; J1940; J7050; J7186; J7613; P9016

== ENCOUNTER 2017-09-15 11:47 | Emergency (ER) | payer MEDICARE ==
[2017-09-15] MEDS ORDERED: COCAINE 4% TOPICAL SOLUTION TP ×2 (12:00)
[2017-09-15] MEDS ORDERED: BACITRACIN/POLYMYXIN B TOPICAL OINT 15GM TUBE. TP ×2 (12:00)
[2017-09-15] MEDS: OXYMETAZOLINE 0.05% NASAL SPRAY 30ML BOTTLE. NS ×2 (12:16)
== END 2017-09-15 13:28 | disposition home or self-care (01) ==
LOC: ER 11:47
DX: R04.0 Epistaxis (principal); I11.0 Hypertensive heart disease with heart failure; I50.9 Heart failure, unspecified; Z88.0 Allergy status to penicillin; Z88.2 Allergy status to sulfonamides; Z88.6 Allergy status to analgesic agent; Z91.041 Radiographic dye allergy status
CPT/HCPCS: 99284

== ENCOUNTER 2017-10-13 12:23 | Inpatient (IN) | payer MEDICARE ==
[2017-10-13 13:18] LABS: ADD MAN DIFF? NO
[2017-10-13 13:22] LABS: BASO # 0.1 x10^3/uL (0.0-0.2); BASO % 1 % (0-3); EOS % 1 % (0-3); LYMPH # 0.8 x10^3/uL (1.0-4.8); LYMPH % 12 % (24-48); MEAN CORPUSCULAR HEMOGLOBIN 34 pg (25-35); MEAN CORPUSCULAR HGB CONC 34 g/dL (31-37); MEAN CORPUSCULAR VOLUME 100 fL (79-100); MONO # 0.5 x10^3/uL (0.0-1.1); MONO % 7 % (0-9); NEUT # 5.6 x10^3uL (1.8-7.7); NEUT % 80 % (31-73); PLATELET COUNT 137 x10^3/uL (140-400); RED BLOOD COUNT 2.06 x10^6/uL (3.50-5.40); RED CELL DISTRIBUTION WIDTH 18.5 % (11.5-14.5)
[2017-10-13 13:24] LABS: BILIRUBIN,URINE NEGATIVE (NEG); CLARITY,URINE CLEAR; COLOR,URINE YELLOW; GLUCOSE,URINE NEGATIVE (NEG); NITRITE,URINE NEGATIVE (NEG); PROTEIN,URINE NEGATIVE (NEG-TRACE); UROBILINOGEN,URINE 0.2 mg/dL (0.2 mg/dL)
[2017-10-13 13:25] LABS: HEMATOCRIT 20.6 % (36.0-47.0); HEMOGLOBIN 6.9 g/dL (12.0-15.5)
[2017-10-13 13:29] LABS: ANION GAP 8 (6-14); BLOOD UREA NITROGEN 61 mg/dL (7-20); BUN/CREATININE RATIO 44 (6-20); CALCIUM 10.1 mg/dL (8.5-10.1); CARBON DIOXIDE 32 mmol/L (21-32); CHLORIDE 100 mmol/L (98-107); CREATININE 1.4 mg/dL (0.6-1.0); GFR 35.4; GLUCOSE 110 mg/dL (70-99); HYALINE CASTS, URINE FEW /HPF; SODIUM 140 mmol/L (136-145); SQUAMOUS EPITHELIAL CELL,UR OCC /LPF
[2017-10-13 13:30] LABS: BACTERIA,URINE 0 /HPF (0-FEW); RBC,URINE OCC /HPF (0-2)
[2017-10-13 13:34] LABS: INR 1.1 (0.8-1.1); PARTIAL THROMBOPLASTIN TIME 36 SEC (24-38); PROTHROMBIN TIME PATIENT 13.8 SEC (11.7-14.0)
[2017-10-13 13:35] LABS: ALBUMIN 3.1 g/dL (3.4-5.0); ALBUMIN/GLOBULIN RATIO 0.8 (1.0-1.7); ALK PHOS 80 U/L (46-116); ALT (SGPT) 19 U/L (14-59); AST (SGOT) 22 U/L (15-37); TOTAL BILIRUBIN 0.3 mg/dL (0.2-1.0); TOTAL PROTEIN 6.8 g/dL (6.4-8.2)
[2017-10-13] MEDS: IV NORMAL SALINE 1000ML BAG 1,000 ML IV ×2 (13:35→21:35)
[2017-10-13] MEDS ORDERED: ONDANSETRON PF 4 MG/2 ML VIAL. IV (13:45)
[2017-10-13] MEDS: AMINOCAPROIC ACID 500 MG TABLET. PO ×2 (16:54→21:33)
[2017-10-13] MEDS: PANTOPRAZOLE 40 MG TABLET.DR. PO (17:40)
[2017-10-13] MEDS ORDERED: TOTAL VOLUME IV ×2 (20:00→21:00)
[2017-10-13] MEDS ORDERED: VWF IV ×2 (20:00→21:00)
[2017-10-13] MEDS ORDERED: ANTIHEMOPHILIC FACTOR IV ×2 (20:00→21:00)
[2017-10-13] MEDS: GABAPENTIN 100 MG CAPSULE. PO (21:00)
[2017-10-13] MEDS ORDERED: TRANEXAMIC ACID 1300 MG PO (21:00)
[2017-10-13] MEDS ORDERED: AMINOCAPROIC ACID 500 MG TABLET. PO (21:00)
[2017-10-13] MEDS ORDERED: TRANEXAMIC ACID 650 MG PO (21:00)
[2017-10-13] MEDS: traMADol 50 MG TABLET PO (21:32)
[2017-10-13] MEDS: ANTIHEMOPHILIC FACTOR IV (21:45)
[2017-10-13] MEDS: TOTAL VOLUME IV (21:45)
[2017-10-13] MEDS: VWF IV (21:45)
[2017-10-13] MEDS: TRANEXAMIC ACID INJ (22:24)
[2017-10-13] MEDS: NORMAL SALINE INJ (22:24)
[2017-10-13 22:57] LABS: HEMATOCRIT 23.6 % (36.0-47.0)
[2017-10-13 22:57] LABS: HEMOGLOBIN 8.1 g/dL (12.0-15.5)
[2017-10-14 05:01] LABS: ADD MAN DIFF? NO
[2017-10-14 05:07] LABS: BASO % 1 % (0-3); EOS # 0.1 x10^3/uL (0.0-0.7); EOS % 2 % (0-3); HEMATOCRIT 22.2 % (36.0-47.0); HEMOGLOBIN 7.5 g/dL (12.0-15.5); LYMPH # 0.8 x10^3/uL (1.0-4.8); LYMPH % 20 % (24-48); MEAN CORPUSCULAR HEMOGLOBIN 31 pg (25-35); MEAN CORPUSCULAR HGB CONC 34 g/dL (31-37); MONO # 0.4 x10^3/uL (0.0-1.1); MONO % 10 % (0-9); NEUT # 2.8 x10^3uL (1.8-7.7); NEUT % 67 % (31-73); PLATELET COUNT 88 x10^3/uL (140-400); RED BLOOD COUNT 2.41 x10^6/uL (3.50-5.40); RED CELL DISTRIBUTION WIDTH 20.6 % (11.5-14.5); WHITE BLOOD COUNT 4.2 x10^3/uL (4.0-11.0)
[2017-10-14 05:18] LABS: MEAN CORPUSCULAR VOLUME 92 fL (79-100)
[2017-10-14 05:34] LABS: ANION GAP 8 (6-14); BLOOD UREA NITROGEN 61 mg/dL (7-20); CALCIUM 9.7 mg/dL (8.5-10.1); CARBON DIOXIDE 32 mmol/L (21-32); CHLORIDE 104 mmol/L (98-107); CREATININE 1.4 mg/dL (0.6-1.0); GFR 35.4; GLUCOSE 98 mg/dL (70-99); SODIUM 144 mmol/L (136-145)
[2017-10-14] MEDS: IV NORMAL SALINE 1000ML BAG 1,000 ML IV ×2 (05:35→08:52)
[2017-10-14] MEDS: LEVOTHYROXINE 100 MCG TABLET PO (06:19)
[2017-10-14] MEDS: IPRATRPIUM/ALBUTEROL 0.5/2.5MG 3 ML NEBU. NEB ×4 (08:00→20:35)
[2017-10-14] MEDS: TRANEXAMIC ACID INJ ×2 (08:56→21:12)
[2017-10-14] MEDS: NORMAL SALINE INJ ×2 (08:56→21:12)
[2017-10-14] MEDS: PANTOPRAZOLE 40 MG TABLET.DR. PO (08:57)
[2017-10-14] MEDS: POTASSIUM CHLORIDE 20 MEQ TABLET.ER. PO (08:58)
[2017-10-14] MEDS: FUROSEMIDE 40 MG TABLET. PO (08:58)
[2017-10-14] MEDS: AMINOCAPROIC ACID 500 MG TABLET. PO ×2 (08:58→21:09)
[2017-10-14] MEDS: CETIRIZINE HCL 10 MG TABLET. PO (08:59)
[2017-10-14] MEDS: ALLOPURINOL 300 MG TABLET. PO (08:59)
[2017-10-14] MEDS: MAGNESIUM OXIDE 400 MG TABLET PO (08:59)
[2017-10-14] MEDS: CALCITRIOL 0.25 MCG CAPSULE. PO (08:59)
[2017-10-14] MEDS: CYANOCOBALAMIN (VITAMIN B-12) 1,000 MCG TABLET. PO (08:59)
[2017-10-14] MEDS ORDERED: SELENOMETHIONINE 200 MCG PO (09:00)
[2017-10-14] MEDS ORDERED: RESVERATROL 250 MG PO (09:00)
[2017-10-14] MEDS ORDERED: NON FORMULARY ITEM (Cholecalciferol (Vitamin D3) (Vitamin D) 1 CAP) PO (09:00)
[2017-10-14] MEDS ORDERED: NON FORMULARY ITEM (Omeprazole 40 MG) PO (09:00)
[2017-10-14] MEDS: TOTAL VOLUME IV ×4 (09:00→21:00)
[2017-10-14] MEDS ORDERED: NON FORMULARY ITEM (Coconut Oil 1,000 MG) PO (09:00)
[2017-10-14] MEDS: ANTIHEMOPHILIC FACTOR IV ×4 (09:00→21:00)
[2017-10-14] MEDS ORDERED: [UNRECOGNIZED DRUG - OTHER] PO (09:00)
[2017-10-14] MEDS: VWF IV ×4 (09:00→21:00)
[2017-10-14] MEDS: CHOLECALCIFEROL (VITAMIN D3) 1,000 UNIT TABLET PO (09:01)
[2017-10-14] MEDS: GABAPENTIN 100 MG CAPSULE. PO (09:02)
[2017-10-14] MEDS: traMADol 50 MG TABLET PO ×2 (09:04→16:20)
[2017-10-14 10:06] LABS: % SAT IRON 57 % (15-34); IRON,SERUM 128 ug/dL (50-170)
[2017-10-14 10:12] LABS: RETIC COUNT 1.4 % (0.5-2.5)
[2017-10-14 10:21] LABS: FERRITIN 296 ng/mL (8-252)
[2017-10-14 10:43] LABS: VITAMIN-B12 1570 pg/mL (247-911)
[2017-10-14 10:44] LABS: FOLATE 7.49 ng/ml (3.2-20.0)
[2017-10-14 12:03] LABS: NEG OBC FOB NEG; POS OBC FOB POS
[2017-10-14 12:05] LABS: FECAL OB PT POSITIVE (NEG)
[2017-10-14 14:01] LABS: ADD MAN DIFF? NO
[2017-10-14 14:13] LABS: BASO % 1 % (0-3); EOS % 1 % (0-3); HEMATOCRIT 24.6 % (36.0-47.0); HEMOGLOBIN 8.3 g/dL (12.0-15.5); LYMPH # 0.8 x10^3/uL (1.0-4.8); LYMPH % 17 % (24-48); MEAN CORPUSCULAR HEMOGLOBIN 31 pg (25-35); MEAN CORPUSCULAR HGB CONC 34 g/dL (31-37); MEAN CORPUSCULAR VOLUME 92 fL (79-100); MONO # 0.4 x10^3/uL (0.0-1.1); MONO % 9 % (0-9); NEUT # 3.3 x10^3uL (1.8-7.7); NEUT % 72 % (31-73); PLATELET COUNT 86 x10^3/uL (140-400); RED BLOOD COUNT 2.69 x10^6/uL (3.50-5.40); RED CELL DISTRIBUTION WIDTH 18.6 % (11.5-14.5); WHITE BLOOD COUNT 4.5 x10^3/uL (4.0-11.0)
[2017-10-15 05:32] LABS: ADD MAN DIFF? NO
[2017-10-15 05:40] LABS: BASO % 1 % (0-3); EOS # 0.1 x10^3/uL (0.0-0.7); EOS % 3 % (0-3); HEMOGLOBIN 7.1 g/dL (12.0-15.5); LYMPH # 0.7 x10^3/uL (1.0-4.8); LYMPH % 18 % (24-48); MEAN CORPUSCULAR HEMOGLOBIN 31 pg (25-35); MEAN CORPUSCULAR HGB CONC 34 g/dL (31-37); MEAN CORPUSCULAR VOLUME 92 fL (79-100); MONO # 0.4 x10^3/uL (0.0-1.1); MONO % 10 % (0-9); NEUT # 2.8 x10^3uL (1.8-7.7); NEUT % 69 % (31-73); PLATELET COUNT 83 x10^3/uL (140-400); RED BLOOD COUNT 2.27 x10^6/uL (3.50-5.40); RED CELL DISTRIBUTION WIDTH 18.8 % (11.5-14.5); WHITE BLOOD COUNT 4.1 x10^3/uL (4.0-11.0)
[2017-10-15 05:48] LABS: HEMATOCRIT 20.9 % (36.0-47.0)
[2017-10-15] MEDS: IV NORMAL SALINE 1000ML BAG 1,000 ML IV (05:58)
[2017-10-15] MEDS: LEVOTHYROXINE 100 MCG TABLET PO (05:59)
[2017-10-15 06:24] LABS: ALBUMIN 2.5 g/dL (3.4-5.0); ALBUMIN/GLOBULIN RATIO 0.9 (1.0-1.7); ALK PHOS 60 U/L (46-116); ALT (SGPT) 13 U/L (14-59); ANION GAP 5 (6-14); AST (SGOT) 19 U/L (15-37); BLOOD UREA NITROGEN 59 mg/dL (7-20); BUN/CREATININE RATIO 42 (6-20); CALCIUM 9.4 mg/dL (8.5-10.1); CARBON DIOXIDE 32 mmol/L (21-32); CHLORIDE 104 mmol/L (98-107); CREATININE 1.4 mg/dL (0.6-1.0); GFR 35.4; GLUCOSE 108 mg/dL (70-99); POTASSIUM 4.2 mmol/L (3.5-5.1); SODIUM 141 mmol/L (136-145); TOTAL BILIRUBIN 0.4 mg/dL (0.2-1.0); TOTAL PROTEIN 5.4 g/dL (6.4-8.2)
[2017-10-15] MEDS: IPRATRPIUM/ALBUTEROL 0.5/2.5MG 3 ML NEBU. NEB ×4 (07:48→20:34)
[2017-10-15] MEDS: VWF IV ×3 (08:25→21:20)
[2017-10-15] MEDS: ANTIHEMOPHILIC FACTOR IV ×3 (08:25→21:20)
[2017-10-15] MEDS: TOTAL VOLUME IV ×3 (08:25→21:20)
[2017-10-15] MEDS ORDERED: BENZOCAINE/MENTHOL LOZENGE. PO (08:30)
[2017-10-15] MEDS: ALLOPURINOL 300 MG TABLET. PO (08:37)
[2017-10-15] MEDS: CYANOCOBALAMIN (VITAMIN B-12) 1,000 MCG TABLET. PO (08:37)
[2017-10-15] MEDS: TRANEXAMIC ACID INJ ×2 (08:37→21:19)
[2017-10-15] MEDS: NORMAL SALINE INJ ×2 (08:37→21:19)
[2017-10-15] MEDS: MAGNESIUM OXIDE 400 MG TABLET PO (08:37)
[2017-10-15] MEDS: CALCITRIOL 0.25 MCG CAPSULE. PO (08:37)
[2017-10-15] MEDS: GABAPENTIN 100 MG CAPSULE. PO (08:37)
[2017-10-15] MEDS: POTASSIUM CHLORIDE 20 MEQ TABLET.ER. PO (08:38)
[2017-10-15] MEDS: AMINOCAPROIC ACID 500 MG TABLET. PO ×2 (08:38→21:18)
[2017-10-15] MEDS: CETIRIZINE HCL 10 MG TABLET. PO (08:38)
[2017-10-15] MEDS: FUROSEMIDE 40 MG TABLET. PO (08:38)
[2017-10-15] MEDS: PANTOPRAZOLE 40 MG TABLET.DR. PO (08:38)
[2017-10-15] MEDS: CHOLECALCIFEROL (VITAMIN D3) 1,000 UNIT TABLET PO (08:38)
[2017-10-15 11:23] LABS: CROSSMATCH AHG 1 5
[2017-10-15] MEDS: BENZOCAINE/MENTHOL LOZENGE. MM ×2 (12:18→15:21)
[2017-10-15] MEDS: SODIUM CHLORIDE 0.65% NASAL SPRAY 45ML BOTTLE. NS ×2 (12:18→22:07)
[2017-10-15] MEDS: PHENOL ORAL SPRAY 177ML BOTTLE. PO ×2 (12:18→22:07)
[2017-10-15 16:15] LABS: HEMATOCRIT 24.6 % (36.0-47.0); HEMOGLOBIN 8.2 g/dL (12.0-15.5); MEAN CORPUSCULAR HGB CONC 33 g/dL (31-37)
[2017-10-15] MEDS: FUROSEMIDE 40 MG/4 ML VIAL. IVP (16:19)
[2017-10-15] MEDS: LACTOBACILLUS RHAMNOSUS GG 1 CAPSULE. PO (21:18)
[2017-10-15] MEDS: traMADol 50 MG TABLET PO (22:07)
[2017-10-16] MEDS: IV NORMAL SALINE 1000ML BAG 1,000 ML IV ×2 (05:24→20:45)
[2017-10-16] MEDS: LEVOTHYROXINE 100 MCG TABLET PO (05:25)
[2017-10-16 05:50] LABS: ADD MAN DIFF? NO
[2017-10-16 06:15] LABS: BASO % 1 % (0-3); EOS # 0.2 x10^3/uL (0.0-0.7); EOS % 3 % (0-3); HEMOGLOBIN 7.2 g/dL (12.0-15.5); LYMPH # 0.8 x10^3/uL (1.0-4.8); LYMPH % 16 % (24-48); MEAN CORPUSCULAR HEMOGLOBIN 32 pg (25-35); MEAN CORPUSCULAR HGB CONC 34 g/dL (31-37); MEAN CORPUSCULAR VOLUME 92 fL (79-100); MONO # 0.4 x10^3/uL (0.0-1.1); MONO % 8 % (0-9); NEUT # 3.9 x10^3uL (1.8-7.7); NEUT % 73 % (31-73); PLATELET COUNT 90 x10^3/uL (140-400); RED BLOOD COUNT 2.29 x10^6/uL (3.50-5.40); RED CELL DISTRIBUTION WIDTH 16.8 % (11.5-14.5); WHITE BLOOD COUNT 5.3 x10^3/uL (4.0-11.0)
[2017-10-16 06:24] LABS: ANION GAP 8 (6-14); BLOOD UREA NITROGEN 57 mg/dL (7-20); CALCIUM 9.1 mg/dL (8.5-10.1); CARBON DIOXIDE 30 mmol/L (21-32); CHLORIDE 106 mmol/L (98-107); CREATININE 1.3 mg/dL (0.6-1.0); GFR 38.6; GLUCOSE 99 mg/dL (70-99); POTASSIUM 3.8 mmol/L (3.5-5.1); SODIUM 144 mmol/L (136-145)
[2017-10-16 07:22] LABS: HEMATOCRIT 20.9 % (36.0-47.0)
[2017-10-16] MEDS: IPRATRPIUM/ALBUTEROL 0.5/2.5MG 3 ML NEBU. NEB ×4 (08:13→20:15)
[2017-10-16] MEDS ORDERED: VWF IV (08:23)
[2017-10-16] MEDS ORDERED: TOTAL VOLUME IV (08:23)
[2017-10-16] MEDS ORDERED: ANTIHEMOPHILIC FACTOR IV (08:23)
[2017-10-16] MEDS: CETIRIZINE HCL 10 MG TABLET. PO (09:12)
[2017-10-16] MEDS: POTASSIUM CHLORIDE 20 MEQ TABLET.ER. PO (09:12)
[2017-10-16] MEDS: CALCITRIOL 0.25 MCG CAPSULE. PO (09:12)
[2017-10-16] MEDS: ALLOPURINOL 300 MG TABLET. PO (09:12)
[2017-10-16] MEDS: GABAPENTIN 100 MG CAPSULE. PO (09:12)
[2017-10-16] MEDS: FUROSEMIDE 40 MG TABLET. PO (09:12)
[2017-10-16] MEDS: AMINOCAPROIC ACID 500 MG TABLET. PO ×2 (09:12→20:57)
[2017-10-16] MEDS: PANTOPRAZOLE 40 MG TABLET.DR. PO (09:12)
[2017-10-16] MEDS: LACTOBACILLUS RHAMNOSUS GG 1 CAPSULE. PO ×2 (09:13→20:57)
[2017-10-16] MEDS: CYANOCOBALAMIN (VITAMIN B-12) 1,000 MCG TABLET. PO (09:13)
[2017-10-16] MEDS: TOTAL VOLUME IV ×3 (09:14→20:58)
[2017-10-16] MEDS: ANTIHEMOPHILIC FACTOR IV ×3 (09:14→20:58)
[2017-10-16] MEDS: VWF IV ×3 (09:14→20:58)
[2017-10-16] MEDS: MAGNESIUM OXIDE 400 MG TABLET PO (09:17)
[2017-10-16] MEDS: CHOLECALCIFEROL (VITAMIN D3) 1,000 UNIT TABLET PO (09:17)
[2017-10-16] MEDS: TRANEXAMIC ACID INJ ×2 (10:05→20:58)
[2017-10-16] MEDS: NORMAL SALINE INJ ×2 (10:05→20:58)
[2017-10-16] MEDS: traMADol 50 MG TABLET PO ×2 (10:12→20:57)
[2017-10-16] MEDS: SODIUM CHLORIDE 0.65% NASAL SPRAY 45ML BOTTLE. NS (20:57)
[2017-10-16] MEDS: PHENOL ORAL SPRAY 177ML BOTTLE. PO (20:57)
[2017-10-17] MEDS: LEVOTHYROXINE 100 MCG TABLET PO (05:29)
[2017-10-17] MEDS: IV NORMAL SALINE 1000ML BAG 1,000 ML IV (05:30)
[2017-10-17 06:22] LABS: ADD MAN DIFF? NO
[2017-10-17 06:28] LABS: BASO % 1 % (0-3); EOS # 0.2 x10^3/uL (0.0-0.7); EOS % 4 % (0-3); LYMPH # 0.8 x10^3/uL (1.0-4.8); LYMPH % 16 % (24-48); MEAN CORPUSCULAR HEMOGLOBIN 31 pg (25-35); MEAN CORPUSCULAR HGB CONC 33 g/dL (31-37); MEAN CORPUSCULAR VOLUME 94 fL (79-100); MONO # 0.4 x10^3/uL (0.0-1.1); MONO % 9 % (0-9); NEUT # 3.5 x10^3uL (1.8-7.7); NEUT % 71 % (31-73); PLATELET COUNT 88 x10^3/uL (140-400); RED BLOOD COUNT 2.57 x10^6/uL (3.50-5.40); RED CELL DISTRIBUTION WIDTH 16.9 % (11.5-14.5); WHITE BLOOD COUNT 4.9 x10^3/uL (4.0-11.0)
[2017-10-17 06:44] LABS: ANION GAP 4 (6-14); BLOOD UREA NITROGEN 50 mg/dL (7-20); CALCIUM 9.6 mg/dL (8.5-10.1); CARBON DIOXIDE 30 mmol/L (21-32); CHLORIDE 106 mmol/L (98-107); CREATININE 1.1 mg/dL (0.6-1.0); GFR 46.8; GLUCOSE 93 mg/dL (70-99); POTASSIUM 3.8 mmol/L (3.5-5.1); SODIUM 140 mmol/L (136-145)
[2017-10-17] MEDS: IPRATRPIUM/ALBUTEROL 0.5/2.5MG 3 ML NEBU. NEB ×4 (07:03→20:11)
[2017-10-17] MEDS: VWF IV ×3 (08:12→22:27)
[2017-10-17] MEDS: ANTIHEMOPHILIC FACTOR IV ×3 (08:12→22:27)
[2017-10-17] MEDS: CYANOCOBALAMIN (VITAMIN B-12) 1,000 MCG TABLET. PO (08:12)
[2017-10-17] MEDS: CALCITRIOL 0.25 MCG CAPSULE. PO (08:12)
[2017-10-17] MEDS: TOTAL VOLUME IV ×3 (08:12→22:27)
[2017-10-17] MEDS: LACTOBACILLUS RHAMNOSUS GG 1 CAPSULE. PO ×2 (08:13→22:28)
[2017-10-17] MEDS: MAGNESIUM OXIDE 400 MG TABLET PO (08:13)
[2017-10-17] MEDS: POTASSIUM CHLORIDE 20 MEQ TABLET.ER. PO (08:13)
[2017-10-17] MEDS: FUROSEMIDE 40 MG TABLET. PO (08:13)
[2017-10-17] MEDS: GABAPENTIN 100 MG CAPSULE. PO (08:14)
[2017-10-17] MEDS: ALLOPURINOL 300 MG TABLET. PO (08:14)
[2017-10-17] MEDS: PANTOPRAZOLE 40 MG TABLET.DR. PO (08:14)
[2017-10-17] MEDS: CETIRIZINE HCL 10 MG TABLET. PO (08:14)
[2017-10-17] MEDS: AMINOCAPROIC ACID 500 MG TABLET. PO ×2 (08:15→22:27)
[2017-10-17] MEDS: PHENOL ORAL SPRAY 177ML BOTTLE. PO ×2 (08:15→13:14)
[2017-10-17] MEDS: SODIUM CHLORIDE 0.65% NASAL SPRAY 45ML BOTTLE. NS ×2 (08:15→13:13)
[2017-10-17] MEDS: CHOLECALCIFEROL (VITAMIN D3) 1,000 UNIT TABLET PO (08:28)
[2017-10-17] MEDS: NORMAL SALINE INJ ×2 (09:53→21:15)
[2017-10-17] MEDS: TRANEXAMIC ACID INJ ×2 (09:53→21:15)
[2017-10-17] MEDS: traMADol 50 MG TABLET PO ×2 (13:13→22:28)
[2017-10-17 14:20] LABS: ADD MAN DIFF? NO
[2017-10-17 14:26] LABS: BASO # 0.1 x10^3/uL (0.0-0.2); BASO % 1 % (0-3); EOS # 0.2 x10^3/uL (0.0-0.7); EOS % 3 % (0-3); HEMATOCRIT 26.6 % (36.0-47.0); HEMOGLOBIN 8.9 g/dL (12.0-15.5); LYMPH # 0.6 x10^3/uL (1.0-4.8); LYMPH % 10 % (24-48); MEAN CORPUSCULAR HEMOGLOBIN 32 pg (25-35); MEAN CORPUSCULAR HGB CONC 34 g/dL (31-37); MEAN CORPUSCULAR VOLUME 94 fL (79-100); MONO # 0.4 x10^3/uL (0.0-1.1); MONO % 6 % (0-9); NEUT # 5.2 x10^3uL (1.8-7.7); NEUT % 81 % (31-73); PLATELET COUNT 105 x10^3/uL (140-400); RED BLOOD COUNT 2.82 x10^6/uL (3.50-5.40); RED CELL DISTRIBUTION WIDTH 16.3 % (11.5-14.5); WHITE BLOOD COUNT 6.5 x10^3/uL (4.0-11.0)
[2017-10-17] MEDS: ACETAMINOPHEN 500 MG TABLET PO (22:27)
[2017-10-18] MEDS: BENZOCAINE/MENTHOL LOZENGE. MM (02:34)
[2017-10-18] MEDS: IV NORMAL SALINE 1000ML BAG 1,000 ML IV (02:34)
[2017-10-18 05:17] LABS: ADD MAN DIFF? NO
[2017-10-18 05:23] LABS: BASO % 1 % (0-3); EOS # 0.2 x10^3/uL (0.0-0.7); EOS % 4 % (0-3); HEMATOCRIT 22.8 % (36.0-47.0); HEMOGLOBIN 7.6 g/dL (12.0-15.5); LYMPH # 0.7 x10^3/uL (1.0-4.8); LYMPH % 16 % (24-48); MEAN CORPUSCULAR HEMOGLOBIN 32 pg (25-35); MEAN CORPUSCULAR HGB CONC 34 g/dL (31-37); MEAN CORPUSCULAR VOLUME 95 fL (79-100); MONO # 0.4 x10^3/uL (0.0-1.1); MONO % 10 % (0-9); NEUT % 70 % (31-73); PLATELET COUNT 85 x10^3/uL (140-400); RED CELL DISTRIBUTION WIDTH 16.1 % (11.5-14.5); WHITE BLOOD COUNT 4.2 x10^3/uL (4.0-11.0)
[2017-10-18] MEDS: LEVOTHYROXINE 100 MCG TABLET PO (05:55)
[2017-10-18] MEDS: IPRATRPIUM/ALBUTEROL 0.5/2.5MG 3 ML NEBU. NEB ×4 (07:14→19:41)
[2017-10-18] MEDS: AMINOCAPROIC ACID 500 MG TABLET. PO ×2 (08:24→21:36)
[2017-10-18] MEDS: GABAPENTIN 100 MG CAPSULE. PO (08:25)
[2017-10-18] MEDS: PANTOPRAZOLE 40 MG TABLET.DR. PO (08:25)
[2017-10-18] MEDS: CALCITRIOL 0.25 MCG CAPSULE. PO (08:25)
[2017-10-18] MEDS: CYANOCOBALAMIN (VITAMIN B-12) 1,000 MCG TABLET. PO (08:25)
[2017-10-18] MEDS: POTASSIUM CHLORIDE 20 MEQ TABLET.ER. PO (08:25)
[2017-10-18] MEDS: FUROSEMIDE 40 MG TABLET. PO (08:25)
[2017-10-18] MEDS: CHOLECALCIFEROL (VITAMIN D3) 1,000 UNIT TABLET PO (08:25)
[2017-10-18] MEDS: LACTOBACILLUS RHAMNOSUS GG 1 CAPSULE. PO ×2 (08:26→21:36)
[2017-10-18] MEDS: ALLOPURINOL 300 MG TABLET. PO (08:26)
[2017-10-18] MEDS: CETIRIZINE HCL 10 MG TABLET. PO (08:26)
[2017-10-18] MEDS: MAGNESIUM OXIDE 400 MG TABLET PO (08:26)
[2017-10-18] MEDS: VWF IV ×3 (09:32→23:43)
[2017-10-18] MEDS: ANTIHEMOPHILIC FACTOR IV ×3 (09:32→23:43)
[2017-10-18] MEDS: TOTAL VOLUME IV ×3 (09:32→23:43)
[2017-10-18] MEDS: SODIUM CHLORIDE 0.65% NASAL SPRAY 45ML BOTTLE. NS (09:33)
[2017-10-18] MEDS: LIDO:MAALOX:BENADRYL 1:1:1 180 ML BOTTLE. PO ×2 (09:36→14:43)
[2017-10-18] MEDS: PHENOL ORAL SPRAY 177ML BOTTLE. PO (09:36)
[2017-10-18] MEDS: NORMAL SALINE INJ (09:51)
[2017-10-18] MEDS: TRANEXAMIC ACID INJ (09:51)
[2017-10-18] MEDS: traMADol 50 MG TABLET PO ×2 (14:48→23:20)
[2017-10-18 20:28] LABS: CROSSMATCH AHG 1 2
[2017-10-19] MEDS: TRANEXAMIC ACID INJ ×3 (00:08→20:58)
[2017-10-19] MEDS: NORMAL SALINE INJ ×3 (00:08→20:58)
[2017-10-19] MEDS: LIDO:MAALOX:BENADRYL 1:1:1 180 ML BOTTLE. PO ×3 (00:18→21:00)
[2017-10-19 05:07] LABS: ADD MAN DIFF? NO
[2017-10-19 05:11] LABS: BASO % 1 % (0-3); EOS # 0.1 x10^3/uL (0.0-0.7); EOS % 2 % (0-3); HEMATOCRIT 30.5 % (36.0-47.0); HEMOGLOBIN 10.2 g/dL (12.0-15.5); LYMPH # 0.4 x10^3/uL (1.0-4.8); LYMPH % 8 % (24-48); MEAN CORPUSCULAR HEMOGLOBIN 31 pg (25-35); MEAN CORPUSCULAR HGB CONC 33 g/dL (31-37); MEAN CORPUSCULAR VOLUME 93 fL (79-100); MONO # 0.4 x10^3/uL (0.0-1.1); MONO % 8 % (0-9); NEUT # 3.8 x10^3uL (1.8-7.7); NEUT % 81 % (31-73); PLATELET COUNT 88 x10^3/uL (140-400); RED BLOOD COUNT 3.28 x10^6/uL (3.50-5.40); RED CELL DISTRIBUTION WIDTH 16.8 % (11.5-14.5); WHITE BLOOD COUNT 4.7 x10^3/uL (4.0-11.0)
[2017-10-19] MEDS: LEVOTHYROXINE 100 MCG TABLET PO (05:57)
[2017-10-19] MEDS: IPRATRPIUM/ALBUTEROL 0.5/2.5MG 3 ML NEBU. NEB ×4 (07:49→19:25)
[2017-10-19] MEDS: GABAPENTIN 100 MG CAPSULE. PO (09:22)
[2017-10-19] MEDS: CYANOCOBALAMIN (VITAMIN B-12) 1,000 MCG TABLET. PO (09:22)
[2017-10-19] MEDS: PANTOPRAZOLE 40 MG TABLET.DR. PO (09:23)
[2017-10-19] MEDS: CETIRIZINE HCL 10 MG TABLET. PO (09:23)
[2017-10-19] MEDS: CHOLECALCIFEROL (VITAMIN D3) 1,000 UNIT TABLET PO (09:23)
[2017-10-19] MEDS: ALLOPURINOL 300 MG TABLET. PO (09:23)
[2017-10-19] MEDS: FUROSEMIDE 40 MG TABLET. PO (09:23)
[2017-10-19] MEDS: AMINOCAPROIC ACID 500 MG TABLET. PO ×2 (09:23→20:58)
[2017-10-19] MEDS: MAGNESIUM OXIDE 400 MG TABLET PO (09:23)
[2017-10-19] MEDS: CALCITRIOL 0.25 MCG CAPSULE. PO (09:23)
[2017-10-19] MEDS: POTASSIUM CHLORIDE 20 MEQ TABLET.ER. PO (09:23)
[2017-10-19] MEDS: LACTOBACILLUS RHAMNOSUS GG 1 CAPSULE. PO ×2 (09:23→20:58)
[2017-10-19] MEDS: VWF IV ×3 (09:24→21:41)
[2017-10-19] MEDS: TOTAL VOLUME IV ×3 (09:24→21:41)
[2017-10-19] MEDS: ANTIHEMOPHILIC FACTOR IV ×3 (09:24→21:41)
[2017-10-19] MEDS: traMADol 50 MG TABLET PO (10:37)
[2017-10-19] MEDS: IV NORMAL SALINE 1000ML BAG 1,000 ML IV (10:37)
[2017-10-20] MEDS: IV NORMAL SALINE 1000ML BAG 1,000 ML IV ×2 (04:45→09:00)
[2017-10-20 05:54] LABS: ADD MAN DIFF? NO
[2017-10-20 06:11] LABS: BASO % 1 % (0-3); EOS # 0.1 x10^3/uL (0.0-0.7); EOS % 3 % (0-3); HEMATOCRIT 31.9 % (36.0-47.0); HEMOGLOBIN 10.5 g/dL (12.0-15.5); LYMPH # 0.5 x10^3/uL (1.0-4.8); LYMPH % 12 % (24-48); MEAN CORPUSCULAR HEMOGLOBIN 31 pg (25-35); MEAN CORPUSCULAR HGB CONC 33 g/dL (31-37); MEAN CORPUSCULAR VOLUME 93 fL (79-100); MONO # 0.4 x10^3/uL (0.0-1.1); MONO % 9 % (0-9); NEUT # 3.1 x10^3uL (1.8-7.7); NEUT % 74 % (31-73); PLATELET COUNT 87 x10^3/uL (140-400); RED BLOOD COUNT 3.43 x10^6/uL (3.50-5.40); RED CELL DISTRIBUTION WIDTH 17.7 % (11.5-14.5); WHITE BLOOD COUNT 4.2 x10^3/uL (4.0-11.0)
[2017-10-20] MEDS: LEVOTHYROXINE 100 MCG TABLET PO (06:43)
[2017-10-20] MEDS: TOTAL VOLUME IV ×3 (08:05→20:30)
[2017-10-20] MEDS: ANTIHEMOPHILIC FACTOR IV ×3 (08:05→20:30)
[2017-10-20] MEDS: VWF IV ×3 (08:05→20:30)
[2017-10-20] MEDS: LACTOBACILLUS RHAMNOSUS GG 1 CAPSULE. PO ×2 (08:06→20:28)
[2017-10-20] MEDS: GABAPENTIN 100 MG CAPSULE. PO (08:06)
[2017-10-20] MEDS: CYANOCOBALAMIN (VITAMIN B-12) 1,000 MCG TABLET. PO (08:06)
[2017-10-20] MEDS: MAGNESIUM OXIDE 400 MG TABLET PO (08:06)
[2017-10-20] MEDS: PANTOPRAZOLE 40 MG TABLET.DR. PO (08:07)
[2017-10-20] MEDS: POTASSIUM CHLORIDE 20 MEQ TABLET.ER. PO (08:07)
[2017-10-20] MEDS: CALCITRIOL 0.25 MCG CAPSULE. PO (08:07)
[2017-10-20] MEDS: CETIRIZINE HCL 10 MG TABLET. PO (08:07)
[2017-10-20] MEDS: FUROSEMIDE 40 MG TABLET. PO (08:07)
[2017-10-20] MEDS: CHOLECALCIFEROL (VITAMIN D3) 1,000 UNIT TABLET PO (08:07)
[2017-10-20] MEDS: ALLOPURINOL 300 MG TABLET. PO (08:08)
[2017-10-20] MEDS: AMINOCAPROIC ACID 500 MG TABLET. PO (08:13)
[2017-10-20] MEDS: IPRATRPIUM/ALBUTEROL 0.5/2.5MG 3 ML NEBU. NEB ×4 (08:24→20:49)
[2017-10-20] MEDS: TRANEXAMIC ACID INJ ×2 (08:34→20:58)
[2017-10-20] MEDS: NORMAL SALINE INJ ×2 (08:34→20:58)
[2017-10-20] MEDS: LIDO:MAALOX:BENADRYL 1:1:1 180 ML BOTTLE. PO ×2 (11:36→15:25)
[2017-10-20] MEDS: BENZOCAINE/MENTHOL LOZENGE. MM (15:25)
[2017-10-20] MEDS: traMADol 50 MG TABLET PO (15:25)
[2017-10-21] MEDS: LIDO:MAALOX:BENADRYL 1:1:1 180 ML BOTTLE. PO ×3 (01:40→21:13)
[2017-10-21 05:11] LABS: ADD MAN DIFF? NO
[2017-10-21 05:17] LABS: BASO % 1 % (0-3); EOS # 0.1 x10^3/uL (0.0-0.7); EOS % 3 % (0-3); HEMATOCRIT 29.2 % (36.0-47.0); HEMOGLOBIN 9.7 g/dL (12.0-15.5); LYMPH # 0.6 x10^3/uL (1.0-4.8); LYMPH % 14 % (24-48); MEAN CORPUSCULAR HEMOGLOBIN 31 pg (25-35); MEAN CORPUSCULAR HGB CONC 33 g/dL (31-37); MEAN CORPUSCULAR VOLUME 94 fL (79-100); MONO # 0.4 x10^3/uL (0.0-1.1); MONO % 11 % (0-9); NEUT # 2.9 x10^3uL (1.8-7.7); NEUT % 71 % (31-73); PLATELET COUNT 95 x10^3/uL (140-400); RED BLOOD COUNT 3.11 x10^6/uL (3.50-5.40); RED CELL DISTRIBUTION WIDTH 18.6 % (11.5-14.5); WHITE BLOOD COUNT 4.1 x10^3/uL (4.0-11.0)
[2017-10-21] MEDS: LEVOTHYROXINE 100 MCG TABLET PO (06:11)
[2017-10-21] MEDS: IPRATRPIUM/ALBUTEROL 0.5/2.5MG 3 ML NEBU. NEB ×4 (07:25→19:03)
[2017-10-21] MEDS: CETIRIZINE HCL 10 MG TABLET. PO (08:47)
[2017-10-21] MEDS: MAGNESIUM OXIDE 400 MG TABLET PO (08:47)
[2017-10-21] MEDS: PANTOPRAZOLE 40 MG TABLET.DR. PO (08:47)
[2017-10-21] MEDS: CYANOCOBALAMIN (VITAMIN B-12) 1,000 MCG TABLET. PO (08:47)
[2017-10-21] MEDS: traMADol 50 MG TABLET PO ×2 (08:48→23:47)
[2017-10-21] MEDS: ALLOPURINOL 300 MG TABLET. PO (08:48)
[2017-10-21] MEDS: FUROSEMIDE 40 MG TABLET. PO (08:48)
[2017-10-21] MEDS: POTASSIUM CHLORIDE 20 MEQ TABLET.ER. PO (08:48)
[2017-10-21] MEDS: LACTOBACILLUS RHAMNOSUS GG 1 CAPSULE. PO ×2 (08:48→20:49)
[2017-10-21] MEDS: CHOLECALCIFEROL (VITAMIN D3) 1,000 UNIT TABLET PO (08:48)
[2017-10-21] MEDS: CALCITRIOL 0.25 MCG CAPSULE. PO (08:48)
[2017-10-21] MEDS: GABAPENTIN 100 MG CAPSULE. PO (08:49)
[2017-10-21] MEDS: FLUCONAZOLE 100 MG TABLET. PO (08:52)
[2017-10-21] MEDS: CLOTRIMAZOLE 1% TOPICAL CREAM 15GM TUBE. TP ×2 (08:52→20:49)
[2017-10-21] MEDS: NORMAL SALINE INJ ×2 (09:00→20:50)
[2017-10-21] MEDS: TRANEXAMIC ACID INJ ×2 (09:00→20:50)
[2017-10-21] MEDS: ANTIHEMOPHILIC FACTOR IV ×3 (10:32→20:50)
[2017-10-21] MEDS: VWF IV ×3 (10:32→20:50)
[2017-10-21] MEDS: TOTAL VOLUME IV ×3 (10:32→20:50)
[2017-10-21] MEDS: AMINOCAPROIC ACID 500 MG TABLET. PO ×2 (11:31→20:49)
[2017-10-21] MEDS: BENZOCAINE/MENTHOL LOZENGE. MM (15:06)
[2017-10-21] MEDS: IV NORMAL SALINE 1000ML BAG 1,000 ML IV (20:45)
[2017-10-22 06:05] LABS: ADD MAN DIFF? NO
[2017-10-22 06:09] LABS: BASO % 1 % (0-3); EOS # 0.2 x10^3/uL (0.0-0.7); EOS % 6 % (0-3); HEMOGLOBIN 10.2 g/dL (12.0-15.5); LYMPH # 0.5 x10^3/uL (1.0-4.8); LYMPH % 14 % (24-48); MEAN CORPUSCULAR HEMOGLOBIN 31 pg (25-35); MEAN CORPUSCULAR HGB CONC 33 g/dL (31-37); MEAN CORPUSCULAR VOLUME 93 fL (79-100); MONO # 0.4 x10^3/uL (0.0-1.1); MONO % 11 % (0-9); NEUT # 2.6 x10^3uL (1.8-7.7); NEUT % 68 % (31-73); PLATELET COUNT 98 x10^3/uL (140-400); RED BLOOD COUNT 3.32 x10^6/uL (3.50-5.40); RED CELL DISTRIBUTION WIDTH 18.3 % (11.5-14.5); WHITE BLOOD COUNT 3.8 x10^3/uL (4.0-11.0)
[2017-10-22] MEDS: LEVOTHYROXINE 100 MCG TABLET PO (06:23)
[2017-10-22 06:40] LABS: ANION GAP 2 (6-14); BLOOD UREA NITROGEN 24 mg/dL (7-20); CALCIUM 9.8 mg/dL (8.5-10.1); CARBON DIOXIDE 33 mmol/L (21-32); CHLORIDE 105 mmol/L (98-107); CREATININE 1.1 mg/dL (0.6-1.0); GFR 46.8; GLUCOSE 90 mg/dL (70-99); POTASSIUM 4.1 mmol/L (3.5-5.1); SODIUM 140 mmol/L (136-145)
[2017-10-22] MEDS: IPRATRPIUM/ALBUTEROL 0.5/2.5MG 3 ML NEBU. NEB ×4 (06:51→19:48)
[2017-10-22] MEDS: CALCITRIOL 0.25 MCG CAPSULE. PO (07:57)
[2017-10-22] MEDS: CYANOCOBALAMIN (VITAMIN B-12) 1,000 MCG TABLET. PO (07:58)
[2017-10-22] MEDS: AMINOCAPROIC ACID 500 MG TABLET. PO ×2 (07:58→21:23)
[2017-10-22] MEDS: LACTOBACILLUS RHAMNOSUS GG 1 CAPSULE. PO ×2 (07:58→21:23)
[2017-10-22] MEDS: MAGNESIUM OXIDE 400 MG TABLET PO (07:59)
[2017-10-22] MEDS: FLUCONAZOLE 100 MG TABLET. PO (07:59)
[2017-10-22] MEDS: GABAPENTIN 100 MG CAPSULE. PO (07:59)
[2017-10-22] MEDS: ALLOPURINOL 300 MG TABLET. PO (08:00)
[2017-10-22] MEDS: CHOLECALCIFEROL (VITAMIN D3) 1,000 UNIT TABLET PO (08:00)
[2017-10-22] MEDS: PANTOPRAZOLE 40 MG TABLET.DR. PO (08:00)
[2017-10-22] MEDS: CETIRIZINE HCL 10 MG TABLET. PO (08:00)
[2017-10-22] MEDS: FUROSEMIDE 40 MG TABLET. PO (08:00)
[2017-10-22] MEDS: POTASSIUM CHLORIDE 20 MEQ TABLET.ER. PO (08:00)
[2017-10-22] MEDS: NORMAL SALINE INJ ×2 (08:32→21:40)
[2017-10-22] MEDS: TRANEXAMIC ACID INJ ×2 (08:32→21:40)
[2017-10-22] MEDS: TOTAL VOLUME IV ×2 (10:09→21:14)
[2017-10-22] MEDS: ANTIHEMOPHILIC FACTOR IV ×2 (10:09→21:14)
[2017-10-22] MEDS: LIDO:MAALOX:BENADRYL 1:1:1 180 ML BOTTLE. PO ×3 (10:09→21:21)
[2017-10-22] MEDS: VWF IV ×2 (10:09→21:14)
[2017-10-22] MEDS: CLOTRIMAZOLE 1% TOPICAL CREAM 15GM TUBE. TP ×2 (10:10→21:34)
[2017-10-22] MEDS: IV NORMAL SALINE 1000ML BAG 1,000 ML IV (14:58)
[2017-10-22] MEDS: traMADol 50 MG TABLET PO (21:27)
[2017-10-23] MEDS: LEVOTHYROXINE 100 MCG TABLET PO (06:11)
[2017-10-23] MEDS: IPRATRPIUM/ALBUTEROL 0.5/2.5MG 3 ML NEBU. NEB ×4 (07:11→20:28)
[2017-10-23] MEDS: MAGNESIUM OXIDE 400 MG TABLET PO (08:54)
[2017-10-23] MEDS: AMINOCAPROIC ACID 500 MG TABLET. PO ×2 (08:54→21:00)
[2017-10-23] MEDS: GABAPENTIN 100 MG CAPSULE. PO (08:54)
[2017-10-23] MEDS: POTASSIUM CHLORIDE 20 MEQ TABLET.ER. PO (08:55)
[2017-10-23] MEDS: LACTOBACILLUS RHAMNOSUS GG 1 CAPSULE. PO ×2 (08:55→21:00)
[2017-10-23] MEDS: CYANOCOBALAMIN (VITAMIN B-12) 1,000 MCG TABLET. PO (08:55)
[2017-10-23] MEDS: FUROSEMIDE 40 MG TABLET. PO (08:55)
[2017-10-23] MEDS: PANTOPRAZOLE 40 MG TABLET.DR. PO (08:55)
[2017-10-23] MEDS: CHOLECALCIFEROL (VITAMIN D3) 1,000 UNIT TABLET PO (08:55)
[2017-10-23] MEDS: ALLOPURINOL 300 MG TABLET. PO (08:55)
[2017-10-23] MEDS: LIDO:MAALOX:BENADRYL 1:1:1 180 ML BOTTLE. PO ×3 (08:56→21:27)
[2017-10-23] MEDS: CETIRIZINE HCL 10 MG TABLET. PO (08:56)
[2017-10-23] MEDS: FLUCONAZOLE 100 MG TABLET. PO (08:56)
[2017-10-23] MEDS: VWF IV ×2 (09:00→23:01)
[2017-10-23] MEDS: CALCITRIOL 0.25 MCG CAPSULE. PO (09:00)
[2017-10-23] MEDS: ANTIHEMOPHILIC FACTOR IV ×2 (09:00→23:01)
[2017-10-23] MEDS: TOTAL VOLUME IV ×2 (09:00→23:01)
[2017-10-23] MEDS: CLOTRIMAZOLE 1% TOPICAL CREAM 15GM TUBE. TP ×2 (09:07→21:27)
[2017-10-23 10:16] LABS: ADD MAN DIFF? NO
[2017-10-23 10:21] LABS: BASO # 0.1 x10^3/uL (0.0-0.2); BASO % 1 % (0-3); EOS # 0.2 x10^3/uL (0.0-0.7); EOS % 4 % (0-3); HEMOGLOBIN 10.2 g/dL (12.0-15.5); LYMPH # 0.5 x10^3/uL (1.0-4.8); LYMPH % 12 % (24-48); MEAN CORPUSCULAR HEMOGLOBIN 31 pg (25-35); MEAN CORPUSCULAR HGB CONC 33 g/dL (31-37); MEAN CORPUSCULAR VOLUME 95 fL (79-100); MONO # 0.4 x10^3/uL (0.0-1.1); MONO % 10 % (0-9); NEUT # 3.2 x10^3uL (1.8-7.7); NEUT % 72 % (31-73); PLATELET COUNT 111 x10^3/uL (140-400); RED BLOOD COUNT 3.26 x10^6/uL (3.50-5.40); WHITE BLOOD COUNT 4.4 x10^3/uL (4.0-11.0)
[2017-10-23] MEDS: TRANEXAMIC ACID INJ ×2 (10:26→21:24)
[2017-10-23] MEDS: NORMAL SALINE INJ ×2 (10:26→21:24)
[2017-10-23] MEDS: FUROSEMIDE 40 MG/4 ML VIAL. IVP (14:10)
[2017-10-23] MEDS: IV NORMAL SALINE 1000ML BAG 1,000 ML IV (15:30)
[2017-10-23] MEDS: traMADol 50 MG TABLET PO (23:35)
[2017-10-24] MEDS: LEVOTHYROXINE 100 MCG TABLET PO (05:41)
[2017-10-24] MEDS: IPRATRPIUM/ALBUTEROL 0.5/2.5MG 3 ML NEBU. NEB ×2 (07:24→10:46)
[2017-10-24] MEDS: CYANOCOBALAMIN (VITAMIN B-12) 1,000 MCG TABLET. PO (08:00)
[2017-10-24] MEDS: ALLOPURINOL 300 MG TABLET. PO (08:01)
[2017-10-24] MEDS: LACTOBACILLUS RHAMNOSUS GG 1 CAPSULE. PO (08:01)
[2017-10-24] MEDS: POTASSIUM CHLORIDE 20 MEQ TABLET.ER. PO (08:01)
[2017-10-24] MEDS: CETIRIZINE HCL 10 MG TABLET. PO (08:01)
[2017-10-24] MEDS: DOCUSATE SODIUM 100 MG CAPSULE. PO (08:01)
[2017-10-24] MEDS: AMINOCAPROIC ACID 500 MG TABLET. PO (08:02)
[2017-10-24] MEDS: CLOTRIMAZOLE 1% TOPICAL CREAM 15GM TUBE. TP (08:02)
[2017-10-24] MEDS: MAGNESIUM OXIDE 400 MG TABLET PO (08:02)
[2017-10-24] MEDS: PANTOPRAZOLE 40 MG TABLET.DR. PO (08:02)
[2017-10-24] MEDS: FUROSEMIDE 40 MG TABLET. PO (08:02)
[2017-10-24] MEDS: GABAPENTIN 100 MG CAPSULE. PO (08:02)
[2017-10-24] MEDS: CHOLECALCIFEROL (VITAMIN D3) 1,000 UNIT TABLET PO (08:04)
[2017-10-24 08:06] LABS: ADD MAN DIFF? NO
[2017-10-24] MEDS: TOTAL VOLUME IV (08:11)
[2017-10-24] MEDS: VWF IV (08:11)
[2017-10-24] MEDS: ANTIHEMOPHILIC FACTOR IV (08:11)
[2017-10-24 08:12] LABS: BASO # 0.1 x10^3/uL (0.0-0.2); BASO % 1 % (0-3); EOS # 0.2 x10^3/uL (0.0-0.7); EOS % 5 % (0-3); HEMATOCRIT 31.7 % (36.0-47.0); HEMOGLOBIN 10.4 g/dL (12.0-15.5); LYMPH # 0.8 x10^3/uL (1.0-4.8); LYMPH % 18 % (24-48); MEAN CORPUSCULAR HEMOGLOBIN 31 pg (25-35); MEAN CORPUSCULAR HGB CONC 33 g/dL (31-37); MEAN CORPUSCULAR VOLUME 94 fL (79-100); MONO # 0.5 x10^3/uL (0.0-1.1); MONO % 11 % (0-9); NEUT # 2.7 x10^3uL (1.8-7.7); NEUT % 64 % (31-73); PLATELET COUNT 121 x10^3/uL (140-400); RED BLOOD COUNT 3.38 x10^6/uL (3.50-5.40); WHITE BLOOD COUNT 4.3 x10^3/uL (4.0-11.0)
[2017-10-24] MEDS: NORMAL SALINE INJ (08:34)
[2017-10-24] MEDS: TRANEXAMIC ACID INJ (08:34)
[2017-10-24] MEDS: IV NORMAL SALINE 1000ML BAG 1,000 ML IV (09:00)
[2017-10-24] MEDS: LIDO:MAALOX:BENADRYL 1:1:1 180 ML BOTTLE. PO (10:41)
== END 2017-10-24 13:52 | disposition home or self-care (01) | DRG 813 ==
LOC: ER 12:23 → 5 SOUTH 13:19
PROC: 30233N1 Transfusion of Nonautologous Red Blood Cells into Peripheral Vein, Percutaneous Approach (ICD-10-PCS; principal; 2017-10-13)
DX: D68.0 Von Willebrand disease (principal); E44.0 Moderate protein-calorie malnutrition; I95.9 Hypotension, unspecified; D69.59 Other secondary thrombocytopenia; I13.0 Hypertensive heart and chronic kidney disease with heart failure and stage 1 through stage 4 chronic kidney disease, or unspecified chronic kidney disease; K57.31 Diverticulosis of large intestine without perforation or abscess with bleeding; I50.9 Heart failure, unspecified; M32.9 Systemic lupus erythematosus, unspecified; N18.3 Chronic kidney disease, stage 3 (moderate); B37.9 Candidiasis, unspecified; E03.9 Hypothyroidism, unspecified; I73.00 Raynaud's syndrome without gangrene; K14.0 Glossitis; M19.90 Unspecified osteoarthritis, unspecified site; K21.9 Gastro-esophageal reflux disease without esophagitis; K59.00 Constipation, unspecified; M10.9 Gout, unspecified; R79.89 Other specified abnormal findings of blood chemistry; Z66 Do not resuscitate; D50.0 Iron deficiency anemia secondary to blood loss (chronic); Z68.28 Body mass index [BMI] 28.0-28.9, adult; Z88.0 Allergy status to penicillin; Z88.2 Allergy status to sulfonamides; Z88.8 Allergy status to other drugs, medicaments and biological substances; Z88.6 Allergy status to analgesic agent; Z88.1 Allergy status to other antibiotic agents; Z91.041 Radiographic dye allergy status; Z85.038 Personal history of other malignant neoplasm of large intestine; Z90.49 Acquired absence of other specified parts of digestive tract; Z90.710 Acquired absence of both cervix and uterus
CPT/HCPCS: 36415; 36430; 80048; 80053; 81001; 82274; 82607; 82728; 82746; 83540; 83550; 85014; 85018; 85025; 85045; 85610; 85730; 86850; 86900; 86901; 86902; 86922; 93005; 94640; 94660; 94760; 99285; 99285-25; J1940; J7030; J7186; J7620; P9016